=== PATIENT | male | born 1955 | race Caucasian/White ===

== ENCOUNTER 2020-10-16 08:28 | Outpatient (REF) | payer MEDICARE, SELFPAY ==
[2020-10-16 10:04] LABS: MANUAL DIFF FLAG NO
[2020-10-16 10:07] LABS: Basophils Absolute Auto 0.1 X10*3/uL (0.0-0.2); Basophils Percent Auto 1.3 % (0-2); Eosinophils Absolute Auto 0.2 X10*3/uL (0.0-0.4); Eosinophils Percent Auto 2.9 % (0-4); Hematocrit 46.3 % (42-52); Imm Gran Abs Auto 0.03 X10*3/uL (0.00-0.03); Imm Gran Pct Auto 0.5 % (0.0-0.4); Lymphocytes Absolute Auto 1.6 X10*3/uL (1.2-4.9); Lymphocytes Percent Auto 25.7 % (20-40); Mean Corpuscular HGB Conc 34.6 g/dl (31.0-36.0); Mean Corpuscular Hemoglobin 34.4 pg (27.0-33.0); Mean Corpuscular Volume 99.6 fL (80-98); Monocytes Absolute Auto 0.6 X10*3/uL (0.1-1.2); Monocytes Percent Auto 10.3 % (2-11); Neutrophils Absolute Auto 3.7 X10*3/uL (2.0-8.3); Neutrophils Percent Auto 59.3 % (45-73); Platelet Count 209 X10*3/uL (160-400); Red Blood Count 4.65 X10*6/uL (4.60-5.80); Red Cell Distribution Width 12.4 % (11.0-16.0); White Blood Count 6.2 X10*3/uL (4.8-10.8)
[2020-10-16 10:44] LABS: Glucose Urine UA NEG (NEG); Leukocyte Esterase Urine NEG (NEG); Nitrite Urine NEG (NEG); Specific Gravity - Urine 1.025 (1.005-1.025); Urine Blood NEG (NEG); Urine Ketones NEG (NEG); Urine Protein 1+ MG/DL (NEG-TRACE)
[2020-10-16 10:57] LABS: Appearance Urine HAZY; Color Urine YELLOW
[2020-10-16 11:04] LABS: Estimated Average Glucose 105 mg/dL; Hemoglobin A1c % 5.3 %
[2020-10-16 11:14] LABS: Alanine Aminotransferase 38 U/L (0-40); Albumin Level 3.9 g/dL (3.5-5.0); Alkaline Phosphatase 69 U/L (39-117); Anion Gap 15 (12-20); Aspartate Amino Transferase 49 U/L (5-37); Bilirubin Total 1.1 mg/dL (0.0-1.0); Blood Urea Nitrogen 12 mg/dL (9-16); Calcium 9.1 mg/dL (8.4-10.2); Carbon Dioxide 29 mmol/L (22-29); Chloride 100 mmol/L (96-108); Cholesterol 192 mg/dL; Estimated Glomerular Filt Rate > 60; Glucose Fasting 98 mg/dL (60-99); HDL Cholesterol 54 mg/dL; LDL Cholesterol Calculated 124 mg/dl; Potassium 3.7 mmol/l (3.3-5.1); Sodium 140 mmol/L (135-145); Total Protein 7.2 g/dL (6.5-8.0); Triglycerides 72 mg/dL
[2020-10-16 11:20] LABS: TSH reflex Free T4 2.39 mIU/mL (0.32-4.0); Vitamin D 25-OH Total 27.2 ng/mL (>30)
[2020-10-16 11:28] LABS: Creatinine Urine 178.95 mg/dL; Microalbum/Creatinine Ratio Ur 139.7 ug/mg cr
[2020-10-16 11:29] LABS: Bacteria Urine TRACE /LPF; Mucus Urine TRACE /LPF; RBC Urine 0 /HPF (0); Squamous Epithelial Cell Urine TRACE /LPF; WBC Urine 0-2 /HPF (0-4)
== END 2020-10-16 08:29 | disposition home or self-care (01) ==
LOC: HO.10HDL 08:28
PROVIDERS: PCP Internal Medicine; Visit Provider Internal Medicine
DX: E78.00 Pure hypercholesterolemia, unspecified (principal); I10 Essential (primary) hypertension; R73.01 Impaired fasting glucose; R94.5 Abnormal results of liver function studies; E66.9 Obesity, unspecified; E55.9 Vitamin D deficiency, unspecified; N28.9 Disorder of kidney and ureter, unspecified
CPT/HCPCS: 36415; 80053; 80061; 81001; 82043; 82306; 83036; 84443; 85025

== ENCOUNTER 2021-02-08 07:50 | Outpatient (REF) | payer MEDICARE, SELFPAY ==
[2021-02-08 10:17] LABS: MANUAL DIFF FLAG NO
[2021-02-08 10:38] LABS: Basophils Absolute Auto 0.1 X10*3/uL (0.0-0.2); Eosinophils Absolute Auto 0.1 X10*3/uL (0.0-0.4); Eosinophils Percent Auto 1.5 % (0-4); Hematocrit 42.7 % (42-52); Hemoglobin 14.6 g/dl (14.0-18.0); Imm Gran Abs Auto 0.03 X10*3/uL (0.00-0.03); Imm Gran Pct Auto 0.6 % (0.0-0.4); Lymphocytes Absolute Auto 1.2 X10*3/uL (1.2-4.9); Lymphocytes Percent Auto 23.8 % (20-40); Mean Corpuscular HGB Conc 34.2 g/dl (31.0-36.0); Mean Corpuscular Hemoglobin 33.8 pg (27.0-33.0); Mean Corpuscular Volume 98.8 fL (80-98); Mean Platelet Volume 9.4 fL (9.4-12.4); Monocytes Absolute Auto 0.7 X10*3/uL (0.1-1.2); Monocytes Percent Auto 13.1 % (2-11); Neutrophils Absolute Auto 3.1 X10*3/uL (2.0-8.3); Platelet Count 212 X10*3/uL (160-400); Red Blood Count 4.32 X10*6/uL (4.60-5.80); White Blood Count 5.2 X10*3/uL (4.8-10.8)
[2021-02-08 10:48] LABS: Glucose Urine UA NEG (NEG); Leukocyte Esterase Urine NEG (NEG); Nitrite Urine NEG (NEG); PH 8.5 (5.0-8.0); Urine Blood NEG (NEG); Urine Ketones NEG (NEG)
[2021-02-08 10:49] LABS: Alanine Aminotransferase 46 U/L (0-40); Albumin Level 4.2 g/dL (3.5-5.0); Alkaline Phosphatase 63 U/L (39-117); Anion Gap 15 (12-20); Aspartate Amino Transferase 55 U/L (5-37); Bilirubin Total 1.6 mg/dL (0.0-1.0); Blood Urea Nitrogen 9 mg/dL (9-16); Calcium 9.4 mg/dL (8.4-10.2); Carbon Dioxide 29 mmol/L (22-29); Chloride 98 mmol/L (96-108); Cholesterol 213 mg/dL; Estimated Glomerular Filt Rate > 60; Glucose Fasting 107 mg/dL (60-99); HDL Cholesterol 82 mg/dL; LDL Cholesterol Calculated 110 mg/dl; Potassium 3.4 mmol/L (3.3-5.1); Sodium 139 mmol/L (135-145); Total Protein 7.7 g/dL (6.5-8.0); Triglycerides 109 mg/dL
[2021-02-08 11:09] LABS: Appearance Urine CLEAR; Color Urine YELLOW; Urine Protein 2+ MG/DL (NEG-TRACE)
[2021-02-08 11:11] LABS: TSH reflex Free T4 3.98 uIU/mL (0.32-4.0)
[2021-02-08 11:41] LABS: Estimated Average Glucose 103 mg/dL; Hemoglobin A1C 125.1338 umol/L; Hemoglobin A1c % 5.2 %
[2021-02-08 11:45] LABS: RBC Urine 0 /HPF (0); Squamous Epithelial Cell Urine 1+ /LPF; WBC Urine 0 /HPF (0-4)
== END 2021-02-08 07:51 | disposition home or self-care (01) ==
LOC: HO.10HDL 07:50
PROVIDERS: Visit Provider Internal Medicine
DX: I10 Essential (primary) hypertension (principal); E78.00 Pure hypercholesterolemia, unspecified; E66.9 Obesity, unspecified
CPT/HCPCS: 36415; 80053; 80061; 81001; 81003; 83036; 84443; 85025

== ENCOUNTER 2021-06-04 08:02 | Outpatient (REF) | payer MEDICARE, SELFPAY ==
[2021-06-04 08:45] LABS: MANUAL DIFF FLAG NO
[2021-06-04 08:54] LABS: Basophils Absolute Auto 0.1 X10*3/uL (0.0-0.2); Basophils Percent Auto 0.8 % (0-2); Eosinophils Absolute Auto 0.1 X10*3/uL (0.0-0.4); Eosinophils Percent Auto 1.1 % (0-4); Hematocrit 45.1 % (42-52); Hemoglobin 16.5 g/dl (14.0-18.0); Imm Gran Abs Auto 0.02 X10*3/uL (0.00-0.03); Imm Gran Pct Auto 0.3 % (0.0-0.4); Lymphocytes Absolute Auto 1.4 X10*3/uL (1.2-4.9); Lymphocytes Percent Auto 22.1 % (20-40); Mean Corpuscular HGB Conc 36.6 g/dl (31.0-36.0); Mean Corpuscular Hemoglobin 35.2 pg (27.0-33.0); Mean Corpuscular Volume 96.2 fL (80-98); Mean Platelet Volume 9.3 fL (9.4-12.4); Monocytes Absolute Auto 0.8 X10*3/uL (0.1-1.2); Monocytes Percent Auto 11.5 % (2-11); Neutrophils Absolute Auto 4.2 X10*3/uL (2.0-8.3); Neutrophils Percent Auto 64.2 % (45-73); Platelet Count 264 X10*3/uL (160-400); Red Blood Count 4.69 X10*6/uL (4.60-5.80); Red Cell Distribution Width 12.2 % (11.0-16.0); White Blood Count 6.5 X10*3/uL (4.8-10.8)
[2021-06-04 09:16] LABS: Alanine Aminotransferase 54 U/L (0-40); Albumin Level 4.2 g/dL (3.5-5.0); Alkaline Phosphatase 70 U/L (39-117); Anion Gap 17 (12-20); Aspartate Amino Transferase 55 U/L (5-37); Bilirubin Total 1.3 mg/dL (0.0-1.0); Blood Urea Nitrogen 17 mg/dL (9-16); Calcium 9.3 mg/dL (8.4-10.2); Carbon Dioxide 22 mmol/L (22-29); Chloride 106 mmol/L (96-108); Cholesterol 202 mg/dL; Estimated Glomerular Filt Rate 47; Glucose Fasting 93 mg/dL (60-99); HDL Cholesterol 56 mg/dL; LDL Cholesterol Calculated 124 mg/dl; Sodium 141 mmol/L (135-145); Total Protein 7.6 g/dL (6.5-8.0); Triglycerides 110 mg/dL
[2021-06-04 09:18] LABS: Glucose Urine UA NEG (NEG); Leukocyte Esterase Urine NEG (NEG); Nitrite Urine NEG (NEG); PH 5.5 (5.0-8.0); Urine Blood NEG (NEG); Urine Ketones NEG (NEG); Urine Protein NEG (NEG-TRACE)
[2021-06-04 09:20] LABS: Appearance Urine CLEAR; Color Urine YELLOW
[2021-06-04 09:40] LABS: TSH reflex Free T4 1.86 uIU/mL (0.32-4.0); Vitamin D 25-OH Total 26.9 ng/mL (>30)
== END 2021-06-04 08:03 | disposition home or self-care (01) ==
LOC: HO.LAB 08:02
PROVIDERS: PCP Internal Medicine; Visit Provider Internal Medicine
DX: I10 Essential (primary) hypertension (principal); N28.9 Disorder of kidney and ureter, unspecified; E66.9 Obesity, unspecified; E78.00 Pure hypercholesterolemia, unspecified; E55.9 Vitamin D deficiency, unspecified; R73.01 Impaired fasting glucose; R79.89 Other specified abnormal findings of blood chemistry
CPT/HCPCS: 36415; 80053; 80061; 81003; 82306; 84443; 85025

== ENCOUNTER 2021-10-06 08:23 | Outpatient (REF) | payer MEDICARE, SELFPAY ==
[2021-10-06 10:11] LABS: MANUAL DIFF FLAG NO
[2021-10-06 10:17] LABS: Basophils Percent Auto 0.7 % (0-2); Eosinophils Absolute Auto 0.1 X10*3/uL (0.0-0.4); Eosinophils Percent Auto 1.1 % (0-4); Hematocrit 46.3 % (42.0-52.0); Hemoglobin 15.9 g/dl (14.0-18.0); Imm Gran Abs Auto 0.02 X10*3/uL (0.00-0.03); Imm Gran Pct Auto 0.4 % (0.0-0.4); Lymphocytes Absolute Auto 1.2 X10*3/uL (1.2-4.9); Lymphocytes Percent Auto 21.8 % (20-40); Mean Corpuscular HGB Conc 34.3 g/dl (31.0-36.0); Mean Corpuscular Hemoglobin 35.3 pg (27.0-33.0); Mean Corpuscular Volume 102.7 fL (80.0-98.0); Mean Platelet Volume 9.6 fL (9.4-12.4); Monocytes Absolute Auto 0.6 X10*3/uL (0.1-1.2); Neutrophils Absolute Auto 3.6 x10*3/uL (2.0-8.3); Platelet Count 213 X10*3/uL (160-400); Red Blood Count 4.51 X10*6/uL (4.60-5.80); Red Cell Distribution Width 12.5 % (11.0-16.0); White Blood Count 5.5 X10*3/uL (4.8-10.8)
[2021-10-06 10:21] LABS: Appearance Urine CLEAR; Color Urine YELLOW; Glucose Urine UA NEG (NEG); Leukocyte Esterase Urine NEG (NEG); Specific Gravity - Urine >= 1.030 (1.005-1.025); UACC Culture Trigger YES; Urine Blood NEG (NEG); Urine Ketones NEG (NEG); Urine Protein 3+ MG/DL (NEG-TRACE)
[2021-10-06 10:54] LABS: RBC Urine 0 /HPF (0); Squamous Epithelial Cell Urine TRACE /LPF; WBC Urine 0-2 /HPF (0-4)
[2021-10-06 10:58] LABS: Mucus Urine 2+ /LPF
[2021-10-06 10:59] LABS: Alanine Aminotransferase 63 U/L (0-40); Alkaline Phosphatase 78 U/L (39-117); Anion Gap 15 (12-20); Aspartate Amino Transferase 79 U/L (5-37); Bilirubin Total 1.1 mg/dL (0.0-1.0); Blood Urea Nitrogen 11 mg/dL (9-16); Calcium 9.4 mg/dL (8.4-10.2); Carbon Dioxide 27 mmol/L (22-29); Chloride 104 mmol/L (96-108); Cholesterol 181 mg/dL; Estimated Glomerular Filt Rate > 60; Glucose Fasting 114 mg/dL (60-99); HDL Cholesterol 58 mg/dL; LDL Cholesterol Calculated 107 mg/dl; Potassium 3.8 mmol/L (3.3-5.1); Sodium 142 mmol/L (135-145); Total Protein 7.3 g/dL (6.5-8.0); Triglycerides 81 mg/dL
[2021-10-06 11:01] LABS: Nitrite Urine POS (NEG)
[2021-10-06 11:04] LABS: TSH reflex Free T4 4.19 uIU/mL (0.32-4.0)
[2021-10-06 11:37] LABS: Free T4 (Free Thyroxine) 0.92 ng/dL (0.71-1.85)
== END 2021-10-06 08:24 | disposition home or self-care (01) ==
LOC: HO.10HDL 08:23
PROVIDERS: Visit Provider Internal Medicine
DX: I10 Essential (primary) hypertension (principal); E78.00 Pure hypercholesterolemia, unspecified; E55.9 Vitamin D deficiency, unspecified
CPT/HCPCS: 36415; 80053; 80061; 81001; 82306; 84439; 84443; 85025

== ENCOUNTER 2022-02-14 08:50 | Outpatient (REF) | payer MEDICARE, SELFPAY ==
[2022-02-14 10:39] LABS: MANUAL DIFF FLAG NO
[2022-02-14 10:45] LABS: Basophils Absolute Auto 0.1 X10*3/uL (0.0-0.2); Basophils Percent Auto 0.9 % (0-2); Eosinophils Absolute Auto 0.1 X10*3/uL (0.0-0.4); Eosinophils Percent Auto 0.9 % (0-4); Hematocrit 37.6 % (42.0-52.0); Hemoglobin 13.1 g/dl (14.0-18.0); Imm Gran Abs Auto 0.04 X10*3/uL (0.00-0.03); Imm Gran Pct Auto 0.7 % (0.0-0.4); Lymphocytes Absolute Auto 0.8 X10*3/uL (1.2-4.9); Lymphocytes Percent Auto 14.3 % (20-40); Mean Corpuscular HGB Conc 34.8 g/dl (31.0-36.0); Mean Corpuscular Hemoglobin 34.2 pg (27.0-33.0); Mean Corpuscular Volume 98.2 fL (80.0-98.0); Mean Platelet Volume 9.8 fL (9.4-12.4); Monocytes Absolute Auto 0.8 X10*3/uL (0.1-1.2); Monocytes Percent Auto 13.9 % (2-11); Neutrophils Absolute Auto 3.7 x10*3/uL (2.0-8.3); Neutrophils Percent Auto 69.3 % (45-73); Platelet Count 211 X10*3/uL (160-400); Red Blood Count 3.83 X10*6/uL (4.60-5.80); Red Cell Distribution Width 11.9 % (11.0-16.0); White Blood Count 5.4 X10*3/uL (4.8-10.8)
[2022-02-14 10:55] LABS: Alanine Aminotransferase 43 U/L (0-40); Albumin Level 3.9 g/dL (3.5-5.0); Alkaline Phosphatase 65 U/L (39-117); Anion Gap 16 (12-20); Aspartate Amino Transferase 48 U/L (5-37); Bilirubin Total 1.9 mg/dL (0.0-1.0); Blood Urea Nitrogen 15 mg/dL (9-16); Carbon Dioxide 24 mmol/L (22-29); Chloride 97 mmol/L (96-108); Cholesterol 141 mg/dL; Estimated Glomerular Filt Rate 59; Glucose Fasting 98 mg/dL (60-99); HDL Cholesterol 48 mg/dL; LDL Cholesterol Calculated 77 mg/dl; Potassium 4.1 mmol/L (3.3-5.1); Sodium 133 mmol/L (135-145); Triglycerides 83 mg/dL
[2022-02-14 11:06] LABS: Estimated Average Glucose 105 mg/dL; Hemoglobin A1c % 5.3 %
[2022-02-14 11:08] LABS: Appearance Urine CLEAR; Color Urine YELLOW; Glucose Urine UA NEG (NEG); Leukocyte Esterase Urine NEG (NEG); Nitrite Urine NEG (NEG); Urine Blood NEG (NEG); Urine Ketones NEG (NEG); Urine Protein TRACE MG/DL (NEG-TRACE)
[2022-02-14 11:18] LABS: TSH reflex Free T4 4.45 uIU/mL (0.32-4.0); Vitamin D 25-OH Total 22.1 ng/mL (>30)
[2022-02-14 11:53] LABS: Free T4 (Free Thyroxine) 1.01 ng/dL (0.71-1.85)
[2022-02-14 12:09] LABS: Creatinine Urine 99.82 mg/dL; Microalbum/Creatinine Ratio Ur 109.1 ug/mg cr
== END 2022-02-14 08:51 | disposition home or self-care (01) ==
LOC: HO.10HDL 08:50
PROVIDERS: Visit Provider Internal Medicine
DX: I10 Essential (primary) hypertension (principal); E11.9 Type 2 diabetes mellitus without complications; E55.9 Vitamin D deficiency, unspecified; E78.00 Pure hypercholesterolemia, unspecified
CPT/HCPCS: 36415; 80053; 80061; 81003; 82043; 82306; 83036; 84439; 84443; 85025

== ENCOUNTER 2022-05-20 07:06 | Outpatient (REF) | payer MEDICARE, SELFPAY ==
--- NOTE | ~2022-05-20 | US_ITS ---
EXAMINATION: US ABDOMEN COMPLETE CLINICAL INFORMATION: Disorders of bilirubin acute embolism.. COMPARISON: None TECHNIQUE: Real-time imaging of the abdominal viscera. FINDINGS: PANCREAS: Normal. ABDOMINAL AORTA: The proximal, mid, and distal segments are normal in caliber. INFERIOR VENA CAVA: Visualized portions are normal. LIVER: Normal. The liver is normal in size. The liver contour is normal. Parenchymal echogenicity is increased. No focal hepatic lesion. There is no intrahepatic biliary duct dilatation seen. GALLBLADDER: The gallbladder wall thickness is 0.55 cm The gallbladder is physiologically distended without evidence of stones, sludge, polyps, wall thickening or pericholecystic fluid. COMMON BILE DUCT: Normal in caliber measuring 0.41 cm in diameter. RIGHT KIDNEY: No hydronephrosis. No renal calculi or focal parenchymal lesions. The kidney measures 12.4 cm in maximum dimension. There is anechoic cyst measuring 0.70 x 0.47 x 0.55 cm in midpole. LEFT KIDNEY: Normal. No hydronephrosis. No renal calculi or focal parenchymal lesions. The kidney measures 11.5 cm in maximum dimension. SPLEEN: Normal. The spleen measures 10.5 cm in maximum dimension. FREE FLUID: New finding of a large right pleural effusion US/US abdomen complete IMPRESSION: Gallbladder wall thickness measuring 0.55 cm. Anechoic cyst midpole right kidney measuring 0.70 x 0.47 x 0.55 cm. Rest of the abdominal ultrasound is unremarkable. The large right pleural effusion. Request was made to the referrer's office for a chest x-ray to be obtained. Patient has short of breath.
--- NOTE | ~2022-05-20 | XR_ITS ---
EXAMINATION: XR CHEST CLINICAL INFORMATION: Cough and short of breath COMPARISON: None TECHNIQUE: 2 views of the chest were obtained. FINDINGS: There is opacification of right lung base from pleural effusion and/or atelectasis. Infiltrate is not excluded. The right upper lung and the left lung is expanded. The pulmonary vascularity is prominent but no congestion seen. The heart size is enlarged. No gross bony abnormality seen. XR/XR chest 4 views IMPRESSION: Cardiomegaly. [id number] right pleural effusion with underlying infiltrate/atelectasis.
== END 2022-05-20 07:07 | disposition home or self-care (01) ==
LOC: HO.US 07:06
PROVIDERS: Visit Provider Internal Medicine
DX: J90 Pleural effusion, not elsewhere classified (principal); R79.89 Other specified abnormal findings of blood chemistry; E80.6 Other disorders of bilirubin metabolism
CPT/HCPCS: 71048; 76700

== ENCOUNTER 2022-05-20 08:45 | Emergency (ER) | payer MEDICARE, SELFPAY ==
[2022-05-20 09:06] VITALS: BP 157/75; PULSE 50; RESP 16; TEMP 36.4; O2SAT 97; BMI 30.8
--- NOTE | 2022-05-20 09:09 | ECG_ITS ---
Test Reason : sob Blood Pressure : / mmHG Vent. Rate : 048 BPM Atrial Rate : 000 BPM P-R Int : 000 ms QRS Dur : 098 ms QT Int : 514 ms P-R-T Axes : 000 037 208 degrees QTc Int : 459 ms Atrial fibrillation with slow ventricular response Low voltage QRS Incomplete right bundle branch block Nonspecific T wave abnormality Abnormal ECG No previous ECGs available Referred By: Generic ED Physician Electronically Signed By:FRANSISCO DENISE MD
[2022-05-20 09:38] LABS: MANUAL DIFF FLAG NO
[2022-05-20 09:42] LABS: Basophils Absolute Auto 0.1 X10*3/uL (0.0-0.2); Basophils Percent Auto 0.8 % (0-2); Eosinophils Absolute Auto 0.2 X10*3/uL (0.0-0.4); Eosinophils Percent Auto 2.4 % (0-4); Hematocrit 34.5 % (42.0-52.0); Hemoglobin 11.5 g/dl (14.0-18.0); Imm Gran Abs Auto 0.04 X10*3/uL (0.00-0.03); Imm Gran Pct Auto 0.6 % (0.0-0.4); Lymphocytes Absolute Auto 0.7 X10*3/uL (1.2-4.9); Lymphocytes Percent Auto 11.8 % (20-40); Mean Corpuscular HGB Conc 33.3 g/dl (31.0-36.0); Mean Corpuscular Hemoglobin 32.6 pg (27.0-33.0); Mean Corpuscular Volume 97.7 fL (80.0-98.0); Mean Platelet Volume 9.2 fL (9.4-12.4); Monocytes Absolute Auto 1.1 X10*3/uL (0.1-1.2); Neutrophils Absolute Auto 4.2 x10*3/uL (2.0-8.3); Neutrophils Percent Auto 67.4 % (45-73); Platelet Count 238 X10*3/uL (160-400); Red Blood Count 3.53 X10*6/uL (4.60-5.80); Red Cell Distribution Width 13.5 % (11.0-16.0); White Blood Count 6.3 X10*3/uL (4.8-10.8)
[2022-05-20 10:02] LABS: Anion Gap 17 (12-20); Blood Urea Nitrogen 13 mg/dL (9-16); Calcium 8.5 mg/dL (8.4-10.2); Carbon Dioxide 20 mmol/L (22-29); Chloride 106 mmol/L (96-108); Creatinine Clr Calc Pharmacy 61.8; Estimated Glomerular Filt Rate 54; Glucose Random 110 mg/dL (60-115); Potassium 3.9 mmol/L (3.3-5.1); Sodium 139 mmol/L (135-145)
[2022-05-20 10:06] LABS: B Type Natriuretic Peptide 878 pg/mL (<100); COVID-19 Test Negative (Negative); IDNOW Serial# 16C4AD1C; Troponin-I High Sensitivity 8.8 ng/L (<3.5-35.0)
== END 2022-05-20 13:42 | disposition left against medical advice (07) ==
PROVIDERS: Emergency Medicine; Emergency Provider Emergency Medicine; PCP Internal Medicine
DX: I11.9 Hypertensive heart disease without heart failure (principal); J90 Pleural effusion, not elsewhere classified; R06.02 Shortness of breath; E78.00 Pure hypercholesterolemia, unspecified; E66.9 Obesity, unspecified; Z68.30 Body mass index [BMI] 30.0-30.9, adult; Z87.891 Personal history of nicotine dependence; Z20.822 Contact with and (suspected) exposure to COVID-19
CPT/HCPCS: 36415; 80048; 83880; 84484; 85025; 87635; 93005; 99283; 99284

== ENCOUNTER 2022-06-07 10:24 | Inpatient (IN) | payer MEDICARE, SELFPAY ==
--- NOTE | ~2022-06-07 | US_ITS ---
EXAMINATION: US SCROTUM CLINICAL INFORMATION: Swelling.. COMPARISON: None TECHNIQUE: A sonogram of the scrotum was performed assessing carballo-scale appearance and color Doppler flow. Spectral Doppler analysis of the arterial and venous flow were performed in the testes bilaterally. FINDINGS: RIGHT: Right testicle measures 3.7 x 2.6 x 2.4 cm, volume 12.1 mL. No focal testicular parenchymal lesions are visualized except for punctate echogenic microcalcifications.. Spectral Doppler analysis of the arterial and venous flow is normal in the right testis. Right epididymal head is normal in size. There is a small right hydrocele. No varicocele is seen. Right epididymal Doppler flow is normal. LEFT: Left testicle measures 3.8 x 2.4 x 2.3 cm, volume 11.0 mL. No focal testicular parenchymal lesions are visualized except for punctate echogenic calcifications. Spectral Doppler analysis of the arterial and venous flow is normal in the left testis. Left epididymal head is normal in size. There is a small left hydrocele. No varicocele is seen. Left epididymal Doppler flow is normal There is mild bilateral scrotal wall thickening and edema US/US scrotum doppler IMPRESSION: Bilateral scrotal wall thickening and edema. Small bilateral hydroceles. Bilateral testicular microlithiasis.
--- NOTE | ~2022-06-07 | XR_ITS ---
EXAMINATION: XR CHEST CLINICAL INFORMATION: elevated BNP COMPARISON: 05/20/2022 TECHNIQUE: Frontal view of the chest was obtained. FINDINGS: Heart size within normal limits. A moderate subpulmonic right pleural effusion present in size slightly. No left effusion is seen. There is mild upper zone redistribution suggesting mildly elevated left ventricular end-diastolic pressure. There is no gross CHF or interstitial edema. Degenerative changes are noted in the spine and both AC joints. XR/XR chest 1V IMPRESSION: Right subpulmonic effusion increased in size slightly with mild upper zone redistribution indicative of mild pulmonary vascular congestion.
--- NOTE | ~2022-06-07 | US_ITS ---
EXAMINATION: US SCROTUM CLINICAL INFORMATION: Swelling.. COMPARISON: None TECHNIQUE: A sonogram of the scrotum was performed assessing carballo-scale appearance and color Doppler flow. Spectral Doppler analysis of the arterial and venous flow were performed in the testes bilaterally. FINDINGS: RIGHT: Right testicle measures 3.7 x 2.6 x 2.4 cm, volume 12.1 mL. No focal testicular parenchymal lesions are visualized except for punctate echogenic microcalcifications.. Spectral Doppler analysis of the arterial and venous flow is normal in the right testis. Right epididymal head is normal in size. There is a small right hydrocele. No varicocele is seen. Right epididymal Doppler flow is normal. LEFT: Left testicle measures 3.8 x 2.4 x 2.3 cm, volume 11.0 mL. No focal testicular parenchymal lesions are visualized except for punctate echogenic calcifications. Spectral Doppler analysis of the arterial and venous flow is normal in the left testis. Left epididymal head is normal in size. There is a small left hydrocele. No varicocele is seen. Left epididymal Doppler flow is normal There is mild bilateral scrotal wall thickening and edema US/US scrotum IMPRESSION: Bilateral scrotal wall thickening and edema. Small bilateral hydroceles. Bilateral testicular microlithiasis.
[2022-06-07 10:35] VITALS: BP 151/48; PULSE 102; RESP 18; TEMP 36.1; O2SAT 96; BMI 28.7
--- NOTE | 2022-06-07 10:43 | ECG_ITS ---
Test Reason : edema Blood Pressure : / mmHG Vent. Rate : 048 BPM Atrial Rate : 000 BPM P-R Int : 000 ms QRS Dur : 100 ms QT Int : 496 ms P-R-T Axes : 000 028 225 degrees QTc Int : 443 ms Atrial fibrillation with slow ventricular response with a competing junctional pacemaker Incomplete right bundle branch block ST & T wave abnormality, consider anterior ischemia Abnormal ECG When compared with ECG of 20-MAY-2022 09:19, No significant change was found Referred By: Pino Cho Electronically Signed By:FRANSISCO DENISE MD
[2022-06-07 11:00] LABS: MANUAL DIFF FLAG NO
[2022-06-07 11:02] LABS: Basophils Absolute Auto 0.1 X10*3/uL (0.0-0.2); Basophils Percent Auto 0.9 % (0-2); Eosinophils Absolute Auto 0.2 X10*3/uL (0.0-0.4); Eosinophils Percent Auto 3.3 % (0-4); Hematocrit 33.6 % (42.0-52.0); Imm Gran Abs Auto 0.03 X10*3/uL (0.00-0.03); Imm Gran Pct Auto 0.6 % (0.0-0.4); Lymphocytes Absolute Auto 0.8 X10*3/uL (1.2-4.9); Lymphocytes Percent Auto 15.4 % (20-40); Mean Corpuscular HGB Conc 32.7 g/dl (31.0-36.0); Mean Corpuscular Hemoglobin 31.8 pg (27.0-33.0); Mean Corpuscular Volume 97.1 fL (80.0-98.0); Monocytes Absolute Auto 0.8 X10*3/uL (0.1-1.2); Neutrophils Absolute Auto 3.5 x10*3/uL (2.0-8.3); Neutrophils Percent Auto 64.8 % (45-73); Platelet Count 252 X10*3/uL (160-400); Red Blood Count 3.46 X10*6/uL (4.60-5.80); Red Cell Distribution Width 13.5 % (11.0-16.0); White Blood Count 5.4 X10*3/uL (4.8-10.8)
[2022-06-07 11:13] LABS: Anion Gap 17 (12-20); Blood Urea Nitrogen 9 mg/dL (9-16); Calcium 8.3 mg/dL (8.4-10.2); Carbon Dioxide 21 mmol/L (22-29); Chloride 106 mmol/L (96-108); Creatinine Clr Calc Pharmacy 83.1; Estimated Glomerular Filt Rate > 60; Glucose Random 112 mg/dL (60-115); Potassium 3.3 mmol/L (3.3-5.1); Sodium 141 mmol/L (135-145)
[2022-06-07 11:19] LABS: B Type Natriuretic Peptide 1097 pg/mL (<100); Troponin-I High Sensitivity 8.5 ng/L (<3.5-35.0)
--- NOTE | 2022-06-07 11:45 | ED_ITS ---
HPI - Male Genitourinary General Chief complaint: Urogenital-Male Stated complaint: Genital swelling Time Seen by Provider: 06/07/22 11:38 Source: patient Mode of arrival: ambulatory Limitations: no limitations History of Present Illness HPI Narrative: Patient comes to the emergency room complaining of 3 days of scrotal edema. Patient denies any trauma, no pain. Complaining of mild difficulty urinating. Patient states that the scrotal swelling happen overnight, gradually getting worse. While patient was in the waiting room, labs and EKG were ordered. Patient has new onset atrial fibrillation and CHF. She denies any chest pain or shortness of breath. Related Data Home Medications Medication Instructions Recorded Confirmed ergocalciferol (vitamin D2) 1,250 1,250 mcg PO QWEEK 10/20/20 02/16/22 mcg (50,000 unit) capsule (Vitamin D2) hydrochlorothiazide 50 mg tablet 25 mg PO QAM 10/20/20 02/16/22 Previous Rx's Medication Instructions Recorded amlodipine 10 mg tablet 10 mg PO DAILY 90 days #90 tabs 06/09/21 losartan 100 mg tablet 100 mg PO DAILY 90 days #90 tabs 06/09/21 metoprolol succinate 100 mg 100 mg PO DAILY 90 days #90 tabs 06/09/21 tablet,extended release 24 hr Allergies Allergy/AdvReac Type Severity Reaction Status Date / Time penicillin V Allergy Unknown Unknown Verified 06/07/22 10:35 Review of Systems Review of Systems: Constitutional : No Weight loss, No Fever, No Chills, No Night Sweats, No Fatigue, No Malaise ENT/Mouth : No Hearing loss, No Ear Pain, No Nasal Congestion, No Sinus Pain, No Hoarseness, No sore throat, No Rhinorrhea, No Swallowing Difficulty Eyes: No Eye Pain, No Swelling, No Redness, No Foreign Body, No Discharge, No Vision Changes Cardiovascular : No Chest Pain, No SOB, No Dyspnea on Exertion, No Orthopnea, No Edema, No Palpitations Respiratory : No Cough, No Sputum, No Wheezing, No Smoke Exposure, No Dyspnea Gastrointestinal : No Nausea, No Vomiting, No Diarrhea, No Constipation, No abdominal Pain, No Hematochezia, No Melena Genitourinary : Complaining of significant scrotal swelling without pain, No Dysuria, No Urinary Frequency, No Hematuria, No Urinary Incontinence, No Urgency, No Flank Pain, No Urinary Flow Changes, No Hesitancy Musculoskeletal : No joint pain, No Myalgias, No Joint Swelling Skin : No Skin Lesions, No rash Neuro : No Weakness, No Numbness, No Paresthesias, No Loss of Consciousness, No Dizziness, No Headache Psych : No Anxiety/Panic, No Depression, No SI/HI/AH/VH, No Social Issues, Heme/Lymph: No Bruising, No Bleeding,No Lymphadenopathy Endocrine : No Polyuria, No Polydipsia, No Temperature Intolerance [facility] Past Medical History Medical History (Updated 06/07/22 @ 11:56 by Lisette Valencia MD) Benign essential hypertension Elevated LFTs Impaired fasting glucose New onset a-fib New onset of congestive heart failure Obesity (BMI 30-39.9) Pure hypercholesterolemia Renal insufficiency Vitamin D deficiency Surgical History No pertinent past surgical history Family History Family History Father Hypertension Mother Medical history unknown Social History Social History Housing: Apartment Alcohol intake: current Alcohol intake frequency: holidays/special occasions only Patient Tobacco Use Status: Former Tobacco user Second Hand Smoke Exposure: Yes Advance Directives: No Advance Directives Information Provided: Yes service: No Current occupational status: retired Cognitive needs: No Hearing needs: No Vision needs: Yes Physical Exam Vital Signs: Vital Signs: Last Vital Signs Temp 97.0 F 06/07/22 10:35 Pulse 49 L 06/07/22 12:29 Resp 20 06/07/22 12:29 BP 142/69 H 06/07/22 12:29 Pulse Ox 94 06/07/22 12:29 O2 Del Method 06/07/22 12:29 BMI result Body Mass Index 28.7 Const: Other: Appearance: Alert. Oriented X3. No acute distress. Eyes: Pupils equal, round and reactive to light. ENT: Pharynx normal. Large external nodules outside the nose Neck: Normal inspection. Neck supple. No lymph nodes noted. No crepitus CVS: Normal heart rate and rhythm. Pulses normal. Normal S1 and S2 Respiratory: No respiratory distress. Breath sounds normal. No Wheezing. No rales Abdomen: Soft and nontender. No rigidity. No distention. : Very swollen penis and scrotum, edematous, mildly tender to touch, the scrotum is the size of large grapefruit Skin: Skin warm and dry. Normal skin color. Normal skin turgor. Extremities: No lower extremity edema. No Lacerations. No Rash Neuro: Oriented X 3. No motor deficit. No sensory deficit. Moving all extremities. No slurred speech. CN 2 through 12 grossly intact Psych: calm, cooperative, normal affect Course Course Course Narrative: Patient's hematology and chemistry are basically unremarkable. However, patient's BNP is 1097. Patient states that he was here approximately 2 weeks ago but did not wait to be seen. Back then, his BNP was already 878. Patient does not have history of CHF. Also, on EKG patient is in atrial fibrillation, heart rate in the low 50s. Atrial fibrillation is also new for the patient. Scrotal ultrasound, chest x-ray and urinalysis pending. Patient's CHADS2 Vasc 2 score is 3. I discussed with the patient the risks versus benefits of starting anticoagulation. Patient states that the only medication that he will accept is Coumadin, he refuses Eliquis or Xarelto. MDM - Male Genitourinary Lab Data Result diagrams: 06/07/22 10:52 06/07/22 10:52 Labs: Lab Results 06/07/22 06/07/22 06/07/22 Range/Units 10:52 10:52 10:52 WBC 5.4 (4.8-10.8) X10*3/uL RBC 3.46 L (4.60-5.80) X10*6/uL Hgb 11.0 L (14.0-18.0) g/dl Hct 33.6 L (42.0-52.0) % MCV 97.1 (80.0-98.0) fL MCH 31.8 (27.0-33.0) pg MCHC 32.7 (31.0-36.0) g/dl RDW 13.5 (11.0-16.0) % Plt Count 252 (160-400) X10*3/uL MPV 9.0 L (9.4-12.4) fL Immature Gran % (Auto) 0.6 H (0.0-0.4) % Neut % (Auto) 64.8 (45-73) % Lymph % (Auto) 15.4 L (20-40) % [place] % (Auto) 15.0 H (2-11) % Eos % (Auto) 3.3 (0-4) % Baso % (Auto) 0.9 (0-2) % Lymph # (Auto) 0.8 L (1.2-4.9) X10*3/uL [place] # (Auto) 0.8 (0.1-1.2) X10*3/uL Eos # (Auto) 0.2 (0.0-0.4) X10*3/uL Baso # (Auto) 0.1 (0.0-0.2) X10*3/uL Abs Immat Gran (auto) 0.03 (0.00-0.03) X10*3/uL Absolute Neuts (auto) 3.5 (2.0-8.3) x10*3/uL Absolute Nucleated RBC 0.000 (0.0-0.012) X10*3/uL Nucleated RBC % (auto) 0.0 (0.0-0.2) /100WBC Sodium 141 (135-145) mmol/L Potassium 3.3 (3.3-5.1) mmol/L Chloride 106 (96-108) mmol/L Carbon Dioxide 21 L (22-29) mmol/L Anion Gap 17 (12-20) BUN 9 (9-16) mg/dL Creatinine 0.95 (0.5-1.4) mg/dL Estim Creat Clear Calc 83.1 Estimated GFR > 60 Random Glucose 112 (60-115) mg/dL Calcium 8.3 L (8.4-10.2) mg/dL Troponin I High Sens 8.5 (<3.5-35.0) ng/L B-Natriuretic Peptide (<100) pg/mL 06/07/22 Range/Units 10:52 WBC (4.8-10.8) X10*3/uL RBC (4.60-5.80) X10*6/uL Hgb (14.0-18.0) g/dl Hct (42.0-52.0) % MCV (80.0-98.0) fL MCH (27.0-33.0) pg MCHC (31.0-36.0) g/dl RDW (11.0-16.0) % Plt Count (160-400) X10*3/uL MPV (9.4-12.4) fL Immature Gran % (Auto) (0.0-0.4) % Neut % (Auto) (45-73) % Lymph % (Auto) (20-40) % [place] % (Auto) (2-11) % Eos % (Auto) (0-4) % Baso % (Auto) (0-2) % Lymph # (Auto) (1.2-4.9) X10*3/uL [place] # (Auto) (0.1-1.2) X10*3/uL Eos # (Auto) (0.0-0.4) X10*3/uL Baso # (Auto) (0.0-0.2) X10*3/uL Abs Immat Gran (auto) (0.00-0.03) X10*3/uL Absolute Neuts (auto) (2.0-8.3) x10*3/uL Absolute Nucleated RBC (0.0-0.012) X10*3/uL Nucleated RBC % (auto) (0.0-0.2) /100WBC Sodium (135-145) mmol/L Potassium (3.3-5.1) mmol/L Chloride (96-108) mmol/L Carbon Dioxide (22-29) mmol/L Anion Gap (12-20) BUN (9-16) mg/dL Creatinine (0.5-1.4) mg/dL Estim Creat Clear Calc Estimated GFR Random Glucose (60-115) mg/dL Calcium (8.4-10.2) mg/dL Troponin I High Sens (<3.5-35.0) ng/L B-Natriuretic Peptide 1097 H (<100) pg/mL Imaging Data Scrotal ultrasound: Radiologist's impression: FINDINGS: RIGHT: Right testicle measures 3.7 x 2.6 x 2.4 cm, volume 12.1 mL. No focal testicular parenchymal lesions are visualized except for punctate echogenic microcalcifications.. Spectral Doppler analysis of the arterial and venous flow is normal in the right testis. Right epididymal head is normal in size. There is a small right hydrocele. No varicocele is seen. Right epididymal Doppler flow is normal. LEFT: Left testicle measures 3.8 x 2.4 x 2.3 cm, volume 11.0 mL. No focal testicular parenchymal lesions are visualized except for punctate echogenic calcifications. Spectral Doppler analysis of the arterial and venous flow is normal in the left testis. Left epididymal head is normal in size. There is a small left hydrocele. No varicocele is seen. Left epididymal Doppler flow is normal There is mild bilateral scrotal wall thickening and edema US/US scrotum IMPRESSION: Bilateral scrotal wall thickening and edema. ? Small bilateral hydroceles. ? Bilateral testicular microlithiasis. Chest x-ray: Radiologist's impression: INDINGS: Heart size within normal limits. A moderate subpulmonic right pleural effusion present in size slightly. No left effusion is seen. There is mild upper zone redistribution suggesting mildly elevated left ventricular end-diastolic pressure. There is no gross CHF or interstitial edema. Degenerative changes are noted in the spine and both AC joints. XR/XR chest 1V IMPRESSION: Right subpulmonic effusion increased in size slightly with mild upper zone redistribution indicative of mild pulmonary vascular congestion. Discharge Plan Discharge Clinical Impression: New onset a-fib, New onset of congestive heart failure, Scrotal edema Prescriptions: No Action ergocalciferol (vitamin D2) [Vitamin D2] 1,250 mcg (50,000 unit) capsule 1,250 mcg PO QWEEK hydrochlorothiazide 50 mg tablet 25 mg PO QAM amlodipine 10 mg tablet 10 mg PO DAILY 90 Days Qty: 90 3RF losartan 100 mg tablet 100 mg PO DAILY 90 Days Qty: 90 3RF metoprolol succinate 100 mg tablet extended release 24 hr 100 mg PO DAILY 90 Days Qty: 90 3RF
[2022-06-07 12:29] VITALS: BP 142/69; PULSE 49; RESP 20; O2SAT 94
[2022-06-07 14:00] VITALS: BP 164/76; PULSE 60
[2022-06-07 14:17] LABS: Appearance Urine CLEAR; Color Urine YELLOW; Glucose Urine UA NEG (NEG); Leukocyte Esterase Urine NEG (NEG); Nitrite Urine NEG (NEG); Specific Gravity - Urine 1.015 (1.005-1.025); Urine Blood NEG (NEG); Urine Ketones NEG (NEG); Urine Protein TRACE MG/DL (NEG-TRACE)
[2022-06-07] MEDS: Furosemide 40 MG/4 ML VIAL IVPUSH (14:17)
--- NOTE | 2022-06-07 14:56 | PC.NURSE ---
pt a&ox4. oob with assistance. Pt resting comfortably, currently all needs being met.
--- NOTE | 2022-06-07 15:20 | PM.IMHP ---
History of Present Illness Date of Service: 06/07/22 Chief Complaint: Scrotal swelling and pain a 67 years old male with PMH of HTN, HLD, CKD who presents to the hospital with a complaint of scrotal swelling and pain for the last 3 days. The patient reported not noticing any problems until the last 2 days when he fell this scrotum is getting more swollen, pain at the bottom of it with associated swelling and edema. He had difficulties passing the urine. He denies any fever, chills, chest pain, palpitation, nausea, shortness of breath, dyspnea, vomiting, change in bowel habit. In the emergency was noticed to swollen lower extremities and scrotum with no associated tenderness on exam. Ultrasound negative for torsion. BNP was noted to be elevated. EKG showed evidence of new onset atrial fibrillation in slow rate. Admitted for further evaluation and treatment. Review of Systems Review of Systems: No fever, chills or weakness No chest pain, palpitation , lower extremities edema No shortness of breath or coughing No abdominal pain, nausea or vomiting Scrotal swelling No any rash or wounds PMFSH Medical History Benign essential hypertension Elevated LFTs Impaired fasting glucose New onset a-fib New onset of congestive heart failure Obesity (BMI 30-39.9) Pure hypercholesterolemia Renal insufficiency Vitamin D deficiency Family History Father Hypertension Mother Medical history unknown Surgical History No pertinent past surgical history Social History Housing: Apartment Alcohol intake: current Alcohol intake frequency: holidays/special occasions only Patient Tobacco Use Status: Former Tobacco user Second Hand Smoke Exposure: Yes Advance Directives: No Advance Directives Information Provided: Yes service: No Current occupational status: retired Cognitive needs: No Hearing needs: No Vision needs: Yes Meds Allergies Allergy/AdvReac Type Severity Reaction Status Date / Time penicillin V Allergy Unknown Unknown Verified 06/07/22 10:35 Active Medications: Current Medications Acetaminophen (Acetaminophen 325 Mg Tablet) 650 mg PO Q6H PRN PRN Reason: Pain, Mild (Pain Scale 1-3) Furosemide (Furosemide 40 Mg/4 Ml Vial) 40 mg IVPUSH DAILY RENÉE; Protocol Ondansetron HCl (Ondansetron Hcl 4 Mg/2 Ml Vial) 4 mg IVPUSH Q8H PRN PRN Reason: Nausea and Vomiting Pharmacy Consult (Consult Rx Perform Med Rec) 1 each MISCELLANE ONCE PRN PRN Reason: Consult order Pharmacy Consult (Consult Rx Perform Med Rec) 1 each MISCELLANE ONCE PRN PRN Reason: Consult order Sodium Chloride (0.9 % Sodium Chloride Flush 3 Ml Syringe) 3 ml IVFLUSH QSHIFT RENÉE Physical Exam Vital Signs and Narrative: Vital Signs: Last Vital Signs Temp 97.0 F 06/07/22 10:35 Pulse 60 06/07/22 14:00 Resp 20 06/07/22 12:29 BP 164/76 H 06/07/22 14:00 Pulse Ox 94 06/07/22 12:29 O2 Del Method 06/07/22 12:29 BMI result Body Mass Index 28.7 Const: Other: Constitutional : Alert, oriented, not in distress reji:Abnormal external nose present , rhinophyma Neck : Normal inspection, Supple Cardiovascular : RRR, no JVP, +1 bilateral lower extremity edema Respiratory : fair bilateral air entry, no crackles, wheezes or rhonchi Gastrointestinal: soft, lax, Normal bowel sounds, Non tender Skin : Warm, Dry Genital: scrotal swelling with no significant tenderness or erythema noticed, penis inside the swollen scrotum with leakage of urine Neurological : Alert & oriented x3, No focal deficit , CN 2-12 within normal Results Labs CBC and Chem 7: 06/07/22 10:52 06/07/22 10:52 Labs: Laboratory Results - last 24 hr 06/07/22 06/07/22 06/07/22 10:52 10:52 10:52 MCV 97.1 MCH 31.8 MCHC 32.7 RDW 13.5 Plt Count 252 MPV 9.0 L Immature Gran % (Auto) 0.6 H Neut % (Auto) 64.8 Lymph % (Auto) 15.4 L [place] % (Auto) 15.0 H Eos % (Auto) 3.3 Baso % (Auto) 0.9 Lymph # (Auto) 0.8 L [place] # (Auto) 0.8 Eos # (Auto) 0.2 Baso # (Auto) 0.1 Abs Immat Gran (auto) 0.03 Absolute Neuts (auto) 3.5 Absolute Nucleated RBC 0.000 Nucleated RBC % (auto) 0.0 Anion Gap 17 Estim Creat Clear Calc 83.1 Estimated GFR > 60 Random Glucose 112 Calcium 8.3 L B-Natriuretic Peptide 1097 H Urine Color Urine Appearance Urine pH Ur Specific [place] Urine Protein Urine Glucose (UA) Urine Ketones Urine Blood Urine Nitrite Ur Leukocyte Esterase 06/07/22 14:10 MCV MCH MCHC RDW Plt Count MPV Immature Gran % (Auto) Neut % (Auto) Lymph % (Auto) [place] % (Auto) Eos % (Auto) Baso % (Auto) Lymph # (Auto) [place] # (Auto) Eos # (Auto) Baso # (Auto) Abs Immat Gran (auto) Absolute Neuts (auto) Absolute Nucleated RBC Nucleated RBC % (auto) Anion Gap Estim Creat Clear Calc Estimated GFR Random Glucose Calcium B-Natriuretic Peptide Urine Color YELLOW Urine Appearance CLEAR Urine pH 6.0 Ur Specific [place] 1.015 Urine Protein TRACE Urine Glucose (UA) NEG Urine Ketones NEG Urine Blood NEG Urine Nitrite NEG Ur Leukocyte Esterase NEG Imaging Radiologist's Impressions: Impressions Scrotum Ultrasound 06/07/22 11:18 IMPRESSION: Bilateral scrotal wall thickening and edema. Small bilateral hydroceles. Bilateral testicular microlithiasis. Scrotum Ultrasound 06/07/22 11:18 IMPRESSION: Bilateral scrotal wall thickening and edema. Small bilateral hydroceles. Bilateral testicular microlithiasis. Chest X-Ray 06/07/22 12:08 IMPRESSION: Right subpulmonic effusion increased in size slightly with mild upper zone redistribution indicative of mild pulmonary vascular congestion. Assessment and Plan (1) New onset of congestive heart failure: Status: Acute (2) Scrotal edema: Status: Acute (3) New onset a-fib: Status: Acute Plan a 67 years old male with PMH of HTN, HLD, CKD who presents to the hospital with a complaint of scrotal swelling and pain for the last 3 days. Scrotal swelling Secondary to CHF, new onset of indeterminate Ultrasound scrotum negative for torsion Elevated BNP Start IV Lasix Get an echo Get cardiology evaluation monitor intake and output Newly diagnosed atrial fibrillation rate controlled next [place] pending cardiology in Echo Patient on metoprolol at home Started on Eliquis, discussed risks and benefit of blood thinners, patient agreed to started Hypertension continue amlodipine and losartan DVT PPX Xarelto The patient will need 2. Overnight hospital stay for evaluation and treatment of newly diagnosed atrial fibrillation and CHF with exacerbation to prevent possible decompensation in 2 hypoxic respiratory failure. Quality Stroke Does the patient have a stroke diagnosis?: No VTE Prior VTE?: No VTE Risk Level:: Medical - moderate - high VTE Device Contraindication: Treatment Not Indicated VTE Drug Contraindication: N/A - Med Ordered
[2022-06-07 15:25] LABS: Alanine Aminotransferase 14 U/L (0-40); Albumin Level 3.5 g/dL (3.5-5.0); Alkaline Phosphatase 61 U/L (39-117); Aspartate Amino Transferase 29 U/L (5-37); Bilirubin Direct 1.1 mg/dL (0.0-0.5); Bilirubin Total 1.8 mg/dL (0.0-1.0); Total Protein 6.9 g/dL (6.5-8.0)
[2022-06-07 15:44] LABS: Thyroid Stimulating Hormone 6.35 uIU/mL (0.32-4.0)
--- NOTE | 2022-06-07 15:53 | PHA.MEDREC ---
Pharmacy Consult ? Medication Reconciliation Pharmacy has completed the medication reconciliation. Pt has not taken vit d for over a month, vit d to be re evaluated by pt's pcp
[2022-06-07 16:00] VITALS: BP 151/69; PULSE 61; RESP 20; TEMP 36.4; O2SAT 94
[2022-06-07 16:13] LABS: COVID-19 Test Negative (Negative); IDNOW Serial# 16C4AD1C
[2022-06-07] MEDS: Rivaroxaban 20 MG TABLET PO (17:21)
[2022-06-07] MEDS: 0.9 % Sodium Chloride Flush 3 ML SYRINGE IVFLUSH ×2 (17:21→23:08)
[2022-06-07 22:00] VITALS: BP 140/91; PULSE 50; RESP 19; TEMP 36.4; O2SAT 95
[2022-06-07 23:44] VITALS: BP 172/84; PULSE 63; RESP 20; TEMP 36; O2SAT 94
--- NOTE | 2022-06-08 02:51 | PC.NURSE ---
MD Back notified at 2400 that PT HR is in 50s and drops to 30s at times and BP was 172/84 PT asymptomatic, no new orders.
[2022-06-08 03:34] VITALS: BP 186/86; PULSE 52; RESP 22; TEMP 35.9; O2SAT 93
[2022-06-08] MEDS: hydrALAZINE HCl 25 MG TABLET PO (04:06)
--- NOTE | 2022-06-08 04:12 | PC.NURSE ---
PT BP up to 186/86, HR in 30s still hydrolyzine 25mg po given per MD Olivas
[2022-06-08 06:45] LABS: Hematocrit 31.2 % (42.0-52.0); Hemoglobin 10.2 g/dl (14.0-18.0); Mean Corpuscular HGB Conc 32.7 g/dl (31.0-36.0); Mean Corpuscular Hemoglobin 31.5 pg (27.0-33.0); Mean Corpuscular Volume 96.3 fL (80.0-98.0); Mean Platelet Volume 9.6 fL (9.4-12.4); Platelet Count 244 X10*3/uL (160-400); Red Blood Count 3.24 X10*6/uL (4.60-5.80); Red Cell Distribution Width 13.2 % (11.0-16.0); White Blood Count 5.1 X10*3/uL (4.8-10.8)
[2022-06-08 06:53] LABS: Anion Gap 18 (12-20); Blood Urea Nitrogen 8 mg/dL (9-16); Carbon Dioxide 19 mmol/L (22-29); Chloride 107 mmol/L (96-108); Creatinine Clr Calc Pharmacy 103.9; Estimated Glomerular Filt Rate > 60; Glucose Random 99 mg/dL (60-115); Potassium 3.2 mmol/L (3.3-5.1); Sodium 141 mmol/L (135-145)
[2022-06-08 07:03] LABS: B Type Natriuretic Peptide 1261 pg/mL (<100)
[2022-06-08 07:09] VITALS: BP 144/71; PULSE 50; RESP 18; TEMP 35.9; O2SAT 100
--- NOTE | 2022-06-08 07:30 | CA_ITS ---
Transthoracic Echocardiogram Patient (Last, First, Middle): Taj Mckinley, Gender: Male Date of : 1955 Age: 67 Procedure Date: 06/08/2022 Procedure Type: Transthoracic Echocardiogram Location: S3W Height: 177.8 cm Weight: 90.72 kg BSA: 2.09 m2 Heart Rate: 55 bpm BP: 164 / 76 mmHg Grommet Man: CHRISTA Referring MD: Ricardo Brito MD Byproducts Extractor: Mayank Marcial MD Symptoms: new onset atrial fibrillation Study Quality: Adequate ECG Rhythm: Atrial Fibrillation w SVR Conclusions: - 1. Normal LV systolic function with mild LVH with suggestion of elevated left ventricular end-diastolic pressure 2. Moderately dilated right-sided chambers with preserved RV contractility 3. Normal cardiac valvular Doppler 4. Mildly to moderately elevated right ventricular systolic pressure with significantly elevated right atrial pressures 5. No gross pericardial effusion Findings Left Ventricle Normal left ventricular size and systolic function. There is mildly increased left ventricular wall thickness. The visually estimated ejection fraction is between 60-65%. Spectral Doppler is indicative of a pseudonormal filling pattern. Elevated left ventricular end diastolic pressure. Right Ventricle Moderately increased right ventricular cavity size. There is normal right ventricular systolic function. Atria The left atrium is mildly dilated. There is no evidence of interatrial shunt. The right atrium is moderately dilated. Aortic Valve There is mild calcification of the aortic valve. There is no aortic valve stenosis. There is no aortic valve regurgitation. Mitral Valve There is mild anterior and posterior mitral leaflet thickening. There is trace mitral valve regurgitation. There is no mitral valve stenosis. Pulmonic Valve The pulmonic valve was not well visualized. Tricuspid Valve Likely normal tricuspid valve structure and function. Great Vessels All visible segments of the aorta are normal in size. The pulmonary artery was not well visualized. Venous The inferior vena cava is moderately dilated and collapses less than 50% with inspiration. Pericardium/Pleural There is no evidence of pericardial effusion. Prior Study Comparison No prior study available for comparison. Measurements 2D Linear Measurements IVSd: 1.22 0.6-0.9/0.6-1.0 cm LVIDd: 5.44 3.9-5.3/4.2-5.9 cm LVIDd Index: 2.60 2.4-3.2/2.2-3.1 cm/m2 LVIDs: 3.39 2.0-3.6 cm LVPWd: 1.15 0.7-1.1 cm LA Diam: 4.40 2.7-3.8/3.0-4.0 cm LAIDs Index: 2.11 1.5-2.3 cm/m2 LV Mass: 314.24 67-162/88-224 g LV Mass Index: 150.36 43-95/49-115 g/m2 LVOT Diam: 2.10 3.0+(-)1.3 cm 2D Systolic Function EF 4C: 74.60 >55% EF 2C: 59.80 >55% Mitral Valve MV Pk E: 1.02 E'Lateral: 7.76 E'Medial: 3.50 E/E' Med: 29.10 E/E' Lat: 13.10 Aortic Valve AoV Pk Mika: 1.63 AoV Mn Mika: 1.06 AoV VTI: 0.37 AoV Pk Grad: 11.00 Aov Mn Grad: 5.00 JAYDA Cont.VTI: 2.28 LVOT LVOT Pk Mika: 1.18 LVOT Mn Mika: 0.74 LVOT VTI: 0.25 LVOT Pk Grad: 6.00 LVOT Mn Grad: 2.00 LVOT Diam: 2.10 LVOT Area: 3.46 Diastolic Function MV Pk E: 1.02 E'Medial: 3.50 E/E' Med: 29.10 E' Laterial: 7.76 E/E' Lat: 13.10 Right Ventricle TAPSE (mm): 21.40 TVS' Mika: 11.30 Tricuspid Valve TR Pk Mika: 2.89 TR Pk Grad: 33.00 RA Press: 15.00 RVSP: 48.00 Great Vessels Aorta Sinus of Valsalva: 3.50 2.0-3.5 cm Ao Asc: 3.30 2.1-3.4 cm Pulmonary Valve PV Pk Mika: 0.98 Peak PV Grad: 4.00 Updated in Other Vendor System with Status of Final Mayank Marcial MD electronically signed on 06/08/2022 11:32:57 AM with status of Final
[2022-06-08] MEDS: Losartan Potassium 50 MG TABLET 100 MG PO (08:57)
[2022-06-08] MEDS: Furosemide 40 MG/4 ML VIAL IVPUSH ×2 (08:59→17:15)
[2022-06-08] MEDS: 0.9 % Sodium Chloride Flush 3 ML SYRINGE IVFLUSH ×2 (08:59→17:16)
[2022-06-08] MEDS: amLODIPine Besylate 10 MG TABLET PO (09:00)
[2022-06-08 11:25] VITALS: BP 148/71; PULSE 59; RESP 16; TEMP 36; O2SAT 99
--- NOTE | 2022-06-08 11:58 | P.PNIM_ITS ---
Subjective Subjective Date of Service: 06/08/22 Interval History: seen and evaluated this morning Feels mild improvement but still having significant swelling In the scrotum Denies any shortness of breath or chest pain No reported overnight events Review of Systems No fever, chills or weakness No chest pain, palpitation , lower extremities edema No shortness of breath or coughing No abdominal pain, nausea or vomiting Scrotal swelling No any rash or wounds Physical Exam Vital Signs: Vital Signs: Last Vital Signs Temp 96.8 F 06/08/22 11:25 Pulse 59 06/08/22 11:25 Resp 16 06/08/22 11:25 BP 148/71 H 06/08/22 11:25 Pulse Ox 99 06/08/22 11:25 O2 Del Method 06/08/22 11:25 BMI result Body Mass Index 28.7 Const: Other: Constitutional : Alert, oriented, not in distress reji:Abnormal external nose present , rhinophyma Neck : Normal inspection, Supple Cardiovascular : RRR, no JVP, +1 bilateral lower extremity edema Respiratory : fair bilateral air entry, no crackles, wheezes or rhonchi Gastrointestinal: soft, lax, Normal bowel sounds, Non tender Skin : Warm, Dry Genital: scrotal swelling with no significant tenderness or erythema noticed, penis inside the swollen scrotum with leakage of urine Neurological : Alert & oriented x3, No focal deficit , CN 2-12 within normal Objective Data Active Medications Acetaminophen (Acetaminophen 325 Mg Tablet) 650 mg PO Q6H PRN PRN Reason: Pain, Mild (Pain Scale 1-3) Amlodipine Besylate (Amlodipine Besylate 10 Mg Tablet) 10 mg PO DAILY [facility]; Protocol Last Admin: 06/08/22 09:00 Dose: 10 mg Documented By: RATNA Furosemide (Furosemide 40 Mg/4 Ml Vial) 40 mg IVPUSH BID@0900,1800 [facility]; Protocol Last Admin: 06/08/22 08:59 Dose: 40 mg Documented By: RATNA Losartan Potassium (Losartan Potassium 50 Mg Tablet) 100 mg PO DAILY [facility]; Protocol Last Admin: 06/08/22 08:57 Dose: 100 mg Documented By: RATNA Metoprolol Succinate (Metoprolol Succinate Er 100 Mg Tab.Er.24h) 100 mg PO DAILY [facility]; Protocol Last Admin: 06/08/22 09:04 Dose: Not Given Documented By: RATNA Non-Admin Reason: HR too low Ondansetron HCl (Ondansetron Hcl 4 Mg/2 Ml Vial) 4 mg IVPUSH Q8H PRN PRN Reason: Nausea and Vomiting Pharmacy Consult (Consult Rx Perform Med Rec) 1 each MISCELLANE ONCE PRN PRN Reason: Consult order Rivaroxaban (Rivaroxaban 20 Mg Tablet) 20 mg PO DAILY@1800 [facility] Last Admin: 06/07/22 17:21 Dose: 20 mg Documented By: AMINATA Sodium Chloride (0.9 % Sodium Chloride Flush 3 Ml Syringe) 3 ml IVFLUSH QSHIFT [facility] Last Admin: 06/08/22 08:59 Dose: 3 ml Documented By: RATNA Labs CBC & Chem 7: 06/08/22 06:05 06/08/22 06:05 Labs: Laboratory Results - last 24 hr 06/07/22 06/07/22 06/07/22 10:52 14:10 15:48 MCV MCH MCHC RDW Plt Count MPV Absolute Nucleated RBC Nucleated RBC % (auto) Anion Gap Estim Creat Clear Calc Estimated GFR Random Glucose Calcium Total Bilirubin 1.8 H Direct Bilirubin 1.1 H AST 29 ALT 14 Alkaline Phosphatase 61 B-Natriuretic Peptide Total Protein 6.9 Albumin 3.5 TSH 6.35 H Urine Color YELLOW Urine Appearance CLEAR Urine pH 6.0 Ur Specific [place] 1.015 Urine Protein TRACE Urine Glucose (UA) NEG Urine Ketones NEG Urine Blood NEG Urine Nitrite NEG Ur Leukocyte Esterase NEG COVID-19 (MANUEL) Negative COVID-19 Clin Com See Note 06/08/22 06/08/22 06/08/22 06:05 06:05 06:05 MCV 96.3 MCH 31.5 MCHC 32.7 RDW 13.2 Plt Count 244 MPV 9.6 Absolute Nucleated RBC 0.000 Nucleated RBC % (auto) 0.0 Anion Gap 18 Estim Creat Clear Calc 103.9 Estimated GFR > 60 Random Glucose 99 Calcium 8.0 L Total Bilirubin Direct Bilirubin AST ALT Alkaline Phosphatase B-Natriuretic Peptide 1261 H Total Protein Albumin TSH Urine Color Urine Appearance Urine pH Ur Specific [place] Urine Protein Urine Glucose (UA) Urine Ketones Urine Blood Urine Nitrite Ur Leukocyte Esterase COVID-19 (MANUEL) COVID-19 Clin Com Assessment and Plan (1) New onset of congestive heart failure: Status: Acute (2) Scrotal edema: Status: Acute (3) New onset of congestive heart failure: Status: Acute Plan a 67 years old male with PMH of HTN, HLD, CKD who presents to the hospital with a complaint of scrotal swelling and pain for the last 3 days. Scrotal swelling Secondary to new onset right-sided CHF Ultrasound scrotum negative for torsion Elevated BNP increase IV Lasix to 40 b.i.d. echo showing normal EF with moderately dilated right-sided chambers suggestive of right-sided heart failure cardiology input appreciated, continue diuresis, will need outpatient workup for EDELMIRA and sarcoidosis monitor intake and output Newly diagnosed atrial fibrillation rate controlled Cardiology recommended to continue metoprolol continue Xarelto Hypertension continue amlodipine and losartan DVT PPX Xarelto The patient will need Overnight hospital stay for treatment of newly diagnosed atrial fibrillation and CHF with exacerbation to prevent possible decompensation into hypoxic respiratory failure. Quality Stroke Does the patient have a stroke diagnosis?: No VTE Prior VTE?: No VTE Risk Level:: Medical - moderate - high VTE Device Contraindication: Treatment Not Indicated VTE Drug Contraindication: N/A - Med Ordered
--- NOTE | 2022-06-08 12:27 | P.CONCA_ITS ---
History of Present Illness History of Present Illness Date of Service: 06/08/22 Requesting physician: Ricardo Brito Consult reason: atrial fibrillation and congestive heart failure Chief complaint: edema, scrotal swelling Narrative: I was consulted to see Taj in cardiology consultation due to signs and symptoms suggestive of heart failure. He is a 67-year-old male with prior history of longstanding hypertension who came to the hospital because of scrotal swelling. 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 Exertional shortness of breath over the last couple months got worse and he was waiting to see his primary care physician however over the last 5 days he noticed bilateral leg swelling and then 2 days ago started noticing scrotal swelling with discomfort. He therefore came to the emergency room. He had EKG done in May which had shown atrial fibrillation. However he was not on oral anticoagulation. Patient yesterday came to the hospital as noted to have significant bilateral leg swelling and findings suggestive congestive heart failure with elevated BNP and new onset atrial fibrillation. He was started on IV Lasix. His blood pressure today is elevated, echocardiogram shows normal LV systolic function with elevated right atrial pressures and RV systolic pressure. His moderately dilated right-sided chambers. His intake and output is not well documented. He has EKG shows atrial fibrillation with low voltage. Review of Systems Constitutional: Constitutional: Reports no additional constitutional complaints Eyes: Eyes: Reports no additional eye complaints Cardiovascular: Cardiovascular: Denies chest pain, Reports leg edema, Denies lightheadedness, Denies Loss of Consciousness, Denies palpitations, Reports dyspnea on exertion and Denies orthopnea Respiratory: Respiratory: Reports dyspnea on exertion Gastrointestinal: Gastrointestinal: Denies no additional gastrointestinal complaints Genitourinary: Genitourinary: Reports scrotal swelling Musculoskeletal: Musculoskeletal: Denies no additional musculoskeletal complaints Integumentary/Breasts: Skin/Breast: Denies system reviewed and no additional complaints, except as docu Neurologic: Denies system reviewed and no additional complaints, except as documented Psychiatric: Psychiatric: Denies no additional psychiatric complaints Endocrine: Endocrine: Denies no additional endocrine complaints and Denies palpitations Hematologic/Lymphatic: Hematologic/Lymphatic: Denies no additional hematologic/lymphatic complaints [facility] Past Medical History Medical History Benign essential hypertension Elevated LFTs Impaired fasting glucose New onset a-fib New onset of congestive heart failure Obesity (BMI 30-39.9) Pure hypercholesterolemia Renal insufficiency Vitamin D deficiency Family History Family History Father Hypertension Mother Medical history unknown Surgical History Surgical History No pertinent past surgical history Social History Social History Household Members: None Housing: Apartment Do you presently have visiting nurse or other home services: No Alcohol intake: never Patient Tobacco Use Status: Former Tobacco user Smoked in Last 30 Days: No Patient Interested in Nicotine Replacement: No Second Hand Smoke Exposure: Yes Use of substances other than those prescribed or required for medical reasons: No Currently Displaying Signs/Symptoms of Drug Intoxication Withdrawal: No Have you been hit, kicked, punched, or otherwise hurt by someone within the past year? If so, by whom?: No Do you feel safe in your current relationship?: No Current Relationship Is there a partner from a previous relationship who is making you feel unsafe now?: No Advance Directives: No Advance Directives Information Provided: Yes Do you have thoughts of harming others: None Do you have a plan to hurt others: No Plan Recently lost weight without trying: No Eating poorly because of decreased appetite: No Nutrition Risks: No Nutritional Risk Poor oral hygiene: No service: No Current occupational status: retired Cognitive needs: No Hearing needs: No Vision needs: Yes Meds Allergies Allergy/AdvReac Type Severity Reaction Status Date / Time penicillin V Allergy Unknown Unknown Verified 06/07/22 10:35 Active Medications: Current Medications Acetaminophen (Acetaminophen 325 Mg Tablet) 650 mg PO Q6H PRN PRN Reason: Pain, Mild (Pain Scale 1-3) Amlodipine Besylate (Amlodipine Besylate 10 Mg Tablet) 10 mg PO DAILY [facility]; Protocol Last Admin: 06/08/22 09:00 Dose: 10 mg Furosemide (Furosemide 40 Mg/4 Ml Vial) 40 mg IVPUSH BID@0900,1800 [facility]; Protocol Last Admin: 06/08/22 08:59 Dose: 40 mg Losartan Potassium (Losartan Potassium 50 Mg Tablet) 100 mg PO DAILY [facility]; Protocol Last Admin: 06/08/22 08:57 Dose: 100 mg Metoprolol Succinate (Metoprolol Succinate Er 100 Mg Tab.Er.24h) 100 mg PO DAILY [facility]; Protocol Last Admin: 06/08/22 09:04 Dose: Not Given Ondansetron HCl (Ondansetron Hcl 4 Mg/2 Ml Vial) 4 mg IVPUSH Q8H PRN PRN Reason: Nausea and Vomiting Pharmacy Consult (Consult Rx Perform Med Rec) 1 each MISCELLANE ONCE PRN PRN Reason: Consult order Rivaroxaban (Rivaroxaban 20 Mg Tablet) 20 mg PO DAILY@1800 [facility] Last Admin: 06/07/22 17:21 Dose: 20 mg Sodium Chloride (0.9 % Sodium Chloride Flush 3 Ml Syringe) 3 ml IVFLUSH QSHIFT [facility] Last Admin: 06/08/22 08:59 Dose: 3 ml Physical Exam Vital Signs: Vital Signs: Last Vital Signs Temp 96.8 F 06/08/22 11:25 Pulse 59 06/08/22 11:25 Resp 16 06/08/22 11:25 BP 148/71 H 06/08/22 11:25 Pulse Ox 99 06/08/22 11:25 O2 Del Method 06/08/22 11:25 BMI result Body Mass Index 28.7 Const: General: cooperative, no acute distress, alert and awake Nutritional Appearance: overweight Orientation/consciousness: patient oriented x3 Limitations: no limitations HEENT: Head: Yes normocephalic and Yes atraumatic Neck: Neck: Yes trachea midline, Yes supple and Yes JVD Resp: Effort & Inspection: normal respiratory effort Auscultation: clear to auscultation bilaterally, no crackles, no rales and diminished lung sounds Cardio: Jugular venous distension: JVD Rhythm: abnormal rhythm irregularly irregular Heart sounds: S1 normal heart sound present, S2 normal heart sound present, no click, no gallops, no murmurs and no rubs GI: Auscultation: normal bowel sounds Skin: General skin exam: no rashes or lesions noted Neuro: General: patient oriented x3 and no focal motor deficits Extrem: General: No clubbing, No cyanosis and Yes edema Objective Labs and Meds Result diagrams: 06/08/22 06:05 06/08/22 06:05 Lab results: Laboratory Results - last 24 hr 06/07/22 06/07/2222 10:52 14:10 15:48 WBC RBC Hgb Hct MCV MCH MCHC RDW Plt Count MPV Absolute Nucleated RBC Nucleated RBC % (auto) Sodium Potassium Chloride Carbon Dioxide Anion Gap BUN Creatinine Estim Creat Clear Calc Estimated GFR Random Glucose Calcium Total Bilirubin 1.8 H Direct Bilirubin 1.1 H AST 29 ALT 14 Alkaline Phosphatase 61 B-Natriuretic Peptide Total Protein 6.9 Albumin 3.5 TSH 6.35 H Urine Color YELLOW Urine Appearance CLEAR Urine pH 6.0 Ur Specific [place] 1.015 Urine Protein TRACE Urine Glucose (UA) NEG Urine Ketones NEG Urine Blood NEG Urine Nitrite NEG Ur Leukocyte Esterase NEG COVID-19 ([facility]UEL) Negative COVID-19 Clin Com See Note 06/08/22 06/08/22 06/08/22 06:05 06:05 06:05 WBC 5.1 RBC 3.24 L Hgb 10.2 L Hct 31.2 L MCV 96.3 MCH 31.5 MCHC 32.7 RDW 13.2 Plt Count 244 MPV 9.6 Absolute Nucleated RBC 0.000 Nucleated RBC % (auto) 0.0 Sodium 141 Potassium 3.2 L Chloride 107 Carbon Dioxide 19 L Anion Gap 18 BUN 8 L Creatinine 0.76 Estim Creat Clear Calc 103.9 Estimated GFR > 60 Random Glucose 99 Calcium 8.0 L Total Bilirubin Direct Bilirubin AST ALT Alkaline Phosphatase B-Natriuretic Peptide 1261 H Total Protein Albumin TSH Urine Color Urine Appearance Urine pH Ur Specific [place] Urine Protein Urine Glucose (UA) Urine Ketones Urine Blood Urine Nitrite Ur Leukocyte Esterase COVID-19 (MANUEL) COVID-19 Clin Com Imaging Radiologist's impression: Impressions Chest X-Ray 06/07/22 12:08 IMPRESSION: Right subpulmonic effusion increased in size slightly with mild upper zone redistribution indicative of mild pulmonary vascular congestion. Assessment and Plan (1) New onset of congestive heart failure: Status: Acute New onset congestive heart failure with predominant right heart failure findings with findings suggestive of elevated right atrial pressures, most likely due to persistent atrial fibrillation underlying diastolic dysfunction. Given his low- voltage QRS and longstanding history of hypertension, infiltrative disorder such as amyloidosis needs to be ruled out. Will perform outpatient workup it also require ischemic workup. Continue IV diuresis. Strict intake and output chart needs to be pursued which is not being performed at this point in time. Consider replacing potassium and continue to follow renal function as well as BNP regularly. Add Jardiance 10 mg to his regimen along with Aldactone 12.5 mg to his regimen for neurohormonal modulation. Will continue to follow with you. (2) New onset a-fib: Status: Acute New onset atrial fibrillation rate control at this point time. He has biatrial enlargement, right greater than left. Requires sleep study as outpatient. Continue current rate control strategy. May require rhythm control as outpatient again. Started on Xarelto 20 mg which is appropriate at this point time. Will follow with you. Thank you for allowing me to partake in his care Procedures Date of Service Date of Service: 06/08/22
--- NOTE | 2022-06-08 13:41 | MHC.CM.PN ---
IMM addressed original given to patient and copy filed in chart. Patient reports he lives by himself, is independent at home and community, has cane and No services at home. He reports he has a friend who lives in [place] and helps him when he needs assistance. His Friends spouse will transport him home. He is Covid vax'd x3 (1 J&J and 2 MRNA boosters). PCP is Beto Irizarry. Copy of HCP requested. D/C plan Home (self-care) vs Home with New [facility] vs STR
[2022-06-08 15:31] VITALS: BP 127/60; PULSE 52; RESP 17; TEMP 36.1; O2SAT 95
--- NOTE | 2022-06-08 16:15 | MHC.CM.PN ---
CONTINUING IV DIURESIS. CASE MANAGEMENT FOLLOWING FOR DC PLANS
[2022-06-08] MEDS: Rivaroxaban 20 MG TABLET PO (17:15)
[2022-06-08 20:00] VITALS: BP 139/73; PULSE 62; RESP 16; TEMP 36.1; O2SAT 92
[2022-06-09] VITALS (7 sets, daily range): BP systolic 115–145; BP diastolic 60–73; PULSE 55–76; RESP 16–20; TEMP 36.3–36.9; O2SAT 95–99
[2022-06-09] MEDS: 0.9 % Sodium Chloride Flush 3 ML SYRINGE IVFLUSH ×4 (01:05→20:48)
[2022-06-09 05:58] LABS: Hematocrit 30.5 % (42.0-52.0); Mean Corpuscular HGB Conc 32.8 g/dl (31.0-36.0); Mean Corpuscular Hemoglobin 31.4 pg (27.0-33.0); Mean Corpuscular Volume 95.9 fL (80.0-98.0); Mean Platelet Volume 9.4 fL (9.4-12.4); Platelet Count 236 X10*3/uL (160-400); Red Blood Count 3.18 X10*6/uL (4.60-5.80); Red Cell Distribution Width 13.2 % (11.0-16.0); White Blood Count 4.6 X10*3/uL (4.8-10.8)
[2022-06-09 06:17] LABS: B Type Natriuretic Peptide 788 pg/mL (<100)
[2022-06-09 06:26] LABS: Anion Gap 16 (12-20); Blood Urea Nitrogen 7 mg/dL (9-16); Calcium 8.1 mg/dL (8.4-10.2); Carbon Dioxide 24 mmol/L (22-29); Chloride 106 mmol/L (96-108); Creatinine Clr Calc Pharmacy 103.9; Estimated Glomerular Filt Rate > 60; Glucose Random 97 mg/dL (60-115); Sodium 143 mmol/L (135-145)
[2022-06-09] MEDS: Furosemide 40 MG/4 ML VIAL IVPUSH ×2 (08:30→17:35)
[2022-06-09] MEDS: Potassium Chloride Packet 20 MEQ PACKET 40 MEQ PO ×2 (08:30→20:47)
[2022-06-09] MEDS: Losartan Potassium 50 MG TABLET 100 MG PO (08:30)
[2022-06-09] MEDS: amLODIPine Besylate 10 MG TABLET PO (08:30)
[2022-06-09] MEDS: Metoprolol Succinate ER 100 MG TAB.ER.24H PO (08:30)
[2022-06-09 08:42] LABS: Magnesium 1.1 mg/dL (1.6-2.6)
--- NOTE | 2022-06-09 09:41 | P.PNIM_ITS ---
Subjective Subjective Date of Service: 06/09/22 Interval History: Seen and examined this morning Follow-up for CHF, leg edema Continues to have significant lower extremity edema. Reports improvement in breathing no chest pain, palpitations Constitutional Constitutional: Denies chills and Denies fever(s) Cardiovascular Cardiovascular: Denies chest pain, Denies palpitations and Denies dyspnea Respiratory Respiratory: Denies cough and Denies dyspnea Gastrointestinal Gastrointestinal: Denies abdominal pain, Denies nausea and Denies vomiting Endocrine Endocrine: Denies palpitations Physical Exam Vital Signs: Vital Signs: Last Vital Signs Temp 97.6 F 06/09/22 06:58 Pulse 76 06/09/22 06:58 Resp 20 06/09/22 06:58 BP 131/60 06/09/22 06:58 Pulse Ox 97 06/09/22 06:58 O2 Del Method 06/09/22 06:58 BMI result Body Mass Index 28.7 Const: General: cooperative, comfortable, no acute distress, alert and awake Nutritional Appearance: average body habitus Orientation/consciousness: patient oriented x3 Cardio: Other: irregular Rate: regular rate Heart sounds: no murmurs GI: Inspection: No distended Palpation (GI): Soft to palpation and nontender Neuro: General: patient oriented x3 and CN's II-XI intact bilaterally Extrem: Other: b/l leg edema Psych: Other: appropriate affect Appearance: grossly normal Objective Data Active Medications Acetaminophen (Acetaminophen 325 Mg Tablet) 650 mg PO Q6H PRN PRN Reason: Pain, Mild (Pain Scale 1-3) Amlodipine Besylate (Amlodipine Besylate 10 Mg Tablet) 10 mg PO DAILY [facility]; Protocol Last Admin: 06/09/22 08:30 Dose: 10 mg Documented By: DEANDRE Furosemide (Furosemide 40 Mg/4 Ml Vial) 40 mg IVPUSH BID@0900,1800 [facility]; Protocol Last Admin: 06/09/22 08:30 Dose: 40 mg Documented By: DEANDRE Magnesium Sulfate (Magnesium Sulfate/H2o) 2 gm in 50 mls @ 25 mls/hr IV ONCE ONE Stop: 06/09/22 11:37 Magnesium Sulfate (Magnesium Sulfate/H2o) 2 gm in 50 mls @ 25 mls/hr IV ONCE [facility] Losartan Potassium (Losartan Potassium 50 Mg Tablet) 100 mg PO DAILY [facility]; Protocol Last Admin: 06/09/22 08:30 Dose: 100 mg Documented By: DEANDRE Metoprolol Succinate (Metoprolol Succinate Er 100 Mg Tab.Er.24h) 100 mg PO DAILY [facility]; Protocol Last Admin: 06/09/22 08:30 Dose: 100 mg Documented By: DEANDRE Ondansetron HCl (Ondansetron Hcl 4 Mg/2 Ml Vial) 4 mg IVPUSH Q8H PRN PRN Reason: Nausea and Vomiting Pharmacy Consult (Consult Rx Perform Med Rec) 1 each MISCELLANE ONCE PRN PRN Reason: Consult order Potassium Chloride (Potassium Chloride Packet 20 Meq Packet) 40 meq PO BID [facility] Stop: 06/09/22 21:01 Last Admin: 06/09/22 08:30 Dose: 40 meq Documented By: DEANDRE Rivaroxaban (Rivaroxaban 20 Mg Tablet) 20 mg PO DAILY@1800 [facility] Last Admin: 06/08/22 17:15 Dose: 20 mg Documented By: RATNA Sodium Chloride (0.9 % Sodium Chloride Flush 3 Ml Syringe) 3 ml IVFLUSH QSHIFT [facility] Last Admin: 06/09/22 08:31 Dose: 3 ml Documented By: DEANDRE Labs CBC & Chem 7: 06/09/22 05:15 06/09/22 05:15 Labs: Laboratory Results - last 24 hr 06/09/22 06/09/22 06/09/22 05:15 05:15 05:15 MCV 95.9 MCH 31.4 MCHC 32.8 RDW 13.2 Plt Count 236 MPV 9.4 Absolute Nucleated RBC 0.000 Nucleated RBC % (auto) 0.0 Anion Gap 16 Estim Creat Clear Calc 103.9 Estimated GFR > 60 Random Glucose 97 Calcium 8.1 L Magnesium 1.1 L* B-Natriuretic Peptide 788 H Assessment and Plan (1) New onset of congestive heart failure: Status: Acute Plan a 67 years old male with PMH of HTN, HLD, CKD who presents to the hospital with a complaint of scrotal swelling and pain for the last 3 days. Scrotal swelling Secondary to new onset right-sided CHF Ultrasound scrotum negative for torsion Elevated BNP continue IV Lasix to 40 b.i.d. echo showing normal EF with moderately dilated right-sided chambers suggestive of right-sided heart failure cardiology input appreciated, continue diuresis, will need outpatient workup for EDELMIRA and sarcoidosis monitor intake and output Newly diagnosed atrial fibrillation rate controlled Cardiology recommended to continue metoprolol continue Xarelto hypokalemia, hypomagnesemia replace and follow levels chronic normocytic anemia No overt bleeding Recommend outpatient follow-up Hypertension continue amlodipine and losartan DVT PPX -Prudenceto attending- Dr. nevarez The patient will need ongoing hospitalization for treatment of newly diagnosed atrial fibrillation and CHF with exacerbation to prevent possible decompensation into hypoxic respiratory failure. Quality Stroke Does the patient have a stroke diagnosis?: No VTE Prior VTE?: No VTE Risk Level:: Medical - moderate - high VTE Device Contraindication: Treatment Not Indicated VTE Drug Contraindication: N/A - Med Ordered
[2022-06-09] MEDS: Spironolactone 25 MG TABLET 12.5 MG PO (11:26)
[2022-06-09] MEDS: Magnesium Sulfate/H2O 2 GM/50 ML PIGGYBACK IV (11:26)
--- NOTE | 2022-06-09 12:24 | PM.PNCARD ---
Subjective Subjective Date of Service: 06/09/22 Principal diagnosis: CHF, atrial fibrillation Interval history: Patient says he has been diuresing well although he has not had good monitoring done because of his scrotal swelling. He continues to have improved leg edema and shortness of breath has improved as per him. His scrotum swelling also has improved. No irregular heartbeat or palpitations. No bleeding issues Review of Systems Review of Systems Yes all other systems are reviewed and are negative Physical Exam Vital Signs: Last Vital Signs Temp 97.8 F 06/09/22 11:14 Pulse 64 06/09/22 11:14 Resp 16 06/09/22 11:14 BP 125/66 06/09/22 11:14 Pulse Ox 98 06/09/22 11:14 O2 Del Method 06/09/22 11:14 BMI result Body Mass Index 28.7 Const General: cooperative, no acute distress, alert and awake Nutritional Appearance: overweight Orientation/consciousness: patient oriented x3 Limitations: no limitations Neck Neck: Yes trachea midline, Yes supple and Yes JVD Resp Effort & Inspection: normal respiratory effort Auscultation: clear to auscultation bilaterally, no crackles, no rales and diminished lung sounds Cardio Jugular venous distension: JVD Rhythm: abnormal rhythm irregularly irregular Heart sounds: S1 normal heart sound present, S2 normal heart sound present, no click, no gallops, no murmurs and no rubs GI Auscultation: normal bowel sounds Skin General skin exam: no rashes or lesions noted Neuro General: patient oriented x3 and no focal motor deficits Extrem General: No clubbing, No cyanosis and Yes edema Objective Labs and Meds Result diagrams: 06/09/22 05:15 06/09/22 05:15 Lab results: Laboratory Results - last 24 hr 06/09/22 06/09/22 06/09/22 05:15 05:15 05:15 WBC 4.6 L RBC 3.18 L Hgb 10.0 L Hct 30.5 L MCV 95.9 MCH 31.4 MCHC 32.8 RDW 13.2 Plt Count 236 MPV 9.4 Absolute Nucleated RBC 0.000 Nucleated RBC % (auto) 0.0 Sodium 143 Potassium 3.0 L Chloride 106 Carbon Dioxide 24 Anion Gap 16 BUN 7 L Creatinine 0.76 Estim Creat Clear Calc 103.9 Estimated GFR > 60 Random Glucose 97 Calcium 8.1 L Magnesium 1.1 L* B-Natriuretic Peptide 788 H Progress Note: A&P Assessment and plan (1) New onset of congestive heart failure: Status: Acute Assessment and Plan: Continue IV diuresis. Better intake and output chart needs to be pursued. Replace electrolytes aggressively with magnesium above 2 and potassium above 4. Continue with Jardiance and Aldactone. Follow BMP and BNP tomorrow. Daily weight monitoring. CHF education to be provided. Will require further workup as outpatient. (2) New onset a-fib: Status: Acute Assessment and Plan: Atrial fibrillation rate controlled. Continue with full oral anticoagulation Xarelto. Will require further workup especially to rule out amyloidosis. Will continue to follow with you Time Spent With Patient Time: Total time spent is greater than 50% in coordination of care (as documented) at patient's floor/unit and/or counseling patient: Progress Note: Quality Stroke Does the patient have a stroke diagnosis?: No Procedures Date of Service Date of Service: 06/09/22
[2022-06-09] MEDS: Rivaroxaban 20 MG TABLET PO (17:35)
[2022-06-10 03:51] VITALS: BP 119/57; PULSE 67; RESP 17; TEMP 36.3; O2SAT 94
[2022-06-10 07:00] VITALS: BP 117/66; PULSE 57; RESP 18; TEMP 36.1; O2SAT 98
[2022-06-10 07:08] LABS: Anion Gap 18 (12-20); Blood Urea Nitrogen 8 mg/dL (9-16); Calcium 8.7 mg/dL (8.4-10.2); Carbon Dioxide 27 mmol/L (22-29); Chloride 101 mmol/L (96-108); Estimated Glomerular Filt Rate > 60; Glucose Random 82 mg/dL (60-115); Potassium 3.5 mmol/L (3.3-5.1); Sodium 142 mmol/L (135-145)
[2022-06-10 07:52] LABS: Magnesium 1.3 mg/dL (1.6-2.6)
[2022-06-10] MEDS: Spironolactone 25 MG TABLET 12.5 MG PO (08:08)
[2022-06-10] MEDS: Magnesium Sulfate/H2O 2 GM/50 ML PIGGYBACK IV ×2 (08:11→19:56)
[2022-06-10] MEDS: Losartan Potassium 50 MG TABLET 100 MG PO (08:11)
[2022-06-10] MEDS: 0.9 % Sodium Chloride Flush 3 ML SYRINGE IVFLUSH ×3 (08:11→21:55)
[2022-06-10] MEDS: Furosemide 40 MG/4 ML VIAL IVPUSH ×2 (08:11→18:19)
[2022-06-10] MEDS: Empagliflozin 10 MG TABLET PO (08:19)
--- NOTE | 2022-06-10 11:05 | P.PNCA_ITS ---
Subjective Subjective Date of Service: 06/10/22 <CALIN Soto - Last Filed: 06/10/22 11:16> 06/10/22 <Mayank Marcial MD - Last Filed: 06/10/22 15:59> Principal diagnosis: CHF, atrial fibrillation <CALIN Soto - Last Filed: 06/10/22 11:16> Interval history: Seen at 0940. Today he reports that he is feeling generally well. He denies having shortness of breath however he has not been up and moving around yet today. No PND, orthopnea. He does have ongoing significant edema in his lower extremity. His scrotal and penile swelling is reported as being less. No chest pains at rest, palpitations, dizziness. Currently receiving magnesium supplement IV due to level 1.3 today. library monitor showing atrial fib with controlled rates 50s to 60s. <CALIN Soto - Last Filed: 06/10/22 11:16> Review of Systems Review of Systems As above <CALIN Soto - Last Filed: 06/10/22 11:16> Yes all other systems are reviewed and are negative <CALIN Soto - Last Filed: 06/10/22 11:16> Physical Exam Vital Signs: Last Vital Signs Temp 97 F 06/10/22 07:00 Pulse 57 06/10/22 07:00 Resp 18 06/10/22 07:00 BP 117/66 06/10/22 07:00 Pulse Ox 98 06/10/22 07:00 O2 Del Method 06/10/22 07:00 BMI result Body Mass Index 28.7 <CALIN Soto - Last Filed: 06/10/22 11:16> Const General: cooperative, comfortable and no acute distress <CALIN Soto Last Filed: 06/10/22 11:16> Orientation/consciousness: patient oriented x3 <CALIN Soto Last Filed: 06/10/22 11:16> Neck Neck: Yes normal visual inspection <CALIN Soto Last Filed: 06/10/22 11:16> Resp Effort & Inspection: normal respiratory effort <CALIN Soto Last Filed: 06/10/22 11:16> Auscultation: clear to auscultation bilaterally, no crackles, no rhonchi and no wheezes <Nereida Wong NP - Last Filed: 06/10/22 11:16> Cardio Jugular venous distension: JVD <Nereida Wong NP - Last Filed: 06/10/22 11:16> Rate: regular rate <[facility] Last Filed: 06/10/22 11:16> Rhythm: abnormal rhythm <Nereida Wong NP - Last Filed: 06/10/22 11:16> Heart sounds: S1 normal heart sound present, S2 normal heart sound present, no gallops, no murmurs and no rubs <Nereida Wong NP - Last Filed: 06/10/22 11:16> GI Inspection: Yes normal to inspection <Nereida Wong NP - Last Filed: 06/10/22 11:16> Neuro General: patient oriented x3 <[facility] Last Filed: 06/10/22 11:16> Extrem Other: Tight pitting edema to his upper posterior thighs <Nereida oWng NP - Last Filed: 06/10/22 11:16> Psych Appearance: grossly normal <[facility] Last Filed: 06/10/22 11:16> Mental Status: mental status grossly normal <[facility] Last Filed: 06/10/22 11:16> Speech and movement: Normal speech and movement present <Nereida Wong NP - Last Filed: 06/10/22 11:16> Objective Labs and Meds Result diagrams: : 06/09/22 05:15 06/10/22 05:44 <Nereida Wong V BELT CURER - Last Filed: 06/10/22 11:16> Lab results: Laboratory Results - last 24 hr 06/10/22 05:44 Sodium 142 Potassium 3.5 Chloride 101 Carbon Dioxide 27 Anion Gap 18 BUN 8 L Creatinine 0.84 Estim Creat Clear Calc 94.0 Estimated GFR > 60 Random Glucose 82 Calcium 8.7 D Magnesium 1.3 L* <CALIN Soto - Last Filed: 06/10/22 11:16> Progress Note: A&P Assessment and plan (1) New onset of congestive heart failure: Status: Acute <CALIN Soto - Last Filed: 06/10/22 11:16> Assessment and Plan: Admit with scrotal and lower leg edema along with exertional shortness of breath. Findings most consistent with right heart failure. An echocardiogram showed EF 60-65%, moderately dilated right-sided chambers with preserved RV contractility, [id number] elevated RV SP. He is being diuresed with IV Lasix with negative fluid balance only documented as being 92 cc. Unclear accuracy of this number. On exam he continues to have tight edema in his lower extremities to the posterior thighs. His scrotal and penile edema is reported as being improved. He tells me his breathing is comfortable however he is not moving around much. JVD is noted on exam. Creatinine 0.84, BNP as high as 1261 and down to 788. Continue to diurese with IV Lasix. Aldactone 12.5 mg daily and Jardiance have been added this admission to assist with HF management. Blood pressure this a.m. 117/66. Strict I&O monitoring needed. Close monitoring of electrolytes and kidney function. We will follow. <CALIN Soto - Last Filed: 06/10/22 11:16> Admit with scrotal and lower leg edema along with exertional shortness of breath. Findings most consistent with right heart failure. An echocardiogram showed EF 60-65%, moderately dilated right-sided chambers with preserved RV contractility, [id number] elevated RV SP. He is being diuresed with IV Lasix with negative fluid balance only documented as being 92 cc. Unclear accuracy of this number. On exam he continues to have tight edema in his lower extremities to the posterior thighs. His scrotal and penile edema is reported as being improved. He tells me his breathing is comfortable however he is not moving around much. JVD is noted on exam. Creatinine 0.84, BNP as high as 1261 and down to 788. Continue to diurese with IV Lasix. Aldactone 12.5 mg daily and Jardiance have been added this admission to assist with HF management. Blood pressure this a.m. 117/66. Strict I&O monitoring needed. Close monitoring of electrolytes and kidney function. We will follow. Patient seen and examined. Case discussed with Nereida Wong. Continues to remain fluid overloaded. Intake and output chart again is not well maintain. Patient is diuresing well although. He says his breathing is significantly improved and scrotal edema is improved. Continue current diuresis. Strict intake and output chart needs to be pursued. Continue to follow BMP and BNP. Replace electrolytes especially magnesium and potassium aggressively. Management was discussed with him. He is not very excited of remaining in the hospital but understands. <Mayank Marcial MD - Last Filed: 06/10/22 15:59> (2) Scrotal edema: Status: Acute <CALIN Soto - Last Filed: 06/10/22 11:16> (3) New onset a-fib: Status: Acute <CALIN Soto - Last Filed: 06/10/22 11:16> Assessment and Plan: Newer finding of atrial fibrillation. He is being treated with heart rate control. Currently on metoprolol XL 100 mg daily. library monitor showing AFib with controlled rates averaging 50s to 60s at rest. No palpitations or chest discomfort. He is on Xarelto for anticoagulation. No bleeding issues reported. <CALIN Soto - Last Filed: 06/10/22 11:16> Newer finding of atrial fibrillation. He is being treated with heart rate control. Currently on metoprolol XL 100 mg daily. library monitor showing AFib with controlled rates averaging 50s to 60s at rest. No palpitations or chest discomfort. He is on Xarelto for anticoagulation. No bleeding issues reported. Continue full oral anticoagulation. Continue current rate control. Will continue to follow with you <Mayank Marcial MD - Last Filed: 06/10/22 15:59> Time Spent With Patient Time: Total time spent is greater than 50% in coordination of care (as documented) at patient's floor/unit and/or counseling patient: 22 <CALIN Soto - Last Filed: 06/10/22 11:16> Progress Note: Quality Stroke Does the patient have a stroke diagnosis?: No <CALIN Soto - Last Filed: 06/10/22 11:16> Procedures Date of Service Date of Service: 06/10/22 <CALIN Soto - Last Filed: 06/10/22 11:16>
--- NOTE | 2022-06-10 13:50 | HO.PM.IMPN ---
Subjective Subjective Date of Service: 06/10/22 Interval History: seen and examined this morning Follow-up for CHF, hypokalemia Improvement in breathing, still with lower extremity edema No chest pain Review of Systems Review of Systems: Yes all other systems are reviewed and are negative Constitutional Constitutional: Denies chills and Denies fever(s) Cardiovascular Cardiovascular: Denies chest pain, Denies palpitations and Denies dyspnea Respiratory Respiratory: Denies cough and Denies dyspnea Gastrointestinal Gastrointestinal: Denies abdominal pain Endocrine Endocrine: Denies palpitations Physical Exam Vital Signs: Vital Signs: Last Vital Signs Temp 97 F 06/10/22 07:00 Pulse 57 06/10/22 07:00 Resp 18 06/10/22 07:00 BP 117/66 06/10/22 07:00 Pulse Ox 98 06/10/22 07:00 O2 Del Method 06/10/22 07:00 BMI result Body Mass Index 28.7 Const: General: cooperative, comfortable, no acute distress, alert and awake Nutritional Appearance: average body habitus Orientation/consciousness: patient oriented x3 Cardio: Other: irregular Rate: regular rate Heart sounds: no murmurs GI: Inspection: No distended Palpation (GI): Soft to palpation and nontender Neuro: General: patient oriented x3 and CN's II-XI intact bilaterally Extrem: Other: tight b/l leg edema Psych: Other: appropriate affect Appearance: grossly normal Objective Data Active Medications Acetaminophen (Acetaminophen 325 Mg Tablet) 650 mg PO Q6H PRN PRN Reason: Pain, Mild (Pain Scale 1-3) Amlodipine Besylate (Amlodipine Besylate 10 Mg Tablet) 10 mg PO DAILY [facility]; Protocol Last Admin: 06/10/22 08:11 Dose: Not Given Documented By: BRENT Non-Admin Reason: Decreased Blood Pressure Empagliflozin (Empagliflozin 10 Mg Tablet) 10 mg PO DAILY [facility] Last Admin: 06/10/22 08:19 Dose: 10 mg Documented By: BRENT Furosemide (Furosemide 40 Mg/4 Ml Vial) 40 mg IVPUSH BID@0900,1800 [facility]; Protocol Last Admin: 06/10/22 08:11 Dose: 40 mg Documented By: BRENT Magnesium Sulfate (Magnesium Sulfate/H2o) 2 gm in 50 mls @ 25 mls/hr IV ONCE [facility] Magnesium Sulfate (Magnesium Sulfate/H2o) 2 gm in 50 mls @ 25 mls/hr IV ONCE ONE Stop: 06/10/22 21:59 Losartan Potassium (Losartan Potassium 50 Mg Tablet) 100 mg PO DAILY [facility]; Protocol Last Admin: 06/10/22 08:11 Dose: 100 mg Documented By: BRENT Metoprolol Succinate (Metoprolol Succinate Er 100 Mg Tab.Er.24h) 100 mg PO DAILY [facility]; Protocol Last Admin: 06/10/22 08:11 Dose: Not Given Documented By: BRENT Non-Admin Reason: Decreased Heart Rate Ondansetron HCl (Ondansetron Hcl 4 Mg/2 Ml Vial) 4 mg IVPUSH Q8H PRN PRN Reason: Nausea and Vomiting Pharmacy Consult (Consult Rx Perform Med Rec) 1 each MISCELLANE ONCE PRN PRN Reason: Consult order Rivaroxaban (Rivaroxaban 20 Mg Tablet) 20 mg PO DAILY@1800 [facility] Last Admin: 06/09/22 17:35 Dose: 20 mg Documented By: MELISSA Sodium Chloride (0.9 % Sodium Chloride Flush 3 Ml Syringe) 3 ml IVFLUSH QSHIFT [facility] Last Admin: 06/10/22 08:11 Dose: 3 ml Documented By: BRENT Spironolactone (Spironolactone 25 Mg Tablet) 12.5 mg PO DAILY [facility]; Protocol Last Admin: 06/10/22 08:08 Dose: 12.5 mg Documented By: BRENT Labs CBC & Chem 7: 06/09/22 05:15 06/10/22 05:44 Labs: Laboratory Results - last 24 hr 06/10/22 05:44 Anion Gap 18 Estim Creat Clear Calc 94.0 Estimated GFR > 60 Random Glucose 82 Calcium 8.7 D Magnesium 1.3 L* Assessment and Plan (1) New onset of congestive heart failure: Status: Acute (2) New onset a-fib: Status: Acute Plan a 67 years old male with PMH of HTN, HLD, CKD who presents to the hospital with a complaint of scrotal swelling and pain for the last 3 days. Scrotal swelling/leg edema Secondary to new onset right-sided CHF Ultrasound scrotum negative for torsion echo showing normal EF with moderately dilated right-sided chambers suggestive of right-sided heart failure continue IV Lasix to 40 b.i.d. cardiology input appreciated, continue diuresis, will need outpatient workup for EDELMIRA and sarcoidosis Geetha, Aldactone started on this admission monitor intake and output Newly diagnosed atrial fibrillation rate controlled continue metoprolol continue Xarelto hypokalemia, hypomagnesemia replace and follow levels chronic normocytic anemia No overt bleeding H/H stable Recommend outpatient follow-up Hypertension continue amlodipine, losartan, metoprolol DVT PPX -Xarelto attending- Dr. nevarez The patient will need ongoing hospitalization for treatment of newly diagnosed atrial fibrillation and CHF with exacerbation to prevent possible decompensation into hypoxic respiratory failure. Quality Stroke Does the patient have a stroke diagnosis?: No VTE Prior VTE?: No VTE Risk Level:: Medical - moderate - high VTE Device Contraindication: Treatment Not Indicated VTE Drug Contraindication: N/A - Med Ordered
[2022-06-10] MEDS: Potassium Chloride Packet 20 MEQ PACKET 40 MEQ PO (15:05)
[2022-06-10 16:00] VITALS: BP 123/73; PULSE 63; RESP 18; TEMP 36.6; O2SAT 97
[2022-06-10] MEDS: Rivaroxaban 20 MG TABLET PO (18:19)
[2022-06-10 20:00] VITALS: BP 147/71; PULSE 54; RESP 18; TEMP 37.1; O2SAT 96
[2022-06-11] VITALS (7 sets, daily range): BP systolic 110–141; BP diastolic 58–77; PULSE 60–78; RESP 16–18; TEMP 36.1–36.7; O2SAT 96–100
[2022-06-11 07:14] LABS: Anion Gap 14 (12-20); Blood Urea Nitrogen 8 mg/dL (9-16); Calcium 8.4 mg/dL (8.4-10.2); Carbon Dioxide 28 mmol/L (22-29); Chloride 101 mmol/L (96-108); Creatinine Clr Calc Pharmacy 90.7; Estimated Glomerular Filt Rate > 60; Glucose Random 88 mg/dL (60-115); Magnesium 1.8 mg/dL (1.6-2.6); Potassium 3.4 mmol/L (3.3-5.1); Sodium 140 mmol/L (135-145)
[2022-06-11] MEDS: Potassium Chloride ER 20 MEQ TAB.ER.PRT 40 MEQ PO (10:22)
[2022-06-11] MEDS: Spironolactone 25 MG TABLET 12.5 MG PO (10:23)
[2022-06-11] MEDS: Magnesium Oxide 400 MG TABLET PO (10:23)
[2022-06-11] MEDS: Metoprolol Succinate ER 100 MG TAB.ER.24H PO (10:23)
[2022-06-11] MEDS: Losartan Potassium 50 MG TABLET 100 MG PO (10:23)
[2022-06-11] MEDS: 0.9 % Sodium Chloride Flush 3 ML SYRINGE IVFLUSH ×3 (10:25→20:53)
[2022-06-11] MEDS: Empagliflozin 10 MG TABLET PO (10:25)
[2022-06-11] MEDS: amLODIPine Besylate 10 MG TABLET PO (10:25)
[2022-06-11] MEDS: Furosemide 40 MG/4 ML VIAL IVPUSH (10:25)
[2022-06-11] MEDS: Magnesium Sulfate/H2O 2 GM/50 ML PIGGYBACK IV (10:26)
--- NOTE | 2022-06-11 12:06 | PM.PNCARD ---
Subjective Subjective Date of Service: 06/11/22 Principal diagnosis: CHF, atrial fibrillation Interval history: Shortness of breath remains good. Has diuresed well overnight with-2500 cc noted. Leg edema is improved. JVD is improved. Heart rate remains controlled. Review of Systems Review of Systems Yes all other systems are reviewed and are negative Physical Exam Vital Signs: Last Vital Signs Temp 97.3 F 06/11/22 11:31 Pulse 62 06/11/22 11:31 Resp 16 06/11/22 11:31 BP 121/59 L 06/11/22 11:31 Pulse Ox 100 06/11/22 11:31 O2 Del Method 06/11/22 11:31 BMI result Body Mass Index 28.7 Const General: cooperative, comfortable and no acute distress Orientation/consciousness: patient oriented x3 Neck Neck: Yes normal visual inspection Resp Effort & Inspection: normal respiratory effort Auscultation: clear to auscultation bilaterally, no crackles, no rhonchi and no wheezes Cardio Jugular venous distension: no JVD Rate: regular rate Rhythm: abnormal rhythm Heart sounds: S1 normal heart sound present, S2 normal heart sound present, no gallops, no murmurs and no rubs GI Inspection: Yes normal to inspection Neuro General: patient oriented x3 Extrem Other: Tight pitting edema to his upper posterior thighs Psych Appearance: grossly normal Mental Status: mental status grossly normal Speech and movement: Normal speech and movement present Objective Labs and Meds Result diagrams: 06/09/22 05:15 06/11/22 05:42 Lab results: Laboratory Results - last 24 hr 06/11/22 05:42 Sodium 140 Potassium 3.4 Chloride 101 Carbon Dioxide 28 Anion Gap 14 BUN 8 L Creatinine 0.87 Estim Creat Clear Calc 90.7 Estimated GFR > 60 Random Glucose 88 Calcium 8.4 Magnesium 1.8 Progress Note: A&P Assessment and plan (1) New onset of congestive heart failure: Status: Acute Assessment and Plan: Patient doing better with fluid overload. Switch to p.o. Bumex 2 mg b.i.d.. Heart failure education to be provided. Daily weight monitoring and avoidance of salt loading discussed with patient. Additional Bumex as needed. Continue also spironolactone as well as Jardiance. Continue aggressive blood pressure control which is well optimized. Rate is adequately control for AFib. Will require outpatient workup for amyloidosis as well as cardiac ischemia. Will set up for the same. Discussed with patient about the same. He understands and agrees. Please check BNP and BMP tomorrow. Replace potassium and magnesium and will require oral therapy for the same. Avoidance of alcohol was discussed with him. (2) New onset a-fib: Status: Acute Assessment and Plan: Atrial fibrillation rate control. Continue metoprolol therapy. Continue full oral anticoagulation, currently on Xarelto 20 mg daily. Will continue monitor renal function as outpatient. If stable patient can be discharged home. Will set up for outpatient follow-up in 7-10 days Time Spent With Patient Time: Total time spent is greater than 50% in coordination of care (as documented) at patient's floor/unit and/or counseling patient: Progress Note: Quality Stroke Does the patient have a stroke diagnosis?: No Procedures Date of Service Date of Service: 06/11/22
--- NOTE | 2022-06-11 13:59 | P.PNIM_ITS ---
Subjective Subjective Date of Service: 06/11/22 Interval History: Feeling better this morning, shortness of breath improved denies chest pain, no palpitation no cough, tolerating diet no nausea, no vomiting no abdominal pain, no acute events overnight. Review of Systems Review of Systems: Yes all other systems are reviewed and are negative Physical Exam Vital Signs: Vital Signs: Last Vital Signs Temp 97.3 F 06/11/22 11:31 Pulse 62 06/11/22 11:31 Resp 16 06/11/22 11:31 BP 121/59 L 06/11/22 11:31 Pulse Ox 100 06/11/22 11:31 O2 Del Method 06/11/22 11:31 BMI result Body Mass Index 28.7 Const: Other: General awake alert x3 in no acute distress. Neck no JVD. CVS regular rate rhythm, Respiratory lungs clear to auscultation, no respiratory distress, no wheeze, no rhonchi. Gastrointestinal abdomen soft, nontender, bowel sounds audible, no guarding , no rigidity. Extremities non pitting edema. Neuro nonfocal , speech clear. Skin no rash Psych appropriate affect Objective Data Active Medications Acetaminophen (Acetaminophen 325 Mg Tablet) 650 mg PO Q6H PRN PRN Reason: Pain, Mild (Pain Scale 1-3) Amlodipine Besylate (Amlodipine Besylate 10 Mg Tablet) 10 mg PO DAILY [facility]; Protocol Last Admin: 06/11/22 10:25 Dose: 10 mg Documented By: BRENT Empagliflozin (Empagliflozin 10 Mg Tablet) 10 mg PO DAILY [facility] Last Admin: 06/11/22 10:25 Dose: 10 mg Documented By: BRENT Furosemide (Furosemide 40 Mg/4 Ml Vial) 40 mg IVPUSH BID@0900,1800 [facility]; P rotocol Last Admin: 06/11/22 10:25 Dose: 40 mg Documented By: BRENT Losartan Potassium (Losartan Potassium 50 Mg Tablet) 100 mg PO DAILY [facility]; Protocol Last Admin: 06/11/22 10:23 Dose: 100 mg Documented By: BRENT Magnesium Oxide (Magnesium Oxide 400 Mg Tablet) 400 mg PO DAILY [facility] Last Admin: 06/11/22 10:23 Dose: 400 mg Documented By: BRENT Metoprolol Succinate (Metoprolol Succinate Er 100 Mg Tab.Er.24h) 100 mg PO DAILY [facility]; Protocol Last Admin: 06/11/22 10:23 Dose: 100 mg Documented By: BRENT Ondansetron HCl (Ondansetron Hcl 4 Mg/2 Ml Vial) 4 mg IVPUSH Q8H PRN PRN Reason: Nausea and Vomiting Pharmacy Consult (Consult Rx Perform Med Rec) 1 each MISCELLANE ONCE PRN PRN Reason: Consult order Potassium Chloride (Potassium Chloride Er 20 Meq Tab.Er.Prt) 40 meq PO DAILY [facility] Last Admin: 06/11/22 10:22 Dose: 40 meq Documented By: BRENT Rivaroxaban (Rivaroxaban 20 Mg Tablet) 20 mg PO DAILY@1800 [facility] Last Admin: 06/10/22 18:19 Dose: 20 mg Documented By: BRENT Sodium Chloride (0.9 % Sodium Chloride Flush 3 Ml Syringe) 3 ml IVFLUSH QSHIFT [facility] Last Admin: 06/11/22 10:25 Dose: 3 ml Documented By: BRENT Spironolactone (Spironolactone 25 Mg Tablet) 12.5 mg PO DAILY [facility]; Protocol Last Admin: 06/11/22 10:23 Dose: 12.5 mg Documented By: BRENT Labs CBC & Chem 7: 06/09/22 05:15 06/11/22 05:42 Labs: Laboratory Results - last 24 hr 06/11/22 05:42 Anion Gap 14 Estim Creat Clear Calc 90.7 Estimated GFR > 60 Random Glucose 88 Calcium 8.4 Magnesium 1.8 Assessment and Plan (1) New onset of congestive heart failure: Status: Acute (2) New onset a-fib: Status: Acute Plan a 67 years old male with PMH of HTN, HLD, CKD who presents to the hospital with a complaint of scrotal swelling and pain for the last 3 days. Scrotal swelling/leg edema Secondary to new onset right-sided CHF Ultrasound scrotum negative for torsion echo showing normal EF with moderately dilated right-sided chambers suggestive of right-sided heart failure Shortness of breath improved, swelling going down,on IV Lasix to [address] Esquivel he recommend Bumex 2 mg b.i.d., will need outpatient workup for EDELMIRA and sarcoidosis Jardiance, Aldactone started on this admission monitor intake and output Newly diagnosed atrial fibrillation rate controlled continue metoprolol and Xarelto hypokalemia, hypomagnesemia Will replace and follow levels with goal of magnesium around 2 and potassium 4 chronic normocytic anemia No overt bleeding H/H stable Recommend outpatient follow-up Hypertension continue amlodipine, losartan, metoprolol DVT PPX -Xarelto patient will need ongoing hospitalization for treatment of newly diagnosed atrial fibrillation and CHF with exacerbation to prevent possible decompensation into hypoxic respiratory failure. Quality Stroke Does the patient have a stroke diagnosis?: No VTE Prior VTE?: No VTE Risk Level:: Medical - moderate - high VTE Device Contraindication: Treatment Not Indicated VTE Drug Contraindication: N/A - Med Ordered
[2022-06-11] MEDS: Bumetanide 1 MG TABLET 2 MG PO (17:00)
[2022-06-11] MEDS: Rivaroxaban 20 MG TABLET PO (17:00)
[2022-06-12] VITALS: BP 128/63; PULSE 51; RESP 18; TEMP 36.4; O2SAT 97
[2022-06-12 03:51] VITALS: BP 127/65; PULSE 50; RESP 18; TEMP 36.3; O2SAT 95
[2022-06-12 06:51] LABS: Anion Gap 19 (12-20); Blood Urea Nitrogen 12 mg/dL (9-16); Calcium 8.3 mg/dL (8.4-10.2); Carbon Dioxide 23 mmol/L (22-29); Chloride 100 mmol/L (96-108); Creatinine Clr Calc Pharmacy 85.8; Estimated Glomerular Filt Rate > 60; Glucose Random 87 mg/dL (60-115); Potassium 5.3 mmol/L (3.3-5.1); Sodium 137 mmol/L (135-145)
[2022-06-12 06:54] LABS: B Type Natriuretic Peptide 676 pg/mL (<100)
[2022-06-12 07:21] VITALS: BP 118/59; PULSE 50; RESP 18; TEMP 36.6; O2SAT 100
[2022-06-12] MEDS: Bumetanide 1 MG TABLET 2 MG PO (08:24)
[2022-06-12] MEDS: Spironolactone 25 MG TABLET 12.5 MG PO (08:24)
[2022-06-12] MEDS: Losartan Potassium 50 MG TABLET 100 MG PO (08:25)
[2022-06-12] MEDS: Metoprolol Succinate ER 100 MG TAB.ER.24H PO (08:25)
[2022-06-12] MEDS: Potassium Chloride ER 20 MEQ TAB.ER.PRT 40 MEQ PO (08:25)
[2022-06-12] MEDS: Empagliflozin 10 MG TABLET PO (08:25)
[2022-06-12] MEDS: 0.9 % Sodium Chloride Flush 3 ML SYRINGE IVFLUSH (08:25)
[2022-06-12] MEDS: Magnesium Oxide 400 MG TABLET PO (08:25)
[2022-06-12] MEDS: amLODIPine Besylate 10 MG TABLET PO (08:25)
--- NOTE | 2022-06-12 10:10 | MHC.CM.PN ---
Addendum entered by Sammi Elena 06/12/22 11:45: CM INFORMED PT WOULD BENEFIT FROM [facility] REFERRAL MADE TO ALL 13 AGENCIES LISTED CONTRACTED WITH [facility]. [facility] HAS DECLINED DUE TO STAFFING SHORTAGES. AWAITING OTHER RESPONSES Original Note: PT BEING DISCHARGED TODAY ON XARELTO PT EXPRESSED CONCERNS AROUND COST OF MEDS 30-DAY COUPON PROVIDED, WITH PLAN TO WORK WITH PHARMACY AND PCP TO DETERMINE LOWEST POSSIBLE COST. PT IS AWARE HE CAN ALSO CALL THE NUMBER ON THE BACK OF THE COUPON FOR FURTHER FINANCIAL ASSISTANCE. PT IS AWARE IF THE COST STILL SEEMS UNMANAGEABLE, HE CAN DISCUSS CHANGING TO WARFARIN WITH HIS PCP PT REPORTS HE LIVES RIGHT NEXT TO [facility] SO IT WOULD NOT BE TERRIBLY INCONVENIENT TO TAKE WARFARIN PT WILL DC HOME TODAY WITH NO SERVICES FRIEND TO TRANSPORT
--- NOTE | 2022-06-12 10:36 | PM.DS ---
DS: Providers Provider Date of Service: 06/12/22 Date of admission: 06/07/22 15:08 Primary care physician: Beto Irizarry MD Consults: 06/07/22 15:08 Consult to Cardiology Routine Consulting Provider: Mayank Marcial Reason for consultation: new onset Afib, CHF DS: Diagnosis Discharge Diagnosis (1) New onset of congestive heart failure: Status: Acute (2) New onset a-fib: Status: Acute DS: Summary Hospital Course Hospital Course: History of presenting illness Chief Complaint: ? Scrotal swelling and pain ?67 years old male with PMH of HTN, HLD, CKD who presents to the hospital with a complaint of scrotal swelling and pain for the last 3 days.? The patient reported not noticing any problems until the last 2 days when he fell this scrotum is getting more swollen, pain at the bottom of it with associated swelling and edema.? He had difficulties passing the urine.? He denies any fever, chills, chest pain, palpitation, nausea, shortness of breath, dyspnea, vomiting, change in bowel habit.? In the emergency was noticed to swollen lower extremities and scrotum with no associated tenderness on exam.? Ultrasound negative for torsion. BNP was noted to be elevated. EKG showed evidence of new onset atrial fibrillation in slow rate.? Admitted for further evaluation and treatment. 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 Patient is now being discharged home with recommendation to continue all medications as prescribed dose of Norvasc has been lowered to 5 mg daily patient is also being placed on low-dose potassium. Patient also diagnosed with New onset atrial fibrillation, patient has been continued on metoprolol and started on Xarelto, patient has given 30 day free trial of Xarelto and recommended to follow-up with primary care physician to discuss authorization and coverage hypokalemia, hypomagnesemia repleted recommend to follow labs scheduled by primary care physician on 06/17 chronic normocytic anemia No overt bleeding,H/H stable Recommend outpatient follow-up Hypertension continue amlodipine, losartan, and metoprolol Time Spent with Patient Time attestation: Total time spent providing and/or coordinating discharge services: Discharge coordination time: Greater than 30 minutes Quality: Safe Use of Opioids Does Pt have an Active Cancer Diagnosis on the Problem List?: No Quality: Stroke Does the patient have a stroke diagnosis?: No Physical Exam Vital Signs: Vital Signs: Last Vital Signs Temp 97.8 F 06/12/22 07:21 Pulse 50 06/12/22 07:21 Resp 18 06/12/22 07:21 BP 118/59 L 06/12/22 07:21 Pulse Ox 100 06/12/22 07:21 O2 Del Method 06/12/22 07:21 BMI result Body Mass Index 28.7 Const: Other: General awake alert x3 in no acute distress.? Neck no JVD. CVS? regular rate rhythm, Respiratory lungs clear to auscultation, no respiratory distress, no wheeze, no rhonchi. Gastrointestinal abdomen soft, nontender, bowel sounds audible,? no guarding , no rigidity. Extremities non pitting edema significantly improved. Neuro nonfocal , speech clear. Skin no rash Psych appropriate affect DS: Data Data Completed and Pending Labs on day of discharge: Laboratory Results - last 24 hr 06/12/22 06/12/22 05:30 05:30 Sodium 137 Potassium 5.3 H D Chloride 100 Carbon Dioxide 23 Anion Gap 19 BUN 12 Creatinine 0.92 Estim Creat Clear Calc 85.8 Estimated GFR > 60 Random Glucose 87 Calcium 8.3 L Magnesium 2.0 B-Natriuretic Peptide 676 H Discharge Plan Discharge Patient Disposition: Home Health Service Discharge Diagnosis: New onset atrial fibrillation New onset right-sided heart failure Referrals: Beto Irizarry MD [Primary Care Provider] - 1 Week Discharge Medications: New Xarelto 20 mg Tablet 20 mg PO DAILY@1800 Qty: 30 0RF spironolactone 25 mg Tablet 12.5 mg PO DAILY 30 Days Qty: 15 0RF Protocol: Hold for SBP< HOLD for SBP < : 90 Jardiance 10 mg Tablet 10 mg PO DAILY Qty: 30 0RF amlodipine [Norvasc] 5 mg tablet 5 mg PO DAILY Qty: 30 0RF potassium chloride 20 mEq tablet extended release 20 meq PO DAILY Qty: 30 0RF bumetanide 2 mg tablet 2 mg PO BID Qty: 60 0RF Continued losartan 100 mg tablet 100 mg PO DAILY 90 Days Qty: 90 3RF metoprolol succinate 100 mg tablet extended release 24 hr 100 mg PO DAILY 90 Days Qty: 90 3RF Discontinued amlodipine 10 mg tablet 10 mg PO DAILY 90 Days Qty: 90 3RF Discharge Orders: Discharge Order (Routine); Ordered 06/12/22 Ordered By: Gosia Hay Diet: Low salt diet Activity on Discharge: As tolerated Stand Alone Forms: Patient Portal Discharge page Care Plan Goals: Fever diagnosed to have new onset atrial fibrillation and new onset right-sided heart failure You are being discharged home on Bumex, spironolactone, Jardiance, Xarelto, potassium and dose of of Norvasc has been reduced to 5 mg daily Check electrolytes and renal function on 06/17 as ordered by primary care physician Health Concerns: Take all home medications as prescribed Plan of Treatment: Follow-up with cardiology in 1-2 weeks call to make an appointment follow-up with primary care physician Assessment: As per discharge summary
--- NOTE | 2022-06-12 11:22 | P.PNCA_ITS ---
Subjective Subjective Date of Service: 06/12/22 Principal diagnosis: CHF, atrial fibrillation Interval history: Patient feeling well. Says his shortness of breath is much better. His weakness in his legs also improved. Remains in atrial fibrillation with control led ventricular response. Has diuresed well. Review of Systems Review of Systems Yes all other systems are reviewed and are negative Physical Exam Vital Signs: Last Vital Signs Temp 97.8 F 06/12/22 07:21 Pulse 50 06/12/22 07:21 Resp 18 06/12/22 07:21 BP 118/59 L 06/12/22 07:21 Pulse Ox 100 06/12/22 07:21 O2 Del Method 06/12/22 07:21 BMI result Body Mass Index 28.7 Const General: cooperative, comfortable and no acute distress Orientation/consciousness: patient oriented x3 Neck Neck: Yes normal visual inspection Resp Effort & Inspection: normal respiratory effort Auscultation: clear to auscultation bilaterally, no crackles, no rhonchi and no wheezes Cardio Jugular venous distension: no JVD Rate: regular rate Rhythm: abnormal rhythm Heart sounds: S1 normal heart sound present, S2 normal heart sound present, no gallops, no murmurs and no rubs GI Inspection: Yes normal to inspection Neuro General: patient oriented x3 Extrem Other: Tight pitting edema to his upper posterior thighs Psych Appearance: grossly normal Mental Status: mental status grossly normal Speech and movement: Normal speech and movement present Objective Labs and Meds Result diagrams: 06/09/22 05:15 06/12/22 05:30 Lab results: Laboratory Results - last 24 hr 06/12/22 06/12/22 05:30 05:30 Sodium 137 Potassium 5.3 H D Chloride 100 Carbon Dioxide 23 Anion Gap 19 BUN 12 Creatinine 0.92 Estim Creat Clear Calc 85.8 Estimated GFR > 60 Random Glucose 87 Calcium 8.3 L Magnesium 2.0 B-Natriuretic Peptide 676 H Progress Note: A&P Assessment and plan (1) New onset of congestive heart failure: Status: Acute Assessment and Plan: New onset heart failure with much improved predominantly right-sided heart failure. With a combination of low voltage on EKG with new onset atrial fibrillation new onset heart failure need to rule out infiltrative disorder such as amyloidosis. Also ischemia needs to be ruled out. Will set up for outpatient testing for the same. Continue Bumex, Jardiance as well as Aldactone therapy. Will follow up in the clinic in 7-10 days. Heart failure management was discussed in details. He understands and agrees. If he has recurrent heart failure symptoms at difficult control may consider CardioMEMS device. Blood pressure is currently well optimized. Continue current therapy. Importance of good blood pressure control was discussed. (2) New onset a-fib: Status: Acute Assessment and Plan: New onset rate control atrial fibrillation. Workup as above. Continue rate control with metoprolol. Will follow up with Holter monitor in near future. Continue full oral anticoagulation with Xarelto 20 mg daily. May require rhythm control approach in future. Will follow up as outpatient 10 days Time Spent With Patient Time: Total time spent is greater than 50% in coordination of care (as documented) at patient's floor/unit and/or counseling patient: Progress Note: Quality Stroke Does the patient have a stroke diagnosis?: No Procedures Date of Service Date of Service: 06/12/22
== END 2022-06-12 11:00 | disposition home health service (06) | DRG 291 ==
LOC: HO.ED 11:45 → HO.EDOVER 16:05 → HO.S3 20:43
PROVIDERS: Emergency Medicine Emergency Medical Services; Physician Assistant Medical; Admitting Provider Student in an Organized Health Care Education/Training Program; Emergency Provider Emergency Medicine; PCP Internal Medicine; Visit Provider Hospitalist
DX: I13.0 Hypertensive heart and chronic kidney disease with heart failure and stage 1 through stage 4 chronic kidney disease, or unspecified chronic kidney disease (principal); I50.31 Acute diastolic (congestive) heart failure; I48.19 Other persistent atrial fibrillation; D63.1 Anemia in chronic kidney disease; E87.6 Hypokalemia; E83.42 Hypomagnesemia; E78.5 Hyperlipidemia, unspecified; I50.810 Right heart failure, unspecified; Z20.822 Contact with and (suspected) exposure to COVID-19; Z88.0 Allergy status to penicillin; Z79.01 Long term (current) use of anticoagulants; Z79.899 Other long term (current) drug therapy
CPT/HCPCS: 36415; 71045; 76870; 80048; 80076; 81003; 83735; 83880; 84443; 84484; 85025; 85027; 87635; 93005; 93306; 93975; 96374; 99285; J1940; J3475

== ENCOUNTER → 2022-06-27 09:04 | Outpatient (REF) | payer MEDICARE, SELFPAY ==
--- NOTE | ~2022-06-27 | NM_ITS ---
TC-PYP Cardiac Study INDICATION: Evaluation for Cardiac Amyloidosis CLINICAL HISTORY: 67 years old Male with atrial fibrillation and congestive heart failure to rule out cardiac amyloidosis TECHNIQUE: 25 mCi of Tc-99m pyrophosphate was injected intravenously. Planar images of the chest were obtained in the anterior and left lateral views at 3 hours.. SPECT-CT images of the chest were also obtained. Total DLP 73 mGy-cm COMPARISON: None FINDINGS: 1. Image Quality: Good 2. Semi-quantitative visual scoring of the cardiac uptake is performed as follows: 0 = absent cardiac uptake and intense bone uptake 3. H-CL Ratio if Applicable: Not applicable NM/NM TC PYP cardiac amyloidosis IMPRESSION: 1. Study is negative for myocardial uptake, therefore no evidence of ATTR-type of amyloidosis 2. Please note that the Tc 99m PYP is more sensitive in detecting transthyretin-related cardiac amyloidosis than that of light-chain cardiac amyloidosis.
== END ==
LOC: HO.NUCMED 09:04
PROVIDERS: PCP Internal Medicine; Visit Provider Internal Medicine Cardiovascular Disease
DX: I48.91 Unspecified atrial fibrillation (principal); I50.9 Heart failure, unspecified
CPT/HCPCS: 78803; A9538

== ENCOUNTER → 2022-07-14 07:54 | Outpatient (REF) | payer MEDICARE, SELFPAY | LOC: HO.CARD 07:54 | PROVIDERS: PCP Internal Medicine; Visit Provider Internal Medicine Cardiovascular Disease | DX: Z13.89 Encounter for screening for other disorder (principal) ==

== ENCOUNTER → 2022-07-18 11:22 | Outpatient (REF) | payer MEDICARE, SELFPAY ==
--- NOTE | 2022-07-18 11:26 | HM_ITS ---
* Total monitoring time 2 days and 21 hours. * Average ventricular rate 37/Min. Range 30 to 65/Min. About 92% of the time, rate < 60/Min. * Overnight, some areas with ventricular rate at 31/Min without changes in R-R interval. Cannot exclude junctional escape rhythm. * No significant pauses. * Rare PVCs. * No patient events. * Overall, atrial fibrillation with slow ventricular rate. MTDD
== END ==
LOC: HO.CARD 11:22
PROVIDERS: PCP Internal Medicine; Visit Provider Nurse Practitioner Family
DX: I48.91 Unspecified atrial fibrillation (principal)
CPT/HCPCS: 93242

== ENCOUNTER 2022-07-26 10:07 | Outpatient (REF) | payer MEDICARE, SELFPAY ==
[2022-07-26 10:18] LABS: MANUAL DIFF FLAG NO
[2022-07-26 10:50] LABS: Basophils Percent Auto 0.8 % (0-2); Eosinophils Absolute Auto 0.2 X10*3/uL (0.0-0.4); Eosinophils Percent Auto 3.6 % (0-4); Hemoglobin 12.3 g/dl (14.0-18.0); Imm Gran Abs Auto 0.01 X10*3/uL (0.00-0.03); Imm Gran Pct Auto 0.2 % (0.0-0.4); Lymphocytes Absolute Auto 1.3 X10*3/uL (1.2-4.9); Lymphocytes Percent Auto 25.7 % (20-40); Mean Corpuscular HGB Conc 33.2 g/dl (31.0-36.0); Mean Corpuscular Hemoglobin 30.9 pg (27.0-33.0); Mean Platelet Volume 9.2 fL (9.4-12.4); Monocytes Absolute Auto 0.5 X10*3/uL (0.1-1.2); Monocytes Percent Auto 9.8 % (2-11); Neutrophils Percent Auto 59.9 % (45-73); Platelet Count 215 X10*3/uL (160-400); Red Blood Count 3.98 X10*6/uL (4.60-5.80); Red Cell Distribution Width 12.4 % (11.0-16.0)
[2022-07-26 10:53] LABS: INTERNATIONAL NORM RATIO 1.9 (0.9-1.1); Prothrombin Time 21.9 SEC (10.0-13.1)
[2022-07-26 11:18] LABS: Anion Gap 18 (12-20); Blood Urea Nitrogen 26 mg/dL (9-16); Calcium 9.7 mg/dL (8.4-10.2); Carbon Dioxide 23 mmol/L (22-29); Chloride 102 mmol/L (96-108); Estimated Glomerular Filt Rate 56; Glucose Random 177 mg/dL (60-115); Magnesium 1.7 mg/dL (1.6-2.6); Potassium 3.8 mmol/L (3.3-5.1); Sodium 139 mmol/L (135-145)
== END 2022-07-26 10:08 | disposition home or self-care (01) ==
LOC: HO.LAB 10:07
PROVIDERS: PCP Internal Medicine; Visit Provider Nurse Practitioner Family
DX: I11.0 Hypertensive heart disease with heart failure (principal); I50.9 Heart failure, unspecified; I48.91 Unspecified atrial fibrillation; E83.42 Hypomagnesemia
CPT/HCPCS: 36415; 80048; 83735; 85025; 85610

== ENCOUNTER → 2022-07-29 08:08 | Outpatient (BNVA) | payer MEDICARE, SELFPAY | PROVIDERS: PCP Internal Medicine; Visit Provider Internal Medicine | DX: I48.91 Unspecified atrial fibrillation (principal); Z51.81 Encounter for therapeutic drug level monitoring; Z79.01 Long term (current) use of anticoagulants | CPT/HCPCS: 85610; 99202 ==

== ENCOUNTER → 2022-08-01 08:12 | Outpatient (BNVA) | payer MEDICARE, SELFPAY | PROVIDERS: PCP Internal Medicine; Visit Provider Internal Medicine | DX: I48.91 Unspecified atrial fibrillation (principal); Z79.01 Long term (current) use of anticoagulants; Z51.81 Encounter for therapeutic drug level monitoring | CPT/HCPCS: 85610; 99211 ==

== ENCOUNTER → 2022-08-05 08:00 | Outpatient (BNVA) | payer MEDICARE, SELFPAY | PROVIDERS: PCP Internal Medicine; Visit Provider Internal Medicine | DX: I48.91 Unspecified atrial fibrillation (principal); Z79.01 Long term (current) use of anticoagulants; Z51.81 Encounter for therapeutic drug level monitoring | CPT/HCPCS: 85610; 99211 ==

== ENCOUNTER → 2022-08-08 08:15 | Outpatient (BNVA) | payer MEDICARE, SELFPAY | PROVIDERS: PCP Internal Medicine; Visit Provider Internal Medicine | DX: I48.91 Unspecified atrial fibrillation (principal); Z79.01 Long term (current) use of anticoagulants; Z51.81 Encounter for therapeutic drug level monitoring | CPT/HCPCS: 85610; 99211 ==

== ENCOUNTER → 2022-08-10 08:25 | Outpatient (BNVA) | payer MEDICARE, SELFPAY | PROVIDERS: PCP Internal Medicine; Visit Provider Nurse Practitioner Family | DX: Z79.899 Other long term (current) drug therapy (principal) | CPT/HCPCS: 93005 ==

== ENCOUNTER → 2022-08-16 08:12 | Outpatient (BNVA) | payer MEDICARE, SELFPAY | PROVIDERS: PCP Internal Medicine; Visit Provider Internal Medicine | DX: I48.91 Unspecified atrial fibrillation (principal); Z79.01 Long term (current) use of anticoagulants; Z51.81 Encounter for therapeutic drug level monitoring | CPT/HCPCS: 85610; 99211 ==

== ENCOUNTER → 2022-08-25 08:08 | Outpatient (BNVA) | payer MEDICARE, SELFPAY | PROVIDERS: PCP Internal Medicine; Visit Provider Internal Medicine | DX: I48.91 Unspecified atrial fibrillation (principal); Z79.01 Long term (current) use of anticoagulants; Z51.81 Encounter for therapeutic drug level monitoring | CPT/HCPCS: 85610; 99211 ==

== ENCOUNTER → 2022-09-05 08:28 | Outpatient (BNVA) | payer MEDICARE, SELFPAY | PROVIDERS: PCP Internal Medicine; Visit Provider Internal Medicine | DX: I48.91 Unspecified atrial fibrillation (principal); Z79.01 Long term (current) use of anticoagulants; Z51.81 Encounter for therapeutic drug level monitoring | CPT/HCPCS: 85610; 99211 ==

== ENCOUNTER → 2022-09-06 14:20 | Outpatient (BNVA) | payer MEDICARE, SELFPAY | PROVIDERS: PCP Internal Medicine; Referring Provider Internal Medicine; Visit Provider Nurse Practitioner Family | DX: I48.91 Unspecified atrial fibrillation (principal); R00.1 Bradycardia, unspecified; I11.0 Hypertensive heart disease with heart failure; I50.9 Heart failure, unspecified; Z79.01 Long term (current) use of anticoagulants | CPT/HCPCS: 99212 ==

== ENCOUNTER → 2022-09-19 08:22 | Outpatient (BNVA) | payer MEDICARE, SELFPAY | PROVIDERS: PCP Internal Medicine; Visit Provider Internal Medicine | DX: I48.91 Unspecified atrial fibrillation (principal); Z79.01 Long term (current) use of anticoagulants; Z51.81 Encounter for therapeutic drug level monitoring | CPT/HCPCS: 85610 ==

== ENCOUNTER → 2022-10-03 08:13 | Outpatient (BNVA) | payer MEDICARE, SELFPAY | PROVIDERS: PCP Internal Medicine; Visit Provider Internal Medicine | DX: I48.91 Unspecified atrial fibrillation (principal); Z79.01 Long term (current) use of anticoagulants; Z51.81 Encounter for therapeutic drug level monitoring | CPT/HCPCS: 85610; 99211 ==

== ENCOUNTER 2022-10-11 09:13 | Outpatient (REF) | payer MEDICARE, SELFPAY ==
[2022-10-11 09:36] LABS: MANUAL DIFF FLAG NO
[2022-10-11 09:58] LABS: Basophils Absolute Auto 0.1 X10*3/uL (0.0-0.2); Basophils Percent Auto 0.9 % (0-2); Eosinophils Absolute Auto 0.1 X10*3/uL (0.0-0.4); Eosinophils Percent Auto 1.9 % (0-4); Hematocrit 33.5 % (42.0-52.0); Hemoglobin 11.4 g/dl (14.0-18.0); Imm Gran Abs Auto 0.02 X10*3/uL (0.00-0.03); Imm Gran Pct Auto 0.3 % (0.0-0.4); Lymphocytes Absolute Auto 1.6 X10*3/uL (1.2-4.9); Lymphocytes Percent Auto 25.4 % (20-40); Mean Corpuscular Hemoglobin 30.6 pg (27.0-33.0); Mean Corpuscular Volume 90.1 fL (80.0-98.0); Mean Platelet Volume 9.3 fL (9.4-12.4); Monocytes Absolute Auto 0.6 X10*3/uL (0.1-1.2); Monocytes Percent Auto 9.3 % (2-11); Neutrophils Absolute Auto 3.9 x10*3/uL (2.0-8.3); Neutrophils Percent Auto 62.2 % (45-73); Platelet Count 239 X10*3/uL (160-400); Red Blood Count 3.72 X10*6/uL (4.60-5.80); Red Cell Distribution Width 13.6 % (11.0-16.0); White Blood Count 6.3 X10*3/uL (4.8-10.8)
[2022-10-11 10:35] LABS: Estimated Average Glucose 103 mg/dL; Hemoglobin A1c % 5.2 %
[2022-10-11 11:40] LABS: Appearance Urine Clear; Color Urine Yellow; Glucose Urine UA Negative (Negative); Leukocyte Esterase Urine Negative (Negative); Nitrite Urine Negative (Negative); Urine Blood Negative (Negative); Urine Ketones Negative (Negative); Urine Protein Negative (Neg-Trace)
[2022-10-11 12:08] LABS: Creatinine Urine 24.73 mg/dL; Microalbumin Urine < 5.0 mg/L
[2022-10-11 13:29] LABS: Alanine Aminotransferase 14 U/L (0-40); Albumin Level 4.1 g/dL (3.5-5.0); Alkaline Phosphatase 63 U/L (39-117); Anion Gap 12 (12-20); Aspartate Amino Transferase 20 U/L (5-37); Blood Urea Nitrogen 17 mg/dL (9-16); Calcium 9.6 mg/dL (8.4-10.2); Carbon Dioxide 29 mmol/L (22-29); Chloride 105 mmol/L (96-108); Cholesterol 210 mg/dL; Estimated Glomerular Filt Rate > 60; Free T4 (Free Thyroxine) 0.94 ng/dL (0.71-1.85); Glucose Fasting 109 mg/dL (60-99); HDL Cholesterol 48 mg/dL; LDL Cholesterol Calculated 137 mg/dl; Potassium 3.3 mmol/L (3.3-5.1); Sodium 143 mmol/L (135-145); Thyroid Stimulating Hormone 4.16 uIU/mL (0.32-4.0); Triglycerides 125 mg/dL; Vitamin D 25-OH Total 28.6 ng/mL (>30)
== END 2022-10-11 09:14 | disposition home or self-care (01) ==
LOC: HO.LAB 09:13
PROVIDERS: PCP Internal Medicine; Visit Provider Internal Medicine
DX: E55.9 Vitamin D deficiency, unspecified (principal); I10 Essential (primary) hypertension; R79.89 Other specified abnormal findings of blood chemistry; E11.9 Type 2 diabetes mellitus without complications; E78.00 Pure hypercholesterolemia, unspecified
CPT/HCPCS: 36415; 80053; 80061; 81003; 82043; 82306; 83036; 84439; 84443; 85025

== ENCOUNTER → 2022-10-17 08:00 | Outpatient (BNVA) | payer MEDICARE, SELFPAY | PROVIDERS: PCP Internal Medicine; Visit Provider Internal Medicine | DX: I48.91 Unspecified atrial fibrillation (principal); Z79.01 Long term (current) use of anticoagulants; Z51.81 Encounter for therapeutic drug level monitoring | CPT/HCPCS: 85610; 99211 ==

== ENCOUNTER → 2022-10-28 11:16 | Outpatient (REF) | payer MEDICARE, SELFPAY ==
--- NOTE | 2022-10-28 11:19 | HM_ITS ---
* Total monitoring time approximately 3 days. * Very difficult to assess underlying rhythm. Computerized read is sinus rhythm throughout. However, several strips appear to rather suggest atrial fibrillation with slow ventricular rate. * Average ventricular rate is 50/Min. Range 35 to 99/Min. About 70% the time, rate less than 60/Min. * No significant pauses. There is computerized entry as Mobitz type 2 second- degree block but it could be atrial fibrillation with slow rate rather. Overall, difficult to say. * Occasional PVCs. 3 short runs. Longest 35 beats. Monomorphic. * Patient marker used once in association with sinus rhythm. MTDD
== END ==
LOC: HO.CARD 11:16
PROVIDERS: PCP Internal Medicine; Visit Provider Nurse Practitioner Family
DX: I48.91 Unspecified atrial fibrillation (principal); R00.1 Bradycardia, unspecified
CPT/HCPCS: 93242

== ENCOUNTER → 2022-11-09 08:08 | Outpatient (BNVA) | payer MEDICARE, SELFPAY | PROVIDERS: PCP Internal Medicine; Visit Provider Internal Medicine | DX: I48.91 Unspecified atrial fibrillation (principal); Z79.01 Long term (current) use of anticoagulants; Z51.81 Encounter for therapeutic drug level monitoring | CPT/HCPCS: 85610; 99211 ==

== ENCOUNTER → 2022-11-23 10:15 | Outpatient (BNVA) | payer MEDICARE, SELFPAY | PROVIDERS: PCP Internal Medicine; Visit Provider Internal Medicine | DX: I48.91 Unspecified atrial fibrillation (principal); Z79.01 Long term (current) use of anticoagulants; Z51.81 Encounter for therapeutic drug level monitoring | CPT/HCPCS: 85610; 99211 ==

== ENCOUNTER → 2022-11-24 09:31 | Outpatient (REF) | payer MEDICARE, SELFPAY ==
--- NOTE | ~2022-11-24 | NM_ITS ---
Myocardial perfusion study Indication: Heart failure to evaluate for myocardial ischemia Technique: The patient was brought in for a Lexiscan perfusion study on 11/24/2022. Patient performed low-level exercise and was injected 0.4 mg of Lexiscan intravenously. Within a minute of injection, 30 mCi of sestamibi was given intravenously. Images were obtained using the SPECT gamma camera interlaced with the gating device. Images were obtained in supine position. Resting perfusion study was performed on 11/28/2022. Patient was administered 30 mCi of sestamibi intravenously at rest. Images were then obtained in supine position. Images obtained with and without CT attenuation. Total DLP 78 mGy-cm. Images were processed with the software and compared side to side in short axis, horizontal long axis and vertical long axis views. Findings: The stress perfusion study showed non attenuated images show moderately reduced uptake in the inferior wall of the LV myocardium. Remainder of the LV myocardium is normally perfused. Attenuation corrected images show mildly reduced uptake in the apex of the LV myocardium.. The gated study shows normal LV systolic function with calculated LVEF of 65%. LV cavity is mildly dilated size. The gated study shows normal wall thickening and contraction of segments. Resting study shows no change in perfusion pattern compared to stress perfusion study. Gating at rest reveals normal systolic wall motion with ejection fraction at 71%. The findings are consistent with no reversible defect suggestive of ischemia. Normal myocardial perfusion. NM/NM calin perf SPECT rest & str Impression: 1. Myocardial perfusion imaging study shows normal myocardial perfusion 2. Gated LVEF is 65% 3. Transient ischemic dilatation not present EKG is Nondiagnostic for ischemia
--- NOTE | 2022-11-24 09:34 | CA_ITS ---
Acquisition Time: 2022-11-24 09:48:27 Total Exercise Time: 00:02:00 Test Indications: I48.91 Unspecified AFIB, I50.9 H Medications: See H Protocol: LEXISCAN Max HR: 099 BPM 65% of Pred: 151 BPM Max BP: 138/072 mmHG Max Work Load: 1.6 METS Pharmacological stress test with Lexiscan injection, while walking slow on treadmill, without anginal synmptoms, with isolated PVCs, with normotensive response to injection, with nondiagnostic EKG for ischemia. with T wave inversions noted. Nuclear images pending. Test reviewed with Dr Marcial Referred By: Mayank Marcial Overread By: SAYRA SANCHEZ
== END ==
LOC: HO.CARD 09:31
PROVIDERS: PCP Internal Medicine; Visit Provider Internal Medicine Cardiovascular Disease
DX: I48.91 Unspecified atrial fibrillation (principal); I50.9 Heart failure, unspecified
CPT/HCPCS: 78452; 93017; A9500; J0280; J2785

== ENCOUNTER → 2022-12-14 10:11 | Outpatient (BNVA) | payer MEDICARE, SELFPAY | PROVIDERS: PCP Internal Medicine; Visit Provider Internal Medicine | DX: I48.91 Unspecified atrial fibrillation (principal); Z79.01 Long term (current) use of anticoagulants; Z51.81 Encounter for therapeutic drug level monitoring | CPT/HCPCS: 85610; 99211 ==

== ENCOUNTER → 2023-01-11 10:21 | Outpatient (BNVA) | payer MEDICARE, SELFPAY | PROVIDERS: PCP Internal Medicine; Visit Provider Internal Medicine | DX: I48.91 Unspecified atrial fibrillation (principal); Z79.01 Long term (current) use of anticoagulants; Z51.81 Encounter for therapeutic drug level monitoring | CPT/HCPCS: 85610; 99211 ==

== ENCOUNTER 2023-02-09 09:17 | Outpatient (REF) | payer MEDICARE, SELFPAY ==
[2023-02-09 09:37] LABS: MANUAL DIFF FLAG NO
[2023-02-09 10:41] LABS: Basophils Absolute Auto 0.1 X10*3/uL (0.0-0.2); Basophils Percent Auto 0.8 % (0-2); Eosinophils Absolute Auto 0.1 X10*3/uL (0.0-0.4); Eosinophils Percent Auto 1.2 % (0-4); Hematocrit 37.9 % (42.0-52.0); Hemoglobin 12.8 g/dl (14.0-18.0); Imm Gran Abs Auto 0.02 X10*3/uL (0.00-0.03); Imm Gran Pct Auto 0.3 % (0.0-0.4); Lymphocytes Absolute Auto 1.7 X10*3/uL (1.2-4.9); Lymphocytes Percent Auto 27.9 % (20-40); Mean Corpuscular HGB Conc 33.8 g/dl (31.0-36.0); Mean Corpuscular Hemoglobin 30.3 pg (27.0-33.0); Mean Corpuscular Volume 89.6 fL (80.0-98.0); Mean Platelet Volume 9.6 fL (9.4-12.4); Monocytes Absolute Auto 0.5 X10*3/uL (0.1-1.2); Monocytes Percent Auto 9.1 % (2-11); Neutrophils Absolute Auto 3.6 x10*3/uL (2.0-8.3); Neutrophils Percent Auto 60.7 % (45-73); Platelet Count 220 X10*3/uL (160-400); Red Blood Count 4.23 X10*6/uL (4.60-5.80); Red Cell Distribution Width 13.3 % (11.0-16.0); White Blood Count 5.9 X10*3/uL (4.8-10.8)
[2023-02-09 10:55] LABS: B Type Natriuretic Peptide 187 pg/mL (<100)
[2023-02-09 10:59] LABS: Alanine Aminotransferase 9 U/L (0-40); Albumin Level 4.3 g/dL (3.5-5.0); Alkaline Phosphatase 74 U/L (39-117); Anion Gap 15 (12-20); Aspartate Amino Transferase 19 U/L (5-37); Blood Urea Nitrogen 15 mg/dL (9-16); Calcium 9.6 mg/dL (8.4-10.2); Carbon Dioxide 31 mmol/L (22-29); Chloride 101 mmol/L (96-108); Cholesterol 231 mg/dL; Estimated Glomerular Filt Rate > 60; Glucose Fasting 95 mg/dL (60-99); HDL Cholesterol 50 mg/dL; LDL Cholesterol Calculated 159 mg/dl; Potassium 3.4 mmol/L (3.3-5.1); Sodium 144 mmol/L (135-145); Total Protein 7.2 g/dL (6.5-8.0); Triglycerides 114 mg/dL
[2023-02-09 11:06] LABS: Appearance Urine Clear; Color Urine Yellow; Glucose Urine UA Negative (Negative); Leukocyte Esterase Urine Negative (Negative); Nitrite Urine Negative (Negative); Urine Blood Negative (Negative); Urine Ketones Negative (Negative); Urine Protein Negative (Neg-Trace)
[2023-02-09 11:18] LABS: TSH reflex Free T4 3.48 uIU/mL (0.32-4.0); Vitamin D 25-OH Total 32.8 ng/mL (>30)
== END 2023-02-09 09:18 | disposition home or self-care (01) ==
LOC: HO.LAB 09:17
PROVIDERS: PCP Internal Medicine; Visit Provider Internal Medicine
DX: I48.91 Unspecified atrial fibrillation (principal); I11.0 Hypertensive heart disease with heart failure; I50.9 Heart failure, unspecified; E78.00 Pure hypercholesterolemia, unspecified; R30.0 Dysuria; E55.9 Vitamin D deficiency, unspecified; Z51.81 Encounter for therapeutic drug level monitoring; Z79.01 Long term (current) use of anticoagulants
CPT/HCPCS: 36415; 80053; 80061; 81003; 82306; 83880; 84443; 85025; 85610; 99211

== ENCOUNTER → 2023-02-24 10:21 | Outpatient (BNVA) | payer MEDICARE, SELFPAY | PROVIDERS: PCP Internal Medicine; Visit Provider Internal Medicine | DX: I48.91 Unspecified atrial fibrillation (principal); Z79.01 Long term (current) use of anticoagulants; Z51.81 Encounter for therapeutic drug level monitoring | CPT/HCPCS: 85610; 99211 ==

== ENCOUNTER → 2023-03-23 10:20 | Outpatient (BNVA) | payer MEDICARE, SELFPAY | PROVIDERS: PCP Internal Medicine; Visit Provider Internal Medicine | DX: I48.91 Unspecified atrial fibrillation (principal); Z79.01 Long term (current) use of anticoagulants; Z51.81 Encounter for therapeutic drug level monitoring | CPT/HCPCS: 85610; 99211 ==

== ENCOUNTER → 2023-04-07 10:23 | Outpatient (BNVA) | payer MEDICARE, SELFPAY | PROVIDERS: PCP Internal Medicine; Visit Provider Internal Medicine | DX: I48.91 Unspecified atrial fibrillation (principal); Z79.01 Long term (current) use of anticoagulants; Z51.81 Encounter for therapeutic drug level monitoring | CPT/HCPCS: 85610; 99211 ==

== ENCOUNTER → 2023-04-27 10:20 | Outpatient (BNVA) | payer MEDICARE, SELFPAY | PROVIDERS: PCP Internal Medicine; Visit Provider Internal Medicine | DX: I48.91 Unspecified atrial fibrillation (principal); Z79.01 Long term (current) use of anticoagulants; Z51.81 Encounter for therapeutic drug level monitoring | CPT/HCPCS: 85610; 99211 ==

== ENCOUNTER 2023-05-25 09:27 | Outpatient (REF) | payer MEDICARE, SELFPAY ==
[2023-05-25 09:45] LABS: MANUAL DIFF FLAG NO
[2023-05-25 10:24] LABS: Basophils Absolute Auto 0.1 X10*3/uL (0.0-0.2); Basophils Percent Auto 0.9 % (0-2); Eosinophils Absolute Auto 0.1 X10*3/uL (0.0-0.4); Hematocrit 37.8 % (42.0-52.0); Hemoglobin 12.8 g/dl (14.0-18.0); Imm Gran Abs Auto 0.01 X10*3/uL (0.00-0.03); Imm Gran Pct Auto 0.2 % (0.0-0.4); Lymphocytes Absolute Auto 1.7 X10*3/uL (1.2-4.9); Lymphocytes Percent Auto 28.8 % (20-40); Mean Corpuscular HGB Conc 33.9 g/dl (31.0-36.0); Mean Corpuscular Hemoglobin 30.8 pg (27.0-33.0); Mean Corpuscular Volume 91.1 fL (80.0-98.0); Mean Platelet Volume 9.5 fL (9.4-12.4); Monocytes Absolute Auto 0.5 X10*3/uL (0.1-1.2); Neutrophils Absolute Auto 3.5 x10*3/uL (2.0-8.3); Neutrophils Percent Auto 61.1 % (45-73); Platelet Count 214 X10*3/uL (160-400); Red Blood Count 4.15 X10*6/uL (4.60-5.80); Red Cell Distribution Width 13.6 % (11.0-16.0); White Blood Count 5.8 X10*3/uL (4.8-10.8)
[2023-05-25 10:52] LABS: Estimated Average Glucose 91 mg/dL; Hemoglobin A1c % 4.8 %
[2023-05-25 11:04] LABS: Appearance Urine Clear; Color Urine Yellow; Glucose Urine UA Negative (Negative); Leukocyte Esterase Urine Negative (Negative); Nitrite Urine Negative (Negative); Specific Gravity - Urine <= 1.005 (1.005-1.025); Urine Blood Negative (Negative); Urine Ketones Negative (Negative); Urine Protein Negative (Neg-Trace)
[2023-05-25 11:05] LABS: B Type Natriuretic Peptide 197 pg/mL (<100)
[2023-05-25 11:09] LABS: Alanine Aminotransferase 7 U/L (0-40); Albumin Level 4.3 g/dL (3.5-5.0); Alkaline Phosphatase 57 U/L (39-117); Anion Gap 13 (12-20); Aspartate Amino Transferase 16 U/L (5-37); Bilirubin Total 0.9 mg/dL (0.0-1.0); Blood Urea Nitrogen 13 mg/dL (9-16); Calcium 9.8 mg/dL (8.4-10.2); Carbon Dioxide 28 mmol/L (22-29); Chloride 103 mmol/L (96-108); Cholesterol 212 mg/dL; Estimated Glomerular Filt Rate > 60; Glucose Fasting 96 mg/dL (60-99); HDL Cholesterol 47 mg/dL; LDL Cholesterol Calculated 143 mg/dl; Potassium 2.9 mmol/L (3.3-5.1); Sodium 141 mmol/L (135-145); Total Protein 7.7 g/dL (6.5-8.0); Triglycerides 111 mg/dL
[2023-05-25 11:28] LABS: TSH reflex Free T4 3.55 uIU/mL (0.32-4.0); Vitamin D 25-OH Total 38.1 ng/mL (>30)
== END 2023-05-25 09:28 | disposition home or self-care (01) ==
LOC: HO.LAB 09:27
PROVIDERS: PCP Internal Medicine; Visit Provider Internal Medicine
DX: I48.91 Unspecified atrial fibrillation (principal); E78.00 Pure hypercholesterolemia, unspecified; E55.9 Vitamin D deficiency, unspecified; R73.01 Impaired fasting glucose; I11.0 Hypertensive heart disease with heart failure; I50.9 Heart failure, unspecified; R30.0 Dysuria; Z51.81 Encounter for therapeutic drug level monitoring; Z79.01 Long term (current) use of anticoagulants
CPT/HCPCS: 36415; 80053; 80061; 81003; 82306; 83036; 83880; 84443; 85025; 85610; 99211

== ENCOUNTER 2023-05-25 10:09 | Outpatient (AMB) | payer MEDICARE, SELFPAY ==
--- NOTE | 2023-05-25 10:19 | MHC.OFFVISCO ---
Intake Intake Visit Reasons: Anticoagulation Allergies penicillin V Allergy (Unknown, Verified 05/25/23 10:15) Unknown Medication List - Last Reconciled 05/25/23 by Sammi Woods RN amlodipine (Norvasc) 5 mg PO DAILY bumetanide 1 mg PO DAILY 90 days cholecalciferol (vitamin D3) 50 mcg PO DAILY 90 days empagliflozin (Jardiance) 10 mg PO DAILY losartan 100 mg PO DAILY 90 days potassium chloride ER 20 mEq PO DAILY spironolactone 12.5 mg (1/2 x 25 mg) PO DAILY warfarin 5 mg See Protocol PO DAILY 90 days Nursing Note INR: 2.5- in therapeutic range Medications and supplements reviewed No changes in health, diet, medications, or supplements, Denies any signs and symptoms of bleeding or bruising or clotting. Bleeding, bruising, clotting discussed Nutritional guidance given Dose: 5mg x 6, 7.5mg x 1 F/U INR: pt req 4 weeks Patient verbalizes understanding of instructions given pt c.o lightheadedness, norberto when standing - enc to move slowly, c.o shortness of breath going up stairs, c.o phlegm- clear, c.o change in voice pt enc to go to urgent care or ed, pt ref. pcp office called to request appt for pt- pt given appt by nory for yasmani 05/26/23- pt ref. nory aware of pt c.o pt again enc to go to urgent care or ed- he states he will if nec. pt had labs today. pt enc to f/u with cardiology Anti-Coag Initial Assessment Social Hx Patient Tobacco Use Status: Never used Tobacco Alcohol intake frequency: does not drink Cardiovascular Hx: HTN and Arrhythmias (AFIB) Neurological Hx: Other (HX OF CONCUSSIONS(5)) Cancer HX: No Psych. Illness/Depression: No Coding Level of Care Code Est Patient Level 1 Diagnoses Current use of anticoagulant therapy Z79.01 Assessment & Plan Assessment & Plan (1) Current use of anticoagulant therapy: Code(s): Z79.01 - long term care pharmacist (current) use of anticoagulants Category: Medical
[2023-05-25 10:20] LABS: Prothrombin Time Whole Bld POC 29.9 sec (11.1-13.5); ~PT, ~INR - Anti Coag Clinic 2.5 (0.9-1.1)
== END 2023-05-25 10:30 | disposition home or self-care (01) ==
LOC: HO.ACS 10:09
PROVIDERS: PCP Internal Medicine; Visit Provider Internal Medicine
DX: Z79.01 Long term (current) use of anticoagulants (principal)

== ENCOUNTER 2023-06-22 09:06 | Outpatient (AMB) | payer MEDICARE, SELFPAY ==
[2023-06-22 09:30] LABS: Prothrombin Time Whole Bld POC 36.5 sec (11.1-13.5)
--- NOTE | 2023-06-22 09:32 | MHC.OFFVISCO ---
Intake Intake Visit Reasons: Anticoagulation Allergies penicillin V Allergy (Unknown, Verified 06/22/23 09:23) Unknown Medication List - Last Reconciled 06/22/23 by Celina Mack RN amlodipine (Norvasc) 5 mg PO DAILY bumetanide 1 mg PO DAILY 90 days cholecalciferol (vitamin D3) 50 mcg PO DAILY 90 days empagliflozin (Jardiance) 10 mg PO DAILY losartan 100 mg PO DAILY 90 days potassium chloride ER 20 mEq PO DAILY spironolactone 12.5 mg (1/2 x 25 mg) PO DAILY warfarin 5 mg See Protocol PO DAILY 90 days Nursing Note Amb to ACS feeling same, continues with feelings of lightheadedness and dizzyness, has appt with PCP after this visit Medications and supplements reviewed No changes in health, diet, medications, or supplements Denies any unusual signs and symptoms of bruising, bleeding Denies any new Chest pain, SOB, or clotting INR:3.0 top of therapeutic range Nutritional guidance given: have a green today then balance greens and reds in diet Dose: continue usual dosing; 7.mg x 1 day and 5mg x 6 days F/U INR: 4 weeks, to call if any med changes and aware may need sooner visit if any meds with warfarin interactions Patient verbalizes understanding of instructions given with accurate read back/ teach back of dosing Anti-Coag Initial Assessment Social Hx Patient Tobacco Use Status: Never used Tobacco Alcohol intake frequency: does not drink Cardiovascular Hx: HTN and Arrhythmias (AFIB) Neurological Hx: Other (HX OF CONCUSSIONS(5)) Cancer HX: No Psych. Illness/Depression: No Coding Level of Care Code Est Patient Level 1 Diagnoses Current use of anticoagulant therapy Z79.01 Time Spent (min) 15 Assessment & Plan Assessment & Plan (1) Current use of anticoagulant therapy: Code(s): Z79.01 - terminal makeup operator (current) use of anticoagulants Category: Medical
== END 2023-06-22 09:36 | disposition home or self-care (01) ==
LOC: HO.ACS 09:06
PROVIDERS: PCP Internal Medicine; Visit Provider Internal Medicine
DX: Z79.01 Long term (current) use of anticoagulants (principal)

== ENCOUNTER → 2023-06-22 09:06 | Outpatient (BNVA) | payer MEDICARE, SELFPAY | PROVIDERS: PCP Internal Medicine; Visit Provider Internal Medicine | DX: I48.91 Unspecified atrial fibrillation (principal); Z79.01 Long term (current) use of anticoagulants; Z51.81 Encounter for therapeutic drug level monitoring | CPT/HCPCS: 85610; 99211 ==

== ENCOUNTER 2023-06-22 09:38 | Outpatient (AMB) | payer MEDICARE, SELFPAY ==
[2023-06-22 09:41] VITALS: BP 122/80; PULSE 57; O2SAT 99; BMI 20.9
--- NOTE | 2023-06-22 09:41 | MHC.PC.OV ---
Vital Signs 06/22/23 09:41 Height 5 ft 10 in Weight 145 lb 6 oz BMI 20.9 BP 122/80 Blood Pressure Location Lt brachial Position Sitting Pulse 57 Pulse Source Pulse Oximeter Pulse Oximetry (%) 99 Oxygen Delivery Method Room Air Intake Visit Reasons: AF, CHF, HTN, hyperlipidemia Life Assurance Representative Required: No Accompanied by: Self / Same As Patient Allergies penicillin V Allergy (Unknown, Verified 06/22/23 09:58) Unknown Medication List - Last Reconciled 06/22/23 by Beto Irizarry MD amlodipine (Norvasc) 5 mg PO DAILY bumetanide 1 mg PO DAILY 90 days cholecalciferol (vitamin D3) 50 mcg PO DAILY 90 days empagliflozin (Jardiance) 10 mg PO DAILY losartan 100 mg PO DAILY 90 days potassium chloride ER 20 mEq PO DAILY spironolactone 12.5 mg (1/2 x 25 mg) PO DAILY warfarin 5 mg See Protocol PO DAILY 90 days Tobacco use date assessed: 06/22/23 Fall risk assessment: No Falls in past year Last assessed Fall Risk: 06/22/23 Dental Screening Dental Screen Date: 06/22/23 Did you have a dental visit in the last 12 months?: No Did you have a dental problem in the last 6 months where you did not have access to dental care?: No Was dental information given to patient?: No HPI AF, CHF, HTN, hyperlipidemia HPI Details Patient comes in today for his follow up visit States that he feels okay He denies any headaches but still has frequent/recurrent dizziness and lightheadedness States that even just moving around or getting up from sitting down would trigger his dizzy spells Denies any chest pains, no SOB No nausea/vomiting, no abdominal pain No change in bowel habits noted Had his follow up labs done a few weeks ago - to discuss his results [facility] Medical History Atrial fibrillation Benign essential hypertension Congestive heart failure (CHF) Elevated LFTs Impaired fasting glucose New onset a-fib New onset of congestive heart failure Obesity (BMI 30-39.9) Overweight (BMI 25.0-29.9) Pure hypercholesterolemia Renal insufficiency Rhinophyma Vitamin D deficiency Surgical History No pertinent past surgical history Family History Father Hypertension Mother Medical history unknown Social History Household Members: None Housing: Apartment Do you presently have visiting nurse or other home services: No Patient Tobacco Use Status: Never used Tobacco e-Cigarette/Vaping Use: Never Used Second Hand Smoke Exposure: Yes service: No Current occupational status: retired Current occupational exposures/hazards: No Cognitive needs: No Hearing needs: No Vision needs: Yes Questionnaire PHQ-9 Over the last 2 weeks, how often have you been bothered by any of the following problems? 1. Little interest or pleasure in doing things: not at all 2. Feeling down, depressed, or hopeless: not at all 3. Trouble falling or staying asleep, or sleeping too much: not at all 4. Feeling tired or having little energy: not at all 5. Poor appetite or overeating: not at all 6. Feeling bad about yourself - or that you are a failure or have let yourself or your family down: not at all 7. Trouble concentrating on things, such as reading the newspaper or watching television: not at all 8. Moving or speaking so slowly that other people could have noticed. Or the opposite - being so fidgety or restless that you have been moving around a lot more than usual: not at all 9. Thoughts that you would be better off or of hurting yourself in some way: not at all Total score: 0 Depression Screening Interpretation: Negative [id number] - PHQ-9 Billing: Yes Source: Developed by Drs. Zhen Fleming, Edel Hermosillo, Kapil Guillen and colleagues, with an educational gildardo from [employer]. Thrive Questionnaire Date Thrive assessed: 06/22/23 I am a: Patient What is your living situation today?: I have a steady place to live Within the past 12 months, did the food you bought not last and you didn't have the money to get more?: Never true Within the past 12 months, did you worry whether your food would run out before you got money to buy more?: Never true Do you have trouble paying for medicines?: No Do you have trouble getting transportation to medical appointments?: No Do you have trouble paying your heating and electricity bill?: No Do you have trouble taking care of your child, family member or friend?: No Do you have trouble with day-to-day activities such as bathing, preparing meals, shopping, managing finances, etc.?: No Are you currently unemployed and looking for a job?: No Are you interested in more education?: No Please select the resources that you would like help with: None Currently or been in a relationship where the following occur: no concerns reported AUDIT C Alcohol Use Questionnaire (AUDIT-C) 1. How often do you have a drink containing alcohol?: Never Total Score: 0 Score Reviewed/Action Taken: Yes RONALDO-7 AMB Questionnaire RONALDO-7 Date RONALDO - 7 assessed: 06/22/23 Feeling nervous, anxious, or on edge: 0 = Not at all Not being able to stop or control worryin = Not at all Worrying too much about different things: 0 = Not at all Trouble relaxin = Not at all Being so restless that it is hard to sit still: 0 = Not at all Becoming easily annoyed or irritable: 0 = Not at all Feeling afraid as if something awful might happen: 0 = Not at all Total RONALDO-7 score (0-4 normal; 5-9 mild; 10-14 moderate; 15-21 severe): 0 Source: Developed by Drs. Zhen Fleming, Edel Hermosillo, Kapil Guillen and colleagues, with an educational gildardo from [employer]. Review of Systems Const Denies chills, Denies fatigue, Denies fever(s) and Denies headache(s) ENT Denies dysphagia, Reports dizziness (frequent/recurrent - especially when he moves or turns quickly), Denies otalgia, Denies headache(s), Denies neck pain, Denies odynophagia and Denies sore throat Card Denies chest pain, Reports lightheadedness, Denies palpitations and Denies dyspnea Resp Denies cough and Denies dyspnea GI Denies abdominal pain, Denies constipation, Denies dysphagia, Denies heartburn, Denies diarrhea, Denies nausea, Denies odynophagia and Denies vomiting Denies dysuria, Reports nocturia and Reports urinary frequency (is on diuretics) Musc Reports muscle weakness (recently) and Denies neck pain Neuro Reports dizziness (frequent/recurrent - especially when he moves or turns quickly) and Denies headache(s) Endo Denies fatigue and Denies palpitations Physical exam (Primary Care) Vital Signs: Last Vital Signs Pulse 57 06/22/23 09:41 BP 122/80 06/22/23 09:41 Pulse Ox 99 06/22/23 09:41 Oxygen Delivery Method Room Air 06/22/23 09:41 BMI result Body Mass Index 20.9 Tobacco/Smoking Status: Tobacco use Status Tobacco use date assessed 06/22/23 06/22/23 09:48 Patient Tobacco Use Status Never used Tobacco 06/22/23 09:48 e-Cigarette/Vaping Use Never Used 06/22/23 09:48 PHQ-9: PHQ-9 Score PHQ-9: Total score 0 06/22/23 09:48 Depression Screening Interpretation: Negative Thrive Assessment: Date of Thrive Assessment Date Thrive assessed 06/22/23 06/22/23 09:48 Currently or been in a relationship where the following occur: no concerns reported Const General: no acute distress and alert HENMT Ears: TM's normal bilaterally and EAC's normal General nose exam: Abnormal external nose present ((+) rhinophyma) Throat: Yes posterior oropharynx normal and Yes tonsils normal (no TP congestion noted) Neck Neck: Yes no lymphadenopathy and Yes supple Resp Auscultation: clear to auscultation bilaterally, no rales and no wheezes Cardio Rate: bradycardic Rhythm: abnormal rhythm irregularly irregular Heart sounds: no murmurs GI Palpation (GI): Soft to palpation and nontender Auscultation: normal bowel sounds Extrem General: Yes no clubbing, cyanosis or edema Results Reviewed Results Reviewed: Laboratory Tests 05/25/23 05/25/23 05/25/23 09:41 09:44 09:44 WBC 5.8 Hgb 12.8 L Hct 37.8 L Plt Count 214 Whole Blood PT Whole Blood INR Sodium 141 Potassium 2.9 L Creatinine 1.05 Estimated GFR > 60 Fasting Glucose 96 Hemoglobin A1c % Calcium 9.8 AST 16 ALT 7 B-Natriuretic Peptide Triglycerides 111 Cholesterol 212 LDL Cholesterol, Calc 143 HDL Cholesterol 47 25-OH Vitamin D Total 38.1 TSH 3.55 Ur Specific [place] <= 1.005 Urine Protein Negative Urine Glucose (UA) Negative Urine Blood Negative 05/25/23 05/25/23 06/22/23 09:44 09:44 09:28 WBC Hgb Hct Plt Count Whole Blood PT 36.5 H Whole Blood INR 3.0 H Sodium Potassium Creatinine Estimated GFR Fasting Glucose Hemoglobin A1c % 4.8 Calcium AST ALT B-Natriuretic Peptide 197 H Triglycerides Cholesterol LDL Cholesterol, Calc HDL Cholesterol 25-OH Vitamin D Total TSH Ur Specific [place] Urine Protein Urine Glucose (UA) Urine Blood Assessment and Plan Assessment & Plan (1) Atrial fibrillation: Code(s): I48.91 - Unspecified atrial fibrillation Qualifiers: Atrial fibrillation type: unspecified Qualified Code(s): I48.91 - Unspecified atrial fibrillation Plan: Patient currently remains rate-controlled Was on Metoprolol ER in the past but this was discontinued due to prolonged/persistent bradycardia Patient's heart rate remains borderline low but has improved somewhat from previous with discontinuation of his Metoprolol ER Continue Coumadin QD for thromboembolism prophylaxis INR today was at 3.0 Was following up with cardiology previously but he has not been seen in a while (last appt was in September 2022) - will refer patient back to cardiology for continuing follow up and management (2) Congestive heart failure (CHF): Code(s): I50.9 - Heart failure, unspecified Qualifiers: Heart failure type: unspecified Heart failure chronicity: acute Qualified Code(s): I50.9 - Heart failure, unspecified Plan: Currently remains compensated Echocardiogram done on 06/07/22 revealed normal LV systolic function with mild LVH and normal EF, with moderately dilated right-sided chambers suggestive of a right-sided heart failure Cardiac stress testing and myocardial perfusion study done late last year (2021) all came out normal Reinforced fluid restriction Continue Aldactone 12.5 mg QD; is also on Bumetanide 1 mg QD but will try HOLDING this to see if patient's recurrent dizziness and lightheadedness will improve OFF Bumetanide Patient is instructed to continue monitoring his blood pressure regularly and to call LILIA if he starts experiencing increasing SOB and/or edema Will refer him back to cardiology for continuing follow up and management (3) Pleural effusion, right: Code(s): J90 - Pleural effusion, not elsewhere classified Plan: Initially seen incidentally on abdominal US in May 2022 Was most likely related to his recent right-sided heart failure and should have gradually resolved with diuresis and control of his CHF Will repeat chest x-rays for follow up ONLY if needed (if he starts experiencing increasing SOB) (4) Benign essential hypertension: Code(s): I10 - Essential (primary) hypertension Plan: Reinforced low sodium diet - goal is systolic BP of at least 130 to 140 mm or less Continue Losartan 100 mg QD, Amlodipine 5 mg QD and Spironolactone 12.5 mg Q AM; will have him try HOLDING his Bumetanide 1 mg starting tomorrow (5) Pure hypercholesterolemia: Code(s): E78.00 - Pure hypercholesterolemia, unspecified Plan: Results of his labs done a few weeks ago reviewed and discussed with patient - lipids have improved slightly from previous Reinforced low cholesterol diet; he prefers to continue with diet modification at this time Will recheck labs in 4 months for follow up (6) Impaired fasting glucose: Code(s): R73.01 - Impaired fasting glucose Plan: HgbA1c was normal at 4.8% on his recent labs; was also normal at 5.2% and 5.3% when previously checked Reinforced low calorie diet/exercise as tolerated Continue Jardiance 10 mg QD - this was previously started to help more with his kidneys and heart (7) Renal insufficiency: Code(s): N28.9 - Disorder of kidney and ureter, unspecified Plan: His previous proteinuria appears to have improved/resolved on his recent labs His GFR and serum creatinine also have remained stable Will continue to monitor his renal function closely (8) Hypokalemia: Code(s): E87.6 - Hypokalemia Plan: Advised that his serum potassium level is very low (2.9) on his recent labs and this may be contributing to his recurrent dizziness as well as his recent muscle weakness Patient was taking potassium chloride supplements but he seems to have stopped taking this at some point and does not remember presently that he was on potassium tablets Will start him back for now on Potassium Chloride ER 20 meq QD - instructed to take this daily x 7 days, then every other day Will recheck his serum electrolytes along with his other labs in a few months - patient prefers not to get any additional labs done unless absolutely necessary as he is currently still trying to find out from his insurance and from billing why he is receiving a bill for over $300 for his previous labs done (9) Vitamin D deficiency: Code(s): E55.9 - Vitamin D deficiency, unspecified Plan: Continue Vitamin D3 2000 units QD (10) Elevated LFTs: Code(s): R79.89 - Other specified abnormal findings of blood chemistry Plan: Improved Reinforced avoidance of alcohol and Tylenol-containing medications Abdominal US done last year came out normal but incidentally revealed (+) right-sided pleural effusion that was most likely related to his right-sided heart failure (11) Elevated TSH: Code(s): R79.89 - Other specified abnormal findings of blood chemistry Plan: His serum TSH level has remained normal on his recent labs; patient is asymptomatic and again clinically appears euthyroid Will continue to monitor his TFTs regularly (12) Weight loss, unintentional: Code(s): R63.4 - Abnormal weight loss Plan: Patient has lost about 20 to 22 pounds since his last visit in February 2023 and states that he eats well and is not trying to lose any more weight States that other than his recurrent dizziness/lightheadedness and recent occasional muscle weakness, he feels well overall His protein and albumin levels on his recent labs were also normal so nutrition does not appear to be a concern at this time Will continue to monitor his weight closely and advised that if his weight continues to drop, we will need to check into this further Plan Follow up in 4 months Orders: Orders Complete Blood Count Auto Diff 4 Months I10 - Essential (primary) hypertension Comprehensive [place]. Panel Fast 4 Months E78.00 - Pure hypercholesterolemia, unspecified Lipid Panel 4 Months E78.00 - Pure hypercholesterolemia, unspecified UA CC w/rflx Micro + Cult 4 Months R30.0 - Dysuria Referrals Cardiology Referral I48.91 - Unspecified atrial fibrillation, I50.9 - Heart failure, unspecified Medications: Changed From spironolactone 12.5 mg (1/2 x 25 mg) PO DAILY 15 tabs 3RF To spironolactone 12.5 mg (1/2 x 25 mg) PO DAILY 90 days 45 tabs 3RF Refilled potassium chloride ER 20 mEq PO DAILY 30 tabs 3RF On Hold bumetanide Hold Comment: Doctor's Order 1 mg PO DAILY 90 days 90 tabs 1RF Coding Level of Care Code Est Pt Level 4 (34170) Diagnoses Atrial fibrillation I48.91 Atrial fibrillation type: unspecified Congestive heart failure (CHF) I50.9 Heart failure type: unspecified Heart failure chronicity: acute Pleural effusion, right J90 Benign essential hypertension I10 Pure hypercholesterolemia E78.00 Impaired fasting glucose R73.01 Renal insufficiency N28.9 Hypokalemia E87.6 Vitamin D deficiency E55.9 Elevated LFTs R79.89 Elevated TSH R79.89 Weight loss, unintentional R63.4
== END 2023-06-22 10:43 | disposition home or self-care (01) ==
PROVIDERS: PCP Internal Medicine; Visit Provider Internal Medicine
DX: I48.91 Unspecified atrial fibrillation (principal); I11.0 Hypertensive heart disease with heart failure; I50.9 Heart failure, unspecified; E55.9 Vitamin D deficiency, unspecified; J90 Pleural effusion, not elsewhere classified; E78.00 Pure hypercholesterolemia, unspecified; R73.01 Impaired fasting glucose; N28.9 Disorder of kidney and ureter, unspecified; E87.6 Hypokalemia; R79.89 Other specified abnormal findings of blood chemistry; R63.4 Abnormal weight loss
CPT/HCPCS: 99214

== ENCOUNTER 2023-07-21 10:18 | Outpatient (AMB) | payer MEDICARE, SELFPAY ==
--- NOTE | 2023-07-21 10:32 | MHC.OFFVISCO ---
Intake Intake Visit Reasons: Anticoagulation Allergies penicillin V Allergy (Unknown, Verified 07/21/23 10:23) Unknown Medication List - Last Reconciled 07/21/23 by Nan Saucedo RN amlodipine (Norvasc) 5 mg PO DAILY bumetanide 1 mg PO DAILY 90 days cholecalciferol (vitamin D3) 50 mcg PO DAILY 90 days empagliflozin (Jardiance) 10 mg PO DAILY losartan 100 mg PO DAILY 90 days potassium chloride ER 20 mEq PO DAILY spironolactone 12.5 mg (1/2 x 25 mg) PO DAILY 90 days warfarin 5 mg See Protocol PO DAILY 90 days Nursing Note INR: 2.2 in therapeutic range Medications and supplements reviewed No changes in health, diet, medications, or supplements, Denies any signs and symptoms of bleeding or bruising or clotting. Bleeding, bruising, clotting discussed Nutritional guidance given Dose: 7.5MG X 1 DAY/ 5MG X 6 DAYS F/U INR: 1 MONTH Patient verbalizes understanding of instructions given Anti-Coag Initial Assessment Social Hx Patient Tobacco Use Status: Never used Tobacco Alcohol intake frequency: does not drink Cardiovascular Hx: HTN and Arrhythmias (AFIB) Neurological Hx: Other (HX OF CONCUSSIONS(5)) Cancer HX: No Psych. 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
[2023-07-21 10:33] LABS: Prothrombin Time Whole Bld POC 26.7 sec (11.1-13.5); ~PT, ~INR - Anti Coag Clinic 2.2 (0.9-1.1)
== END 2023-07-21 10:43 | disposition home or self-care (01) ==
LOC: HO.ACS 10:18
PROVIDERS: PCP Internal Medicine; Visit Provider Internal Medicine
DX: Z79.01 Long term (current) use of anticoagulants (principal)

== ENCOUNTER → 2023-07-21 10:18 | Outpatient (BNVA) | payer MEDICARE, SELFPAY | PROVIDERS: PCP Internal Medicine; Visit Provider Internal Medicine | DX: I48.19 Other persistent atrial fibrillation (principal); Z79.01 Long term (current) use of anticoagulants; Z51.81 Encounter for therapeutic drug level monitoring | CPT/HCPCS: 85610; 99211 ==

== ENCOUNTER 2023-08-21 10:22 | Outpatient (AMB) | payer MEDICARE, SELFPAY ==
--- NOTE | 2023-08-21 10:34 | MHC.OFFVISCO ---
Intake Intake Visit Reasons: Anticoagulation Allergies penicillin V Allergy (Unknown, Verified 08/21/23 10:30) Unknown Medication List - Last Reconciled 08/21/23 by Sammi Woods RN amlodipine (Norvasc) 5 mg PO DAILY bumetanide 1 mg PO DAILY 90 days [CBD inhalation] cholecalciferol (vitamin D3) 50 mcg PO DAILY 90 days empagliflozin (Jardiance) 10 mg PO DAILY losartan 100 mg PO DAILY 90 days potassium chloride ER 20 mEq PO DAILY spironolactone 12.5 mg (1/2 x 25 mg) PO DAILY 90 days warfarin 5 mg See Protocol PO DAILY 90 days Nursing Note INR: 2.2-in therapeutic range Medications and supplements reviewed- bumetanide on hold by pcp due to light headedness- no interaction with warfarin per micromedex No changes in health, diet, medications, or supplements, Denies any signs and symptoms of bleeding or bruising or clotting. Bleeding, bruising, clotting discussed Nutritional guidance given Dose: 5mg x 6, 7.5mg x 1 F/U INR: 4 weeks Patient verbalizes understanding of instructions given Anti-Coag Initial Assessment Social Hx Patient Tobacco Use Status: Never used Tobacco Alcohol intake frequency: does not drink Cardiovascular Hx: HTN and Arrhythmias (AFIB) Neurological Hx: Other (HX OF CONCUSSIONS(5)) Cancer HX: No Psych. 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
[2023-08-21 10:35] LABS: Prothrombin Time Whole Bld POC 25.9 sec (11.1-13.5); ~PT, ~INR - Anti Coag Clinic 2.2 (0.9-1.1)
== END 2023-08-21 10:50 | disposition home or self-care (01) ==
LOC: HO.ACS 10:22
PROVIDERS: PCP Internal Medicine; Visit Provider Internal Medicine
DX: Z79.01 Long term (current) use of anticoagulants (principal)

== ENCOUNTER → 2023-08-21 10:22 | Outpatient (BNVA) | payer MEDICARE, SELFPAY | PROVIDERS: PCP Internal Medicine; Visit Provider Internal Medicine | DX: I48.19 Other persistent atrial fibrillation (principal); Z79.01 Long term (current) use of anticoagulants; Z51.81 Encounter for therapeutic drug level monitoring | CPT/HCPCS: 85610; 99211 ==

== ENCOUNTER 2023-09-18 09:42 | Outpatient (REF) | payer MEDICARE, SELFPAY ==
[2023-09-18 10:09] LABS: MANUAL DIFF FLAG NO
[2023-09-18 10:47] LABS: Basophils Percent Auto 0.6 % (0-2); Eosinophils Absolute Auto 0.1 X10*3/uL (0.0-0.4); Eosinophils Percent Auto 1.1 % (0-4); Hematocrit 35.4 % (42.0-52.0); Hemoglobin 11.4 g/dl (14.0-18.0); Imm Gran Abs Auto 0.02 X10*3/uL (0.00-0.03); Imm Gran Pct Auto 0.4 % (0.0-0.4); Lymphocytes Absolute Auto 1.7 X10*3/uL (1.2-4.9); Lymphocytes Percent Auto 31.9 % (20-40); Mean Corpuscular HGB Conc 32.2 g/dl (31.0-36.0); Mean Corpuscular Hemoglobin 30.7 pg (27.0-33.0); Mean Corpuscular Volume 95.4 fL (80.0-98.0); Mean Platelet Volume 9.4 fL (9.4-12.4); Monocytes Absolute Auto 0.5 X10*3/uL (0.1-1.2); Monocytes Percent Auto 8.6 % (2-11); Neutrophils Percent Auto 57.4 % (45-73); Platelet Count 209 X10*3/uL (160-400); Red Blood Count 3.71 X10*6/uL (4.60-5.80); White Blood Count 5.2 X10*3/uL (4.8-10.8)
[2023-09-18 11:02] LABS: Alanine Aminotransferase 9 U/L (0-40); Albumin Level 4.4 g/dL (3.5-5.0); Alkaline Phosphatase 45 U/L (39-117); Anion Gap 14 (12-20); Aspartate Amino Transferase 17 U/L (5-37); Bilirubin Total 0.6 mg/dL (0.0-1.0); Blood Urea Nitrogen 17 mg/dL (9-16); Calcium 9.7 mg/dL (8.4-10.2); Carbon Dioxide 25 mmol/L (22-29); Chloride 104 mmol/L (96-108); Cholesterol 198 mg/dL (<200); Estimated Glomerular Filt Rate > 60; Glucose Fasting 88 mg/dL (60-99); HDL Cholesterol 58 mg/dL (>40); LDL Cholesterol Calculated 122 mg/dL (<100); Sodium 139 mmol/L (135-145); Total Protein 7.6 g/dL (6.5-8.0); Triglycerides 90 mg/dL (<150)
[2023-09-18 12:07] LABS: Appearance Urine Clear; Color Urine Yellow; Glucose Urine UA Negative (Negative); Leukocyte Esterase Urine Negative (Negative); Nitrite Urine Negative (Negative); Urine Blood Negative (Negative); Urine Ketones Negative (Negative); Urine Protein Trace mg/dL (Neg-Trace)
== END 2023-09-18 09:43 | disposition home or self-care (01) ==
LOC: HO.LAB 09:42
PROVIDERS: PCP Internal Medicine; Visit Provider Internal Medicine
DX: I10 Essential (primary) hypertension (principal); E78.00 Pure hypercholesterolemia, unspecified; R30.0 Dysuria; I48.19 Other persistent atrial fibrillation; Z51.81 Encounter for therapeutic drug level monitoring; Z79.01 Long term (current) use of anticoagulants
CPT/HCPCS: 36415; 80053; 80061; 81003; 85025; 85610; 99211

== ENCOUNTER 2023-09-18 09:58 | Outpatient (AMB) | payer MEDICARE, SELFPAY ==
--- NOTE | 2023-09-18 10:27 | MHC.OFFVISCO ---
Intake Intake Visit Reasons: Anticoagulation Allergies penicillin V Allergy (Unknown, Verified 09/18/23 10:23) Unknown Medication List - Last Reconciled 09/18/23 by Sammi Woods RN amlodipine (Norvasc) 5 mg PO DAILY bumetanide 1 mg PO DAILY 90 days [CBD inhalation] cholecalciferol (vitamin D3) 50 mcg PO DAILY 90 days empagliflozin (Jardiance) 10 mg PO DAILY losartan 100 mg PO DAILY 90 days potassium chloride ER 20 mEq PO DAILY spironolactone 12.5 mg (1/2 x 25 mg) PO DAILY 90 days warfarin 5 mg See Protocol PO DAILY 90 days Nursing Note INR: 2.1- in therapeutic range of 2-3 Medications and supplements reviewed- no changes in medications No changes in health, diet, medications, or supplements, Denies any signs and symptoms of bleeding or bruising or clotting. Bleeding, bruising, clotting discussed Nutritional guidance given Dose: 5mg x 6, 7.5mg x 1 F/U INR: 4 weeks Patient verbalizes understanding of instructions given Anti-Coag Initial Assessment Social Hx Patient Tobacco Use Status: Never used Tobacco Alcohol intake frequency: does not drink Cardiovascular Hx: HTN and Arrhythmias (AFIB) Neurological Hx: Other (HX OF CONCUSSIONS(5)) Cancer HX: No Psych. 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
[2023-09-18 10:29] LABS: Prothrombin Time Whole Bld POC 24.7 sec (11.1-13.5); ~PT, ~INR - Anti Coag Clinic 2.1 (0.9-1.1)
== END 2023-09-18 10:33 | disposition home or self-care (01) ==
LOC: HO.ACS 09:58
PROVIDERS: PCP Internal Medicine; Visit Provider Internal Medicine
DX: Z79.01 Long term (current) use of anticoagulants (principal)

== ENCOUNTER 2023-10-20 09:24 | Outpatient (AMB) | payer MEDICARE, SELFPAY ==
[2023-10-20 09:33] LABS: Prothrombin Time Whole Bld POC 24.6 sec (11.1-13.5); ~PT, ~INR - Anti Coag Clinic 2.1 (0.9-1.1)
--- NOTE | 2023-10-20 09:35 | MHC.OFFVISCO ---
Intake Intake Visit Reasons: Anticoagulation Allergies penicillin V Allergy (Unknown, Verified 10/20/23 09:37) Unknown Medication List - Last Reconciled 10/20/23 by Nan Saucedo RN amlodipine 5 mg PO DAILY bumetanide 1 mg PO DAILY 90 days [CBD inhalation] cholecalciferol (vitamin D3) 50 mcg PO DAILY 90 days empagliflozin (Jardiance) 10 mg PO DAILY losartan 100 mg PO DAILY 90 days potassium chloride ER 20 mEq PO DAILY spironolactone 12.5 mg (1/2 x 25 mg) PO DAILY 90 days warfarin 5 mg See Protocol PO DAILY 90 days Nursing Note INR: 2.1 in therapeutic range Medications and supplements reviewed Going to see Dr Irizarry today has been having left eye flashes of bright light - not sure what it is, he will call with any med or supplement changes , denies any pain or discomfort or loss of vision Denies any signs and symptoms of bleeding or bruising or clotting. Bleeding, bruising, clotting discussed Nutritional guidance given Dose: keep same dose 7.5mg x 1 day/ 5mg x 6days F/U INR: 1 month Patient verbalizes understanding of instructions given Anti-Coag Initial Assessment Social Hx Patient Tobacco Use Status: Never used Tobacco Alcohol intake frequency: does not drink Cardiovascular Hx: HTN and Arrhythmias (AFIB) Neurological Hx: Other (HX OF CONCUSSIONS(5)) Cancer HX: No Psych. 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
== END 2023-10-20 09:40 | disposition home or self-care (01) ==
LOC: HO.ACS 09:24
PROVIDERS: PCP Internal Medicine; Visit Provider Internal Medicine
DX: Z79.01 Long term (current) use of anticoagulants (principal)

== ENCOUNTER → 2023-10-20 09:24 | Outpatient (BNVA) | payer MEDICARE, SELFPAY | PROVIDERS: PCP Internal Medicine; Visit Provider Internal Medicine | DX: I48.19 Other persistent atrial fibrillation (principal); Z79.01 Long term (current) use of anticoagulants; Z51.81 Encounter for therapeutic drug level monitoring | CPT/HCPCS: 85610; 99211 ==

== ENCOUNTER 2023-10-20 09:42 | Outpatient (AMB) | payer MEDICARE, SELFPAY ==
[2023-10-20 09:43] VITALS: BP 150/74; PULSE 41; O2SAT 99; BMI 20.5
--- NOTE | 2023-10-20 09:43 | MHC.PC.OV ---
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 Accompanied by: Self / Same As Patient Allergies penicillin V Allergy (Unknown, Verified 10/20/23 10:35) Unknown Medication List - Last Reconciled 10/20/23 by Beto Irizarry MD amlodipine 5 mg PO DAILY 90 days bumetanide 1 mg PO DAILY 90 days [CBD inhalation] cholecalciferol (vitamin D3) 50 mcg PO DAILY 90 days losartan 100 mg PO DAILY 90 days potassium chloride ER 20 mEq PO DAILY spironolactone 12.5 mg (1/2 x 25 mg) PO DAILY 90 days warfarin 5 mg See Protocol PO DAILY 90 days Tobacco use date assessed: 10/20/23 Fall risk assessment: No Falls in past year Last assessed Fall Risk: 10/20/23 Dental Screening Dental Screen Date: 10/20/23 Did you have a dental visit in the last 12 months?: No Did you have a dental problem in the last 6 months where you did not have access to dental care?: No Was dental information given to patient?: No HPI AF, CHF, HTN, CKD HPI Details Patient comes in today for his follow up visit States that he feels okay He denies any headaches or dizziness - states that his dizziness cleared up as soon as we asked him to hold his Bumetadine at his last visit Denies any chest pains, no SOB No nausea/vomiting, no abdominal pain No change in bowel habits noted Would like to have his Amlodipine Rx refilled for a 90 days' supply instead of just a 30 days Rx Had his follow up labs done last month - to discuss his results [facility] Medical History Overweight (BMI 25.0-29.9) Congestive heart failure (CHF) Atrial fibrillation Rhinophyma New onset a-fib New onset of congestive heart failure Obesity (BMI 30-39.9) Elevated LFTs Renal insufficiency Vitamin D deficiency Impaired fasting glucose Pure hypercholesterolemia Benign essential hypertension Surgical History No pertinent past surgical history Family History Father Hypertension Mother Medical history unknown Social History Household Members: None Housing: Apartment Do you presently have visiting nurse or other home services: No Patient Tobacco Use Status: Never used Tobacco e-Cigarette/Vaping Use: Never Used Second Hand Smoke Exposure: Yes service: No Current occupational status: retired Current occupational exposures/hazards: No Cognitive needs: No Hearing needs: No Vision needs: Yes Questionnaire PHQ-9 Over the last 2 weeks, how often have you been bothered by any of the following problems? 1. Little interest or pleasure in doing things: not at all 2. Feeling down, depressed, or hopeless: not at all 3. Trouble falling or staying asleep, or sleeping too much: not at all 4. Feeling tired or having little energy: not at all 5. Poor appetite or overeating: not at all 6. Feeling bad about yourself - or that you are a failure or have let yourself or your family down: not at all 7. Trouble concentrating on things, such as reading the newspaper or watching television: not at all 8. Moving or speaking so slowly that other people could have noticed. Or the opposite - being so fidgety or restless that you have been moving around a lot more than usual: not at all 9. Thoughts that you would be better off or of hurting yourself in some way: not at all Total score: 0 Depression Screening Interpretation: Negative Depression Screening Done: Yes 38616 - PHQ-9 Billing: Yes Source: Developed by Drs. Zhen Fleming, Edel Hermosillo, Kapil Guillen and colleagues, with an educational gildardo from [employer]. Thrive Questionnaire Date Thrive assessed: 10/20/23 I am a: Patient What is your living situation today?: I have a steady place to live Within the past 12 months, did the food you bought not last and you didn't have the money to get more?: Never true Within the past 12 months, did you worry whether your food would run out before you got money to buy more?: Never true Do you have trouble paying for medicines?: No Do you have trouble getting transportation to medical appointments?: No Do you have trouble paying your heating and electricity bill?: No Do you have trouble taking care of your child, family member or friend?: No Do you have trouble with day-to-day activities such as bathing, preparing meals, shopping, managing finances, etc.?: No Are you currently unemployed and looking for a job?: No Are you interested in more education?: No Please select the resources that you would like help with: None Currently or been in a relationship where the following occur: no concerns reported AUDIT C Alcohol Use Questionnaire (AUDIT-C) 1. How often do you have a drink containing alcohol?: Never Total Score: 0 Score Reviewed/Action Taken: Yes RONALDO-7 AMB Questionnaire RONALDO-7 Date RONALDO - 7 assessed: 10/20/23 Feeling nervous, anxious, or on edge: 0 = Not at all Not being able to stop or control worryin = Not at all Worrying too much about different things: 0 = Not at all Trouble relaxin = Not at all Being so restless that it is hard to sit still: 0 = Not at all Becoming easily annoyed or irritable: 0 = Not at all Feeling afraid as if something awful might happen: 0 = Not at all Total RONADLO-7 score (0-4 normal; 5-9 mild; 10-14 moderate; 15-21 severe): 0 Source: Developed by Drs. Zhen Fleming, Edel Hermosillo, Kapil Guillen and colleagues, with an educational gildardo from [employer]. Review of Systems Const Denies chills, Denies fatigue, Denies fever(s) and Denies headache(s) ENT Denies dysphagia, Denies dizziness, Denies otalgia, Denies headache(s), Denies neck pain, Denies odynophagia and Denies sore throat Card Denies chest pain, Denies lightheadedness, Denies palpitations and Denies dyspnea Resp Denies cough and Denies dyspnea GI Denies abdominal pain, Denies constipation, Denies dysphagia, Denies heartburn, Denies diarrhea, Denies nausea, Denies odynophagia and Denies vomiting Denies dysuria, Reports nocturia and Reports urinary frequency (is on diuretics) Musc Denies muscle weakness and Denies neck pain Skin/Breast Denies rash Neuro Details: feels unsteady often Denies dizziness and Denies headache(s) Endo Denies fatigue and Denies palpitations Physical exam (Primary Care) Vital Signs: Last Vital Signs Pulse 41 L 10/20/23 09:43 BP 150/74 H 10/20/23 09:43 Pulse Ox 99 10/20/23 09:43 Oxygen Delivery Method Room Air 10/20/23 09:43 BMI result Body Mass Index 20.5 Tobacco/Smoking Status: Tobacco use Status Tobacco use date assessed 10/20/23 10/20/23 09:44 Patient Tobacco Use Status Never used Tobacco 10/20/23 09:44 e-Cigarette/Vaping Use Never Used 10/20/23 09:44 PHQ-9: PHQ-9 Score PHQ-9: Total score 0 10/20/23 09:44 Depression Screening Interpretation: Negative Thrive Assessment: Date of Thrive Assessment Date Thrive assessed 10/20/23 10/20/23 09:44 Currently or been in a relationship where the following occur: no concerns reported Const General: no acute distress and alert HENMT Ears: TM's normal bilaterally and EAC's normal General nose exam: Abnormal external nose present ((+) rhinophyma) Throat: Yes posterior oropharynx normal and Yes tonsils normal (no TP congestion noted) Neck Neck: Yes no lymphadenopathy and Yes supple Resp Auscultation: clear to auscultation bilaterally, no rales and no wheezes Cardio Rate: bradycardic Rhythm: abnormal rhythm irregularly irregular Heart sounds: no murmurs GI Palpation (GI): Soft to palpation and nontender Auscultation: normal bowel sounds Extrem General: Yes no clubbing, cyanosis or edema Results Reviewed Results Reviewed: Laboratory Tests 09/18/23 09/18/23 09/18/23 10:04 10:04 10:06 WBC 5.2 Hgb 11.4 L Hct 35.4 L Plt Count 209 Sodium 139 Potassium 4.0 D Creatinine Estimated GFR > 60 Fasting Glucose 88 Calcium 9.7 AST 17 ALT 9 Triglycerides 90 Cholesterol 198 LDL Cholesterol, Calc 122 H HDL Cholesterol 58 Ur Specific [place] 1.010 Urine Protein Trace Urine Glucose (UA) Negative Urine Blood Negative 09/18/23 10:06 WBC Hgb Hct Plt Count Sodium Potassium Creatinine 1.00 Estimated GFR Fasting Glucose Calcium AST ALT Triglycerides Cholesterol LDL Cholesterol, Calc HDL Cholesterol Ur Specific Marion Urine Protein Urine Glucose (UA) Urine Blood Assessment and Plan Assessment & Plan (1) Atrial fibrillation: Code(s): I48.91 - Unspecified atrial fibrillation Qualifiers: Atrial fibrillation type: unspecified Qualified Code(s): I48.91 - Unspecified atrial fibrillation Plan: Patient currently remains rate-controlled - is still bradycardic Was on Metoprolol ER in the past and this was discontinued due to prolonged/persistent bradycardia Continue Coumadin QD for thromboembolism prophylaxis; INR today is at 2.1 Was following up with cardiology previously but he has not been seen in a while (last appt was in September 2022) He was referred back to cardiology for continuing follow up and management at his last visit but he states that they never got back to him about his appointment - will REFER AGAIN TO CARDIOLOGY (2) Congestive heart failure (CHF): Code(s): I50.9 - Heart failure, unspecified Qualifiers: Heart failure type: unspecified Heart failure chronicity: acute Qualified Code(s): I50.9 - Heart failure, unspecified Plan: Currently remains compensated Echocardiogram done on 06/07/22 revealed normal LV systolic function with mild LVH and normal EF, with moderately dilated right-sided chambers suggestive of a right-sided heart failure Cardiac stress testing and myocardial perfusion study done late last year (2021) all came out normal Reinforced fluid restriction Continue Aldactone 12.5 mg QD His Bumetanide 1 mg QD was HELD at his last visit due to his recurrent dizziness and lightheadedness - patient states that his symptoms have improved a lot since Bumetanide was held His blood pressure appears to have increased significantly since his last visit although he remains BRADYCARDIC; he is also still in ATRIAL FIBRILLATION Patient is instructed to continue monitoring his blood pressure regularly He also reports feeling unsteady often - am concerned that this may be due to low cardiac output brought about by his bradycardia and he is just compensating by his comparatively higher BP so would not try to get this significantly lower at this time Will send him for repeat echocardiogram and will refer him back AGAIN to cardiology for follow up and further management (3) Pleural effusion, right: Code(s): J90 - Pleural effusion, not elsewhere classified Plan: Initially seen incidentally on abdominal US in May 2022 Was most likely related to his right-sided heart failure back then and should have gradually resolved with diuresis and control of his CHF Will repeat chest x-rays for follow up ONLY if needed (if he starts experiencing increasing SOB) (4) Benign essential hypertension: Code(s): I10 - Essential (primary) hypertension Plan: Reinforced low sodium diet - goal is systolic BP of at least 130 to 140 mm or less Continue Losartan 100 mg QD, Amlodipine 5 mg QD and Spironolactone 12.5 mg Q AM Bumetanide 1 mg was held at his last visit and will continue holding this for now (5) Pure hypercholesterolemia: Code(s): E78.00 - Pure hypercholesterolemia, unspecified Plan: Results of his labs done last month reviewed and discussed with patient Reinforced low cholesterol diet; he prefers to continue with diet modification at this time Will recheck his labs and fasting lipids in 4 months for follow up (6) Impaired fasting glucose: Code(s): R73.01 - Impaired fasting glucose Plan: HgbA1c was normal at 4.8%, 5.2% and 5.3% when previously checked Reinforced low calorie diet/exercise as tolerated He was previously started on Jardiance but patient stopped taking this a few months ago when his last Rx ran out (7) Renal insufficiency: Code(s): N28.9 - Disorder of kidney and ureter, unspecified Plan: His previous proteinuria appears to have improved/resolved on his recent labs His GFR and serum creatinine also have remained stable Was started on Jardiance previously to help with his renal function but he self-discontinued this a while back Will continue to monitor his renal function closely for now (8) Hypokalemia: Code(s): E87.6 - Hypokalemia Plan: Corrected on his recent labs Continue Potassium Chloride ER 20 meq every other day Will recheck his labs and serum electrolytes in 4 months (9) Vitamin D deficiency: Code(s): E55.9 - Vitamin D deficiency, unspecified Plan: Continue Vitamin D3 2000 units QD (10) Elevated LFTs: Code(s): R79.89 - Other specified abnormal findings of blood chemistry Plan: Improved Reinforced avoidance of alcohol and Tylenol-containing medications Abdominal US done last year came out normal but incidentally revealed (+) right-sided pleural effusion that was most likely related to his right-sided heart failure (11) Elevated TSH: Code(s): R79.89 - Other specified abnormal findings of blood chemistry Plan: His serum TSH level was normal when last checked in May 2023 Patient is asymptomatic and again clinically appears euthyroid Will continue to monitor his TFTs periodically (12) Weight loss, unintentional: Code(s): R63.4 - Abnormal weight loss Plan: Patient has lost about 20 to 22 pounds from February 2023 to May 2023 although this appears to have stabilized Will continue to monitor this for now Plan Follow up in 4 months Orders: Orders CA echo transthoracic complete Today I48.91 - Unspecified atrial fibrillation, R06.09 - Other forms of dyspnea Comprehensive [place]. Panel Fast 4 Months E78.00 - Pure hypercholesterolemia, unspecified Lipid Panel 4 Months E78.00 - Pure hypercholesterolemia, unspecified B Type Natriuretic Peptide 4 Months I50.9 - Heart failure, unspecified UA CC w/rflx Micro + Cult 4 Months N28.9 - Disorder of kidney and ureter, unspecified Complete Blood Count Auto Diff 4 Months I10 - Essential (primary) hypertension Referrals Cardiology Referral I48.91 - Unspecified atrial fibrillation, I50.9 - Heart failure, unspecified, R00.1 - Bradycardia, unspecified Medications: Changed From amlodipine 5 mg PO DAILY 30 tabs 11RF To amlodipine 5 mg PO DAILY 90 tabs 3RF 90 days Coding Level of Care Code Est Pt Level 4 (62352) Diagnoses Atrial fibrillation, unspecified type I48.91 Atrial fibrillation type: unspecified Acute congestive heart failure, unspecified heart failure type I50.9 Heart failure type: unspecified Heart failure chronicity: acute Pleural effusion, right J90 Benign essential hypertension I10 Pure hypercholesterolemia E78.00 Impaired fasting glucose R73.01 Renal insufficiency N28.9 Hypokalemia E87.6 Vitamin D deficiency E55.9 Elevated LFTs R79.89 Elevated TSH R79.89 Weight loss, unintentional R63.4
[2023-10-20 10:55] VITALS: BP 150/70
== END 2023-10-20 10:57 | disposition home or self-care (01) ==
PROVIDERS: PCP Internal Medicine; Visit Provider Internal Medicine
DX: I48.91 Unspecified atrial fibrillation (principal); I11.0 Hypertensive heart disease with heart failure; I50.9 Heart failure, unspecified; J90 Pleural effusion, not elsewhere classified; E78.00 Pure hypercholesterolemia, unspecified; R73.01 Impaired fasting glucose; N28.9 Disorder of kidney and ureter, unspecified; E87.6 Hypokalemia; E55.9 Vitamin D deficiency, unspecified; R79.89 Other specified abnormal findings of blood chemistry; R63.4 Abnormal weight loss
CPT/HCPCS: 99214

== ENCOUNTER → 2023-11-14 07:44 | Outpatient (REF) | payer MEDICARE, SELFPAY ==
--- NOTE | 2023-11-14 07:50 | CA_ITS ---
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 Normal LV systolic function with LVEF of 55-60% 2. At least moderately dilated left atrium 3. Normal cardiac valvular Dopplers 4. Upper limits of normal RV systolic pressure 5. No gross pericardial effusion Findings Left Ventricle Normal left ventricular size and systolic function. There is mildly increased left ventricular wall thickness. The visually estimated ejection fraction is between 55-60%. Diastolic function is indeterminate on the basis of available data. Peak GLS is -19.5%, within normal limits. Right Ventricle Mildly increased right ventricular cavity size. There is normal right ventricular systolic function. Atria The left atrium is moderately dilated. There is no evidence of interatrial shunt. The right atrium is mildly dilated. Aortic Valve The aortic valve structure and function is likely normal. There is no aortic valve stenosis. There is no aortic valve regurgitation. Mitral Valve There is mild anterior and posterior mitral leaflet thickening. There is trace mitral valve regurgitation. There is no mitral valve stenosis. Pulmonic Valve The pulmonic valve was not well visualized. Tricuspid Valve Likely normal tricuspid valve structure and function. There is mild tricuspid valve regurgitation. Normal right atrial pressure. There is no evidence of pulmonary hypertension. Great Vessels The pulmonary artery was not well visualized. There is no dilatation of the ascending aorta measuring 3.30 cm. Venous The inferior vena cava is normal in size and collapses greater than 50% with inspiration. Pericardium/Pleural There is no evidence of pericardial effusion. Measurements 2D Linear Measurements IVSd: 1.24 0.6-0.9/0.6-1.0 cm LVIDd: 5.14 3.9-5.3/4.2-5.9 cm LVIDd Index: 2.82 2.4-3.2/2.2-3.1 cm/m2 LVIDs: 2.72 2.0-3.6 cm LVPWd: 1.13 0.7-1.1 cm LA Diam: 4.00 2.7-3.8/3.0-4.0 cm LAIDs Index: 2.20 1.5-2.3 cm/m2 LV Mass: 299.28 67-162/88-224 g LV Mass Index: 164.44 43-95/49-115 g/m2 LVOT Diam: 2.00 3.0+(-)1.3 cm 2D Systolic Function EF 4C: 56.70 >55% EF 2C: 55.90 >55% EF BiP: 56.40 >55% Mitral Valve MV Pk E: 1.03 MV PK A: 0.46 MV Decel Time: 247.00 E/A: 2.20 E'Lateral: 10.40 E'Medial: 8.16 E/E' Med: 12.60 E/E' Lat: 9.90 PHT: 72.00 MVA PHT: 3.06 Decel Sully: 4.17 Aortic Valve AoV Pk Mika: 1.62 AoV Mn Mika: 0.96 AoV VTI: 0.37 AoV Pk Grad: 10.00 Aov Mn Grad: 4.00 JAYDA Cont.VTI: 2.12 LVOT LVOT Pk Mika: 1.06 LVOT Mn Mika: 0.58 LVOT VTI: 0.25 LVOT Pk Grad: 4.00 LVOT Mn Grad: 2.00 LVOT Diam: 2.00 LVOT Area: 3.14 Diastolic Function MV Pk E: 1.03 MV Pk A: 0.46 E/A: 2.20 E'Medial: 8.16 E/E' Med: 12.60 E' Laterial: 10.40 E/E' Lat: 9.90 Tricuspid Valve TR Pk Mika: 2.89 TR Pk Grad: 33.00 RA Press: 3.00 RVSP: 36.00 Great Vessels Aorta Sinus of Valsalva: 3.45 2.0-3.5 cm Ao Asc: 3.30 2.1-3.4 cm Updated in Other Vendor System with Status of Final Mayank Marcial MD electronically signed on 11/15/2023 3:33:43 PM with status of Final
== END ==
LOC: HO.CARD 07:44
PROVIDERS: PCP Internal Medicine; Visit Provider Internal Medicine
DX: I48.19 Other persistent atrial fibrillation (principal); R06.09 Other forms of dyspnea; Z51.81 Encounter for therapeutic drug level monitoring; Z79.01 Long term (current) use of anticoagulants
CPT/HCPCS: 85610; 93306; 93356; 99211

== ENCOUNTER → 2023-11-14 07:50 | Outpatient (BNV) | payer MEDICARE, SELFPAY | PROVIDERS: PCP Internal Medicine; Visit Provider Internal Medicine Cardiovascular Disease | DX: I36.1 Nonrheumatic tricuspid (valve) insufficiency (principal); I48.91 Unspecified atrial fibrillation | CPT/HCPCS: 93306 ==

== ENCOUNTER 2023-11-14 09:04 | Outpatient (AMB) | payer MEDICARE, SELFPAY ==
--- NOTE | 2023-11-14 09:18 | MHC.OFFVISCO ---
Intake Intake Visit Reasons: Anticoagulation Allergies penicillin V Allergy (Unknown, Verified 11/14/23 09:11) Unknown Medication List - Last Reconciled 11/14/23 by Sammi Woods RN amlodipine 5 mg PO DAILY 90 days bumetanide 1 mg PO DAILY 90 days [CBD inhalation] cholecalciferol (vitamin D3) 50 mcg PO DAILY 90 days losartan 100 mg PO DAILY 90 days potassium chloride ER 20 mEq PO DAILY spironolactone 12.5 mg (1/2 x 25 mg) PO DAILY 90 days warfarin 5 mg See Protocol PO DAILY 90 days Nursing Note INR: 2.0- in therapeutic range of 2-3 Medications and supplements reviewed- no changes No changes in health, diet, medications, or supplements, Denies any signs and symptoms of bleeding or bruising or clotting. Bleeding, bruising, clotting discussed Nutritional guidance given - reduce greens in weekly diet, increase reds Dose: 5mg x 6, 7.5mg x 1 F/U INR: pt ref earlier appt than 4 weeks Patient verbalizes understanding of instructions given pt had echo today. he states elev diastolic bp- will call acs with any medication changes pt nose bulbous- small abraded area noted Anti-Coag Initial Assessment Social Hx Patient Tobacco Use Status: Never used Tobacco Alcohol intake frequency: does not drink Cardiovascular Hx: HTN and Arrhythmias (AFIB) Neurological Hx: Other (HX OF CONCUSSIONS(5)) Cancer HX: No Psych. 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
[2023-11-14 09:19] LABS: Prothrombin Time Whole Bld POC 23.5 sec (11.1-13.5)
== END 2023-11-14 09:27 | disposition home or self-care (01) ==
LOC: HO.ACS 09:04
PROVIDERS: PCP Internal Medicine; Visit Provider Internal Medicine
DX: Z79.01 Long term (current) use of anticoagulants (principal)

== ENCOUNTER 2023-12-08 09:05 | Outpatient (AMB) | payer MEDICARE, SELFPAY ==
[2023-12-08 09:24] LABS: Prothrombin Time Whole Bld POC 17.7 sec (11.1-13.5); ~PT, ~INR - Anti Coag Clinic 1.5 (0.9-1.1)
--- NOTE | 2023-12-08 09:24 | MHC.OFFVISCO ---
Intake Intake Visit Reasons: Anticoagulation Allergies penicillin V Allergy (Unknown, Verified 12/08/23 09:17) Unknown Medication List - Last Reconciled 12/08/23 by Sammi Woods RN amlodipine 5 mg PO DAILY 90 days bumetanide 1 mg PO DAILY 90 days [CBD inhalation] cholecalciferol (vitamin D3) 50 mcg PO DAILY 90 days losartan 100 mg PO DAILY 90 days potassium chloride ER 20 mEq PO DAILY spironolactone 12.5 mg (1/2 x 25 mg) PO DAILY 90 days warfarin 5 mg See Protocol PO DAILY 90 days Nursing Note INR 1.5-?? out of therapeutic range of 2-3 Medications and supplements reviewed Patient status: pt with no c.o, pt states may have missed a dose on mon or Medications or supplements: no changes Diet: same Denies any signs and symptoms of bleeding or clotting or unusual bruising Bleeding, bruising, clotting discussed - aware of risk of clotting Nutritional guidance given: no greens for 2-3 days, eat reds to raise Dose: 7.5mg today and tomm then cont reg 5mg x 6, 7.5mg x 1 F/U INR Date : pt req monday12/15/23? Patient verbalizing understanding of instructions given. pcp office dr lares called with low inr/dosing and f/u appt. spoke to naila at 0930. aware of missed dose Anti-Coag Initial Assessment Social Hx Patient Tobacco Use Status: Never used Tobacco Alcohol intake frequency: does not drink Cardiovascular Hx: HTN and Arrhythmias (AFIB) Neurological Hx: Other (HX OF CONCUSSIONS(5)) Cancer HX: No Psych. Illness/Depression: No Coding Level of Care Code Est Patient Level 1 Diagnoses Current use of anticoagulant therapy Z79.01 Assessment & Plan Assessment & Plan (1) Current use of anticoagulant therapy: Code(s): Z79.01 - longterm (current) use of anticoagulants Category: Medical
== END 2023-12-08 09:36 | disposition home or self-care (01) ==
LOC: HO.ACS 09:05
PROVIDERS: PCP Internal Medicine; Visit Provider Internal Medicine
DX: Z79.01 Long term (current) use of anticoagulants (principal)

== ENCOUNTER → 2023-12-08 09:05 | Outpatient (BNVA) | payer MEDICARE, SELFPAY | PROVIDERS: PCP Internal Medicine; Visit Provider Internal Medicine | DX: I48.19 Other persistent atrial fibrillation (principal); Z79.01 Long term (current) use of anticoagulants; Z51.81 Encounter for therapeutic drug level monitoring | CPT/HCPCS: 85610; 99211 ==

== ENCOUNTER 2023-12-15 08:37 | Outpatient (AMB) | payer MEDICARE, SELFPAY ==
[2023-12-15 08:51] LABS: Prothrombin Time Whole Bld POC 22.5 sec (11.1-13.5); ~PT, ~INR - Anti Coag Clinic 1.9 (0.9-1.1)
--- NOTE | 2023-12-15 08:53 | MHC.OFFVISCO ---
Intake Intake Visit Reasons: Anticoagulation Allergies penicillin V Allergy (Unknown, Verified 12/15/23 08:45) Unknown Medication List - Last Reconciled 12/15/23 by Celina Mack RN amlodipine 5 mg PO DAILY 90 days bumetanide 1 mg PO DAILY 90 days [CBD inhalation] cholecalciferol (vitamin D3) 50 mcg PO DAILY 90 days losartan 100 mg PO DAILY 90 days potassium chloride ER 20 mEq PO DAILY spironolactone 12.5 mg (1/2 x 25 mg) PO DAILY 90 days warfarin 5 mg See Protocol PO DAILY 90 days Nursing Note Amb to ACS feeling well- had critical low INR last week 1.5 ? missed dose, pt does not use pill box- discussion regarding benefits Medications and supplements reviewed No other changes in health, diet, medications, or supplements Denies any unusual signs and symptoms of bruising, bleeding Denies any new Chest pain, SOB, or clotting INR: 1.9 just below therapeutic range Nutritional guidance given: can start to add greens in on Monday and balance greens and reds in diet Dose: increase dose today to 7.5mg then continue usual dosing; 7.5mg x 1 day and 5mg x 6 days- may need increase in weekly dosing F/U INR: 2 weeks Patient verbalizes understanding of instructions given with accurate read back/ teach back of dosing Anti-Coag Initial Assessment Social Hx Patient Tobacco Use Status: Never used Tobacco Alcohol intake frequency: does not drink Cardiovascular Hx: HTN and Arrhythmias (AFIB) Neurological Hx: Other (HX OF CONCUSSIONS(5)) Cancer HX: No Psych. Illness/Depression: No Coding Level of Care Code Est Patient Level 1 Diagnoses Current use of anticoagulant therapy Z79.01 Time Spent (min) 15 Assessment & Plan Assessment & Plan (1) Current use of anticoagulant therapy: Code(s): Z79.01 - longterm (current) use of anticoagulants Category: Medical
== END 2023-12-15 09:00 | disposition home or self-care (01) ==
LOC: HO.ACS 08:37
PROVIDERS: PCP Internal Medicine; Visit Provider Internal Medicine
DX: Z79.01 Long term (current) use of anticoagulants (principal)

== ENCOUNTER → 2023-12-15 08:37 | Outpatient (BNVA) | payer MEDICARE, SELFPAY | PROVIDERS: PCP Internal Medicine; Visit Provider Internal Medicine | DX: I48.19 Other persistent atrial fibrillation (principal); Z79.01 Long term (current) use of anticoagulants; Z51.81 Encounter for therapeutic drug level monitoring | CPT/HCPCS: 85610; 99211 ==

== ENCOUNTER 2023-12-29 08:36 | Outpatient (AMB) | payer MEDICARE, SELFPAY ==
[2023-12-29 08:42] LABS: ~PT, ~INR - Anti Coag Clinic 1.9 (0.9-1.1)
--- NOTE | 2023-12-29 08:50 | MHC.OFFVISCO ---
Intake Intake Visit Reasons: Anticoagulation Allergies penicillin V Allergy (Unknown, Verified 12/29/23 08:37) Unknown Medication List - Last Reconciled 12/29/23 by Nu King RN amlodipine 5 mg PO DAILY 90 days bumetanide 1 mg PO DAILY 90 days [CBD inhalation] cholecalciferol (vitamin D3) 50 mcg PO DAILY 90 days losartan 100 mg PO DAILY 90 days potassium chloride ER 20 mEq PO DAILY spironolactone 12.5 mg (1/2 x 25 mg) PO DAILY 90 days warfarin 5 mg See Protocol PO DAILY 90 days Nursing Note NO CP,SOB,DIET/MED CHANGES,FALLS OR SX OF BLEEDING. INCREASE WEEKLY DOSE AND FOLLOW-UP IN 2 WEEKS. GOOD UNDERSTANDING OF DOSING INSTR. Anti-Coag Initial Assessment Social Hx Patient Tobacco Use Status: Never used Tobacco Alcohol intake frequency: does not drink Cardiovascular Hx: HTN and Arrhythmias (AFIB) Neurological Hx: Other (HX OF CONCUSSIONS(5)) Cancer HX: No Psych. 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
== END 2023-12-29 08:53 | disposition home or self-care (01) ==
LOC: HO.ACS 08:36
PROVIDERS: PCP Internal Medicine; Visit Provider Internal Medicine
DX: Z79.01 Long term (current) use of anticoagulants (principal)

== ENCOUNTER → 2023-12-29 08:36 | Outpatient (BNVA) | payer MEDICARE, SELFPAY | PROVIDERS: PCP Internal Medicine; Visit Provider Internal Medicine | DX: I48.19 Other persistent atrial fibrillation (principal); Z79.01 Long term (current) use of anticoagulants; Z51.81 Encounter for therapeutic drug level monitoring | CPT/HCPCS: 85610; 99211 ==

== ENCOUNTER 2024-01-12 08:55 | Outpatient (AMB) | payer MEDICARE, SELFPAY ==
--- NOTE | 2024-01-12 09:18 | MHC.OFFVISCO ---
Intake Intake Visit Reasons: Anticoagulation Allergies penicillin V Allergy (Unknown, Verified 01/12/24 08:55) Unknown Medication List - Last Reconciled 01/12/24 by Nan Saucedo RN amlodipine 5 mg PO DAILY 90 days bumetanide 1 mg PO DAILY 90 days [CBD inhalation] cholecalciferol (vitamin D3) 50 mcg PO DAILY 90 days losartan 100 mg PO DAILY 90 days potassium chloride ER 20 mEq PO DAILY spironolactone 12.5 mg (1/2 x 25 mg) PO DAILY 90 days warfarin 5 mg See Protocol PO DAILY 90 days Nursing Note INR: 2.0 in therapeutic range Medications and supplements reviewed No changes in health, medications, or supplements, MAY HAVE BEEN CHOCOLATE WITH SOY THAT MAY BE LOWERING THE INR Denies any signs and symptoms of bleeding or bruising or clotting. Bleeding, bruising, clotting discussed Nutritional guidance given Dose: 7.5MG X 2 DAYS/ 5MG X 5 DAYS F/U INR: 2 WEEKS Patient verbalizes understanding of instructions given Anti-Coag Initial Assessment Social Hx Patient Tobacco Use Status: Never used Tobacco Alcohol intake frequency: does not drink Cardiovascular Hx: HTN and Arrhythmias (AFIB) Neurological Hx: Other (HX OF CONCUSSIONS(5)) Cancer HX: No Psych. Illness/Depression: No Coding Level of Care Code Est Patient Level 1 Diagnoses Current use of anticoagulant therapy Z79.01 Results AMB INR Fingerstick AMB INR Fingerstick 2.0 Last Edit by Nan Saucedo RN on 01/12/24 09:07 manual entry Assessment & Plan Assessment & Plan (1) Current use of anticoagulant therapy: Code(s): Z79.01 - [facility] (current) use of anticoagulants Category: Medical
[2024-01-12 11:14] LABS: Prothrombin Time Whole Bld POC 23.5 sec (11.1-13.5)
== END 2024-01-12 09:26 | disposition home or self-care (01) ==
LOC: HO.ACS 08:55
PROVIDERS: PCP Internal Medicine; Visit Provider Internal Medicine
DX: Z79.01 Long term (current) use of anticoagulants (principal)

== ENCOUNTER → 2024-01-12 08:55 | Outpatient (BNVA) | payer MEDICARE, SELFPAY | PROVIDERS: PCP Internal Medicine; Visit Provider Internal Medicine | DX: I48.19 Other persistent atrial fibrillation (principal); Z79.01 Long term (current) use of anticoagulants; Z51.81 Encounter for therapeutic drug level monitoring | CPT/HCPCS: 85610; 99211 ==

== ENCOUNTER 2024-01-26 08:50 | Outpatient (AMB) | payer MEDICARE, SELFPAY ==
[2024-01-26 08:58] LABS: Prothrombin Time Whole Bld POC 25.4 sec (11.1-13.5); ~PT, ~INR - Anti Coag Clinic 2.1 (0.9-1.1)
--- NOTE | 2024-01-26 09:04 | MHC.OFFVISCO ---
Intake Intake Visit Reasons: Anticoagulation Allergies penicillin V Allergy (Unknown, Verified 01/26/24 08:51) Unknown Medication List - Last Reconciled 01/26/24 by Celina Mack RN amlodipine 5 mg PO DAILY 90 days bumetanide 1 mg PO DAILY 90 days [CBD inhalation] cholecalciferol (vitamin D3) 50 mcg PO DAILY 90 days losartan 100 mg PO DAILY 90 days potassium chloride ER 20 mEq PO DAILY spironolactone 12.5 mg (1/2 x 25 mg) PO DAILY 90 days warfarin 5 mg See Protocol PO DAILY 90 days Nursing Note Amb to ACS feeling well, expresses concern over 3-4 pound weight gain this month has been loosing a lot of weight over the last year (90 lbs) Medications and supplements reviewed No changes in health, diet, medications, or supplements, reviewed food list, sounds like pt does a lot of darker greens, has increased fruit- Vitamin C pineapple Denies any unusual signs and symptoms of bruising, bleeding Denies any new Chest pain, SOB, or clotting INR:2.1 low in therapeutic range Nutritional guidance given: balance greens and reds in diet, watch the heavy greens Dose: continue usual dosing; 7.5mg x 2 days and 5mg x 5 days F/U INR: 3 weeks Patient verbalizes understanding of instructions given with accurate read back/ teach back of dosing Anti-Coag Initial Assessment Social Hx Patient Tobacco Use Status: Never used Tobacco Alcohol intake frequency: does not drink Cardiovascular Hx: HTN and Arrhythmias (AFIB) Neurological Hx: Other (HX OF CONCUSSIONS(5)) Cancer HX: No Psych. 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
== END 2024-01-26 09:48 | disposition home or self-care (01) ==
LOC: HO.ACS 08:50
PROVIDERS: PCP Internal Medicine; Visit Provider Internal Medicine
DX: Z79.01 Long term (current) use of anticoagulants (principal)

== ENCOUNTER → 2024-01-26 08:50 | Outpatient (BNVA) | payer MEDICARE, SELFPAY | PROVIDERS: PCP Internal Medicine; Visit Provider Internal Medicine | DX: I48.19 Other persistent atrial fibrillation (principal); Z79.01 Long term (current) use of anticoagulants; Z51.81 Encounter for therapeutic drug level monitoring | CPT/HCPCS: 85610; 99211 ==

== ENCOUNTER 2024-02-16 07:55 | Outpatient (REF) | payer MEDICARE, SELFPAY ==
[2024-02-16 08:16] LABS: MANUAL DIFF FLAG NO
[2024-02-16 08:23] LABS: Basophils Absolute Auto 0.1 X10*3/uL (0.0-0.2); Eosinophils Absolute Auto 0.1 X10*3/uL (0.0-0.4); Eosinophils Percent Auto 1.3 % (0-4); Hematocrit 35.7 % (42.0-52.0); Hemoglobin 12.1 g/dl (14.0-18.0); Imm Gran Abs Auto 0.02 X10*3/uL (0.00-0.03); Imm Gran Pct Auto 0.4 % (0.0-0.4); Lymphocytes Absolute Auto 1.5 X10*3/uL (1.2-4.9); Lymphocytes Percent Auto 30.6 % (20-40); Mean Corpuscular HGB Conc 33.9 g/dl (31.0-36.0); Mean Corpuscular Hemoglobin 31.6 pg (27.0-33.0); Mean Corpuscular Volume 93.2 fL (80.0-98.0); Mean Platelet Volume 8.5 fL (9.4-12.4); Monocytes Absolute Auto 0.4 X10*3/uL (0.1-1.2); Monocytes Percent Auto 7.8 % (2-11); Neutrophils Absolute Auto 2.8 x10*3/uL (2.0-8.3); Neutrophils Percent Auto 58.9 % (45-73); Platelet Count 184 X10*3/uL (160-400); Red Blood Count 3.83 X10*6/uL (4.60-5.80); Red Cell Distribution Width 13.5 % (11.0-16.0); White Blood Count 4.8 X10*3/uL (4.8-10.8)
[2024-02-16 09:23] LABS: B Type Natriuretic Peptide 159 pg/mL (<100)
[2024-02-16 09:29] LABS: Alanine Aminotransferase 18 U/L (0-40); Albumin Level 4.3 g/dL (3.5-5.0); Alkaline Phosphatase 45 U/L (39-117); Anion Gap 12 (12-20); Aspartate Amino Transferase 23 U/L (5-37); Bilirubin Total 0.7 mg/dL (0.0-1.0); Blood Urea Nitrogen 19 mg/dL (9-16); Calcium 9.5 mg/dL (8.4-10.2); Carbon Dioxide 26 mmol/L (22-29); Chloride 107 mmol/L (96-108); Cholesterol 191 mg/dL (<200); Estimated Glomerular Filt Rate > 60; Glucose Fasting 104 mg/dL (60-99); HDL Cholesterol 67 mg/dL (>40); LDL Cholesterol Calculated 111 mg/dL (<100); Potassium 4.2 mmol/L (3.3-5.1); Sodium 141 mmol/L (135-145); Total Protein 7.6 g/dL (6.5-8.0); Triglycerides 68 mg/dL (<150)
[2024-02-16 09:32] LABS: Appearance Urine Clear; Color Urine Yellow; Glucose Urine UA Negative (Negative); Leukocyte Esterase Urine Negative (Negative); Nitrite Urine Negative (Negative); UMIC TRIGGER UACC YES; Urine Blood Negative (Negative); Urine Ketones Negative (Negative); Urine Protein 100 (2+) mg/dL (Neg-Trace)
[2024-02-16 09:38] LABS: Bacteria Urine None Seen (None Seen); Hyaline Casts Urine 0-2 /LPF (0-2); RBC Urine 0-2 /HPF (0-2); Squamous Epithelial Cell Urine 0-2 /HPF (0-2); WBC Urine 0-5 /HPF (0-5)
== END 2024-02-16 07:56 | disposition home or self-care (01) ==
LOC: HO.LAB 07:55
PROVIDERS: PCP Internal Medicine; Visit Provider Internal Medicine
DX: Z12.5 Encounter for screening for malignant neoplasm of prostate (principal); I11.0 Hypertensive heart disease with heart failure; I50.9 Heart failure, unspecified; E78.00 Pure hypercholesterolemia, unspecified
CPT/HCPCS: 36415; 80053; 80061; 81001; 83880; 85025; 85610; 99211

== ENCOUNTER 2024-02-16 08:24 | Outpatient (AMB) | payer MEDICARE, SELFPAY ==
--- NOTE | 2024-02-16 08:37 | MHC.OFFVISCO ---
Intake Intake Visit Reasons: Anticoagulation Allergies penicillin V Allergy (Unknown, Verified 02/16/24 08:30) Unknown Medication List - Last Reconciled 02/16/24 by Sammi Woods RN amlodipine 5 mg PO DAILY 90 days bumetanide 1 mg PO DAILY 90 days [CBD inhalation] cholecalciferol (vitamin D3) 50 mcg PO DAILY 90 days losartan 100 mg PO DAILY 90 days potassium chloride ER 20 mEq PO DAILY spironolactone 12.5 mg (1/2 x 25 mg) PO DAILY 90 days warfarin 5 mg See Protocol PO DAILY 90 days Nursing Note INR: 2.1- in therapeutic range of 2-3 Medications and supplements reviewed No changes in health, diet, medications, or supplements, Denies any signs and symptoms of bleeding or bruising or clotting. Bleeding, bruising, clotting discussed Nutritional guidance given Dose: 7.5mg x 2, 5mg x 5 F/U INR: pt req 4 weeks Patient verbalizes understanding of instructions given Anti-Coag Initial Assessment Social Hx Patient Tobacco Use Status: Never used Tobacco Alcohol intake frequency: does not drink Cardiovascular Hx: HTN and Arrhythmias (AFIB) Neurological Hx: Other (HX OF CONCUSSIONS(5)) Cancer HX: No Psych. 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
[2024-02-16 08:38] LABS: ~PT, ~INR - Anti Coag Clinic 2.1 (0.9-1.1)
== END 2024-02-16 08:49 | disposition home or self-care (01) ==
LOC: HO.ACS 08:24
PROVIDERS: PCP Internal Medicine; Visit Provider Internal Medicine
DX: Z79.01 Long term (current) use of anticoagulants (principal)

== ENCOUNTER 2024-02-23 09:13 | Outpatient (AMB) | payer MEDICARE, SELFPAY ==
[2024-02-23 09:16] VITALS: BP 144/62; PULSE 42; O2SAT 99; BMI 20.7
--- NOTE | 2024-02-23 09:16 | MHC.PC.OV ---
Vital Signs 02/23/24 09:16 Height 5 ft 10 in Weight 144 lb 0.8 oz BMI 20.7 BP 144/62 H Blood Pressure Location Rt brachial Position Sitting Pulse 42 L Pulse Source Pulse Oximeter Pulse Oximetry (%) 99 Oxygen Delivery Method Room Air Intake Visit Reasons: AF, bradycardia, dyslipidemia [employer] Required: No Allergies penicillin V Allergy (Unknown, Verified 02/23/24 09:34) Unknown Medication List - Last Reconciled 02/23/24 by Beto Irizarry MD amlodipine 5 mg PO DAILY 90 days bumetanide 1 mg PO DAILY 90 days [CBD inhalation] cholecalciferol (vitamin D3) 50 mcg PO DAILY 90 days losartan 100 mg PO DAILY 90 days potassium chloride ER 20 mEq PO DAILY spironolactone 12.5 mg (1/2 x 25 mg) PO DAILY 90 days warfarin 5 mg See Protocol PO DAILY 90 days Tobacco use date assessed: 02/23/24 Fall risk assessment: No Falls in past year Last assessed Fall Risk: 02/23/24 Dental Screening Dental Screen Date: 02/23/24 Did you have a dental visit in the last 12 months?: Yes Did you have a dental problem in the last 6 months where you did not have access to dental care?: No Was dental information given to patient?: Patient has dentist HPI AF, bradycardia, dyslipidemia HPI Details Patient comes in today for his follow up visit States that he feels okay He denies any headaches or dizziness Denies any chest pains, no SOB No nausea/vomiting, no abdominal pain No change in bowel habits noted Had his follow up labs done last week - to discuss his results [facility] Medical History Overweight (BMI 25.0-29.9) Congestive heart failure (CHF) Atrial fibrillation Rhinophyma New onset a-fib New onset of congestive heart failure Obesity (BMI 30-39.9) Elevated LFTs Renal insufficiency Vitamin D deficiency Impaired fasting glucose Pure hypercholesterolemia Benign essential hypertension Surgical History No pertinent past surgical history Family History Father Hypertension Mother Medical history unknown Social History Household Members: None Housing: Apartment Do you presently have visiting nurse or other home services: No Patient Tobacco Use Status: Never used Tobacco e-Cigarette/Vaping Use: Never Used Second Hand Smoke Exposure: Yes service: No Current occupational status: retired Current occupational exposures/hazards: No Cognitive needs: No Hearing needs: No Vision needs: Yes Questionnaire PHQ-9 Over the last 2 weeks, how often have you been bothered by any of the following problems? 1. Little interest or pleasure in doing things: not at all 2. Feeling down, depressed, or hopeless: not at all 3. Trouble falling or staying asleep, or sleeping too much: not at all 4. Feeling tired or having little energy: not at all 5. Poor appetite or overeating: not at all 6. Feeling bad about yourself - or that you are a failure or have let yourself or your family down: not at all 7. Trouble concentrating on things, such as reading the newspaper or watching television: not at all 8. Moving or speaking so slowly that other people could have noticed. Or the opposite - being so fidgety or restless that you have been moving around a lot more than usual: not at all 9. Thoughts that you would be better off or of hurting yourself in some way: not at all Total score: 0 Depression Screening Interpretation: Negative Depression Screening Done: Yes 56366 - PHQ-9 Billing: Yes Source: Developed by Drs. Zhen Fleming, Edel Hermosillo, Kapil Guillen and colleagues, with an educational gildardo from [employer]. Thrive Questionnaire Date Thrive assessed: 02/23/24 I am a: Patient What is your living situation today?: I have a steady place to live Within the past 12 months, did the food you bought not last and you didn't have the money to get more?: Never true Within the past 12 months, did you worry whether your food would run out before you got money to buy more?: Never true Do you have trouble paying for medicines?: No Do you have trouble getting transportation to medical appointments?: No Do you have trouble paying your heating and electricity bill?: No Do you have trouble taking care of your child, family member or friend?: No Do you have trouble with day-to-day activities such as bathing, preparing meals, shopping, managing finances, etc.?: No Are you currently unemployed and looking for a job?: No Are you interested in more education?: No Please select the resources that you would like help with: None Currently or been in a relationship where the following occur: no concerns reported THRIVE Score: 0 AUDIT C Alcohol Use Questionnaire (AUDIT-C) 1. How often do you have a drink containing alcohol?: Never 3. How often do you have six or more drinks on one occasion?: Never Total Score: 0 Score Reviewed/Action Taken: Yes RONALDO-7 AMB Questionnaire RONALDO-7 Date RONALDO - 7 assessed: 02/23/24 Feeling nervous, anxious, or on edge: 0 = Not at all Not being able to stop or control worryin = Not at all Worrying too much about different things: 0 = Not at all Trouble relaxin = Not at all Being so restless that it is hard to sit still: 0 = Not at all Becoming easily annoyed or irritable: 0 = Not at all Feeling afraid as if something awful might happen: 0 = Not at all Total RONALDO-7 score (0-4 normal; 5-9 mild; 10-14 moderate; 15-21 severe): 0 Source: Developed by Drs. Zhen Fleming, Edel Hermosillo, Kapil Guillen and colleagues, with an educational gildardo from [employer]. Review of Systems Const Denies chills, Denies fatigue, Denies fever(s) and Denies headache(s) ENT Denies dysphagia, Denies dizziness, Denies otalgia, Denies headache(s), Denies neck pain, Denies odynophagia and Denies sore throat Card Denies chest pain, Denies lightheadedness, Denies palpitations and Denies dyspnea Resp Denies cough and Denies dyspnea GI Denies abdominal pain, Denies constipation, Denies dysphagia, Denies heartburn, Denies diarrhea, Denies nausea, Denies odynophagia and Denies vomiting Denies dysuria, Reports nocturia and Reports urinary frequency (is on diuretics) Musc Denies muscle weakness and Denies neck pain Skin/Breast Denies rash Neuro Details: feels unsteady often Denies dizziness and Denies headache(s) Endo Denies fatigue and Denies palpitations Physical exam (Primary Care) Vital Signs: Last Vital Signs Pulse 42 L 02/23/24 09:16 BP 144/62 H 02/23/24 09:16 Pulse Ox 99 02/23/24 09:16 Oxygen Delivery Method Room Air 02/23/24 09:16 BMI result Body Mass Index 20.7 Tobacco/Smoking Status: Tobacco use Status Tobacco use date assessed 02/23/24 02/23/24 09:18 Patient Tobacco Use Status Never used Tobacco 02/23/24 09:18 e-Cigarette/Vaping Use Never Used 02/23/24 09:18 PHQ-9: PHQ-9 Score PHQ-9: Total score 0 02/23/24 09:18 Depression Screening Interpretation: Negative Thrive Assessment: Date of Thrive Assessment Date Thrive assessed 02/23/24 02/23/24 09:18 Currently or been in a relationship where the following occur: no concerns reported Const General: no acute distress and alert HENMT Ears: TM's normal bilaterally and EAC's normal General nose exam: Abnormal external nose present ((+) rhinophyma) Throat: Yes posterior oropharynx normal and Yes tonsils normal (no TP congestion noted) Neck Neck: Yes no lymphadenopathy and Yes supple Thyroid: Thyroid normal Resp Auscultation: clear to auscultation bilaterally, no rales and no wheezes Cardio Rate: bradycardic Rhythm: abnormal rhythm irregularly irregular Heart sounds: no murmurs GI Palpation (GI): Soft to palpation and nontender Auscultation: normal bowel sounds General: Yes no CVA tenderness Back/Spine/Pelvis Back: no CVA tenderness Skin Rashes: no rashes Extrem General: Yes no clubbing, cyanosis or edema Results Reviewed Results Reviewed: Laboratory Tests 02/16/24 02/16/24 08:14 08:15 WBC 4.8 Hgb 12.1 L Hct 35.7 L Plt Count 184 Sodium 141 Potassium 4.2 Creatinine 0.91 Estimated GFR > 60 Fasting Glucose 104 H Calcium 9.5 AST 23 ALT 18 B-Natriuretic Peptide 159 H Triglycerides 68 Cholesterol 191 LDL Cholesterol, Calc 111 H HDL Cholesterol 67 Ur Specific [place] 1.020 Urine Protein 100 (2+) H Urine Glucose (UA) Negative Urine Blood Negative Urine Nitrite Negative Ur Leukocyte Esterase Negative Assessment and Plan Assessment & Plan (1) Atrial fibrillation: Code(s): I48.91 - Unspecified atrial fibrillation Qualifiers: Atrial fibrillation type: unspecified Qualified Code(s): I48.91 - Unspecified atrial fibrillation Plan: Patient currently is still in atrial fibrillation but remains rate-controlled Was on Metoprolol ER in the past and this was discontinued due to prolonged/persistent bradycardia Continue Coumadin QD for thromboembolism prophylaxis; INR today is at 2.1 Was following up with cardiology previously but he has not been seen in a while (last appt was in September 2022) - is advised to reach out to them to schedule a follow up appt as soon as he can (2) Congestive heart failure (CHF): Code(s): I50.9 - Heart failure, unspecified Qualifiers: Heart failure type: unspecified Heart failure chronicity: acute Qualified Code(s): I50.9 - Heart failure, unspecified Plan: Patient currently remains compensated Echocardiogram done on 06/07/22 revealed normal LV systolic function with mild LVH and normal EF, with moderately dilated right-sided chambers suggestive of a right-sided heart failure Cardiac stress testing and myocardial perfusion study done late last year (2021) all came out normal Repeat echocardiogram in November 2023 revealed normal LV systolic function with LVEF of 55-60%, moderately dilated left atrium, normal cardiac valvular dopplers, normal (upper limits) RV systolic pressure and no gross pericardial effusion Reinforced fluid restriction Continue Aldactone 12.5 mg QD His Bumetanide 1 mg QD was HELD at a previous visit due to his recurrent dizziness and lightheadedness and patient states that his symptoms have improved a lot since Bumetanide was held Patient is instructed to continue monitoring his blood pressure regularly (3) Pleural effusion, right: Code(s): J90 - Pleural effusion, not elsewhere classified Plan: This was initially seen incidentally on abdominal US in May 2022 Was most likely related to his right-sided heart failure back then and should have gradually resolved with diuresis and control of his CHF Will repeat chest x-rays for follow up ONLY if needed (if he starts experiencing increasing SOB) (4) Benign essential hypertension: Code(s): I10 - Essential (primary) hypertension Plan: Reinforced low sodium diet - goal is systolic BP of at least 130 to 140 mm or less Continue Losartan 100 mg QD, Amlodipine 5 mg QD and Spironolactone 12.5 mg Q AM Bumetanide 1 mg was held at a previous visit due to increased dizziness and was eventually discontinued (5) Pure hypercholesterolemia: Code(s): E78.00 - Pure hypercholesterolemia, unspecified Plan: Results of his labs done last week reviewed and discussed with patient Reinforced low cholesterol diet; he prefers to continue with diet modification at this time Will recheck his labs and fasting lipids in 4 months for follow up (6) Impaired fasting glucose: Code(s): R73.01 - Impaired fasting glucose Plan: HgbA1c was normal at 4.8%, 5.2% and 5.3% when previously checked Reinforced low calorie diet/exercise as tolerated He was previously started on Jardiance but patient stopped taking this a few months ago when his last Rx ran out (7) Renal insufficiency: Code(s): N28.9 - Disorder of kidney and ureter, unspecified Plan: His previous proteinuria appears to have improved/resolved on his recent labs His GFR and serum creatinine also have remained stable Was started on Jardiance previously to help with his renal function but he self-discontinued this a while back Will just continue to monitor his renal function closely for now (8) Hypokalemia: Code(s): E87.6 - Hypokalemia Plan: Corrected on his recent labs Continue Potassium Chloride ER 20 meq every other day Will recheck his labs and serum electrolytes in 4 months (9) Vitamin D deficiency: Code(s): E55.9 - Vitamin D deficiency, unspecified Plan: Continue Vitamin D3 2000 units QD (10) Elevated LFTs: Code(s): R79.89 - Other specified abnormal findings of blood chemistry Plan: Improved Reinforced avoidance of alcohol and Tylenol-containing medications Abdominal US done last year came out normal but incidentally revealed (+) right-sided pleural effusion that was most likely related to his right-sided heart failure (11) Elevated TSH: Code(s): R79.89 - Other specified abnormal findings of blood chemistry Plan: His serum TSH level was normal when last checked in May 2023 Patient is asymptomatic and again clinically appears euthyroid Will continue to monitor his TFTs periodically Plan Follow up in 4 months Orders: Orders Complete Blood Count Auto Diff 4 Months D64.9 - Anemia, unspecified Comprehensive [place]. Panel Fast 4 Months E78.00 - Pure hypercholesterolemia, unspecified Lipid Panel 4 Months E78.00 - Pure hypercholesterolemia, unspecified UA CC w/rflx Micro + Cult 4 Months R30.0 - Dysuria Coding Level of Care Code Est Pt Level 4 (06279) Diagnoses Atrial fibrillation, unspecified type I48.91 Atrial fibrillation type: unspecified Acute congestive heart failure, unspecified heart failure type I50.9 Heart failure type: unspecified Heart failure chronicity: acute Pleural effusion, right J90 Benign essential hypertension I10 Pure hypercholesterolemia E78.00 Impaired fasting glucose R73.01 Renal insufficiency N28.9 Hypokalemia E87.6 Vitamin D deficiency E55.9 Elevated LFTs R79.89 Elevated TSH R79.89
== END 2024-02-23 09:50 | disposition home or self-care (01) ==
PROVIDERS: PCP Internal Medicine; Visit Provider Internal Medicine
DX: I48.91 Unspecified atrial fibrillation (principal); I11.0 Hypertensive heart disease with heart failure; I50.9 Heart failure, unspecified; J90 Pleural effusion, not elsewhere classified; E78.00 Pure hypercholesterolemia, unspecified; R73.01 Impaired fasting glucose; N28.9 Disorder of kidney and ureter, unspecified; E87.6 Hypokalemia; E55.9 Vitamin D deficiency, unspecified; R79.89 Other specified abnormal findings of blood chemistry
CPT/HCPCS: 99214

== ENCOUNTER 2024-03-14 08:07 | Outpatient (AMB) | payer MEDICARE, SELFPAY ==
--- NOTE | 2024-03-14 08:30 | A.OFFVIS_ITS ---
Vital Signs 03/14/24 08:31 Height 5 ft 10 in Weight 143 lb 4.807 oz BMI 20.6 BP 130/80 Blood Pressure Location Lt brachial Position Sitting Pulse 39 L Intake Visit Reasons: fu req by Dr. 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 He said he gets lightheaded when he gets up suddenly but otherwise does not have any episode of lightheadedness and has no episodes of syncope. He has issues with balance and says he stumbles quite a bit. He said he was not doing that in the past when he was younger. He seems to have lost lot of weight, up to 90 lb he says but he says that he has been eating better and walking more. Denies any heart failure symptoms. No worsening shortness of breath, orthopnea, PND. No leg edema. Denies any prolonged palpitations or irregular heartbeat. He says blood pressure systolic has been especially creeping up a little bit but still today in normal limits. Denies any exertional chest pain. No bleeding issues or neurologic events [facility] Medical History Overweight (BMI 25.0-29.9) Congestive heart failure (CHF) Atrial fibrillation Rhinophyma New onset a-fib New onset of congestive heart failure Obesity (BMI 30-39.9) Elevated LFTs Renal insufficiency Vitamin D deficiency Impaired fasting glucose Pure hypercholesterolemia Benign essential hypertension Surgical History No pertinent past surgical history Family History Father Hypertension Mother Medical history unknown Social History Household Members: None Housing: Apartment Do you presently have visiting nurse or other home services: No Patient Tobacco Use Status: Never used Tobacco e-Cigarette/Vaping Use: Never Used Second Hand Smoke Exposure: Yes service: No Current occupational status: retired Current occupational exposures/hazards: No Cognitive needs: No Hearing needs: No Vision needs: Yes Review of Systems Const Denies chills, Denies fatigue, Denies fever(s), Denies frequent falls, Denies weakness, Denies weight gain and Denies weight loss ENT Denies dizziness Card Denies chest pain, Denies leg edema, Denies lightheadedness, Denies palpitations, Denies dyspnea, Denies dyspnea on exertion, Denies orthopnea and Denies other (loss of consciousness) Resp Denies cough, Denies dyspnea and Denies dyspnea on exertion GI Denies hematochezia and Denies change in stool character Musc Denies abnormal gait, Denies muscle weakness, Denies numbness, Denies radiating pain into limb and Denies tingling Neuro Denies abnormal gait, Denies dizziness, Denies frequent falls, Denies numbness, Denies tingling and Denies weakness Endo Denies fatigue and Denies palpitations Physical Exam Vital Signs: Last Vital Signs Pulse 39 L 03/14/24 08:31 BP 130/80 03/14/24 08:31 BMI result Body Mass Index 20.6 Const General: cooperative, comfortable and no acute distress Nutritional Appearance: thin, underweight and other (Frail elderly man) Orientation/consciousness: patient oriented x3 Neck Neck: Yes normal visual inspection Resp Effort & Inspection: normal respiratory effort Auscultation: clear to auscultation bilaterally, no crackles, no rales, no rhonchi and no wheezes Cardio Jugular venous distension: no JVD Rate: bradycardic Rhythm: abnormal rhythm Heart sounds: S1 normal heart sound present, S2 normal heart sound present, no murmurs and no rubs Peripheral pulses: Peripheral pulses 2+ throughout Neuro General: patient oriented x3 Extrem General: Yes normal to inspection and No no pedal edema Psych Appearance: grossly normal Mental Status: mental status grossly normal Speech and movement: Normal speech and movement present Office Procedures EKG Details: EKG shows atrial fibrillation with slow ventricular response at 39 beats per minute [id number], Complete Results AMB INR Fingerstick AMB INR Fingerstick 2.2 Last Edit by Celina Vasquez RN on 03/14/24 09:05 interface delay Assessment & Plan Assessment & Plan (1) Atrial fibrillation: Code(s): I48.91 - Unspecified atrial fibrillation Category: Medical Qualifiers: Atrial fibrillation type: unspecified Qualified Code(s): I48.91 - Unspecified atrial fibrillation Plan: Chronic atrial fibrillation with slow ventricular response despite off all medications. He does not have any significant pauses on Holter monitoring but has frequent slow heart rate response. He has no significant obvious symptoms related to it. He does complain of orthostatic lightheadedness which is more probably related to orthostasis rather than slow heart rate. Advised to call me with worsening symptoms. If he has reduced exercise capacity and/or progressive heart failure symptoms consider pacing therapy. He has not interested in pacing therapy at this point time. Continue full oral anticoagulation, currently on warfarin therapy being [facility]. Maintain target INR between 2 and 3. He says that he has poor balance at this point time, I would recommend him to pursue physical therapy but he has currently not interested and said he will exercise on his own. (2) (HFpEF) heart failure with preserved ejection fraction: Code(s): I50.30 - Unspecified diastolic (congestive) heart failure Category: Medical Plan: Heart failure preserved ejection fraction, clinically euvolemic and well compensated. Doing well from this perspective. Currently not on any loop diuretics. Daily weight monitoring avoidance of salt loading was discussed. P.r.n. use of bumetanide as need be. Continue spironolactone for neurohormonal modulation. Continue aggressive blood pressure control which is currently well optimized. Advised to monitor blood pressure at home maintain a log. Goal blood pressure typically less than 130/84. Low-salt diet was discussed. Understands agrees advised to continue maintain activity level as tolerated. Will follow up in the clinic in 6 months time, sooner p.r.n.. Thank you for allowing me to partake in his care Medications: Discontinued bumetanide Discontinued Reason: Patient no longer taking 1 mg PO DAILY 90 days 90 tabs 1RF Coding Level of Care Code Est Pt Level 4 (74277) Diagnoses Atrial fibrillation, unspecified type I48.91 Atrial fibrillation type: unspecified (HFpEF) heart failure with preserved ejection fraction I50.30 CPT Codes EKG - CPT: 58023-[id number], Complete ([id number])
[2024-03-14 08:31] VITALS: BP 130/80; PULSE 39; BMI 20.6
== END 2024-03-14 08:52 | disposition home or self-care (01) ==
PROVIDERS: PCP Internal Medicine; Visit Provider Internal Medicine Cardiovascular Disease
DX: I48.91 Unspecified atrial fibrillation (principal); I50.30 Unspecified diastolic (congestive) heart failure
CPT/HCPCS: 93010; 99214

== ENCOUNTER → 2024-03-14 08:07 | Outpatient (BNVA) | payer MEDICARE, SELFPAY | PROVIDERS: PCP Internal Medicine; Visit Provider Internal Medicine Cardiovascular Disease | DX: I48.91 Unspecified atrial fibrillation (principal); I50.30 Unspecified diastolic (congestive) heart failure; Z51.81 Encounter for therapeutic drug level monitoring; I48.19 Other persistent atrial fibrillation; Z79.01 Long term (current) use of anticoagulants | CPT/HCPCS: 85610; 93005; 99211; 99212 ==

== ENCOUNTER 2024-03-14 08:56 | Outpatient (AMB) | payer MEDICARE, SELFPAY ==
--- NOTE | 2024-03-14 09:08 | MHC.OFFVISCO ---
Intake Intake Visit Reasons: Anticoagulation Allergies penicillin V Allergy (Unknown, Verified 03/14/24 08:58) Unknown Medication List - Last Reconciled 03/14/24 by Celina Vasquez RN amlodipine 5 mg PO DAILY 90 days [CBD inhalation] cholecalciferol (vitamin D3) 50 mcg PO DAILY 90 days losartan 100 mg PO DAILY 90 days potassium chloride ER 20 mEq PO DAILY spironolactone 12.5 mg (1/2 x 25 mg) PO DAILY 90 days warfarin 5 mg See Protocol PO DAILY 90 days Nursing Note INR: 2.2 in therapeutic range of 2-3 Medications and supplements reviewed: no changes No changes in health, diet, medications, or supplements, Denies any signs and symptoms of bleeding or bruising or clotting. Bleeding, bruising, clotting discussed Nutritional guidance given Dose: 7.5mg X 2 days and 5mg X 5 days F/U INR: 1 month Patient verbalizes understanding of instructions given Anti-Coag Initial Assessment Social Hx Patient Tobacco Use Status: Never used Tobacco Alcohol intake frequency: does not drink Cardiovascular Hx: HTN and Arrhythmias (AFIB) Neurological Hx: Other (HX OF CONCUSSIONS(5)) Cancer HX: No Psych. Illness/Depression: No Coding Level of Care Code Est Patient Level 1 Diagnoses Current use of anticoagulant therapy Z79.01 Results AMB INR Fingerstick AMB INR Fingerstick 2.2 Last Edit by Celina Vasquez RN on 03/14/24 09:05 interface delay Assessment & Plan Assessment & Plan (1) Current use of anticoagulant therapy: Code(s): Z79.01 - shelter (current) use of anticoagulants Category: Medical
[2024-03-14 09:11] LABS: Prothrombin Time Whole Bld POC 25.9 sec (11.1-13.5); ~PT, ~INR - Anti Coag Clinic 2.2 (0.9-1.1)
== END 2024-03-14 09:10 | disposition home or self-care (01) ==
LOC: HO.ACS 08:56
PROVIDERS: PCP Internal Medicine; Visit Provider Internal Medicine
DX: Z79.01 Long term (current) use of anticoagulants (principal)

== ENCOUNTER 2024-04-11 08:47 | Outpatient (AMB) | payer MEDICARE, SELFPAY ==
[2024-04-11 09:05] LABS: Prothrombin Time Whole Bld POC 21.8 sec (11.1-13.5); ~PT, ~INR - Anti Coag Clinic 1.8 (0.9-1.1)
--- NOTE | 2024-04-11 09:11 | MHC.OFFVISCO ---
Intake Intake Visit Reasons: Anticoagulation Allergies penicillin V Allergy (Unknown, Verified 04/11/24 08:52) Unknown Medication List - Last Reconciled 04/11/24 by Celina Vasquez RN amlodipine 5 mg PO DAILY 90 days [CBD inhalation] cholecalciferol (vitamin D3) 50 mcg PO DAILY 90 days losartan 100 mg PO DAILY 90 days potassium chloride ER 20 mEq PO DAILY spironolactone 12.5 mg (1/2 x 25 mg) PO DAILY 90 days warfarin 5 mg See Protocol PO DAILY 90 days Nursing Note INR: 1.8out of therapeutic range of 2-3 Medications and supplements reviewed: no changes No changes in diet, medications, or supplements, Pt states he hasn't felt well past 3-4 days. He feels his heart beating strong. Checked apical pulse, 50's-60 regular. Lungs clear. Bp 162/78. Pt denies dehydration. States he drinks a lot of water daily. States he lost 90lbs not trying very hard but has stopped drinking alcohol and eating healthier. Suggested he make an appt with PCP for further testing. Denies any signs and symptoms of bleeding or bruising or clotting. Bleeding, bruising, clotting discussed Nutritional guidance given to avoid greens today and to have a serving of foods from the list that raise the INR. Dose: usual dose of 5mg X 5 days and 7.5mg X 2 days F/U INR: 3 weeks Patient verbalizes understanding of instructions given Anti-Coag Initial Assessment Social Hx Patient Tobacco Use Status: Never used Tobacco Alcohol intake frequency: does not drink Cardiovascular Hx: HTN and Arrhythmias (AFIB) Neurological Hx: Other (HX OF CONCUSSIONS(5)) Cancer HX: No Psych. Illness/Depression: No Coding Level of Care Code Est Patient Level 2 Diagnoses Current use of anticoagulant therapy Z79.01 Time Spent (min) 30 Comment BP/HR and lung sounds checked. Results AMB INR Fingerstick AMB INR Fingerstick 1.8 Last Edit by Celina Vasquez RN on 04/11/24 09:00 interface delay Assessment & Plan Assessment & Plan (1) Current use of anticoagulant therapy: Code(s): Z79.01 - halfway (current) use of anticoagulants Category: Medical
== END 2024-04-11 09:17 | disposition home or self-care (01) ==
LOC: HO.ACS 08:47
PROVIDERS: PCP Internal Medicine; Visit Provider Internal Medicine
DX: Z79.01 Long term (current) use of anticoagulants (principal)

== ENCOUNTER → 2024-04-11 08:47 | Outpatient (BNVA) | payer MEDICARE, SELFPAY | PROVIDERS: PCP Internal Medicine; Visit Provider Internal Medicine | DX: I48.19 Other persistent atrial fibrillation (principal); Z79.01 Long term (current) use of anticoagulants; Z51.81 Encounter for therapeutic drug level monitoring | CPT/HCPCS: 85610; 99212 ==

== ENCOUNTER 2024-05-02 08:30 | Outpatient (AMB) | payer MEDICARE, SELFPAY ==
--- NOTE | 2024-05-02 08:41 | MHC.OFFVISCO ---
Intake Intake Visit Reasons: Anticoagulation Allergies penicillin V Allergy (Unknown, Verified 05/02/24 08:36) Unknown Medication List - Last Reconciled 05/02/24 by Sammi Woods RN amlodipine 5 mg PO DAILY 90 days [CBD inhalation] cholecalciferol (vitamin D3) 50 mcg PO DAILY 90 days losartan 100 mg PO DAILY 90 days potassium chloride ER 20 mEq PO DAILY spironolactone 12.5 mg (1/2 x 25 mg) PO DAILY 90 days warfarin 5 mg See Protocol PO DAILY 90 days Nursing Note INR: 2.0- in therapeutic range of 2-3 Medications and supplements reviewed- no changes No changes in health, diet, medications, or supplements, Denies any signs and symptoms of bleeding or bruising or clotting. Bleeding, bruising, clotting discussed Nutritional guidance given Dose: pt req increase in weekly dosing- 7.5mg x 3., 5mg x 4 F/U INR: 2 weeks Patient verbalizes understanding of instructions given pt traveling to [place] Anti-Coag Initial Assessment Social Hx Patient Tobacco Use Status: Never used Tobacco Alcohol intake frequency: does not drink Cardiovascular Hx: HTN and Arrhythmias (AFIB) Neurological Hx: Other (HX OF CONCUSSIONS(5)) Cancer HX: No Psych. Illness/Depression: No Coding Level of Care Code Est Patient Level 1 Diagnoses Current use of anticoagulant therapy Z79.01 Results AMB INR Fingerstick AMB INR Fingerstick 2.0 Last Edit by Sammi Woods RN on 05/02/24 08:43 Assessment & Plan Assessment & Plan (1) Current use of anticoagulant therapy: Code(s): Z79.01 - senior care (current) use of anticoagulants Category: Medical
[2024-05-02 09:41] LABS: Prothrombin Time Whole Bld POC 24.3 sec (11.1-13.5)
== END 2024-05-02 08:51 | disposition home or self-care (01) ==
LOC: HO.ACS 08:30
PROVIDERS: PCP Internal Medicine; Visit Provider Internal Medicine
DX: Z79.01 Long term (current) use of anticoagulants (principal)

== ENCOUNTER → 2024-05-02 08:30 | Outpatient (BNVA) | payer MEDICARE, SELFPAY | PROVIDERS: PCP Internal Medicine; Visit Provider Internal Medicine | DX: I48.19 Other persistent atrial fibrillation (principal); Z79.01 Long term (current) use of anticoagulants; Z51.81 Encounter for therapeutic drug level monitoring | CPT/HCPCS: 85610; 99211 ==

== ENCOUNTER 2024-05-17 08:37 | Outpatient (AMB) | payer MEDICARE, SELFPAY ==
[2024-05-17 08:46] LABS: Prothrombin Time Whole Bld POC 24.7 sec (11.1-13.5); ~PT, ~INR - Anti Coag Clinic 2.1 (0.9-1.1)
--- NOTE | 2024-05-17 08:54 | MHC.OFFVISCO ---
Intake Intake Visit Reasons: Anticoagulation Allergies penicillin V Allergy (Unknown, Verified 05/17/24 08:39) Unknown Medication List - Last Reconciled 05/17/24 by Nan Saucedo RN amlodipine 5 mg PO DAILY 90 days [CBD inhalation] cholecalciferol (vitamin D3) 50 mcg PO DAILY 90 days losartan 100 mg PO DAILY 90 days potassium chloride ER 20 mEq PO DAILY spironolactone 12.5 mg (1/2 x 25 mg) PO DAILY 90 days warfarin 5 mg See Protocol PO DAILY 90 days Nursing Note INR: 2.1 in therapeutic range Medications and supplements reviewed pt states that he has been experiencing light headedness and feeling off balance at times and notices it increasing, it was explained it could be r/t many things such as heart or B/p or anemia or electrolyte imbalance and many other things, [facility] could order labs for him such as a CBC and BMP but he stated that he will call his PCP, he states his b/p and HR run low. Enc to get up slowly and stay hydrated - he states he drinks alot of water Enc to call [facility] with any health or med changes Denies any signs and symptoms of bleeding or bruising or clotting. Bleeding, bruising, clotting discussed Nutritional guidance given - eat a mix of fruits and vegetables Dose: keep same 7.5mg x 3days/ 5mg x 4 days F/U INR: 3 weeks Patient verbalizes understanding of instructions given This note will be sent to PCP as an FYI Anti-Coag Initial Assessment Social Hx Patient Tobacco Use Status: Never used Tobacco Alcohol intake frequency: does not drink Cardiovascular Hx: HTN and Arrhythmias (AFIB) Neurological Hx: Other (HX OF CONCUSSIONS(5)) Cancer HX: No Psych. 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
== END 2024-05-17 09:02 | disposition home or self-care (01) ==
LOC: HO.ACS 08:37
PROVIDERS: PCP Internal Medicine; Visit Provider Internal Medicine
DX: Z79.01 Long term (current) use of anticoagulants (principal)

== ENCOUNTER → 2024-05-17 08:37 | Outpatient (BNVA) | payer MEDICARE, SELFPAY | PROVIDERS: PCP Internal Medicine; Visit Provider Internal Medicine | DX: I48.19 Other persistent atrial fibrillation (principal); Z79.01 Long term (current) use of anticoagulants; Z51.81 Encounter for therapeutic drug level monitoring | CPT/HCPCS: 85610; 99211 ==

== ENCOUNTER 2024-06-07 08:22 | Outpatient (AMB) | payer MEDICARE, SELFPAY ==
[2024-06-07 08:48] LABS: Prothrombin Time Whole Bld POC 33.8 sec (11.1-13.5); ~PT, ~INR - Anti Coag Clinic 2.8 (0.9-1.1)
--- NOTE | 2024-06-07 08:56 | MHC.OFFVISCO ---
Intake Intake Visit Reasons: Anticoagulation Allergies penicillin V Allergy (Unknown, Verified 06/07/24 08:42) Unknown Medication List - Last Reconciled 06/07/24 by Nu King RN amlodipine 5 mg PO DAILY 90 days [CBD inhalation] cholecalciferol (vitamin D3) 50 mcg PO DAILY 90 days losartan 100 mg PO DAILY 90 days potassium chloride ER 20 mEq PO DAILY spironolactone 12.5 mg (1/2 x 25 mg) PO DAILY 90 days warfarin 5 mg See Protocol PO DAILY 90 days Nursing Note NO CP,SOB,DIET/MED CHANGES,FALLS OR SX OF BLEEDING. CONTINUE PRESENT DOSE AND FOLLOW-UP IN 4 WEEKS. GOOD UNDERTANDING OF DOSING INSTR. Anti-Coag Initial Assessment Social Hx Patient Tobacco Use Status: Never used Tobacco Alcohol intake frequency: does not drink Cardiovascular Hx: HTN and Arrhythmias (AFIB) Neurological Hx: Other (HX OF CONCUSSIONS(5)) Cancer HX: No Psych. Illness/Depression: No Coding Level of Care Code Est Patient Level 1 Diagnoses Current use of anticoagulant therapy Z79.01 Assessment & Plan Assessment & Plan (1) Current use of anticoagulant therapy: Code(s): Z79.01 - terminal carman (current) use of anticoagulants Category: Medical
== END 2024-06-07 08:58 | disposition home or self-care (01) ==
LOC: HO.ACS 08:22
PROVIDERS: PCP Internal Medicine; Visit Provider Internal Medicine
DX: Z79.01 Long term (current) use of anticoagulants (principal)

== ENCOUNTER → 2024-06-07 08:22 | Outpatient (BNVA) | payer MEDICARE, SELFPAY | PROVIDERS: PCP Internal Medicine; Visit Provider Internal Medicine | DX: I48.19 Other persistent atrial fibrillation (principal); Z79.01 Long term (current) use of anticoagulants; Z51.81 Encounter for therapeutic drug level monitoring | CPT/HCPCS: 85610; 99211 ==

== ENCOUNTER 2024-07-05 08:06 | Outpatient (REF) | payer MEDICARE, SELFPAY ==
[2024-07-05 08:23] LABS: MANUAL DIFF FLAG NO
[2024-07-05 08:38] LABS: Basophils Percent Auto 0.8 % (0-2); Eosinophils Absolute Auto 0.1 X10*3/uL (0.0-0.4); Eosinophils Percent Auto 1.4 % (0-4); Hematocrit 34.4 % (42.0-52.0); Hemoglobin 11.7 g/dl (14.0-18.0); Imm Gran Abs Auto 0.01 X10*3/uL (0.00-0.03); Imm Gran Pct Auto 0.2 % (0.0-0.4); Lymphocytes Absolute Auto 1.4 X10*3/uL (1.2-4.9); Lymphocytes Percent Auto 27.8 % (20-40); Mean Corpuscular Hemoglobin 31.4 pg (27.0-33.0); Mean Corpuscular Volume 92.2 fL (80.0-98.0); Monocytes Absolute Auto 0.4 X10*3/uL (0.1-1.2); Monocytes Percent Auto 8.6 % (2-11); Neutrophils Absolute Auto 3.1 x10*3/uL (2.0-8.3); Neutrophils Percent Auto 61.2 % (45-73); Platelet Count 190 X10*3/uL (160-400); Red Blood Count 3.73 X10*6/uL (4.60-5.80); Red Cell Distribution Width 13.4 % (11.0-16.0); White Blood Count 5.1 X10*3/uL (4.8-10.8)
[2024-07-05 08:51] LABS: Alanine Aminotransferase 11 U/L (0-40); Albumin Level 4.5 g/dL (3.5-5.0); Alkaline Phosphatase 42 U/L (39-117); Anion Gap 15 (12-20); Aspartate Amino Transferase 19 U/L (5-37); Bilirubin Total 0.7 mg/dL (0.0-1.0); Blood Urea Nitrogen 15 mg/dL (9-16); Calcium 9.8 mg/dL (8.4-10.2); Carbon Dioxide 24 mmol/L (22-29); Chloride 108 mmol/L (96-108); Cholesterol 175 mg/dL (<200); Estimated Glomerular Filt Rate > 60; Glucose Fasting 104 mg/dL (60-99); HDL Cholesterol 63 mg/dL (>40); LDL Cholesterol Calculated 101 mg/dL (<100); Potassium 4.7 mmol/L (3.3-5.1); Sodium 142 mmol/L (135-145); Total Protein 7.4 g/dL (6.5-8.0); Triglycerides 57 mg/dL (<150)
[2024-07-05 09:32] LABS: Appearance Urine Clear; Color Urine Yellow; Glucose Urine UA Negative (Negative); Leukocyte Esterase Urine Negative (Negative); Nitrite Urine Negative (Negative); Specific Gravity - Urine 1.015 (1.005-1.025); UMIC TRIGGER UACC YES; Urine Blood Negative (Negative); Urine Ketones Negative (Negative); Urine Protein 30 (1+) mg/dL (Neg-Trace)
[2024-07-05 09:35] LABS: Bacteria Urine None Seen (None Seen); Hyaline Casts Urine 0-2 /LPF (0-2); RBC Urine 0-2 /HPF (0-2); Squamous Epithelial Cell Urine 0-2 /HPF (0-2); WBC Urine 0-5 /HPF (0-5)
== END 2024-07-05 08:07 | disposition home or self-care (01) ==
LOC: HO.LAB 08:06
PROVIDERS: PCP Internal Medicine; Visit Provider Internal Medicine
DX: E78.00 Pure hypercholesterolemia, unspecified (principal); D64.9 Anemia, unspecified; Z51.81 Encounter for therapeutic drug level monitoring; Z79.01 Long term (current) use of anticoagulants
CPT/HCPCS: 36415; 80053; 80061; 81001; 85025; 85610; 99211

== ENCOUNTER 2024-07-05 08:29 | Outpatient (AMB) | payer MEDICARE, SELFPAY ==
[2024-07-05 08:56] LABS: ~PT, ~INR - Anti Coag Clinic 2.2 (0.9-1.1)
--- NOTE | 2024-07-05 09:00 | MHC.OFFVISCO ---
Intake Intake Visit Reasons: Anticoagulation Allergies penicillin V Allergy (Unknown, Verified 07/05/24 08:52) Unknown Medication List - Last Reconciled 07/05/24 by Celina Vasquez, RN amlodipine 5 mg PO DAILY 90 days [CBD inhalation] cholecalciferol (vitamin D3) 50 mcg PO DAILY 90 days losartan 100 mg PO DAILY 90 days potassium chloride ER 20 mEq PO DAILY spironolactone 12.5 mg (1/2 x 25 mg) PO DAILY 90 days warfarin 5 mg See Protocol PO DAILY 90 days Nursing Note INR: 2.2 in therapeutic range 2-3 Medications and supplements reviewed No changes in health, diet, medications, or supplements, Denies any signs and symptoms of bleeding or bruising or clotting. Bleeding, bruising, clotting discussed Nutritional guidance given Dose: 5mg X 4 days and 7.5mg X 3 days F/U INR: 4 weeks Patient verbalizes understanding of instructions given Anti-Coag Initial Assessment Social Hx Patient Tobacco Use Status: Never used Tobacco Alcohol intake frequency: does not drink Cardiovascular Hx: HTN and Arrhythmias (AFIB) Neurological Hx: Other (HX OF CONCUSSIONS(5)) Cancer HX: No Psych. Illness/Depression: No Coding Level of Care Code Est Patient Level 1 Diagnoses Current use of anticoagulant therapy Z79.01 Assessment & Plan Assessment & Plan (1) Current use of anticoagulant therapy: Code(s): Z79.01 - [facility] (current) use of anticoagulants Category: Medical
== END 2024-07-05 09:03 | disposition home or self-care (01) ==
LOC: HO.ACS 08:29
PROVIDERS: PCP Internal Medicine; Visit Provider Internal Medicine
DX: Z79.01 Long term (current) use of anticoagulants (principal)

== ENCOUNTER 2024-07-17 08:36 | Outpatient (AMB) | payer MEDICARE, SELFPAY ==
[2024-07-17 08:37] VITALS: BP 120/70; PULSE 40; O2SAT 99; BMI 20.5
--- NOTE | 2024-07-17 08:37 | MHC.PC.OV ---
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: No Accompanied by: Self / Same As Patient Allergies penicillin V Allergy (Unknown, Verified 07/17/24 09:16) Unknown Medication List - Last Reconciled 07/17/24 by Beto Irizarry MD amlodipine 5 mg PO DAILY 90 days [CBD inhalation] cholecalciferol (vitamin D3) 50 mcg PO DAILY 90 days losartan 100 mg PO DAILY 90 days potassium chloride ER 20 mEq PO DAILY spironolactone 12.5 mg (1/2 x 25 mg) PO DAILY 90 days warfarin 5 mg See Protocol PO DAILY 90 days Tobacco use date assessed: 07/17/24 Fall risk assessment: No Falls in past year Last assessed Fall Risk: 07/17/24 Dental Screening Dental Screen Date: 07/17/24 Did you have a dental visit in the last 12 months?: No Did you have a dental problem in the last 6 months where you did not have access to dental care?: No Was dental information given to patient?: No HPI AF, HTN, hyperlipidemia HPI Details Patient comes in today for his follow up visit States that he currently feels okay He denies any headaches Still has on and off bouts of dizziness that are mostly triggered by changes in position (orthostatic) - states that these tend to come and go and have no consistency as to when they will occur He denies any exertional chest pains, no increased SOB No nausea/vomiting, no abdominal pain No change in bowel habits noted Adds that he continues to feel very unsteady often when he is walking, especially when he first gets up Describes his symptoms as more of like a feeling that he is drunk and states that it is different from his orthostatic dizziness He is concerned that if this keeps up, he will end up falling and get hurt and would like to know what he can do about this He had his follow up labs done a couple of weeks ago - to discuss his results He was seen by cardiology a few months ago (as referred) and was advised that his bouts with slow heart rate are likely due to atrial fibrillation with slow ventricular response He was advised that he can undergo pacing therapy but he was not interested in it at the time - was advised to just call cardiology if his symptoms progress [facility] Medical History Overweight (BMI 25.0-29.9) Congestive heart failure (CHF) Atrial fibrillation Rhinophyma New onset a-fib New onset of congestive heart failure Obesity (BMI 30-39.9) Elevated LFTs Renal insufficiency Vitamin D deficiency Impaired fasting glucose Pure hypercholesterolemia Benign essential hypertension Surgical History No pertinent past surgical history Family History Father Hypertension Mother Medical history unknown Social History Household Members: None Housing: Apartment Do you presently have visiting nurse or other home services: No Patient Tobacco Use Status: Never used Tobacco e-Cigarette/Vaping Use: Never Used Second Hand Smoke Exposure: Yes service: No Current occupational status: retired Current occupational exposures/hazards: No Cognitive needs: No Hearing needs: No Vision needs: Yes Questionnaire PHQ-9 Over the last 2 weeks, how often have you been bothered by any of the following problems? 1. Little interest or pleasure in doing things: not at all 2. Feeling down, depressed, or hopeless: not at all 3. Trouble falling or staying asleep, or sleeping too much: not at all 4. Feeling tired or having little energy: not at all 5. Poor appetite or overeating: not at all 6. Feeling bad about yourself - or that you are a failure or have let yourself or your family down: not at all 7. Trouble concentrating on things, such as reading the newspaper or watching television: not at all 8. Moving or speaking so slowly that other people could have noticed. Or the opposite - being so fidgety or restless that you have been moving around a lot more than usual: not at all 9. Thoughts that you would be better off or of hurting yourself in some way: not at all Total score: 0 Depression Screening Interpretation: Negative Depression Screening Done: Yes 12575 - PHQ-9 Billing: Yes Source: Developed by Drs. Zhen Fleming, Edel Hermosillo, Kapil Guillen and colleagues, with an educational gildardo from [employer]. Thrive Questionnaire Date Thrive assessed: 07/17/24 I am a: Patient What is your living situation today?: I have a steady place to live Within the past 12 months, did the food you bought not last and you didn't have the money to get more?: Never true Within the past 12 months, did you worry whether your food would run out before you got money to buy more?: Never true Do you have trouble paying for medicines?: No Do you have trouble getting transportation to medical appointments?: No Do you have trouble paying your heating and electricity bill?: No Do you have trouble taking care of your child, family member or friend?: No Do you have trouble with day-to-day activities such as bathing, preparing meals, shopping, managing finances, etc.?: No Are you currently unemployed and looking for a job?: No Are you interested in more education?: No Please select the resources that you would like help with: None Currently or been in a relationship where the following occur: No concerns reported THRIVE Score: 0 AUDIT C Alcohol Use Questionnaire (AUDIT-C) 1. How often do you have a drink containing alcohol?: Never 3. How often do you have six or more drinks on one occasion?: Never Total Score: 0 Score Reviewed/Action Taken: Yes RONALDO-7 AMB Questionnaire RONALDO-7 Date RONALDO - 7 assessed: 07/17/24 Feeling nervous, anxious, or on edge: 0 = Not at all Not being able to stop or control worryin = Not at all Worrying too much about different things: 0 = Not at all Trouble relaxin = Not at all Being so restless that it is hard to sit still: 0 = Not at all Becoming easily annoyed or irritable: 0 = Not at all Feeling afraid as if something awful might happen: 0 = Not at all Total RONALDO-7 score (0-4 normal; 5-9 mild; 10-14 moderate; 15-21 severe): 0 Source: Developed by Edel Henry Kurt Kroenke and colleagues, with an educational gildardo from [employer]. Review of Systems Const Denies chills, Denies fatigue, Denies fever(s) and Denies headache(s) ENT Denies dysphagia, Reports dizziness (on and off, mostly triggered by changes in position), Denies otalgia, Denies headache(s), Denies neck pain, Denies odynophagia and Denies sore throat Card Denies chest pain, Denies lightheadedness, Denies palpitations and Denies dyspnea Resp Denies cough and Denies dyspnea GI Denies abdominal pain, Denies constipation, Denies dysphagia, Denies heartburn, Denies diarrhea, Denies nausea, Denies odynophagia and Denies vomiting Denies dysuria, Reports nocturia and Reports urinary frequency (is on diuretics) Musc Reports abnormal gait (feels unsteady often - see HPI), Denies muscle weakness, Denies neck pain and Reports tingling (on and off in both legs) Skin/Breast Denies rash Neuro Details: feels unsteady often Reports abnormal gait (feels unsteady often - see HPI), Reports dizziness (on and off, mostly triggered by changes in position), Denies headache(s) and Reports tingling (on and off in both legs) Endo Denies fatigue and Denies palpitations Physical exam (Primary Care) Vital Signs: Last Vital Signs Pulse 40 L 07/17/24 08:37 BP 120/70 07/17/24 08:37 Pulse Ox 99 07/17/24 08:37 Oxygen Delivery Method Room Air 07/17/24 08:37 BMI result Body Mass Index 20.5 Tobacco/Smoking Status: Tobacco use Status Tobacco use date assessed 07/17/24 07/17/24 08:46 Patient Tobacco Use Status Never used Tobacco 07/17/24 08:46 e-Cigarette/Vaping Use Never Used 07/17/24 08:46 PHQ-9: PHQ-9 Score PHQ-9: Total score 0 07/17/24 08:46 Depression Screening Interpretation: Negative Thrive Assessment: Date of Thrive Assessment Date Thrive assessed 07/17/24 07/17/24 08:46 Currently or been in a relationship where the following occur: No concerns reported Const General: no acute distress and alert Orientation/consciousness: patient oriented x3 HENMT Ears: TM's normal bilaterally and EAC's normal General nose exam: Abnormal external nose present ((+) rhinophyma) Throat: Yes posterior oropharynx normal and Yes tonsils normal (no TP congestion noted) Neck Neck: Yes no lymphadenopathy and Yes supple Thyroid: Thyroid normal Resp Auscultation: clear to auscultation bilaterally, no rales and no wheezes Cardio Rate: bradycardic Rhythm: abnormal rhythm irregularly irregular Heart sounds: no murmurs GI Palpation (GI): Soft to palpation and nontender Auscultation: normal bowel sounds General: Yes no CVA tenderness Back/Spine/Pelvis Back: no CVA tenderness Thoracic/Lumbar Spine: No lumbar spinal tenderness (mild) Skin Rashes: no rashes Neuro General: patient oriented x3 Extrem General: Yes no clubbing, cyanosis or edema Results Reviewed Results Reviewed: Laboratory Tests 07/05/24 07/05/24 08:20 08:22 WBC 5.1 Hgb 11.7 L Hct 34.4 L Plt Count 190 Sodium 142 Potassium 4.7 Creatinine 0.98 Estimated GFR > 60 Fasting Glucose 104 H Calcium 9.8 AST 19 ALT 11 Triglycerides 57 Cholesterol 175 LDL Cholesterol, Calc 101 H HDL Cholesterol 63 Ur Specific [place] 1.015 Urine Protein 30 (1+) H Urine Glucose (UA) Negative Urine Blood Negative Urine Nitrite Negative Ur Leukocyte Esterase Negative Assessment and Plan Assessment & Plan (1) Atrial fibrillation: Code(s): I48.91 - Unspecified atrial fibrillation Qualifiers: Atrial fibrillation type: unspecified Qualified Code(s): I48.91 - Unspecified atrial fibrillation Plan: Patient is currently still in atrial fibrillation but remains rate-controlled He was on Metoprolol ER in the past and this was discontinued due to prolonged/persistent bradycardia Continue Coumadin QD for thromboembolism prophylaxis He was seen by cardiology again a few months ago and was advised pacer therapy for his recurrent bouts of slow heart rate, which are likely the reason for his orthostatic symptoms but patient declined - was advised to call cardiology back at any time if his symptoms progress (2) (HFpEF) heart failure with preserved ejection fraction: Code(s): I50.30 - Unspecified diastolic (congestive) heart failure Qualifiers: Heart failure chronicity: chronic Qualified Code(s): I50.32 - Chronic diastolic (congestive) heart failure Plan: Patient currently remains compensated Echocardiogram done on 06/07/22 revealed normal LV systolic function with mild LVH and normal EF, with moderately dilated right-sided chambers suggestive of a right-sided heart failure Cardiac stress testing and myocardial perfusion study done late last year (2021) all came out normal Repeat echocardiogram in November 2023 revealed normal LV systolic function with LVEF of 55-60%, moderately dilated left atrium, normal cardiac valvular dopplers, normal (upper limits) RV systolic pressure and no gross pericardial effusion Reinforced fluid restriction Continue Aldactone 12.5 mg QD His Bumetanide was HELD at a previous visit due to his recurrent dizziness and lightheadedness and patient states that his symptoms have improved a lot since Bumetanide was held - this was discontinued formally by cardiology a few months ago Patient is reminded to continue monitoring his blood pressure regularly (3) Pleural effusion, right: Code(s): J90 - Pleural effusion, not elsewhere classified Plan: This was initially seen incidentally on abdominal US in May 2022 Was most likely related to his right-sided heart failure back then and should have gradually resolved with diuresis and control of his CHF Will repeat chest x-rays for follow up ONLY if needed (if he starts experiencing increasing SOB) (4) Benign essential hypertension: Code(s): I10 - Essential (primary) hypertension Plan: Reinforced low sodium diet - goal is systolic BP of at least 130 to 140 mm or less Continue Losartan 100 mg QD, Amlodipine 5 mg QD and Spironolactone 12.5 mg Q AM Bumetanide 1 mg was held at a previous visit due to increased dizziness and was eventually discontinued (5) Pure hypercholesterolemia: Code(s): E78.00 - Pure hypercholesterolemia, unspecified Plan: Results of his labs done a couple of weeks ago reviewed and discussed with patient Reinforced low cholesterol diet; patient prefers to continue with diet modification at this time Will recheck his labs and fasting lipids in 4 months for follow up (6) Impaired fasting glucose: Code(s): R73.01 - Impaired fasting glucose Plan: HgbA1c was normal at 4.8%, 5.2% and 5.3% when previously checked Reinforced low calorie diet/exercise as tolerated He was previously started on Jardiance but patient stopped taking this a few months ago when his last Rx ran out (7) Renal insufficiency: Code(s): N28.9 - Disorder of kidney and ureter, unspecified Plan: His previous proteinuria appears to have improved/resolved on his recent labs His GFR and serum creatinine also have remained stable Was started on Jardiance previously to help with his renal function but he self-discontinued this a while back Will just continue to monitor his renal function closely for now (8) Hypokalemia: Code(s): E87.6 - Hypokalemia Plan: Corrected on his recent labs Continue Potassium Chloride ER 20 meq every other day Will recheck his labs and serum electrolytes in 4 months (9) Vitamin D deficiency: Code(s): E55.9 - Vitamin D deficiency, unspecified Plan: Continue Vitamin D3 2000 units QD (10) Elevated LFTs: Code(s): R79.89 - Other specified abnormal findings of blood chemistry Plan: Improved Reinforced avoidance of alcohol and Tylenol-containing medications Abdominal US done last year came out normal but incidentally revealed (+) right-sided pleural effusion that was most likely related to his right-sided heart failure (11) Elevated TSH: Code(s): R79.89 - Other specified abnormal findings of blood chemistry Plan: His serum TSH level was normal when last checked in May 2023 Patient is asymptomatic and again clinically appears euthyroid Will continue to monitor his TFTs periodically (12) Gait instability: Code(s): R26.81 - Unsteadiness on feet Plan: Will refer him to neurology for further evaluation and management Plan Follow up in 4 months Orders: Orders Vitamin B12 and Folate 4 Months E53.8 - Deficiency of other specified B group vitamins UA CC w/rflx Micro + Cult 4 Months R30.0 - Dysuria Complete Blood Count Auto Diff 4 Months D64.9 - Anemia, unspecified Comprehensive [place]. Panel Fast 4 Months E78.00 - Pure hypercholesterolemia, unspecified Lipid Panel 4 Months E78.00 - Pure hypercholesterolemia, unspecified TSH reflex Free T4 4 Months E78.00 - Pure hypercholesterolemia, unspecified Vitamin D 25-OH Total 4 Months E55.9 - Vitamin D deficiency, unspecified Referrals Neurology Referral R26.81 - Unsteadiness on feet, R26.89 - Other abnormalities of gait and mobility Coding Level of Care Code Est Pt Level 4 (94961) Complex EM visit Add On G2211 Diagnoses Atrial fibrillation, unspecified type I48.91 Atrial fibrillation type: unspecified Chronic heart failure with preserved ejection fraction I50.32 Heart failure chronicity: chronic Pleural effusion, right J90 Benign essential hypertension I10 Pure hypercholesterolemia E78.00 Impaired fasting glucose R73.01 Renal insufficiency N28.9 Hypokalemia E87.6 Vitamin D deficiency E55.9 Elevated LFTs R79.89 Elevated TSH R79.89 Gait instability R26.81
== END 2024-07-17 09:34 | disposition home or self-care (01) ==
PROVIDERS: PCP Internal Medicine; Visit Provider Internal Medicine
DX: I11.0 Hypertensive heart disease with heart failure (principal); I50.32 Chronic diastolic (congestive) heart failure; I48.91 Unspecified atrial fibrillation; J90 Pleural effusion, not elsewhere classified; E78.00 Pure hypercholesterolemia, unspecified; R73.01 Impaired fasting glucose; N28.9 Disorder of kidney and ureter, unspecified; E87.6 Hypokalemia; E55.9 Vitamin D deficiency, unspecified; R79.89 Other specified abnormal findings of blood chemistry; R26.81 Unsteadiness on feet
CPT/HCPCS: 99214; G2211

== ENCOUNTER 2024-08-02 08:16 | Outpatient (AMB) | payer MEDICARE, SELFPAY ==
[2024-08-02 08:30] LABS: ~PT, ~INR - Anti Coag Clinic 3.3 (0.9-1.1)
--- NOTE | 2024-08-02 08:30 | MHC.OFFVISCO ---
Intake Intake Visit Reasons: Anticoagulation Allergies penicillin V Allergy (Unknown, Verified 08/02/24 08:19) Unknown Medication List - Last Reconciled 08/02/24 by Nan Saucedo RN amlodipine 5 mg PO DAILY 90 days [CBD inhalation] cholecalciferol (vitamin D3) 50 mcg PO DAILY 90 days losartan 100 mg PO DAILY 90 days potassium chloride ER 20 mEq PO DAILY spironolactone 12.5 mg (1/2 x 25 mg) PO DAILY 90 days warfarin 5 mg See Protocol PO DAILY 90 days Nursing Note INR: 3.3 OUT OF therapeutic range Medications and supplements reviewed eating healthier, exercising more, has intentional weight loss, had less greens last week had flu and covid vaccines inquired about wathcman procedure- uptodate print out given had more dawn and papya which can raise the INR Denies any signs and symptoms of bleeding or bruising or clotting. Bleeding, bruising, clotting discussed Nutritional guidance given - enc to eat weekly greens especially when eating fruits that raise the INR Dose: decrease tomorrow's dose to 2.5mg already took today's dose, then resume 7.5mg x 3 days/ 5mg x 4 days F/U INR: 3 weeks Patient verbalizes understanding of instructions given Anti-Coag Initial Assessment Social Hx Patient Tobacco Use Status: Never used Tobacco Alcohol intake frequency: does not drink Cardiovascular Hx: HTN and Arrhythmias (AFIB) Neurological Hx: Other (HX OF CONCUSSIONS(5)) Cancer HX: No Psych. Illness/Depression: No Coding Level of Care Code Est Patient Level 1 Diagnoses Current use of anticoagulant therapy Z79.01 Assessment & Plan Assessment & Plan (1) Current use of anticoagulant therapy: Code(s): Z79.01 - penitentiary (current) use of anticoagulants Category: Medical
== END 2024-08-02 08:46 | disposition home or self-care (01) ==
LOC: HO.ACS 08:16
PROVIDERS: PCP Internal Medicine; Visit Provider Internal Medicine
DX: Z79.01 Long term (current) use of anticoagulants (principal)

== ENCOUNTER → 2024-08-02 08:16 | Outpatient (BNVA) | payer MEDICARE, SELFPAY | PROVIDERS: PCP Internal Medicine; Visit Provider Internal Medicine | DX: I48.19 Other persistent atrial fibrillation (principal); Z79.01 Long term (current) use of anticoagulants; Z51.81 Encounter for therapeutic drug level monitoring | CPT/HCPCS: 85610; 99211 ==

== ENCOUNTER 2024-08-23 08:44 | Outpatient (AMB) | payer MEDICARE, SELFPAY ==
[2024-08-23 08:51] LABS: Prothrombin Time Whole Bld POC 28.5 sec (11.1-13.5); ~PT, ~INR - Anti Coag Clinic 2.4 (0.9-1.1)
--- NOTE | 2024-08-23 08:58 | MHC.OFFVISCO ---
Intake Intake Visit Reasons: Anticoagulation Allergies penicillin V Allergy (Unknown, Verified 08/23/24 08:46) Unknown Medication List - Last Reconciled 08/23/24 by Celina Vasquez, RN amlodipine 5 mg PO DAILY 90 days [CBD inhalation] cholecalciferol (vitamin D3) 50 mcg PO DAILY 90 days losartan 100 mg PO DAILY 90 days potassium chloride ER 20 mEq PO DAILY spironolactone 12.5 mg (1/2 x 25 mg) PO DAILY 90 days warfarin 5 mg See Protocol PO DAILY 90 days Nursing Note INR: 2.4 in therapeutic range of 2-3 Medications and supplements reviewed No changes in health, diet, medications, or supplements, Denies any signs and symptoms of bleeding or bruising or clotting. Bleeding, bruising, clotting discussed Nutritional guidance given Dose: continue same dose of 5mg X 4 days and 7.5mg X 3 days F/U INR: 4 weeks Patient verbalizes understanding of instructions given Anti-Coag Initial Assessment Social Hx Patient Tobacco Use Status: Never used Tobacco Alcohol intake frequency: does not drink Cardiovascular Hx: HTN and Arrhythmias (AFIB) Neurological Hx: Other (HX OF CONCUSSIONS(5)) Cancer HX: No Psych. 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
== END 2024-08-23 08:59 | disposition home or self-care (01) ==
LOC: HO.ACS 08:44
PROVIDERS: PCP Internal Medicine; Visit Provider Internal Medicine
DX: Z79.01 Long term (current) use of anticoagulants (principal)

== ENCOUNTER → 2024-08-23 08:44 | Outpatient (BNVA) | payer MEDICARE, SELFPAY | PROVIDERS: PCP Internal Medicine; Visit Provider Internal Medicine | DX: I48.19 Other persistent atrial fibrillation (principal); Z79.01 Long term (current) use of anticoagulants; Z51.81 Encounter for therapeutic drug level monitoring | CPT/HCPCS: 85610; 99211 ==

== ENCOUNTER 2024-09-20 08:16 | Outpatient (AMB) | payer MEDICARE, SELFPAY ==
[2024-09-20 08:27] LABS: Prothrombin Time Whole Bld POC 26.2 sec (11.1-13.5); ~PT, ~INR - Anti Coag Clinic 2.2 (0.9-1.1)
--- NOTE | 2024-09-20 08:31 | MHC.OFFVISCO ---
Intake Intake Visit Reasons: Anticoagulation Allergies penicillin V Allergy (Unknown, Verified 09/20/24 08:21) Unknown Medication List - Last Reconciled 09/20/24 by Celina Vasquez RN amlodipine 5 mg PO DAILY 90 days [CBD inhalation] cholecalciferol (vitamin D3) 50 mcg PO DAILY 90 days losartan 100 mg PO DAILY 90 days potassium chloride ER 20 mEq PO DAILY spironolactone 12.5 mg (1/2 x 25 mg) PO DAILY 90 days warfarin 5 mg See Protocol PO DAILY 90 days Nursing Note INR: 2.2 in therapeutic range of 2-3 Medications and supplements reviewed No changes in health, diet, medications, or supplements, Denies any signs and symptoms of bleeding or bruising or clotting. Bleeding, bruising, clotting discussed Nutritional guidance given Dose: 5mg X 4 days and 7.5mg X 3 days F/U INR: 4 weeks Patient verbalizes understanding of instructions given Anti-Coag Initial Assessment Social Hx Patient Tobacco Use Status: Never used Tobacco Alcohol intake frequency: does not drink Cardiovascular Hx: HTN and Arrhythmias (AFIB) Neurological Hx: Other (HX OF CONCUSSIONS(5)) Cancer HX: No Psych. Illness/Depression: No Coding Level of Care Code Est Patient Level 1 Diagnoses Current use of anticoagulant therapy Z79.01 Assessment & Plan Assessment & Plan (1) Current use of anticoagulant therapy: Code(s): Z79.01 - residential (current) use of anticoagulants Category: Medical
== END 2024-09-20 08:32 | disposition home or self-care (01) ==
LOC: HO.ACS 08:16
PROVIDERS: PCP Internal Medicine; Visit Provider Internal Medicine
DX: Z79.01 Long term (current) use of anticoagulants (principal)

== ENCOUNTER → 2024-09-20 08:16 | Outpatient (BNVA) | payer MEDICARE, SELFPAY | PROVIDERS: PCP Internal Medicine; Visit Provider Internal Medicine | DX: I48.19 Other persistent atrial fibrillation (principal); Z79.01 Long term (current) use of anticoagulants; Z51.81 Encounter for therapeutic drug level monitoring | CPT/HCPCS: 85610; 99211 ==

== ENCOUNTER 2024-10-18 08:24 | Outpatient (AMB) | payer MEDICARE, SELFPAY ==
[2024-10-18 08:39] LABS: Prothrombin Time Whole Bld POC 23.8 sec (11.1-13.5)
--- NOTE | 2024-10-18 08:43 | MHC.OFFVISCO ---
Intake Intake Visit Reasons: Anticoagulation Allergies penicillin V Allergy (Unknown, Verified 10/18/24 08:34) Unknown Medication List - Last Reconciled 10/18/24 by Celina Vasquez, RN amlodipine 5 mg PO DAILY 90 days [CBD inhalation] cholecalciferol (vitamin D3) 50 mcg PO DAILY 90 days losartan 100 mg PO DAILY 90 days potassium chloride ER 20 mEq PO DAILY spironolactone 12.5 mg (1/2 x 25 mg) PO DAILY 90 days warfarin 5 mg See Protocol PO DAILY 90 days Nursing Note INR: 2.0 in therapeutic range of 2-3 Medications and supplements reviewed No changes in health, diet, medications, or supplements, Denies any signs and symptoms of bleeding or bruising or clotting. Bleeding, bruising, clotting discussed Nutritional guidance given Dose: 5mg X 4 days and 7.5mg X 3 days F/U INR: 4 weeks Patient verbalizes understanding of instructions given Anti-Coag Initial Assessment Social Hx Patient Tobacco Use Status: Never used Tobacco Alcohol intake frequency: does not drink Cardiovascular Hx: HTN and Arrhythmias (AFIB) Neurological Hx: Other (HX OF CONCUSSIONS(5)) Cancer HX: No Psych. Illness/Depression: No Coding Level of Care Code Est Patient Level 1 Diagnoses Current use of anticoagulant therapy Z79.01 Assessment & Plan Assessment & Plan (1) Current use of anticoagulant therapy: Code(s): Z79.01 - alf (current) use of anticoagulants Category: Medical
== END 2024-10-18 08:46 | disposition home or self-care (01) ==
LOC: HO.ACS 08:24
PROVIDERS: PCP Internal Medicine; Visit Provider Internal Medicine
DX: Z79.01 Long term (current) use of anticoagulants (principal)

== ENCOUNTER → 2024-10-18 08:24 | Outpatient (BNVA) | payer MEDICARE, SELFPAY | PROVIDERS: PCP Internal Medicine; Visit Provider Internal Medicine | DX: I48.19 Other persistent atrial fibrillation (principal); Z79.01 Long term (current) use of anticoagulants; Z51.81 Encounter for therapeutic drug level monitoring | CPT/HCPCS: 85610; 99211 ==

== ENCOUNTER 2024-11-15 07:27 | Outpatient (REF) | payer MEDICARE, SELFPAY ==
[2024-11-15 07:40] LABS: MANUAL DIFF FLAG NO
[2024-11-15 08:33] LABS: Basophils Percent Auto 0.7 % (0-2); Eosinophils Absolute Auto 0.1 X10*3/uL (0.0-0.4); Eosinophils Percent Auto 1.3 % (0-4); Hematocrit 37.1 % (42.0-52.0); Hemoglobin 12.3 g/dl (14.0-18.0); Imm Gran Abs Auto 0.01 X10*3/uL (0.00-0.03); Imm Gran Pct Auto 0.2 % (0.0-0.4); Lymphocytes Absolute Auto 1.3 X10*3/uL (1.2-4.9); Lymphocytes Percent Auto 27.3 % (20-40); Mean Corpuscular HGB Conc 33.2 g/dl (31.0-36.0); Mean Corpuscular Hemoglobin 32.7 pg (27.0-33.0); Mean Corpuscular Volume 98.7 fL (80.0-98.0); Mean Platelet Volume 9.4 fL (9.4-12.4); Monocytes Absolute Auto 0.6 X10*3/uL (0.1-1.2); Neutrophils Absolute Auto 2.7 x10*3/uL (2.0-8.3); Neutrophils Percent Auto 58.5 % (45-73); Platelet Count 192 X10*3/uL (160-400); Red Blood Count 3.76 X10*6/uL (4.60-5.80); Red Cell Distribution Width 13.8 % (11.0-16.0); White Blood Count 4.6 X10*3/uL (4.8-10.8)
[2024-11-15 08:47] LABS: Appearance Urine Clear; Color Urine Yellow; Glucose Urine UA Negative (Negative); Leukocyte Esterase Urine Negative (Negative); Nitrite Urine Negative (Negative); PH 6.5 (5.0-9.0); Specific Gravity - Urine 1.015 (1.005-1.025); UMIC TRIGGER UACC YES; Urine Blood Negative (Negative); Urine Ketones Negative (Negative); Urine Protein 100 (2+) mg/dL (Neg-Trace)
[2024-11-15 08:51] LABS: Bacteria Urine None Seen (None Seen); Hyaline Casts Urine 0-2 /LPF (0-2); RBC Urine 0-2 /HPF (0-2); Squamous Epithelial Cell Urine 0-2 /HPF (0-2); WBC Urine 0-5 /HPF (0-5)
[2024-11-15 09:32] LABS: Alanine Aminotransferase 16 U/L (0-40); Albumin Level 4.5 g/dL (3.5-5.0); Alkaline Phosphatase 44 U/L (39-117); Anion Gap 15 (12-20); Aspartate Amino Transferase 33 U/L (5-37); Bilirubin Total 0.7 mg/dL (0.0-1.0); Blood Urea Nitrogen 19 mg/dL (9-16); Calcium 9.7 mg/dL (8.4-10.2); Carbon Dioxide 23 mmol/L (22-29); Chloride 108 mmol/L (96-108); Cholesterol 192 mg/dL (<200); Estimated Glomerular Filt Rate 60; Glucose Fasting 109 mg/dL (60-99); HDL Cholesterol 84 mg/dL (>40); LDL Cholesterol Calculated 98 mg/dL (<100); Potassium 4.7 mmol/L (3.3-5.1); Sodium 141 mmol/L (135-145); Total Protein 7.6 g/dL (6.5-8.0); Triglycerides 52 mg/dL (<150)
[2024-11-15 09:39] LABS: Folate 7.9 ng/mL (> or = 4.0); Vitamin B12 209 pg/mL (200-900)
[2024-11-15 09:52] LABS: TSH reflex Free T4 3.94 uIU/mL (0.32-4.0)
== END 2024-11-15 07:28 | disposition home or self-care (01) ==
LOC: HO.LAB 07:27
PROVIDERS: PCP Internal Medicine; Visit Provider Internal Medicine
DX: E78.00 Pure hypercholesterolemia, unspecified (principal); E55.9 Vitamin D deficiency, unspecified; E53.8 Deficiency of other specified B group vitamins; D64.9 Anemia, unspecified; R30.0 Dysuria
CPT/HCPCS: 36415; 80053; 80061; 81001; 82306; 82607; 82746; 84443; 85025; 85610; 99211

== ENCOUNTER 2024-11-15 08:00 | Outpatient (AMB) | payer MEDICARE, SELFPAY ==
[2024-11-15 08:27] LABS: Prothrombin Time Whole Bld POC 26.9 sec (11.1-13.5); ~PT, ~INR - Anti Coag Clinic 2.2 (0.9-1.1)
--- NOTE | 2024-11-15 08:33 | MHC.OFFVISCO ---
Intake Intake Visit Reasons: Anticoagulation Allergies penicillin V Allergy (Unknown, Verified 11/15/24 08:21) Unknown Medication List - Last Reconciled 11/15/24 by Nan Saucedo RN amlodipine 5 mg PO DAILY [CBD inhalation] cholecalciferol (vitamin D3) 50 mcg PO DAILY 90 days losartan 100 mg PO DAILY 90 days potassium chloride ER 20 mEq PO DAILY spironolactone 12.5 mg (1/2 x 25 mg) PO DAILY 90 days warfarin 5 mg See Protocol PO DAILY 90 days Nursing Note INR: 2.2 in therapeutic range- pt states he feels better than he has in over 2 years Medications and supplements reviewed No changes in health, diet, medications, or supplements, Denies any signs and symptoms of bleeding or bruising or clotting. Bleeding, bruising, clotting discussed Nutritional guidance given Dose: keep same 7.5mg x 3 days/ 5mg x 4 days F/U INR: 1 month msg sent to PCP for enough warfarin tabs each month Patient verbalizes understanding of instructions given Anti-Coag Initial Assessment Social Hx Patient Tobacco Use Status: Never used Tobacco Alcohol intake frequency: does not drink Cardiovascular Hx: HTN and Arrhythmias (AFIB) Neurological Hx: Other (HX OF CONCUSSIONS(5)) Cancer HX: No Psych. Illness/Depression: No Questionnaires HAS-BLED Does the patient had uncontrolled Hypertension?: No Does the patient have renal disease?: Yes Does the patient have liver disease?: No Does the patient have a history of stroke?: No Has the patient had major bleeding or predisposition to bleeding?: No Does the patient have labile INRs?: No Is the patient over 65 years of age?: Yes Is the patient on medications that gives them a predisposition to bleeding?: Yes Does the patient use alcohol?: No HAS-BLED Score: 3 CHADSVASC Age: 66-74 Gender: Male Does the patient have a history of CHF?: Yes Does the patient have a history of Hypertension?: Yes Does the patient have a history of Stroke/TIA/Thromboembolism?: No Does the patient have a history of Vascular Disease (prior [place], PAD or aortic plaque)?: Yes (hypercholesterolemia) Does the patient have a history of Diabetes?: No CHADS VACS Score: 4 Ti Prediction Score Rsk VTE Active Cancer: No Previous VTE, excluding superficial vein thrombosis: No Reduced mobility: No Already known Thrombophilic Condition: No With-in last month Trauma and/or Surgery: No Elderly 70 year or older: Yes Heart and/or Respiratory Failure: No Acute Myocardial infarction and/or Ischemic Stroke: No Acute Infection and/or Rheumatologic Disorder: No Obesity (BMI 30 or greater): No Ongoing Hormonal Treatment: No Score: 1 Ti Score less than 4; Low Risk of VTE Ti Score 4 or greater; High Risk of VTE Coding Level of Care Code Est Patient Level 1 Diagnoses Current use of anticoagulant therapy Z79.01 Assessment & Plan Assessment & Plan (1) Current use of anticoagulant therapy: Code(s): 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
== END 2024-11-15 08:35 | disposition home or self-care (01) ==
LOC: HO.ACS 08:00
PROVIDERS: PCP Internal Medicine; Visit Provider Internal Medicine
DX: Z79.01 Long term (current) use of anticoagulants (principal)

== ENCOUNTER 2024-11-22 09:26 | Outpatient (AMB) | payer MEDICARE, SELFPAY ==
--- NOTE | 2024-11-22 09:40 | MHC.PC.OV ---
Vital Signs 11/22/24 09:42 11/22/24 10:12 Height 5 ft 10 in Weight 153 lb 2 oz BMI 22.0 BP 150/80 H 122/74 Blood Pressure Location Lt brachial Lt brachial Position Sitting Sitting Pulse 40 L Pulse Source Pulse Oximeter Temp 97.3 F Temp Source Skin Pulse Oximetry (%) 100 Oxygen Delivery Method Room Air Intake Visit Reasons: 4 month f/u Intake Note: Patient is here to follow up on CHF, Afib, HTN. Senior Sharepoint Developer Required: No Teacher Music: Not Required per policy Accompanied by: Self / Same As Patient Allergies penicillin V Allergy (Unknown, Verified 11/24/24 04:39) Unknown Medication List - Last Reconciled 11/24/24 by Beto Irizarry MD amlodipine 5 mg PO DAILY [CBD inhalation] cholecalciferol (vitamin D3) 50 mcg PO DAILY 90 days losartan 100 mg PO DAILY 90 days potassium chloride ER 20 mEq PO DAILY 90 days spironolactone 12.5 mg (1/2 x 25 mg) PO DAILY 90 days warfarin See Protocol 7.5MG X 3 DAYS/ 5MG X 4 DAYS orally ; Please allow for extra tabs for 1 1/2 tab days 90 days Tobacco use date assessed: 11/22/24 Fall risk assessment: No Falls in past year Last assessed Fall Risk: 11/22/24 Dental Screening Dental Screen Date: 11/22/24 Did you have a dental visit in the last 12 months?: No Did you have a dental problem in the last 6 months where you did not have access to dental care?: No Was dental information given to patient?: No HPI 4 month f/u HPI Details Patient comes in today for his follow up visit States that he feels okay He denies any headaches or dizziness Denies any chest pains, no increased shortness of breath No nausea/vomiting, no abdominal pain No change in bowel habits noted He had his follow-up labs done last week - to discuss his results [facility] Medical History (Updated 11/24/24 @ 08:03 by Beto Irizarry MD) New onset a-fib Overweight (BMI 25.0-29.9) Atrial fibrillation Rhinophyma Obesity (BMI 30-39.9) Elevated LFTs Renal insufficiency Vitamin D deficiency Impaired fasting glucose Pure hypercholesterolemia Benign essential hypertension Surgical History No pertinent past surgical history Family History Father Hypertension Mother Medical history unknown Social History Household Members: None Housing: Apartment Do you presently have visiting nurse or other home services: No Alcohol intake: current Alcohol intake frequency: holidays/special occasions only Patient Tobacco Use Status: Never used Tobacco e-Cigarette/Vaping Use: Never Used Second Hand Smoke Exposure: Yes service: No Current occupational status: retired Current occupational exposures/hazards: No Cognitive needs: No Hearing needs: No Vision needs: Yes (Glasses) Questionnaire PHQ-9 Over the last 2 weeks, how often have you been bothered by any of the following problems? 1. Little interest or pleasure in doing things: not at all 2. Feeling down, depressed, or hopeless: not at all 3. Trouble falling or staying asleep, or sleeping too much: not at all 4. Feeling tired or having little energy: not at all 5. Poor appetite or overeating: not at all 6. Feeling bad about yourself - or that you are a failure or have let yourself or your family down: not at all 7. Trouble concentrating on things, such as reading the newspaper or watching television: not at all 8. Moving or speaking so slowly that other people could have noticed. Or the opposite - being so fidgety or restless that you have been moving around a lot more than usual: not at all 9. Thoughts that you would be better off or of hurting yourself in some way: not at all Total score: 0 Depression Screening Interpretation: Negative Depression Screening Done: Yes 97775 - PHQ-9 Billing: Yes Source: Developed by Drs. Zhen Fleming, Edel Hermosillo, Kapil Guillen and colleagues, with an educational gildardo from [employer]. Thrive Questionnaire Date Thrive assessed: 11/22/24 I am a: Patient What is your living situation today?: I have a steady place to live Within the past 12 months, did the food you bought not last and you didn't have the money to get more?: Never true Within the past 12 months, did you worry whether your food would run out before you got money to buy more?: Never true Do you have trouble paying for medicines?: No Do you have trouble getting transportation to medical appointments?: No Do you have trouble paying your heating and electricity bill?: No Do you have trouble taking care of your child, family member or friend?: No Do you have trouble with day-to-day activities such as bathing, preparing meals, shopping, managing finances, etc.?: No Are you currently unemployed and looking for a job?: No Are you interested in more education?: No Please select the resources that you would like help with: None Currently or been in a relationship where the following occur: No concerns reported THRIVE Score: 0 AUDIT C Alcohol Use Questionnaire (AUDIT-C) 1. How often do you have a drink containing alcohol?: Never 3. How often do you have six or more drinks on one occasion?: Never Total Score: 0 Score Reviewed/Action Taken: Yes RONALDO-7 AMB Questionnaire RONALDO-7 Date RONALDO - 7 assessed: 11/22/24 Feeling nervous, anxious, or on edge: 0 = Not at all Not being able to stop or control worryin = Not at all Worrying too much about different things: 0 = Not at all Trouble relaxin = Not at all Being so restless that it is hard to sit still: 0 = Not at all Becoming easily annoyed or irritable: 0 = Not at all Feeling afraid as if something awful might happen: 0 = Not at all Total RONALDO-7 score (0-4 normal; 5-9 mild; 10-14 moderate; 15-21 severe): 0 Source: Developed by Drs. Zhen Fleming, Edel Hermosillo, Kapil Guillen and colleagues, with an educational gildardo from [employer]. Review of Systems Const Denies chills, Denies fatigue, Denies fever(s) and Denies headache(s) ENT Denies dysphagia, Reports dizziness (on and off, mostly triggered by changes in position), Denies otalgia, Denies headache(s), Denies neck pain, Denies odynophagia and Denies sore throat Card Denies chest pain, Denies lightheadedness, Denies palpitations and Denies dyspnea Resp Denies chest congestion, Denies cough and Denies dyspnea GI Denies abdominal pain, Denies constipation, Denies dysphagia, Denies heartburn, Denies diarrhea, Denies nausea, Denies odynophagia and Denies vomiting Denies dysuria, Reports nocturia and Reports urinary frequency (is on diuretics) Musc Reports abnormal gait (feels unsteady often), Denies muscle weakness, Denies neck pain and Reports tingling (on and off in both legs and feet) Skin/Breast Denies rash Neuro Details: feels unsteady often Reports abnormal gait (feels unsteady often), Reports dizziness (on and off, mostly triggered by changes in position), Denies headache(s) and Reports tingling (on and off in both legs and feet) Psych Denies anxiety and Denies depression Endo Denies fatigue and Denies palpitations Physical exam (Primary Care) Vital Signs: Last Vital Signs Temp 97.3 F 11/22/24 09:42 Pulse 40 L 11/22/24 09:42 BP 122/74 11/22/24 10:12 Pulse Ox 100 11/22/24 09:42 Oxygen Delivery Method Room Air 11/22/24 09:42 BMI result Body Mass Index 22.0 Tobacco/Smoking Status: Tobacco use Status Tobacco use date assessed 11/22/24 11/22/24 09:45 Patient Tobacco Use Status Never used Tobacco 11/22/24 09:46 e-Cigarette/Vaping Use Never Used 11/22/24 09:46 PHQ-9: PHQ-9 Score PHQ-9: Total score 0 11/22/24 10:03 Depression Screening Interpretation: Negative Thrive Assessment: Date of Thrive Assessment Date Thrive assessed 11/22/24 11/22/24 09:45 Currently or been in a relationship where the following occur: No concerns reported Const General: no acute distress and alert HENMT Ears: TM's normal bilaterally and EAC's normal General nose exam: Abnormal external nose present ((+) rhinophyma) Throat: Yes posterior oropharynx normal and Yes tonsils normal (no TP congestion noted) Neck Neck: Yes supple and No lymphadenopathy Thyroid: Thyroid normal Resp Auscultation: clear to auscultation bilaterally, no rales and no wheezes Cardio Rate: bradycardic Rhythm: abnormal rhythm irregularly irregular Heart sounds: no murmurs GI Palpation (GI): Soft to palpation and nontender Auscultation: normal bowel sounds General: Yes no CVA tenderness Back/Spine/Pelvis Back: no CVA tenderness Thoracic/Lumbar Spine: lumbar spinal tenderness (mild) Skin Rashes: no rashes Extrem General: Yes no clubbing, cyanosis or edema Results Reviewed Results Reviewed: Laboratory Tests 11/15/24 11/15/24 07:35 07:40 WBC 4.6 L Hgb 12.3 L Hct 37.1 L Plt Count 192 Sodium 141 Potassium 4.7 Creatinine 1.20 Estimated GFR 60 Fasting Glucose 109 H Calcium 9.7 AST 33 ALT 16 Triglycerides 52 Cholesterol 192 LDL Cholesterol, Calc 98 HDL Cholesterol 84 Vitamin B12 209 25-OH Vitamin D Total 40.0 TSH 3.94 Ur Specific [place] 1.015 Urine Protein 100 (2+) H Urine Glucose (UA) Negative Urine Blood Negative Urine Nitrite Negative Ur Leukocyte Esterase Negative Coding Level of Care Code Est Pt Level 4 (18225) Diagnoses Atrial fibrillation, unspecified type I48.91 Atrial fibrillation type: unspecified Chronic heart failure with preserved ejection fraction I50.32 Heart failure chronicity: chronic Pleural effusion, right J90 Benign essential hypertension I10 Pure hypercholesterolemia E78.00 Impaired fasting glucose R73.01 Hypokalemia E87.6 Vitamin D deficiency E55.9 Elevated LFTs R79.89 Elevated TSH R79.89 Gait instability R26.81 Additional Codes PHQ-9 - 85995 - PHQ-9 Billing: Yes ([id number]) Assessment & Plan Assessment & Plan (1) Atrial fibrillation: Comment: started in 2021 Code(s): I48.91 - Unspecified atrial fibrillation Category: Medical Qualifiers: Atrial fibrillation type: unspecified Qualified Code(s): I48.91 - Unspecified atrial fibrillation Plan: Patient is currently still in atrial fibrillation but remains rate-controlled He was on Metoprolol ER in the past and this was discontinued due to prolonged/persistent bradycardia Continue Coumadin QD for thromboembolism prophylaxis He was seen by cardiology again a few months ago and was advised pacer therapy for his recurrent bouts of slow heart rate, which are likely the reason for his orthostatic symptoms but patient declined - was advised to call cardiology back at any time if his symptoms progress (2) (HFpEF) heart failure with preserved ejection fraction: Code(s): I50.30 - Unspecified diastolic (congestive) heart failure Category: Medical Qualifiers: Heart failure chronicity: chronic Qualified Code(s): I50.32 - Chronic diastolic (congestive) heart failure Plan: Patient currently remains compensated Echocardiogram done on 06/07/22 revealed normal LV systolic function with mild LVH and normal EF, with moderately dilated right-sided chambers suggestive of a right-sided heart failure Cardiac stress testing and myocardial perfusion study done in late 2021 all came out normal Repeat echocardiogram in November 2023 revealed normal LV systolic function with LVEF of 55-60%, moderately dilated left atrium, normal cardiac valvular dopplers, normal (upper limits) RV systolic pressure and no gross pericardial effusion Reinforced fluid restriction Continue Aldactone 12.5 mg QD His Bumetanide was HELD at a previous visit due to his recurrent dizziness and lightheadedness and patient states that his symptoms have improved a lot since Bumetanide was held - this was discontinued formally by cardiology a few months ago Patient is reminded to continue monitoring his blood pressure regularly (3) Pleural effusion, right: Code(s): J90 - Pleural effusion, not elsewhere classified Category: Medical Plan: This was initially seen incidentally on abdominal US in May 2022 Was most likely related to his right-sided heart failure back then and should have gradually resolved with diuresis and control of his CHF Will repeat chest x-ray for follow up ONLY if needed (if he starts experiencing increasing SOB) (4) Benign essential hypertension: Code(s): I10 - Essential (primary) hypertension Category: Medical Plan: Reinforced low sodium diet - goal is systolic BP of at least 130 to 140 mm or less Continue Losartan 100 mg QD, Amlodipine 5 mg QD and Spironolactone 12.5 mg Q AM Bumetanide 1 mg was held at a previous visit due to increased dizziness and was eventually discontinued (5) Pure hypercholesterolemia: Code(s): E78.00 - Pure hypercholesterolemia, unspecified Category: Medical Plan: Results of his labs done last week reviewed and discussed with patient Reinforced low cholesterol diet; patient prefers to continue with diet modification at this time and avoid taking cholesterol-lowering medications Will recheck his labs and fasting lipids in 4 months for follow up (6) Impaired fasting glucose: Code(s): R73.01 - Impaired fasting glucose Category: Medical Plan: HgbA1c was normal at 4.8%, 5.2% and 5.3% when previously checked Reinforced low calorie diet/exercise as tolerated He was previously started on Jardiance but patient stopped taking this a few months ago when his last Rx ran out and does not wish to go back on it as much as possible (7) Hypokalemia: Code(s): E87.6 - Hypokalemia Category: Medical Plan: Corrected Continue Potassium Chloride ER 20 meq every other day Will recheck his labs and serum electrolytes in 4 months for follow up (8) Vitamin D deficiency: Code(s): E55.9 - Vitamin D deficiency, unspecified Category: Medical Plan: Continue Vitamin D3 2000 units QD (9) Elevated LFTs: Code(s): R79.89 - Other specified abnormal findings of blood chemistry Category: Medical Plan: Resolved Reinforced avoidance of alcohol and Tylenol-containing medications Abdominal US done a couple of years ago came out normal but incidentally revealed (+) right-sided pleural effusion that was most likely related to his right-sided heart failure (10) Elevated TSH: Code(s): R79.89 - Other specified abnormal findings of blood chemistry Category: Medical Plan: His serum TSH level has remained normal on his labs done last week Patient is asymptomatic and again appears clinically euthyroid Will continue to monitor his TFTs periodically (11) Gait instability: Code(s): R26.81 - Unsteadiness on feet Category: Medical Plan: He was previously referred to neurology for further evaluation and management but it does not look like he was seen yet Will have office staff look into his referral to see why he has not yet been scheduled to see neurology Plan Follow up in 4 months Orders: Orders Vitamin D 25-OH Total 4 Months E55.9 - Vitamin D deficiency, unspecified Vitamin B12 and Folate 4 Months E53.8 - Deficiency of other specified B group vitamins Complete Blood Count Auto Diff 4 Months D64.9 - Anemia, unspecified Comprehensive [place]. Panel Fast 4 Months E78.00 - Pure hypercholesterolemia, unspecified Lipid Panel 4 Months E78.00 - Pure hypercholesterolemia, unspecified UA CC w/rflx Micro + Cult 4 Months R30.0 - Dysuria TSH reflex Free T4 4 Months E78.00 - Pure hypercholesterolemia, unspecified Hemoglobin A1c 4 Months R73.01 - Impaired fasting glucose Medications: Changed From potassium chloride ER 20 mEq PO DAILY 30 tabs 3RF To potassium chloride ER 20 mEq PO DAILY 90 days 90 tabs 3RF Refilled warfarin See Protocol 7.5MG X 3 DAYS/ 5MG X 4 DAYS orally ; Please allow for extra tabs for 1 1/2 tab days 90 days 120 tabs 3RF
[2024-11-22 09:42] VITALS: BP 150/80; PULSE 40; TEMP 36.3; O2SAT 100; BMI 22.0
[2024-11-22 10:12] VITALS: BP 122/74
== END 2024-11-22 10:20 | disposition home or self-care (01) ==
PROVIDERS: PCP Internal Medicine; Visit Provider Internal Medicine
DX: I48.91 Unspecified atrial fibrillation (principal); I50.32 Chronic diastolic (congestive) heart failure; J90 Pleural effusion, not elsewhere classified; I10 Essential (primary) hypertension; E78.00 Pure hypercholesterolemia, unspecified; R73.01 Impaired fasting glucose; E87.6 Hypokalemia; E55.9 Vitamin D deficiency, unspecified; R79.89 Other specified abnormal findings of blood chemistry; R26.81 Unsteadiness on feet

== ENCOUNTER → 2024-11-22 09:26 | Outpatient (BNVA) | payer MEDICARE, SELFPAY | PROVIDERS: PCP Internal Medicine; Visit Provider Internal Medicine | DX: I48.91 Unspecified atrial fibrillation (principal); I11.0 Hypertensive heart disease with heart failure; I50.32 Chronic diastolic (congestive) heart failure; J90 Pleural effusion, not elsewhere classified; E78.00 Pure hypercholesterolemia, unspecified; E87.6 Hypokalemia; R73.01 Impaired fasting glucose; R79.89 Other specified abnormal findings of blood chemistry; R26.81 Unsteadiness on feet | CPT/HCPCS: 96127; 99212 ==

== ENCOUNTER 2024-12-20 08:11 | Outpatient (AMB) | payer MEDICARE, SELFPAY ==
--- NOTE | 2024-12-20 08:25 | MHC.OFFVISCO ---
Intake Intake Visit Reasons: Anticoagulation Allergies penicillin V Allergy (Unknown, Verified 12/20/24 08:21) Unknown Medication List - Last Reconciled 12/20/24 by Sammi Woods RN amlodipine 5 mg PO DAILY [CBD inhalation] cholecalciferol (vitamin D3) 50 mcg PO DAILY 90 days losartan 100 mg PO DAILY 90 days potassium chloride ER 20 mEq PO DAILY 90 days spironolactone 12.5 mg (1/2 x 25 mg) PO DAILY 90 days warfarin See Protocol 7.5MG X 3 DAYS/ 5MG X 4 DAYS orally ; Please allow for extra tabs for 1 1/2 tab days 90 days Nursing Note INR: 2.0- in therapeutic range 2-3 Medications and supplements reviewed- no changes No changes in health, diet, medications, or supplements, Denies any signs and symptoms of bleeding or bruising or clotting. Bleeding, bruising, clotting discussed Nutritional guidance given - pt states eats greens every other day, will reduce greens in weekly diet Dose: 7.5mg x 3, 5mg x 4 F/U INR: 1 month Patient verbalizes understanding of instructions given Anti-Coag Initial Assessment Social Hx Patient Tobacco Use Status: Never used Tobacco alcohol intake: current Alcohol intake frequency: holidays/special occasions only Cardiovascular Hx: HTN and Arrhythmias (AFIB) Neurological Hx: Other (HX OF CONCUSSIONS(5)) Cancer HX: No Psych. 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
[2024-12-20 08:27] LABS: Prothrombin Time Whole Bld POC 24.5 sec (11.1-13.5)
== END 2024-12-20 08:32 | disposition home or self-care (01) ==
LOC: HO.ACS 08:11
PROVIDERS: PCP Internal Medicine; Visit Provider Internal Medicine
DX: Z79.01 Long term (current) use of anticoagulants (principal)

== ENCOUNTER → 2024-12-20 08:11 | Outpatient (BNVA) | payer MEDICARE, SELFPAY | PROVIDERS: PCP Internal Medicine; Visit Provider Internal Medicine | DX: I48.19 Other persistent atrial fibrillation (principal); Z79.01 Long term (current) use of anticoagulants; Z51.81 Encounter for therapeutic drug level monitoring | CPT/HCPCS: 85610; 99211 ==

== ENCOUNTER 2025-01-17 08:12 | Outpatient (AMB) | payer MEDICARE, SELFPAY ==
[2025-01-17 08:45] LABS: ~PT, ~INR - Anti Coag Clinic 1.8 (0.9-1.1)
--- NOTE | 2025-01-17 08:53 | MHC.OFFVISCO ---
Intake Intake Visit Reasons: Anticoagulation Allergies penicillin V Allergy (Unknown, Verified 01/17/25 08:37) Unknown Medication List - Last Reconciled 01/17/25 by Nan Saucedo RN amlodipine 5 mg PO DAILY [CBD inhalation] cholecalciferol (vitamin D3) 50 mcg PO DAILY 90 days losartan 100 mg PO DAILY 90 days multivitamin 1 tab PO .ever other day potassium chloride ER 20 mEq PO DAILY 90 days spironolactone 12.5 mg (1/2 x 25 mg) PO DAILY 90 days vitamin B complex 1 tab PO .every other day warfarin See Protocol 7.5MG X 4 DAYS/ 5MG X 3 DAYS orally ; Please allow for extra tabs for 1 1/2 tab days Nursing Note INR 1.8 out of therapeutic range Medications and supplements reviewed Patient status: well, taking multivitamin now (does not know brand) also taking B complex and does not know brand, it was explained that somtimes suupplements and vitamins can affect the INR and to keep brands consistent because the amts could be different and could affect his INR Medications or supplements: added MVI and B compex Diet: good Denies any signs and symptoms of bleeding or clotting or unusual bruising Bleeding, bruising, clotting discussed Nutritional guidance given: avoid greens x 2 days so INR can come up Dose: increase weekly dose 7.5mg x 4 days / 5mg mwf F/U INR Date : 01/31/2025?? Patient verbalizing understanding of instructions given with read back. Anti-Coag Initial Assessment Social Hx Patient Tobacco Use Status: Never used Tobacco alcohol intake: current Alcohol intake frequency: holidays/special occasions only Cardiovascular Hx: HTN and Arrhythmias (AFIB) Neurological Hx: Other (HX OF CONCUSSIONS(5)) Cancer HX: No Psych. 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
== END 2025-01-17 08:59 | disposition home or self-care (01) ==
LOC: HO.ACS 08:12
PROVIDERS: PCP Internal Medicine; Visit Provider Internal Medicine
DX: Z79.01 Long term (current) use of anticoagulants (principal)

== ENCOUNTER → 2025-01-17 08:12 | Outpatient (BNVA) | payer MEDICARE, SELFPAY | PROVIDERS: PCP Internal Medicine; Visit Provider Internal Medicine | DX: I48.19 Other persistent atrial fibrillation (principal); Z79.01 Long term (current) use of anticoagulants; Z51.81 Encounter for therapeutic drug level monitoring | CPT/HCPCS: 85610; 99211 ==

== ENCOUNTER 2025-01-31 08:15 | Outpatient (AMB) | payer MEDICARE, SELFPAY ==
[2025-01-31 08:42] LABS: Prothrombin Time Whole Bld POC 24.4 sec (11.1-13.5)
--- NOTE | 2025-01-31 08:42 | MHC.OFFVISCO ---
Intake Intake Visit Reasons: Anticoagulation Allergies penicillin V Allergy (Unknown, Verified 01/31/25 08:27) Unknown Medication List - Last Reconciled 01/31/25 by Nan Saucedo RN amlodipine 5 mg PO DAILY [CBD inhalation] cholecalciferol (vitamin D3) 50 mcg PO DAILY 90 days losartan 100 mg PO DAILY 90 days multivitamin 1 tab PO .ever other day potassium chloride ER 20 mEq PO DAILY 90 days spironolactone 12.5 mg (1/2 x 25 mg) PO DAILY 90 days vitamin B complex 1 tab PO .every other day warfarin See Protocol 7.5MG X 4 DAYS/ 5MG X 3 DAYS orally ; Please allow for extra tabs for 1 1/2 tab days Nursing Note INR: 2.0 in therapeutic range- DOSE WAS INCREASED ABOUT 1 1/2 WEEKS AGO Medications and supplements reviewed No changes in health, diet, medications, or supplements, Denies any signs and symptoms of bleeding or bruising or clotting. Bleeding, bruising, clotting discussed Nutritional guidance given Dose: 5MG MWF/ 7.5MG X 4 DAYS F/U INR: 2 WEEKS TO SEE IF INR INCREASES Patient verbalizes understanding of instructions given Anti-Coag Initial Assessment Social Hx Patient Tobacco Use Status: Never used Tobacco alcohol intake: current Alcohol intake frequency: holidays/special occasions only Cardiovascular Hx: HTN and Arrhythmias (AFIB) Neurological Hx: Other (HX OF CONCUSSIONS(5)) Cancer HX: No Psych. Illness/Depression: No Coding Level of Care Code Est Patient Level 1 Diagnoses Current use of anticoagulant therapy Z79.01 Results AMB INR Fingerstick AMB INR Fingerstick 2.0 Last Edit by Nan Saucedo RN on 01/31/25 08:36 manual entry Assessment & Plan Assessment & Plan (1) Current use of anticoagulant therapy: Code(s): Z79.01 - senior care (current) use of anticoagulants Category: Medical
== END 2025-01-31 08:48 | disposition home or self-care (01) ==
LOC: HO.ACS 08:15
PROVIDERS: PCP Internal Medicine; Visit Provider Internal Medicine Medical Oncology
DX: Z79.01 Long term (current) use of anticoagulants (principal)

== ENCOUNTER → 2025-01-31 08:15 | Outpatient (BNVA) | payer MEDICARE, SELFPAY | PROVIDERS: PCP Internal Medicine; Visit Provider Internal Medicine Medical Oncology | DX: I48.19 Other persistent atrial fibrillation (principal); Z79.01 Long term (current) use of anticoagulants; Z51.81 Encounter for therapeutic drug level monitoring | CPT/HCPCS: 85610; 99211 ==

== ENCOUNTER 2025-02-17 08:25 | Outpatient (AMB) | payer MEDICARE, SELFPAY ==
[2025-02-17 08:55] LABS: Prothrombin Time Whole Bld POC 30.3 sec (11.1-13.5); ~PT, ~INR - Anti Coag Clinic 2.5 (0.9-1.1)
--- NOTE | 2025-02-17 09:00 | MHC.OFFVISCO ---
Intake Intake Visit Reasons: Anticoagulation Allergies penicillin V Allergy (Unknown, Verified 02/17/25 08:49) Unknown Medication List - Last Reconciled 02/17/25 by Celina Mack RN amlodipine 5 mg PO DAILY [CBD inhalation] cholecalciferol (vitamin D3) 50 mcg PO DAILY 90 days losartan 100 mg PO DAILY 90 days multivitamin 1 tab PO .ever other day potassium chloride ER 20 mEq PO DAILY 90 days spironolactone 12.5 mg (1/2 x 25 mg) PO DAILY 90 days vitamin B complex 1 tab PO .every other day warfarin See Protocol 7.5MG X 4 DAYS/ 5MG X 3 DAYS orally ; Please allow for extra tabs for 1 1/2 tab days Nursing Note Amb to ACS feeling well, sts his mornings are good but afternoons are tough, describes feeling tired general malaise, no energy Medications and supplements reviewed No new changes in health, diet, medications, or supplements, other than recent warfarin dosing change- pt takes 7.5mg on Monday, Monday, Monday, and Monday, 5 mg on other days dose management updated Denies any signs and symptoms of bleeding, bruising, or clotting. Bleeding, bruising, clotting discussed INR 2.5 in therapeutic range to continue same dosing as noted above Nutritional guidance given, can add greens in 1-2 servings this week, 2-3 servings next week F/U INR: 4 weeks Patient verbalizes understanding of instructions given Anti-Coag Initial Assessment Social Hx Patient Tobacco Use Status: Never used Tobacco alcohol intake: current Alcohol intake frequency: holidays/special occasions only Cardiovascular Hx: HTN and Arrhythmias (AFIB) Neurological Hx: Other (HX OF CONCUSSIONS(5)) Cancer HX: No Psych. Illness/Depression: No Coding Level of Care Code Est Patient Level 1 Diagnoses Current use of anticoagulant therapy Z79.01 Time Spent (min) 15 Assessment & Plan Assessment & Plan (1) Current use of anticoagulant therapy: Code(s): Z79.01 - residential (current) use of anticoagulants Category: Medical
== END 2025-02-17 09:21 | disposition home or self-care (01) ==
LOC: HO.ACS 08:25
PROVIDERS: PCP Internal Medicine; Visit Provider Internal Medicine Medical Oncology
DX: Z79.01 Long term (current) use of anticoagulants (principal)

== ENCOUNTER → 2025-02-17 08:25 | Outpatient (BNVA) | payer MEDICARE, SELFPAY | PROVIDERS: PCP Internal Medicine; Visit Provider Internal Medicine Medical Oncology | DX: I48.19 Other persistent atrial fibrillation (principal); Z51.81 Encounter for therapeutic drug level monitoring; Z79.01 Long term (current) use of anticoagulants | CPT/HCPCS: 85610; 99211 ==

== ENCOUNTER 2025-02-18 08:10 | Outpatient (AMB) | payer MEDICARE, SELFPAY ==
--- NOTE | 2025-02-18 08:12 | A.OFFVIS_ITS ---
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 Allergies penicillin V Allergy (Unknown, Verified 02/18/25 08:17) Unknown Medication List - Last Reconciled 02/18/25 by Nereida Wong NP-C amlodipine 5 mg PO DAILY [CBD inhalation] cholecalciferol (vitamin D3) 50 mcg PO DAILY 90 days losartan 100 mg PO DAILY 90 days multivitamin 1 tab PO .ever other day potassium chloride ER 20 mEq PO DAILY 90 days spironolactone 12.5 mg (1/2 x 25 mg) PO DAILY 90 days vitamin B complex 1 tab PO .every other day warfarin See Protocol 7.5MG X 4 DAYS/ 5MG X 3 DAYS orally ; Please allow for extra tabs for 1 1/2 tab days HPI HPI 6 month follow up rs from 09/10/24: Details: Taj is a 69-year-old male with past medical history of HTN, HLD, imparied fasting glucose, diastolic HF, chronic atrial fibrillation, bradycardia who presents for follow up. He last visited approximately a year ago on his birthday, and his recent complaint involved an episode of rapid heartbeats two days prior, lasting around an hour. During this event, he did not experience associated symptoms such as chest pain, dyspnea, or dizziness, though he reports feeling abnormal heart rhythms. He admits to smoking marijuana prior to this episode. The patient's routine INR levels for anticoagulation have been normal, with no concerning bleeding issues noted. He denies any issues with lightheadedness, presyncope, syncope or falls. He has good activity tolerance and is able to exercise regularly and feel well. FOR[facility]LY [facility], [facility] Medical History New onset a-fib Overweight (BMI 25.0-29.9) Atrial fibrillation Rhinophyma Obesity (BMI 30-39.9) Elevated LFTs Renal insufficiency Vitamin D deficiency Impaired fasting glucose Pure hypercholesterolemia Benign essential hypertension Surgical History No pertinent past surgical history Family History Father Hypertension Mother Medical history unknown Social History Household Members: None Housing: Apartment Do you presently have visiting nurse or other home services: No Alcohol intake: current Alcohol intake frequency: holidays/special occasions only Patient Tobacco Use Status: Never used Tobacco e-Cigarette/Vaping Use: Never Used Second Hand Smoke Exposure: Yes service: No Current occupational status: retired Current occupational exposures/hazards: No Cognitive needs: No Hearing needs: No Vision needs: Yes (Glasses) Review of Systems Const All systems reviewed & are unremarkable except as noted in HPI and below ENT Denies dizziness Card Denies chest pain, Denies chest pain at rest, Denies chest pain with activity, Denies rapid heart rate, Denies pedal edema, Denies edema, Denies leg edema, Denies lightheadedness, Denies palpitations, Denies dyspnea, Denies dyspnea on exertion and Denies orthopnea Resp Denies cough, Denies dyspnea and Denies dyspnea on exertion GI Denies hematochezia and Denies change in stool character Musc Denies abnormal gait, Denies limited range of motion, Denies muscle cramps, Denies muscle weakness, Denies numbness, Denies radiating pain into limb, Denies stiffness and Denies tingling Neuro Denies abnormal gait, Denies dizziness, Denies numbness and Denies tingling Endo Denies palpitations Physical Exam Vital Signs: Last Vital Signs Pulse 46 L 02/18/25 08:14 BP 124/72 02/18/25 08:14 BMI result Body Mass Index 22.4 Const General: cooperative, healthy appearing, comfortable and no acute distress Orientation/consciousness: patient oriented x3 Neck Neck: Yes normal visual inspection Resp Effort & Inspection: normal respiratory effort Auscultation: clear to auscultation bilaterally, no rales, no rhonchi and no wheezes Cardio Rate: regular rate Rhythm: abnormal rhythm Heart sounds: S1 normal heart sound present, S2 normal heart sound present, no murmurs and no rubs Neuro General: patient oriented x3 Extrem General: Yes normal to inspection, No no pedal edema and No calf tenderness Psych Appearance: grossly normal Mental Status: mental status grossly normal Speech and movement: Normal speech and movement present Office Procedures EKG Details: Today, read by me, Atrial fibrillation, slow ventricular response, rate 46, Qtc 413ms [id number], Complete Assessment & Plan Assessment & Plan (1) Atrial fibrillation: Comment: started in 2021 Code(s): I48.91 - Unspecified atrial fibrillation Category: Medical Qualifiers: Atrial fibrillation type: unspecified Qualified Code(s): I48.91 - Unspecified atrial fibrillation Plan: Chronic. Not on rate slowing agents. On coumadin for anticoagulation, INR goal 2-3. Follows at [facility] [place] anticoagulation clinic (2) Bradycardia: Code(s): R00.1 - Bradycardia, unspecified Category: Medical Plan: Asymptomatic. Declines holter. (3) Benign essential hypertension: Code(s): I10 - Essential (primary) hypertension Category: Medical Plan: Goal < 130/80. Well controlled at this time. No med changes Plan The plan involves monitoring the patient's chronic atrial fibrillation without any immediate pacemaker intervention due to the patient's current asymptomatic state apart from minor palpitations. It's crucial to assess for exacerbations or changes in functional capacity or symptom presentation. The patient's anticoagulation therapy monitored by INR will continue with vigilance due to reported bleeding episodes. Return precautions have been provided, and follow-up is scheduled for six months to reassess clinical status or sooner if symptoms change. During the visit, we discussed the chronic nature of the patient's atrial fibrillation and the current decision to hold off on pacemaker placement, pending the evolution of symptoms or significant changes. The risk of too slow heart rates and implications were reviewed, and the patient opted to monitor symptoms before considering invasive measures. Holter monitor suggested and he declined at this time. We covered the management of anticoagulation therapy and the importance of routine INR monitoring, with INR goal 2-3. He follows with the [facility] [place] anticoagulation clinic. The patient plans for a return visit in six months unless symptoms exacerbate, and he is advised on signs to watch that may indicate worsening condition. - Continue with current exercise regimen, monitoring for any decreased energy or further symptoms. - Report any episodes of feeling lightheaded, syncope, or exacerbation of palpitations. - Continue attending regular INR monitoring appointments. - Follow up in six months or sooner if symptoms worsen. - Engage in a safe level of marijuana use, noting any changes in symptoms post- use. Patient was informed and verbally consented to the use of an ambient scribe for clinic note documentation during this visit. Time spent on chart review, documentation, interview, assessment Coding Level of Care Code Est Pt Level 4 (17818) Complex EM visit Add On G2211 Diagnoses Atrial fibrillation, unspecified type I48.91 Atrial fibrillation type: unspecified Bradycardia R00.1 Benign essential hypertension I10 CPT Codes EKG - CPT: 23466-[id number], Complete ([id number]) Time Spent (min) 28
[2025-02-18 08:14] VITALS: BP 124/72; PULSE 46; BMI 22.4
== END 2025-02-18 08:43 | disposition home or self-care (01) ==
LOC: HO.HCS 08:11
PROVIDERS: PCP Internal Medicine; Visit Provider Nurse Practitioner Family
DX: I48.91 Unspecified atrial fibrillation (principal); R00.1 Bradycardia, unspecified; I10 Essential (primary) hypertension
CPT/HCPCS: 93010; 99214; G2211

== ENCOUNTER → 2025-02-18 08:10 | Outpatient (BNVA) | payer MEDICARE, SELFPAY | PROVIDERS: PCP Internal Medicine; Visit Provider Nurse Practitioner Family | DX: I10 Essential (primary) hypertension (principal); I48.20 Chronic atrial fibrillation, unspecified; E78.5 Hyperlipidemia, unspecified; R00.1 Bradycardia, unspecified; Z79.01 Long term (current) use of anticoagulants | CPT/HCPCS: 93005; 99212 ==

== ENCOUNTER 2025-03-14 07:52 | Outpatient (REF) | payer MEDICARE, SELFPAY ==
[2025-03-14 08:21] LABS: MANUAL DIFF FLAG NO
[2025-03-14 08:48] LABS: Basophils Percent Auto 0.8 % (0-2); Eosinophils Absolute Auto 0.1 X10*3/uL (0.0-0.4); Hematocrit 33.4 % (42.0-52.0); Hemoglobin 11.4 g/dl (14.0-18.0); Imm Gran Abs Auto 0.03 X10*3/uL (0.00-0.03); Imm Gran Pct Auto 0.6 % (0.0-0.4); Lymphocytes Absolute Auto 1.1 X10*3/uL (1.2-4.9); Lymphocytes Percent Auto 21.8 % (20-40); Mean Corpuscular HGB Conc 34.1 g/dl (31.0-36.0); Mean Corpuscular Hemoglobin 33.5 pg (27.0-33.0); Mean Corpuscular Volume 98.2 fL (80.0-98.0); Mean Platelet Volume 9.1 fL (9.4-12.4); Monocytes Absolute Auto 0.5 X10*3/uL (0.1-1.2); Monocytes Percent Auto 10.6 % (2-11); Neutrophils Absolute Auto 3.2 x10*3/uL (2.0-8.3); Neutrophils Percent Auto 65.2 % (45-73); Platelet Count 204 X10*3/uL (160-400); Red Cell Distribution Width 13.7 % (11.0-16.0); White Blood Count 4.9 X10*3/uL (4.8-10.8)
[2025-03-14 08:52] LABS: Appearance Urine Clear; Color Urine Yellow; Glucose Urine UA Negative (Negative); Leukocyte Esterase Urine Negative (Negative); Nitrite Urine Negative (Negative); PH 5.5 (5.0-9.0); UMIC TRIGGER UACC YES; Urine Blood Negative (Negative); Urine Ketones Trace mg/dL (Negative); Urine Protein 100 (2+) mg/dL (Neg-Trace)
[2025-03-14 08:53] LABS: Estimated Average Glucose 100 mg/dL; Hemoglobin A1C 98.4561 umol/L; Hemoglobin A1c % 5.1 % (<6.0); Total Hemoglobin (HGBA1C) 3058.4739 umol/L
[2025-03-14 09:00] LABS: Bacteria Urine None Seen (None Seen); Hyaline Casts Urine 0-2 /LPF (0-2); RBC Urine 0-2 /HPF (0-2); Squamous Epithelial Cell Urine 0-2 /HPF (0-2); WBC Urine 0-5 /HPF (0-5)
[2025-03-14 09:31] LABS: Alanine Aminotransferase 21 U/L (0-40); Albumin Level 4.3 g/dL (3.5-5.0); Alkaline Phosphatase 45 U/L (39-117); Anion Gap 14 (12-20); Aspartate Amino Transferase 32 U/L (5-37); Bilirubin Total 0.5 mg/dL (0.0-1.0); Blood Urea Nitrogen 24 mg/dL (9-16); Calcium 9.3 mg/dL (8.4-10.2); Carbon Dioxide 24 mmol/L (22-29); Chloride 107 mmol/L (96-108); Cholesterol 183 mg/dL (<200); Estimated Glomerular Filt Rate 58; Glucose Fasting 105 mg/dL (60-99); HDL Cholesterol 72 mg/dL (>40); LDL Cholesterol Calculated 103 mg/dL (<100); Potassium 4.5 mmol/L (3.3-5.1); Sodium 140 mmol/L (135-145); Total Protein 7.3 g/dL (6.5-8.0); Triglycerides 44 mg/dL (<150)
[2025-03-14 09:49] LABS: TSH reflex Free T4 3.76 uIU/mL (0.32-4.0); Vitamin D 25-OH Total 41.5 ng/mL (>30)
[2025-03-14 09:53] LABS: Folate 13.7 ng/mL (> or = 4.0); Vitamin B12 251 pg/mL (200-900)
== END 2025-03-14 07:53 | disposition home or self-care (01) ==
LOC: HO.LAB 07:52
PROVIDERS: PCP Internal Medicine; Visit Provider Internal Medicine
DX: E78.00 Pure hypercholesterolemia, unspecified (principal); E55.9 Vitamin D deficiency, unspecified; E53.8 Deficiency of other specified B group vitamins; D64.9 Anemia, unspecified; R73.01 Impaired fasting glucose; Z79.01 Long term (current) use of anticoagulants
CPT/HCPCS: 36415; 80053; 80061; 81001; 82306; 82607; 82746; 83036; 84443; 85025; 85610; 99211

== ENCOUNTER 2025-03-14 08:28 | Outpatient (AMB) | payer MEDICARE, SELFPAY ==
--- NOTE | 2025-03-14 08:43 | MHC.OFFVISCO ---
Intake Intake Visit Reasons: Anticoagulation Allergies penicillin V Allergy (Unknown, Verified 03/14/25 08:32) Unknown Medication List - Last Reconciled 03/14/25 by Celina Vasquez RN amlodipine 5 mg PO DAILY [CBD inhalation] cholecalciferol (vitamin D3) 50 mcg PO DAILY 90 days losartan 100 mg PO DAILY 90 days multivitamin 1 tab PO .ever other day potassium chloride ER 20 mEq PO DAILY 90 days spironolactone 12.5 mg (1/2 x 25 mg) PO DAILY 90 days vitamin B complex 1 tab PO .every other day warfarin See Protocol 7.5MG X 4 DAYS/ 5MG X 3 DAYS orally ; Please allow for extra tabs for 1 1/2 tab days Nursing Note INR: 2.4 in therapeutic range of 2-3 Medications and supplements reviewed No changes in health, diet, medications, or supplements, Denies any signs and symptoms of bleeding or bruising or clotting. Bleeding, bruising, clotting discussed Nutritional guidance given Dose: 7.5mg X 4 days and 5mg X 3 days F/U INR: 4 weeks Patient verbalizes understanding of instructions with read back given Anti-Coag Initial Assessment Social Hx Patient Tobacco Use Status: Never used Tobacco alcohol intake: current Alcohol intake frequency: holidays/special occasions only Cardiovascular Hx: HTN and Arrhythmias (AFIB) Neurological Hx: Other (HX OF CONCUSSIONS(5)) Cancer HX: No Psych. Illness/Depression: No Coding Level of Care Code Est Patient Level 1 Diagnoses Current use of anticoagulant therapy Z79.01 Results AMB INR Fingerstick AMB INR Fingerstick 2.4 Last Edit by Celina Vasquez RN on 03/14/25 08:40 interface delay Assessment & Plan Assessment & Plan (1) Current use of anticoagulant therapy: Code(s): Z79.01 - nursing home (current) use of anticoagulants Category: Medical
[2025-03-14 08:45] LABS: Prothrombin Time Whole Bld POC 29.1 sec (11.1-13.5); ~PT, ~INR - Anti Coag Clinic 2.4 (0.9-1.1)
== END 2025-03-14 08:46 | disposition home or self-care (01) ==
LOC: HO.ACS 08:28
PROVIDERS: PCP Internal Medicine; Visit Provider Internal Medicine Medical Oncology
DX: Z79.01 Long term (current) use of anticoagulants (principal)

== ENCOUNTER 2025-03-27 09:15 | Outpatient (AMB) | payer MEDICARE, SELFPAY ==
[2025-03-27 09:17] VITALS: BP 130/66; PULSE 56; O2SAT 97; BMI 22.3
--- NOTE | 2025-03-27 09:17 | A.OFFPC_ITS ---
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 Required: No Accompanied by: Self / Same As Patient Allergies penicillin V Allergy (Unknown, Verified 03/27/25 09:29) Unknown Medication List - Last Reconciled 03/27/25 by Beto Irizarry MD amlodipine 5 mg PO DAILY [CBD inhalation] cholecalciferol (vitamin D3) 50 mcg PO DAILY 90 days losartan 100 mg PO DAILY 90 days multivitamin 1 tab PO .ever other day potassium chloride ER 20 mEq PO DAILY 90 days spironolactone 12.5 mg (1/2 x 25 mg) PO DAILY 90 days vitamin B complex 1 tab PO .every other day warfarin See Protocol 7.5MG X 4 DAYS/ 5MG X 3 DAYS orally ; Please allow for extra tabs for 1 1/2 tab days Tobacco use date assessed: 03/27/25 Fall risk assessment: No Falls in past year Last assessed Fall Risk: 03/27/25 Dental Screening Dental Screen Date: 03/27/25 Did you have a dental visit in the last 12 months?: Yes Did you have a dental problem in the last 6 months where you did not have access to dental care?: No Was dental information given to patient?: Patient has dentist HPI 4mth f/u - see comments HPI Details Patient comes in today for his follow up visit States that he feels okay He denies any headaches or dizziness Denies any chest pains, no increased shortness of breath No nausea/vomiting, no abdominal pain No change in bowel habits noted He had his follow-up labs done a couple of weeks ago - to discuss his results [facility] Medical History New onset a-fib Overweight (BMI 25.0-29.9) Atrial fibrillation Rhinophyma Obesity (BMI 30-39.9) Elevated LFTs Renal insufficiency Vitamin D deficiency Impaired fasting glucose Pure hypercholesterolemia Benign essential hypertension Surgical History No pertinent past surgical history Family History Father Hypertension Mother Medical history unknown Social History Household Members: None Housing: Apartment Do you presently have visiting nurse or other home services: No Alcohol intake: current Alcohol intake frequency: holidays/special occasions only Patient Tobacco Use Status: Never used Tobacco e-Cigarette/Vaping Use: Never Used Second Hand Smoke Exposure: Yes service: No Current occupational status: retired Current occupational exposures/hazards: No Cognitive needs: No Hearing needs: No Vision needs: Yes (Glasses) Questionnaire PHQ-9 Over the last 2 weeks, how often have you been bothered by any of the following problems? 1. Little interest or pleasure in doing things: not at all 2. Feeling down, depressed, or hopeless: not at all 3. Trouble falling or staying asleep, or sleeping too much: not at all 4. Feeling tired or having little energy: not at all 5. Poor appetite or overeating: not at all 6. Feeling bad about yourself - or that you are a failure or have let yourself or your family down: not at all 7. Trouble concentrating on things, such as reading the newspaper or watching television: not at all 8. Moving or speaking so slowly that other people could have noticed. Or the opposite - being so fidgety or restless that you have been moving around a lot more than usual: not at all 9. Thoughts that you would be better off or of hurting yourself in some way: not at all Total score: 0 Depression Screening Interpretation: Negative Depression Screening Done: Yes 71986 - PHQ-9 Billing: Yes Source: Developed by Drs. Zhen Fleming, Edel Hermosillo, Kapil Guillen and colleagues, with an educational gildardo from [employer]. Thrive Questionnaire Date Thrive assessed: 03/27/25 I am a: Patient What is your living situation today?: I have a steady place to live Within the past 12 months, did the food you bought not last and you didn't have the money to get more?: Never true Within the past 12 months, did you worry whether your food would run out before you got money to buy more?: Never true Do you have trouble paying for medicines?: No Do you have trouble getting transportation to medical appointments?: No Do you have trouble paying your heating and electricity bill?: No Do you have trouble taking care of your child, family member or friend?: No Do you have trouble with day-to-day activities such as bathing, preparing meals, shopping, managing finances, etc.?: No Are you currently unemployed and looking for a job?: No Are you interested in more education?: No Please select the resources that you would like help with: None Currently or been in a relationship where the following occur: No concerns reported THRIVE Score: 0 AUDIT C Alcohol Use Questionnaire (AUDIT-C) 1. How often do you have a drink containing alcohol?: 2-4 times a month 2. How many drinks containing alcohol do you have on a typical day when you are drinking?: 1 or 2 3. How often do you have six or more drinks on one occasion?: Never Total Score: 2 Score Reviewed/Action Taken: Yes RONALDO-7 AMB Questionnaire RONALDO-7 Date RONALDO - 7 assessed: 03/27/25 Feeling nervous, anxious, or on edge: 0 = Not at all Not being able to stop or control worryin = Not at all Worrying too much about different things: 0 = Not at all Trouble relaxin = Not at all Being so restless that it is hard to sit still: 0 = Not at all Becoming easily annoyed or irritable: 0 = Not at all Feeling afraid as if something awful might happen: 0 = Not at all Total RONALDO-7 score (0-4 normal; 5-9 mild; 10-14 moderate; 15-21 severe): 0 Source: Developed by Drs. Zhen Fleming, Edel Hermosillo, Kapil Guillen and colleagues, with an educational gildardo from [employer]. Review of Systems Const Denies chills, Denies fatigue, Denies fever(s) and Denies headache(s) ENT Denies dysphagia, Reports dizziness (on and off, mostly triggered by changes in position), Denies otalgia, Denies headache(s), Denies neck pain, Denies odynophagia and Denies sore throat Card Denies chest pain, Denies lightheadedness, Denies palpitations and Denies dyspnea Resp Denies chest congestion, Denies cough and Denies dyspnea GI Denies abdominal pain, Denies constipation, Denies dysphagia, Denies heartburn, Denies diarrhea, Denies nausea, Denies odynophagia and Denies vomiting Denies difficulty urinating, Denies dysuria, Reports nocturia and Reports urinary frequency (is on diuretics) Musc Reports abnormal gait (feels unsteady often), Denies muscle weakness, Denies neck pain and Reports tingling (on and off in both legs and feet) Skin/Breast Denies rash Neuro Details: feels unsteady often Reports abnormal gait (feels unsteady often), Reports dizziness (on and off, mostly triggered by changes in position), Denies headache(s) and Reports tingling (on and off in both legs and feet) Psych Denies anxiety and Denies depression Endo Denies fatigue and Denies palpitations Physical exam (Primary Care) Vital Signs: Last Vital Signs Pulse 56 03/27/25 09:17 BP 130/66 03/27/25 09:17 Pulse Ox 97 03/27/25 09:17 Oxygen Delivery Method Room Air 03/27/25 09:17 BMI result Body Mass Index 22.3 Tobacco/Smoking Status: Tobacco use Status Tobacco use date assessed 03/27/25 03/27/25 09:22 Patient Tobacco Use Status Never used Tobacco 03/27/25 09:22 e-Cigarette/Vaping Use Never Used 03/27/25 09:22 PHQ-9: PHQ-9 Score PHQ-9: Total score 0 03/27/25 09:22 Depression Screening Interpretation: Negative Thrive Assessment: Date of Thrive Assessment Date Thrive assessed 03/27/25 03/27/25 09:22 Currently or been in a relationship where the following occur: No concerns reported Const General: no acute distress and alert HENMT Ears: TM's normal bilaterally and EAC's normal General nose exam: Abnormal external nose present ((+) rhinophyma) Throat: Yes posterior oropharynx normal and Yes tonsils normal (no TP congestion noted) Neck Neck: Yes supple and No lymphadenopathy Thyroid: Thyroid normal Resp Auscultation: clear to auscultation bilaterally, no rales and no wheezes Cardio Rate: bradycardic Rhythm: abnormal rhythm irregularly irregular Heart sounds: no murmurs GI Palpation (GI): Soft to palpation and nontender Auscultation: normal bowel sounds General: Yes no CVA tenderness Back/Spine/Pelvis Back: no CVA tenderness Thoracic/Lumbar Spine: lumbar spinal tenderness (mild) Skin Rashes: no rashes Extrem General: Yes no clubbing, cyanosis or edema Results Reviewed Results Reviewed: Laboratory Tests 03/14/25 03/14/25 08:12 08:19 WBC 4.9 Hgb 11.4 L Hct 33.4 L Plt Count 204 Sodium 140 Potassium 4.5 Creatinine 1.23 Estimated GFR 58 Fasting Glucose 105 H Hemoglobin A1c % 5.1 Calcium 9.3 AST 32 ALT 21 Triglycerides 44 Cholesterol 183 LDL Cholesterol, Calc 103 H HDL Cholesterol 72 Vitamin B12 251 25-OH Vitamin D Total 41.5 TSH 3.76 Ur Specific [place] 1.020 Urine Protein 100 (2+) H Urine Glucose (UA) Negative Urine Blood Negative Urine Nitrite Negative Ur Leukocyte Esterase Negative Coding Level of Care Code Est Pt Level 4 (51888) Complex EM visit Add On G2211 Diagnoses Atrial fibrillation, unspecified type I48.91 Atrial fibrillation type: unspecified Chronic heart failure with preserved ejection fraction I50.32 Heart failure chronicity: chronic Pleural effusion, right J90 Benign essential hypertension I10 Pure hypercholesterolemia E78.00 Impaired fasting glucose R73.01 Hypokalemia E87.6 Vitamin D deficiency E55.9 Elevated LFTs R79.89 Elevated TSH R79.89 Gait instability R26.81 Additional Codes PHQ-9 - 66038 - PHQ-9 Billing: Yes ([id number]) Assessment & Plan Assessment & Plan (1) Atrial fibrillation: Comment: started in 2021 Code(s): I48.91 - Unspecified atrial fibrillation Category: Medical Qualifiers: Atrial fibrillation type: unspecified Qualified Code(s): I48.91 - Unspecified atrial fibrillation Plan: Patient is currently still in atrial fibrillation but remains rate-controlled He was on Metoprolol ER in the past and this was discontinued due to prolonged/persistent bradycardia Continue Coumadin QD for thromboembolism prophylaxis; patient continues to follow up with the Coumadin clinic for PT/INR monitoring He was seen by cardiology again a few months ago and again last month and has been advised pacer therapy for his recurrent bouts of slow heart rate, which are likely the reason for his orthostatic symptoms but patient declined - was advised to call cardiology back at any time if his symptoms progress and he wishes to proceed with pacemaker placement (2) (HFpEF) heart failure with preserved ejection fraction: Code(s): I50.30 - Unspecified diastolic (congestive) heart failure Category: Medical Qualifiers: Heart failure chronicity: chronic Qualified Code(s): I50.32 - Chronic diastolic (congestive) heart failure Plan: Patient currently remains compensated Echocardiogram done on 06/07/22 revealed normal LV systolic function with mild LVH and normal EF, with moderately dilated right-sided chambers suggestive of a right-sided heart failure Cardiac stress testing and myocardial perfusion study done in late 2021 all came out normal Repeat echocardiogram in November 2023 revealed normal LV systolic function with LVEF of 55-60%, moderately dilated left atrium, normal cardiac valvular dopplers, normal (upper limits) RV systolic pressure and no gross pericardial effusion Reinforced fluid restriction Continue Aldactone 12.5 mg QD His Bumetanide was HELD last year due to his recurrent dizziness and lightheadedness and patient states that his symptoms have improved since Bumetanide was held - this was discontinued formally by cardiology late last year Patient is reminded to continue monitoring his blood pressure regularly (3) Pleural effusion, right: Code(s): J90 - Pleural effusion, not elsewhere classified Category: Medical Plan: This was initially seen incidentally on abdominal US in May 2022 and was most likely related to his right-sided heart failure back then and should have gradually resolved with diuresis and control of his CHF Will repeat chest x-ray for follow up ONLY if needed (if he starts experiencing increasing SOB) (4) Benign essential hypertension: Code(s): I10 - Essential (primary) hypertension Category: Medical Plan: Reinforced low sodium diet - goal is systolic BP of at least 130 to 140 mm or less Continue Losartan 100 mg QD, Amlodipine 5 mg QD and Spironolactone 12.5 mg Q AM Bumetanide 1 mg was held last year due to increased dizziness and was eventually discontinued (5) Pure hypercholesterolemia: Code(s): E78.00 - Pure hypercholesterolemia, unspecified Category: Medical Plan: Results of his labs done a couple of weeks ago reviewed and discussed with patient Reinforced low cholesterol diet Patient prefers to continue with diet modification at this time and avoid taking cholesterol-lowering medications as much as possible Will recheck his labs and fasting lipids in 4 months for follow up (6) Impaired fasting glucose: Code(s): R73.01 - Impaired fasting glucose Category: Medical Plan: HgbA1c was normal at 5.1% on his recent labs; have been normal at 4.8%, 5.2% and 5.3% when previously checked Reinforced low calorie diet/exercise as tolerated He was previously started on Jardiance but patient stopped taking this last year when his last Rx ran out and does not wish to go back on it if he does not really have to be on it any longer (7) Hypokalemia: Code(s): E87.6 - Hypokalemia Category: Medical Plan: Corrected - potassium level was normal at 4.5 on his recent labs Continue Potassium Chloride ER 20 meq every other day Will recheck his labs and serum electrolytes in 4 months for follow up (8) Vitamin D deficiency: Code(s): E55.9 - Vitamin D deficiency, unspecified Category: Medical Plan: Continue Vitamin D3 2000 units QD (9) Elevated LFTs: Code(s): R79.89 - Other specified abnormal findings of blood chemistry Category: Medical Plan: Resolved - his LFTs have remained normal on his recent labs Reinforced avoidance of alcohol and Tylenol-containing medications Abdominal US done a couple of years ago came out normal but incidentally revealed (+) right-sided pleural effusion that was most likely related to his right-sided heart failure (10) Elevated TSH: Code(s): R79.89 - Other specified abnormal findings of blood chemistry Category: Medical Plan: His serum TSH level also remained normal on his labs done a couple of weeks ago Patient is asymptomatic and again appears clinically euthyroid Will continue to monitor his TFTs periodically (11) Gait instability: Code(s): R26.81 - Unsteadiness on feet Category: Medical Plan: He was previously referred to neurology for further evaluation and management but it does not look like he was ever seen by neurology Will refer him for now to physical therapy for gait assessment and training, if appropriate If PT is unable to help, will then consider referring him again to neurology Plan Follow up in 4 months Orders: Orders Complete Blood Count Auto Diff 4 Months D64.9 - Anemia, unspecified Lipid Panel 4 Months E78.00 - Pure hypercholesterolemia, unspecified Vitamin B12 and Folate 4 Months E53.8 - Deficiency of other specified B group vitamins PT Evaluation and Treatment Today R26.81 - Unsteadiness on feet Comprehensive [place]. Panel Fast 4 Months E78.00 - Pure hypercholesterolemia, unspecified TSH reflex Free T4 4 Months E78.00 - Pure hypercholesterolemia, unspecified UA CC w/rflx Micro + Cult 4 Months R30.0 - Dysuria Vitamin D 25-OH Total 4 Months E55.9 - Vitamin D deficiency, unspecified
== END 2025-03-27 09:41 | disposition home or self-care (01) ==
LOC: HO.HMCH 09:16
PROVIDERS: PCP Internal Medicine; Visit Provider Internal Medicine
DX: I48.91 Unspecified atrial fibrillation (principal); I50.32 Chronic diastolic (congestive) heart failure; J90 Pleural effusion, not elsewhere classified; I10 Essential (primary) hypertension; E78.00 Pure hypercholesterolemia, unspecified; R73.01 Impaired fasting glucose; E87.6 Hypokalemia; E55.9 Vitamin D deficiency, unspecified; R79.89 Other specified abnormal findings of blood chemistry; R26.81 Unsteadiness on feet

== ENCOUNTER → 2025-03-27 09:15 | Outpatient (BNVA) | payer MEDICARE, SELFPAY | PROVIDERS: PCP Internal Medicine; Visit Provider Internal Medicine | DX: I11.0 Hypertensive heart disease with heart failure (principal); I48.91 Unspecified atrial fibrillation; I50.32 Chronic diastolic (congestive) heart failure; J90 Pleural effusion, not elsewhere classified; E78.00 Pure hypercholesterolemia, unspecified; R73.01 Impaired fasting glucose; E87.6 Hypokalemia; E55.9 Vitamin D deficiency, unspecified; R79.89 Other specified abnormal findings of blood chemistry; R26.81 Unsteadiness on feet; E53.8 Deficiency of other specified B group vitamins; R30.0 Dysuria | CPT/HCPCS: 96127; 99212 ==

== ENCOUNTER 2025-04-11 08:10 | Outpatient (AMB) | payer MEDICARE, SELFPAY ==
--- NOTE | 2025-04-11 08:31 | MHC.OFFVISCO ---
Intake Intake Visit Reasons: Anticoagulation Allergies penicillin V Allergy (Unknown, Verified 04/11/25 08:18) Unknown Medication List - Last Reconciled 04/11/25 by Nan Saucedo RN amlodipine 5 mg PO DAILY [CBD inhalation] cholecalciferol (vitamin D3) 50 mcg PO DAILY 90 days losartan 100 mg PO DAILY 90 days multivitamin 1 tab PO .ever other day potassium chloride ER 20 mEq PO DAILY 90 days spironolactone 12.5 mg (1/2 x 25 mg) PO DAILY 90 days vitamin B complex 1 tab PO .every other day warfarin See Protocol 7.5MG X 4 DAYS/ 5MG X 3 DAYS orally ; Please allow for extra tabs for 1 1/2 tab days Nursing Note INR: 2.3 in therapeutic range Medications and supplements reviewed No changes in health, diet, medications, or supplements, Denies any signs and symptoms of bleeding or bruising or clotting. Bleeding, bruising, clotting discussed Nutritional guidance given Dose: 5MG X 3 DAYS/ 7.5MG X 4 DAYS F/U INR: 1 MONTH Patient verbalizes understanding of instructions given Anti-Coag Initial Assessment Social Hx Patient Tobacco Use Status: Never used Tobacco alcohol intake: current Alcohol intake frequency: holidays/special occasions only Cardiovascular Hx: HTN and Arrhythmias (AFIB) Neurological Hx: Other (HX OF CONCUSSIONS(5)) Cancer HX: No Psych. Illness/Depression: No Coding Level of Care Code Est Patient Level 1 Diagnoses Current use of anticoagulant therapy Z79.01 Results AMB INR Fingerstick AMB INR Fingerstick 2.3 Last Edit by Nan Saucedo RN on 04/11/25 08:25 MANUAL ENTRY Assessment & Plan Assessment & Plan (1) Current use of anticoagulant therapy: Code(s): Z79.01 - [facility] (current) use of anticoagulants Category: Medical
[2025-04-11 08:42] LABS: Prothrombin Time Whole Bld POC 27.1 sec (11.1-13.5); ~PT, ~INR - Anti Coag Clinic 2.3 (0.9-1.1)
== END 2025-04-11 08:33 | disposition home or self-care (01) ==
LOC: HO.ACS 08:10
PROVIDERS: PCP Internal Medicine; Visit Provider Internal Medicine Medical Oncology
DX: Z79.01 Long term (current) use of anticoagulants (principal)

== ENCOUNTER → 2025-04-11 08:10 | Outpatient (BNVA) | payer MEDICARE, SELFPAY | PROVIDERS: PCP Internal Medicine; Visit Provider Internal Medicine Medical Oncology | DX: I48.19 Other persistent atrial fibrillation (principal); Z79.01 Long term (current) use of anticoagulants; Z51.81 Encounter for therapeutic drug level monitoring | CPT/HCPCS: 85610; 99211 ==

== ENCOUNTER 2025-05-08 08:06 | Outpatient (AMB) | payer MEDICARE, SELFPAY ==
[2025-05-08 08:21] LABS: Prothrombin Time Whole Bld POC 21.6 sec (11.1-13.5); ~PT, ~INR - Anti Coag Clinic 1.8 (0.9-1.1)
--- NOTE | 2025-05-08 08:26 | MHC.OFFVISCO ---
Intake Intake Visit Reasons: Anticoagulation Allergies penicillin V Allergy (Unknown, Verified 05/08/25 08:16) Unknown Medication List - Last Reconciled 05/08/25 by Celina Vasquez RN amlodipine 5 mg PO DAILY [CBD inhalation] cholecalciferol (vitamin D3) 50 mcg PO DAILY 90 days losartan 100 mg PO DAILY 90 days multivitamin 1 tab PO .ever other day potassium chloride ER 20 mEq PO DAILY 90 days spironolactone 12.5 mg (1/2 x 25 mg) PO DAILY 90 days vitamin B complex 1 tab PO .every other day warfarin See Protocol 7.5MG X 4 DAYS/ 5MG X 3 DAYS orally ; Please allow for extra tabs for 1 1/2 tab days Nursing Note INR: 1.8 out of therapeutic range of 2-3 Reasons for low INR reviewed with pt and pt believes he had too much blueberries the past few days Medications and supplements reviewed No changes in health, diet, medications, or supplements, Denies any signs and symptoms of bleeding or bruising or clotting. Bleeding, bruising, clotting discussed Nutritional guidance given to avoid greens today Dose: increase today's dose to 7.5mg (5mg) F/U INR: 4 weeks Patient verbalizes understanding of instructions given Anti-Coag Initial Assessment Social Hx Patient Tobacco Use Status: Never used Tobacco alcohol intake: current Alcohol intake frequency: holidays/special occasions only Cardiovascular Hx: HTN and Arrhythmias (AFIB) Neurological Hx: Other (HX OF CONCUSSIONS(5)) Cancer HX: No Psych. Illness/Depression: No Coding Level of Care Code Est Patient Level 1 Diagnoses Current use of anticoagulant therapy Z79.01 Results AMB INR Fingerstick AMB INR Fingerstick 1.8 Last Edit by Celina Vasquez RN on 05/08/25 08:22 interface delay Assessment & Plan Assessment & Plan (1) Current use of anticoagulant therapy: Code(s): Z79.01 - [facility] (current) use of anticoagulants Category: Medical
== END 2025-05-08 08:30 | disposition home or self-care (01) ==
LOC: HO.ACS 08:06
PROVIDERS: PCP Internal Medicine; Visit Provider Internal Medicine Medical Oncology
DX: Z79.01 Long term (current) use of anticoagulants (principal)

== ENCOUNTER → 2025-05-08 08:06 | Outpatient (BNVA) | payer MEDICARE, SELFPAY | PROVIDERS: PCP Internal Medicine; Visit Provider Internal Medicine Medical Oncology | DX: Z79.01 Long term (current) use of anticoagulants (principal) | CPT/HCPCS: 85610; 99211 ==

== ENCOUNTER 2025-06-06 08:13 | Outpatient (AMB) | payer MEDICARE, SELFPAY ==
[2025-06-06 08:33] LABS: Prothrombin Time Whole Bld POC 23.1 sec (11.1-13.5); ~PT, ~INR - Anti Coag Clinic 1.9 (0.9-1.1)
--- NOTE | 2025-06-06 08:41 | MHC.OFFVISCO ---
Intake Intake Visit Reasons: Anticoagulation Allergies penicillin V Allergy (Unknown, Verified 06/06/25 08:27) Unknown Medication List - Last Reconciled 06/06/25 by Nan Saucedo RN amlodipine 5 mg PO DAILY [CBD inhalation] cholecalciferol (vitamin D3) 50 mcg PO DAILY 90 days losartan 100 mg PO DAILY 90 days multivitamin 1 tab PO .ever other day potassium chloride ER 20 mEq PO DAILY 90 days spironolactone 12.5 mg (1/2 x 25 mg) PO DAILY 90 days vitamin B complex 1 tab PO .every other day warfarin See Protocol 7.5MG X 4 DAYS/ 5MG X 3 DAYS orally ; Please allow for extra tabs for 1 1/2 tab days Nursing Note INR: 1.9 ALMOST IN in therapeutic range trending low Medications and supplements reviewed No changes in health, diet, medications, or supplements, Denies any signs and symptoms of bleeding or bruising or clotting. Bleeding, bruising, clotting discussed Nutritional guidance given Dose: increase weekly dose INR 5MG X 2 DAYS/ 7.5MG X 5 DAYS F/U INR: 3 WEEKS Patient verbalizes understanding of instructions given Anti-Coag Initial Assessment Social Hx Patient Tobacco Use Status: Never used Tobacco alcohol intake: current Alcohol intake frequency: holidays/special occasions only Cardiovascular Hx: HTN and Arrhythmias (AFIB) Neurological Hx: Other (HX OF CONCUSSIONS(5)) Cancer HX: No Psych. Illness/Depression: No Coding Level of Care Code Est Patient Level 1 Diagnoses Current use of anticoagulant therapy Z79.01 Results AMB INR Fingerstick AMB INR Fingerstick 1.9 Last Edit by Nan Saucedo RN on 06/06/25 08:36 MANUAL ENTRY Assessment & Plan Assessment & Plan (1) Current use of anticoagulant therapy: Code(s): Z79.01 - [facility] (current) use of anticoagulants Category: Medical
== END 2025-06-06 08:43 | disposition home or self-care (01) ==
LOC: HO.ACS 08:13
PROVIDERS: PCP Internal Medicine; Visit Provider Internal Medicine Medical Oncology
DX: Z79.01 Long term (current) use of anticoagulants (principal)

== ENCOUNTER → 2025-06-06 08:13 | Outpatient (BNVA) | payer MEDICARE, SELFPAY | PROVIDERS: PCP Internal Medicine; Visit Provider Internal Medicine Medical Oncology | DX: Z79.01 Long term (current) use of anticoagulants (principal) | CPT/HCPCS: 85610; 99211 ==

== ENCOUNTER 2025-06-27 08:11 | Outpatient (AMB) | payer MEDICARE, SELFPAY ==
--- NOTE | 2025-06-27 08:22 | MHC.OFFVISCO ---
Intake Intake Visit Reasons: Anticoagulation Allergies penicillin V Allergy (Unknown, Verified 06/27/25 08:15) Unknown Medication List - Last Reconciled 06/27/25 by Sammi Woods RN amlodipine 5 mg PO DAILY [CBD inhalation] cholecalciferol (vitamin D3) 50 mcg PO DAILY 90 days losartan 100 mg PO DAILY 90 days multivitamin 1 tab PO .ever other day potassium chloride ER 20 mEq PO DAILY 90 days spironolactone 12.5 mg (1/2 x 25 mg) PO DAILY 90 days vitamin B complex 1 tab PO .every other day warfarin See Protocol 7.5MG X 4 DAYS/ 5MG X 3 DAYS orally ; Please allow for extra tabs for 1 1/2 tab days Nursing Note INR: 2.1- in therapeutic range of 2-3 Medications and supplements reviewed- no changes No changes in health, diet, medications, or supplements, Denies any signs and symptoms of bleeding or bruising or clotting. Bleeding, bruising, clotting discussed Nutritional guidance given Dose: 5mg x 2, 7.5mg x 5 F/U INR: pt req 4 week f/u Patient verbalizes understanding of instructions given pt with c.o back pain, states history of back pain and does not take analgesics. uses hot shower Anti-Coag Initial Assessment Social Hx Patient Tobacco Use Status: Never used Tobacco alcohol intake: current Alcohol intake frequency: holidays/special occasions only Cardiovascular Hx: HTN and Arrhythmias (AFIB) Neurological Hx: Other (HX OF CONCUSSIONS(5)) Cancer HX: No Psych. 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
[2025-06-27 08:23] LABS: Prothrombin Time Whole Bld POC 25.7 sec (11.1-13.5); ~PT, ~INR - Anti Coag Clinic 2.1 (0.9-1.1)
== END 2025-06-27 08:29 | disposition home or self-care (01) ==
LOC: HO.ACS 08:11
PROVIDERS: PCP Internal Medicine; Visit Provider Internal Medicine Medical Oncology
DX: Z79.01 Long term (current) use of anticoagulants (principal)

== ENCOUNTER → 2025-06-27 08:11 | Outpatient (BNVA) | payer MEDICARE, SELFPAY | PROVIDERS: PCP Internal Medicine; Visit Provider Internal Medicine Medical Oncology | DX: I48.19 Other persistent atrial fibrillation (principal); Z79.01 Long term (current) use of anticoagulants; Z51.81 Encounter for therapeutic drug level monitoring | CPT/HCPCS: 85610; 99211 ==

== ENCOUNTER 2025-07-25 07:50 | Outpatient (REF) | payer MEDICARE, SELFPAY ==
[2025-07-25 08:01] LABS: MANUAL DIFF FLAG NO
[2025-07-25 08:14] LABS: Hematocrit 35.6 % (42.0-52.0); Hemoglobin 12.2 g/dl (14.0-18.0); Imm Gran Abs Auto 0.01 X10*3/uL (0.00-0.03); Imm Gran Pct Auto 0.2 % (0.0-0.4); Lymphocytes Absolute Auto 1.2 X10*3/uL (1.2-4.9); Mean Corpuscular HGB Conc 34.3 g/dl (31.0-36.0); Mean Corpuscular Hemoglobin 33.4 pg (27.0-33.0); Mean Corpuscular Volume 97.5 fL (80.0-98.0); NRBC Abs Auto 0.000 X10*3/uL (0.0-0.012); NRBC Pct Auto 0.0 /100WBC (0.0-0.2); Platelet Count 191 X10*3/uL (160-400); Red Blood Count 3.65 X10*6/uL (4.60-5.80); White Blood Count 4.8 X10*3/uL (4.8-10.8)
[2025-07-25 08:36] LABS: Appearance Urine Clear; Glucose Urine UA Negative (Negative); PH 6.0 (5.0-9.0); Specific Gravity - Urine 1.015 (1.005-1.025); UMIC TRIGGER UACC YES
[2025-07-25 08:47] LABS: Alanine Aminotransferase 28 U/L (0-40); Albumin Level 4.7 g/dL (3.5-5.0); Alkaline Phosphatase 41 U/L (39-117); Anion Gap 12 (12-20); Aspartate Amino Transferase 41 U/L (5-37); Blood Urea Nitrogen 28 mg/dL (9-16); Calcium 9.4 mg/dL (8.4-10.2); Carbon Dioxide 25 mmol/L (22-29); Chloride 108 mmol/L (96-108); Cholesterol 189 mg/dL (<200); Estimated Glomerular Filt Rate 60; HDL Cholesterol 75 mg/dL (>40); Potassium 4.4 mmol/L (3.3-5.1); Sodium 141 mmol/L (135-145); Total Protein 7.7 g/dL (6.5-8.0); Triglycerides 46 mg/dL (<150)
[2025-07-25 09:18] LABS: Folate 12.5 ng/mL (> or = 4.0); Vitamin B12 257 pg/mL (200-900)
== END 2025-07-25 07:51 | disposition home or self-care (01) ==
LOC: HO.LAB 07:50
PROVIDERS: PCP Internal Medicine; Visit Provider Internal Medicine
DX: E53.8 Deficiency of other specified B group vitamins (principal); E78.00 Pure hypercholesterolemia, unspecified; E55.9 Vitamin D deficiency, unspecified; D64.9 Anemia, unspecified
CPT/HCPCS: 36415; 80053; 80061; 81001; 82306; 82607; 82746; 84443; 85025; 85610; 99211

== ENCOUNTER 2025-07-25 08:19 | Outpatient (AMB) | payer MEDICARE, SELFPAY ==
[2025-07-25 08:43] LABS: Prothrombin Time Whole Bld POC 25.5 sec (11.1-13.5); ~PT, ~INR - Anti Coag Clinic 2.1 (0.9-1.1)
--- NOTE | 2025-07-25 08:49 | MHC.OFFVISCO ---
Intake Intake Visit Reasons: Anticoagulation Allergies penicillin V Allergy (Unknown, Verified 07/25/25 08:37) Unknown Medication List - Last Reconciled 07/25/25 by Celina Vasquez RN amlodipine 5 mg PO DAILY [CBD inhalation] cholecalciferol (vitamin D3) 50 mcg PO DAILY 90 days losartan 100 mg PO DAILY 90 days multivitamin 1 tab PO .ever other day potassium chloride ER 20 mEq PO DAILY 90 days spironolactone 12.5 mg (1/2 x 25 mg) PO DAILY 90 days vitamin B complex 1 tab PO .every other day warfarin See Protocol 7.5MG X 4 DAYS/ 5MG X 3 DAYS orally ; Please allow for extra tabs for 1 1/2 tab days Nursing Note INR: 2.1 in therapeutic range of 2-3 Medications and supplements reviewed No changes in health, diet, medications, or supplements, Denies any signs and symptoms of bleeding or bruising or clotting. Bleeding, bruising, clotting discussed Nutritional guidance given to avoid greens today and to focus on foods that raise the INR Dose: 7.5mg X 6 days and 5mg X 1 day F/U INR: 4 weeks Patient verbalizes understanding of instructions given Anti-Coag Initial Assessment Social Hx Patient Tobacco Use Status: Never used Tobacco alcohol intake: current Alcohol intake frequency: holidays/special occasions only Cardiovascular Hx: HTN and Arrhythmias (AFIB) Neurological Hx: Other (HX OF CONCUSSIONS(5)) Cancer HX: No Psych. Illness/Depression: No Coding Level of Care Code Est Patient Level 1 Diagnoses Current use of anticoagulant therapy Z79.01 Assessment & Plan Assessment & Plan (1) Current use of anticoagulant therapy: Code(s): Z79.01 - correction (current) use of anticoagulants Category: Medical
== END 2025-07-25 08:50 | disposition home or self-care (01) ==
LOC: HO.ACS 08:19
PROVIDERS: PCP Internal Medicine; Visit Provider Internal Medicine Medical Oncology
DX: Z79.01 Long term (current) use of anticoagulants (principal)

== ENCOUNTER 2025-07-31 08:43 | Outpatient (AMB) | payer MEDICARE, SELFPAY ==
[2025-07-31 08:49] VITALS: BP 142/84; PULSE 42; O2SAT 99; BMI 23.0
--- NOTE | 2025-07-31 08:49 | A.OFFPC_ITS ---
Vital Signs 07/31/25 08:49 Height 5 ft 10 in Weight 160 lb BMI 23.0 BP 142/84 H Blood Pressure Location Lt brachial Position Sitting Pulse 42 L Pulse Source Pulse Oximeter Pulse Oximetry (%) 99 Oxygen Delivery Method Room Air Intake Visit Reasons: AF, hyperlipidemia, HTN Manager Supply Chain Planning Required: No Accompanied by: Self / Same As Patient Allergies penicillin V Allergy (Unknown, Verified 07/31/25 09:17) Unknown Medication List - Last Reconciled 07/31/25 by Beto Irizarry MD amlodipine 5 mg PO DAILY [CBD inhalation] cholecalciferol (vitamin D3) 50 mcg PO DAILY 90 days losartan 100 mg PO DAILY 90 days multivitamin 1 tab PO .ever other day potassium chloride ER 20 mEq PO DAILY 90 days spironolactone 12.5 mg (1/2 x 25 mg) PO DAILY 90 days vitamin B complex 1 tab PO .every other day warfarin See Protocol 7.5MG X 4 DAYS/ 5MG X 3 DAYS orally ; Please allow for extra tabs for 1 1/2 tab days Tobacco use date assessed: 07/31/25 Fall risk assessment: No Falls in past year Last assessed Fall Risk: 07/31/25 Dental Screening Dental Screen Date: 07/31/25 Did you have a dental visit in the last 12 months?: Yes Did you have a dental problem in the last 6 months where you did not have access to dental care?: No Was dental information given to patient?: Patient has dentist HPI AF, hyperlipidemia, HTN HPI Details Patient comes in today for his follow up visit States that he feels okay He denies any headaches; still has occasional dizziness that are mostly tr iggered by rapid changes in position Denies any chest pains, no increased shortness of breath No nausea/vomiting, no abdominal pain No change in bowel habits noted Needs a few of his Rx refilled He had his follow-up labs done last week - to discuss his results [facility] Medical History (Updated 07/31/25 @ 09:39 by Beto Irizarry MD) Vitamin B12 deficiency New onset a-fib Overweight (BMI 25.0-29.9) Atrial fibrillation Rhinophyma Obesity (BMI 30-39.9) Elevated LFTs Renal insufficiency Vitamin D deficiency Impaired fasting glucose Pure hypercholesterolemia Benign essential hypertension Surgical History No pertinent past surgical history Family History Father Hypertension Mother Medical history unknown Social History Household Members: None Housing: Apartment Do you presently have visiting nurse or other home services: No Alcohol intake: current Alcohol intake frequency: holidays/special occasions only Patient Tobacco Use Status: Never used Tobacco e-Cigarette/Vaping Use: Never Used Second Hand Smoke Exposure: Yes service: No Current occupational status: retired Current occupational exposures/hazards: No Cognitive needs: No Hearing needs: No Vision needs: Yes (Glasses) Questionnaire PHQ-9 Over the last 2 weeks, how often have you been bothered by any of the following problems? Depression Screening Interpretation: Negative Depression Screening Done: Yes Source: Developed by Drs. Zhen Fleming, Edel Hermosillo, Kapil Guillen and colleagues, with an educational gildardo from [employer]. Thrive Questionnaire Date Thrive assessed: 03/27/25 I am a: Patient What is your living situation today?: I have a steady place to live Within the past 12 months, did the food you bought not last and you didn't have the money to get more?: Never true Within the past 12 months, did you worry whether your food would run out before you got money to buy more?: Never true Do you have trouble paying for medicines?: No Do you have trouble getting transportation to medical appointments?: No Do you have trouble paying your heating and electricity bill?: No Do you have trouble taking care of your child, family member or friend?: No Do you have trouble with day-to-day activities such as bathing, preparing meals, shopping, managing finances, etc.?: No Are you currently unemployed and looking for a job?: No Are you interested in more education?: No Please select the resources that you would like help with: None Currently or been in a relationship where the following occur: No concerns reported THRIVE Score: 0 AUDIT C Alcohol Use Questionnaire (AUDIT-C) 1. How often do you have a drink containing alcohol?: 2-4 times a month 2. How many drinks containing alcohol do you have on a typical day when you are drinking?: 1 or 2 3. How often do you have six or more drinks on one occasion?: Never Total Score: 2 Score Reviewed/Action Taken: Yes RONALDO-7 AMB Questionnaire RONALDO-7 Date RONALDO - 7 assessed: 03/27/25 Source: Developed by Drs. Zhen Fleming, Edel Hermosillo, Kapil Guillen and colleagues, with an educational gildardo from [employer]. Review of Systems Const Denies chills, Denies fatigue, Denies fever(s) and Denies headache(s) ENT Denies dysphagia, Reports dizziness (on and off, mostly triggered by changes in position), Denies otalgia, Denies headache(s), Denies neck pain, Denies odynophagia and Denies sore throat Card Denies chest pain, Denies lightheadedness, Denies palpitations and Denies dyspnea Resp Denies chest congestion, Denies cough and Denies dyspnea GI Denies abdominal pain, Denies constipation, Denies dysphagia, Denies heartburn, Denies diarrhea, Denies nausea, Denies odynophagia and Denies vomiting Denies difficulty urinating, Denies dysuria, Reports nocturia and Reports urinary frequency (is on diuretics) Musc Reports abnormal gait (feels unsteady often), Denies muscle weakness, Denies neck pain and Reports tingling (on and off in both legs and feet) Skin/Breast Denies rash Neuro Details: feels unsteady often Reports abnormal gait (feels unsteady often), Reports dizziness (on and off, mostly triggered by changes in position), Denies headache(s) and Reports tingling (on and off in both legs and feet) Psych Denies anxiety and Denies depression Endo Denies fatigue and Denies palpitations Physical exam (Primary Care) Vital Signs: Last Vital Signs Pulse 42 L 07/31/25 08:49 BP 142/84 H 07/31/25 08:49 Pulse Ox 99 07/31/25 08:49 Oxygen Delivery Method Room Air 07/31/25 08:49 BMI result Body Mass Index 23.0 Tobacco/Smoking Status: Tobacco use Status Tobacco use date assessed 07/31/25 07/31/25 09:00 Patient Tobacco Use Status Never used Tobacco 07/31/25 09:00 e-Cigarette/Vaping Use Never Used 07/31/25 09:00 Depression Screening Interpretation: Negative Thrive Assessment: Date of Thrive Assessment Date Thrive assessed 03/27/25 07/31/25 09:00 Currently or been in a relationship where the following occur: No concerns reported Const General: no acute distress and alert HENMT Ears: TM's normal bilaterally and EAC's normal General nose exam: Abnormal external nose present ((+) rhinophyma) Throat: Yes posterior oropharynx normal and Yes tonsils normal (no TP congestion noted) Neck Neck: Yes supple and No lymphadenopathy Thyroid: Thyroid normal Resp Auscultation: clear to auscultation bilaterally, no rales and no wheezes Cardio Rate: bradycardic Rhythm: abnormal rhythm irregularly irregular Heart sounds: no murmurs GI Palpation (GI): Soft to palpation and nontender Auscultation: normal bowel sounds General: Yes no CVA tenderness Back/Spine/Pelvis Back: no CVA tenderness Thoracic/Lumbar Spine: lumbar spinal tenderness (mild) Skin Rashes: no rashes Extrem General: Yes no clubbing, cyanosis or edema Results Reviewed Results Reviewed: Laboratory Tests 07/25/25 07/25/25 07:55 08:00 WBC 4.8 Hgb 12.2 L Hct 35.6 L Plt Count 191 Sodium 141 Potassium 4.4 Creatinine 1.20 Estimated GFR 60 Fasting Glucose 102 H Calcium 9.4 AST 41 H ALT 28 Triglycerides 46 Cholesterol 189 LDL Cholesterol, Calc 105 H HDL Cholesterol 75 Vitamin B12 257 25-OH Vitamin D Total 47.7 TSH 4.00 Ur Specific Everly 1.015 Urine Protein 100 (2+) H Urine Glucose (UA) Negative Urine Blood Negative Urine Nitrite Negative Ur Leukocyte Esterase Negative Coding Level of Care Code Est Pt Level 4 (52433) Diagnoses Atrial fibrillation, unspecified type I48.91 Atrial fibrillation type: unspecified Chronic heart failure with preserved ejection fraction I50.32 Heart failure chronicity: chronic Pleural effusion, right J90 Benign essential hypertension I10 Pure hypercholesterolemia E78.00 Impaired fasting glucose R73.01 Hypokalemia E87.6 Vitamin D deficiency E55.9 Vitamin B12 deficiency E53.8 Elevated LFTs R79.89 Elevated TSH R79.89 Gait instability R26.81 Assessment & Plan Assessment & Plan (1) Atrial fibrillation: Comment: started in 2021 Code(s): I48.91 - Unspecified atrial fibrillation Category: Medical Qualifiers: Atrial fibrillation type: unspecified Qualified Code(s): I48.91 - Unsp ecified atrial fibrillation Plan: Patient is presently still in atrial fibrillation but he remains rate-controlled He was on Metoprolol ER in the past and this was discontinued due to prolonged/persistent bradycardia Continue Coumadin QD for thromboembolism prophylaxis; patient continues to follow up with the Coumadin clinic for PT/INR monitoring He has been advised of pacer therapy by cardiology for his recurrent bouts of slow heart rate, which are likely the reason for his orthostatic symptoms but patient declined - was advised to call cardiology back at any time if his symptoms progress and he wishes to proceed with pacemaker placement Have discussed with further with patient during his visit today to strongly reconsider his stance on getting a pacemaker - have explained to patient that he has been in persistent atrial fibrillation for a long time now and because of his persistent arrhythmia, along with his other comorbidities, he is at a high risk of developing other more dangerous arrhythmias and having a pacemaker can be potentially life-saving for him Patient states that he will give this some thought and discuss this further with cardiology at his upcoming appointment in a month or so (2) (HFpEF) heart failure with preserved ejection fraction: Code(s): I50.30 - Unspecified diastolic (congestive) heart failure Category: Medical Qualifiers: Heart failure chronicity: chronic Qualified Code(s): I50.32 - Chronic diastolic (congestive) heart failure Plan: Patient currently remains compensated Echocardiogram done on 06/07/22 revealed normal LV systolic function with mild LVH and normal EF, with moderately dilated right-sided chambers suggestive of a ri ght-sided heart failure Cardiac stress testing and myocardial perfusion study done in late 2021 all came out normal Repeat echocardiogram in November 2023 revealed normal LV systolic function with LVEF of 55-60%, moderately dilated left atrium, normal cardiac valvular dopplers, normal (upper limits) RV systolic pressure and no gross pericardial effusion Reinforced fluid restriction Continue Aldactone 12.5 mg QD His Bumetanide was HELD last year due to his recurrent dizziness and lightheadedness and patient states that his symptoms have improved since Bumetanide was held - this was discontinued formally by cardiology late last year Patient is reminded to continue monitoring his blood pressure regularly (3) Pleural effusion, right: Code(s): J90 - Pleural effusion, not elsewhere classified Category: Medical Plan: This was initially seen incidentally on abdominal US in May 2022 and was most likely related to his right-sided heart failure back then and should have gradually resolved with diuresis and control of his CHF Will repeat chest x-ray for follow up ONLY if needed (if he starts experiencing increasing SOB) (4) Benign essential hypertension: Code(s): I10 - Essential (primary) hypertension Category: Medical Plan: Reinforced low sodium diet - goal is systolic BP of at least 130 to 140 mm or less Continue Losartan 100 mg QD, Amlodipine 5 mg QD (Rx refilled) and Spironolactone 12.5 mg Q AM Bumetanide 1 mg was held last year due to increased dizziness and was eventually discontinued (5) Pure hypercholesterolemia: Code(s): E78.00 - Pure hypercholesterolemia, unspecified Category: Medical Plan: Results of his labs done last week reviewed and discussed with patient Reinforced low cholesterol diet Patient prefers to continue with diet modification at this time and avoid taking cholesterol-lowering medications as much as possible Will recheck his labs and fasting lipids in 4 months for follow up (6) Impaired fasting glucose: Code(s): R73.01 - Impaired fasting glucose Category: Medical Plan: HgbA1c was normal at 5.1%, 4.8%, 5.2% and 5.3% when previously checked Reinforced low calorie diet/exercise as tolerated He was previously started on Jardiance but patient stopped taking this last year when his last Rx ran out and does not wish to go back on it (7) Hypokalemia: Code(s): E87.6 - Hypokalemia Category: Medical Plan: Corrected - potassium level was normal at 4.4 on his recent labs Continue Potassium Chloride ER 20 meq every other day Will recheck his labs and serum electrolytes in 4 months for follow up (8) Vitamin D deficiency: Code(s): E55.9 - Vitamin D deficiency, unspecified Category: Medical Plan: Continue Vitamin D3 2000 units QD (9) Vitamin B12 deficiency: Code(s): E53.8 - Deficiency of other specified B group vitamins Category: Medical Plan: Have advised patient that his Vitamin B12 level has been persistently low despite his taking a Vitamin B complex daily Will recommend he start taking Vitamin B12 tablets 500 mcg QD Will recheck his Vitamin B12 level in a few months for follow up (10) Elevated LFTs: Code(s): R79.89 - Other specified abnormal findings of blood chemistry Category: Medical Plan: Resolved - his LFTs have remained normal on his recent labs Reinforced avoidance of alcohol and Tylenol-containing medications Abdominal US done a couple of years ago came out normal but incidentally revealed (+) right-sided pleural effusion that was most likely related to his right-sided heart failure (11) Elevated TSH: Code(s): R79.89 - Other specified abnormal findings of blood chemistry Category: Medical Plan: His serum TSH level also remained normal on his labs done last week Patient is asymptomatic and again appears clinically euthyroid Will continue to monitor his TFTs periodically (12) Gait instability: Code(s): R26.81 - Unsteadiness on feet Category: Medical Plan: He was previously referred to neurology for further evaluation and management but it does not look like he was ever seen by neurology Will refer him for now to physical therapy for gait assessment and training, if appropriate If PT is unable to help, will then consider referring him again to neurology Plan Follow up in 4 months Orders: Orders Complete Blood Count Auto Diff 4 Months D64.9 - Anemia, unspecified Comprehensive [place]. Panel Fast 4 Months E78.00 - Pure hypercholesterolemia, unspecified Lipid Panel 4 Months E78.00 - Pure hypercholesterolemia, unspecified Vitamin B12 and Folate 4 Months E53.8 - Deficiency of other specified B group vitamins TSH reflex Free T4 4 Months E78.00 - Pure hypercholesterolemia, unspecified UA CC w/rflx Micro + Cult 4 Months R30.0 - Dysuria Vitamin D 25-OH Total 4 Months E55.9 - Vitamin D deficiency, unspecified Medications: New warfarin 7.5 mg PO DAILY 90 tabs 3RF 90 days cyanocobalamin (vitamin B-12) 500 mcg PO DAILY 90 tabs 3RF 90 days Changed From amlodipine 5 mg PO DAILY 90 tabs 3RF To amlodipine 5 mg PO DAILY 90 tabs 3RF 90 days
== END 2025-07-31 09:58 | disposition home or self-care (01) ==
LOC: HO.HMCH 08:43
PROVIDERS: PCP Internal Medicine; Visit Provider Internal Medicine
DX: I48.91 Unspecified atrial fibrillation (principal); I50.32 Chronic diastolic (congestive) heart failure; J90 Pleural effusion, not elsewhere classified; I10 Essential (primary) hypertension; E78.00 Pure hypercholesterolemia, unspecified; R73.01 Impaired fasting glucose; E87.6 Hypokalemia; E55.9 Vitamin D deficiency, unspecified; E53.8 Deficiency of other specified B group vitamins; R79.89 Other specified abnormal findings of blood chemistry; R26.81 Unsteadiness on feet

== ENCOUNTER → 2025-07-31 08:43 | Outpatient (BNVA) | payer MEDICARE, SELFPAY | PROVIDERS: PCP Internal Medicine; Visit Provider Internal Medicine | DX: I48.91 Unspecified atrial fibrillation (principal); I11.0 Hypertensive heart disease with heart failure; I50.32 Chronic diastolic (congestive) heart failure; J90 Pleural effusion, not elsewhere classified; E78.00 Pure hypercholesterolemia, unspecified; R73.01 Impaired fasting glucose; E87.6 Hypokalemia; E55.9 Vitamin D deficiency, unspecified; E53.8 Deficiency of other specified B group vitamins; R79.89 Other specified abnormal findings of blood chemistry; R94.6 Abnormal results of thyroid function studies; R26.81 Unsteadiness on feet; Z79.01 Long term (current) use of anticoagulants; Z79.899 Other long term (current) drug therapy | CPT/HCPCS: 99212 ==

== ENCOUNTER 2025-08-22 08:13 | Outpatient (AMB) | payer MEDICARE, SELFPAY ==
--- NOTE | 2025-08-22 08:44 | MHC.OFFVISCO ---
Intake Intake Visit Reasons: Anticoagulation Allergies penicillin V Allergy (Unknown, Verified 08/22/25 08:30) Unknown Medication List - Last Reconciled 08/22/25 by Nan Saucedo RN amlodipine 5 mg PO DAILY 90 days [CBD inhalation] cholecalciferol (vitamin D3) 50 mcg PO DAILY 90 days cyanocobalamin (vitamin B-12) 500 mcg PO DAILY 90 days losartan 100 mg PO DAILY 90 days multivitamin 1 tab PO .ever other day potassium chloride ER 20 mEq PO DAILY 90 days spironolactone 12.5 mg (1/2 x 25 mg) PO DAILY 90 days vitamin B complex 1 tab PO .every other day warfarin 7.5 mg PO DAILY 90 days Nursing Note INR: 2.5 in therapeutic range Medications and supplements reviewed- using 5mg and 7.5mg tab now No changes in health, diet, medications, or supplements, Denies any signs and symptoms of bleeding or bruising or clotting. Bleeding, bruising, clotting discussed Nutritional guidance given Dose: keep same 5mg tue/ 7.5mg x 6 days F/U INR: 1 month Patient verbalizes understanding of instructions given Anti-Coag Initial Assessment Social Hx Patient Tobacco Use Status: Never used Tobacco alcohol intake: current Alcohol intake frequency: holidays/special occasions only Cardiovascular Hx: HTN and Arrhythmias (AFIB) Neurological Hx: Other (HX OF CONCUSSIONS(5)) Cancer HX: No Psych. Illness/Depression: No Coding Level of Care Code Est Patient Level 1 Diagnoses Current use of anticoagulant therapy Z79.01 Results AMB INR Fingerstick AMB INR Fingerstick 2.5 Last Edit by Nan Saucedo RN on 08/22/25 08:39 manual entry Assessment & Plan Assessment & Plan (1) Current use of anticoagulant therapy: Code(s): Z79.01 - buttermaker (current) use of anticoagulants Category: Medical Medications: New warfarin 5 mg See Protocol PO DAILY
[2025-08-22 08:56] LABS: Prothrombin Time Whole Bld POC 30.2 sec (11.1-13.5); ~PT, ~INR - Anti Coag Clinic 2.5 (0.9-1.1)
== END 2025-08-22 08:46 | disposition home or self-care (01) ==
LOC: HO.ACS 08:13
PROVIDERS: PCP Internal Medicine; Visit Provider Internal Medicine Medical Oncology
DX: Z79.01 Long term (current) use of anticoagulants (principal)

== ENCOUNTER → 2025-08-22 08:13 | Outpatient (BNVA) | payer MEDICARE, SELFPAY | PROVIDERS: PCP Internal Medicine; Visit Provider Internal Medicine Medical Oncology | DX: I48.19 Other persistent atrial fibrillation (principal); Z79.01 Long term (current) use of anticoagulants; Z51.81 Encounter for therapeutic drug level monitoring | CPT/HCPCS: 85610; 99211 ==

== ENCOUNTER 2025-08-25 08:55 | Outpatient (AMB) | payer MEDICARE, SELFPAY ==
[2025-08-25 09:11] VITALS: BP 140/72; PULSE 39; BMI 23.7
--- NOTE | 2025-08-25 09:11 | MHC.OFFVIS ---
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 Required: No Allergies penicillin V Allergy (Unknown, Verified 08/25/25 09:13) Unknown Medication List - Last Reconciled 08/25/25 by CALIN Soto amlodipine 5 mg PO DAILY 90 days [CBD inhalation] cholecalciferol (vitamin D3) 50 mcg PO DAILY 90 days cyanocobalamin (vitamin B-12) 500 mcg PO DAILY 90 days losartan 100 mg PO DAILY 90 days multivitamin 1 tab PO .ever other day potassium chloride ER 20 mEq PO DAILY 90 days spironolactone 12.5 mg (1/2 x 25 mg) PO DAILY 90 days warfarin 7.5 mg See Protocol PO DAILY 90 days warfarin 5 mg See Protocol PO DAILY HPI HPI 6 mth f/up: Details: Taj is a 69-year-old male with past medical history of HTN, HLD, imparied fasting glucose, diastolic HF, chronic atrial fibrillation with slow ventricular response, bradycardia who presents for follow up. Today he reports he is feeling very good. He is not having any concerning symptoms. He denies having lightheadedness, activity intolerance, fatigue, falls. He tells me he exercises daily including a 1.5 mi walk which he says he tolerates well. He denies chest discomfort, shortness of breath, leg edema. He is compliance with his meds and does not take any rate slowing agents. He tells me wants to avoid pacemaker placement since his sister and mother both had problems with implanted devices. [facility] Medical History (Updated 07/31/25 @ 09:39 by Beto Irizaryr MD) Vitamin B12 deficiency New onset a-fib Overweight (BMI 25.0-29.9) Atrial fibrillation Rhinophyma Obesity (BMI 30-39.9) Elevated LFTs Renal insufficiency Vitamin D deficiency Impaired fasting glucose Pure hypercholesterolemia Benign essential hypertension Surgical History No pertinent past surgical history Family History Father Hypertension Mother Medical history unknown Social History Household Members: None Housing: Apartment Do you presently have visiting nurse or other home services: No Alcohol intake: current Alcohol intake frequency: holidays/special occasions only Patient Tobacco Use Status: Never used Tobacco e-Cigarette/Vaping Use: Never Used Second Hand Smoke Exposure: Yes service: No Current occupational status: retired Current occupational exposures/hazards: No Cognitive needs: No Hearing needs: No Vision needs: Yes (Glasses) Review of Systems Const All systems reviewed & are unremarkable except as noted in HPI and below ENT Denies dizziness Card Denies chest pain, Denies chest pain at rest, Denies chest pain with activity, Denies rapid heart rate, Denies pedal edema, Denies edema, Denies leg edema, Denies lightheadedness, Denies palpitations, Denies dyspnea, Denies dyspnea on exertion and Denies orthopnea Resp Denies cough, Denies dyspnea and Denies dyspnea on exertion GI Denies hematochezia and Denies change in stool character Musc Denies abnormal gait, Denies limited range of motion, Denies muscle cramps, Denies muscle weakness, Denies numbness, Denies radiating pain into limb, Denies stiffness and Denies tingling Neuro Denies abnormal gait, Denies dizziness, Denies numbness and Denies tingling Endo Denies palpitations Physical Exam Vital Signs: Last Vital Signs Pulse 39 L 08/25/25 09:11 BP 140/72 H 08/25/25 09:11 BMI result Body Mass Index 23.7 Const General: cooperative, healthy appearing, comfortable and no acute distress Orientation/consciousness: patient oriented x3 Neck Neck: Yes normal visual inspection Resp Effort & Inspection: normal respiratory effort Auscultation: clear to auscultation bilaterally, no rales, no rhonchi and no wheezes Cardio Rate: bradycardic Rhythm: abnormal rhythm Heart sounds: S1 normal heart sound present, S2 normal heart sound present, no murmurs and no rubs Neuro General: patient oriented x3 Extrem General: Yes normal to inspection, No no pedal edema and No calf tenderness Psych Appearance: grossly normal Mental Status: mental status grossly normal Speech and movement: Normal speech and movement present Office Procedures EKG Details: Today, read by me, atrial fibrillation with slow ventricular response, rate 39, Qtc 404ms [id number], Complete Assessment & Plan Assessment & Plan (1) Atrial fibrillation: Comment: started in 2021 Code(s): I48.91 - Unspecified atrial fibrillation Category: Medical Qualifiers: Atrial fibrillation type: unspecified Qualified Code(s): I48.91 - Unspecified atrial fibrillation Plan: Chronic. Not on rate slowing agents. EKG done today showing atrial fibrillation, slow ventricular response, rate 39, asymptomatic. I had him ambulate in the abdi with an O2 sat monitor in use and his pulse rate went from 44 at rest up to 58 with walking the length of our hallway and back. He is not interested in Holter monitor. On coumadin for anticoagulation, INR goal 2-3. Follows at [facility] anticoagulation clinic. (2) Bradycardia: Code(s): R00.1 - Bradycardia, unspecified Category: Medical Plan: Asymptomatic. Declines holter. (3) Benign essential hypertension: Code(s): I10 - Essential (primary) hypertension Category: Medical Plan: Goal < 130/80. Well controlled at this time. No med changes Plan During the consultation, we discussed the patient's atrial fibrillation and bradycardia, emphasizing the importance of monitoring symptoms such as lightheadedness or dizziness. The potential need for a pacemaker was addressed, with the decision to defer unless symptoms develop. Follow-up is planned in six months, with instructions to seek immediate care if symptoms arise. Patient Instructions: - Monitor for symptoms such as lightheadedness, dizziness, or extreme fatigue. - Seek immediate medical attention if experiencing any concerning symptoms. - Follow up in six months or sooner if symptoms develop. Patient was informed and verbally consented to the use of an ambient scribe for clinic note documentation during this visit. Visit time spent on chart review, interview, assessment, orders, documentation. Coding Level of Care Code Est Pt Level 4 (34625) Complex EM visit Add On G2211 Diagnoses Atrial fibrillation, unspecified type I48.91 Atrial fibrillation type: unspecified Bradycardia R00.1 Benign essential hypertension I10 CPT Codes EKG - CPT: 80910-[id number], Complete ([id number]) Time Spent (min) 28
== END 2025-08-25 09:40 | disposition home or self-care (01) ==
LOC: HO.HCS 08:56
PROVIDERS: PCP Internal Medicine; Visit Provider Nurse Practitioner Family
DX: I48.91 Unspecified atrial fibrillation (principal); R00.1 Bradycardia, unspecified; I10 Essential (primary) hypertension
CPT/HCPCS: 93010; 99214; G2211

== ENCOUNTER → 2025-08-25 08:55 | Outpatient (BNVA) | payer MEDICARE, SELFPAY | PROVIDERS: PCP Internal Medicine; Visit Provider Nurse Practitioner Family | DX: I48.91 Unspecified atrial fibrillation (principal); R00.1 Bradycardia, unspecified; I10 Essential (primary) hypertension | CPT/HCPCS: 93005; 99212 ==

== ENCOUNTER 2025-09-19 08:50 | Outpatient (AMB) | payer MEDICARE, SELFPAY ==
[2025-09-19 08:56] LABS: Prothrombin Time Whole Bld POC 32.2 sec (11.1-13.5); ~PT, ~INR - Anti Coag Clinic 2.7 (0.9-1.1)
--- NOTE | 2025-09-19 09:01 | MHC.OFFVISCO ---
Intake Intake Visit Reasons: Anticoagulation Allergies penicillin V Allergy (Unknown, Verified 09/19/25 08:50) Unknown Medication List - Last Reconciled 09/19/25 by Nan Saucedo RN amlodipine 5 mg PO DAILY 90 days [CBD inhalation] cholecalciferol (vitamin D3) 50 mcg PO DAILY 90 days cyanocobalamin (vitamin B-12) 500 mcg PO DAILY 90 days losartan 100 mg PO DAILY 90 days multivitamin 1 tab PO .ever other day potassium chloride ER 20 mEq PO DAILY 90 days spironolactone 12.5 mg (1/2 x 25 mg) PO DAILY 90 days warfarin 7.5 mg See Protocol PO DAILY 90 days warfarin 5 mg See Protocol PO DAILY Nursing Note INR: 2.7 in therapeutic range Medications and supplements reviewed No changes in health, diet, medications, or supplements, Denies any signs and symptoms of bleeding or bruising or clotting. Bleeding, bruising, clotting discussed Nutritional guidance given Dose: 5mg x 1 day/ 7.5mg x 6 days F/U INR: 4 weeks Patient verbalizes understanding of instructions given Anti-Coag Initial Assessment Social Hx Patient Tobacco Use Status: Never used Tobacco alcohol intake: current Alcohol intake frequency: holidays/special occasions only Cardiovascular Hx: HTN and Arrhythmias (AFIB) Neurological Hx: Other (HX OF CONCUSSIONS(5)) Cancer HX: No Psych. 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
== END 2025-09-19 09:02 | disposition home or self-care (01) ==
LOC: HO.ACS 08:50
PROVIDERS: PCP Internal Medicine; Visit Provider Internal Medicine Medical Oncology
DX: Z79.01 Long term (current) use of anticoagulants (principal)

== ENCOUNTER → 2025-09-19 08:50 | Outpatient (BNVA) | payer MEDICARE, SELFPAY | PROVIDERS: PCP Internal Medicine; Visit Provider Internal Medicine Medical Oncology | DX: Z79.01 Long term (current) use of anticoagulants (principal) | CPT/HCPCS: 85610; 99211 ==

== ENCOUNTER 2025-10-17 08:11 | Outpatient (AMB) | payer MEDICARE, SELFPAY ==
[2025-10-17 08:52] LABS: Prothrombin Time Whole Bld POC 34.2 sec (11.1-13.5); ~PT, ~INR - Anti Coag Clinic 2.9 (0.9-1.1)
--- NOTE | 2025-10-17 08:58 | MHC.OFFVISCO ---
Intake Intake Visit Reasons: Anticoagulation Allergies penicillin V Allergy (Unknown, Verified 10/17/25 08:46) Unknown Medication List - Last Reconciled 10/17/25 by Nan Saucedo RN amlodipine 5 mg PO DAILY 90 days [CBD inhalation] cholecalciferol (vitamin D3) 50 mcg PO DAILY 90 days cyanocobalamin (vitamin B-12) 500 mcg PO DAILY 90 days losartan 100 mg PO DAILY 90 days multivitamin 1 tab PO .ever other day potassium chloride ER 20 mEq PO DAILY 90 days spironolactone 12.5 mg (1/2 x 25 mg) PO DAILY 90 days warfarin 7.5 mg See Protocol PO DAILY 90 days warfarin 5 mg See Protocol PO DAILY Nursing Note INR: 2.9 in therapeutic range- May have not taken the 5mg tab q monday Medications and supplements reviewed No changes in health, diet, medications, or supplements, Denies any signs and symptoms of bleeding or bruising or clotting. Bleeding, bruising, clotting discussed Nutritional guidance given Dose: 5MG X 1 DAYS/ 7.5MG X 6 DAYS F/U INR: 1MONTH Patient verbalizes understanding of instructions given Anti-Coag Initial Assessment Social Hx Patient Tobacco Use Status: Never used Tobacco alcohol intake: current Alcohol intake frequency: holidays/special occasions only Cardiovascular Hx: HTN and Arrhythmias (AFIB) Neurological Hx: Other (HX OF CONCUSSIONS(5)) Cancer HX: No Psych. Illness/Depression: No Coding Level of Care Code Est Patient Level 1 Diagnoses Current use of anticoagulant therapy Z79.01 Results AMB INR Fingerstick AMB INR Fingerstick 2.9 Last Edit by Nan Saucedo RN on 10/17/25 08:53 MANUAL ENTRY Assessment & Plan Assessment & Plan (1) Current use of anticoagulant therapy: Code(s): Z79.01 - alf (current) use of anticoagulants Category: Medical
== END 2025-10-17 09:00 | disposition home or self-care (01) ==
LOC: HO.ACS 08:11
PROVIDERS: PCP Internal Medicine; Visit Provider Internal Medicine Medical Oncology
DX: Z79.01 Long term (current) use of anticoagulants (principal)

== ENCOUNTER → 2025-10-17 08:11 | Outpatient (BNVA) | payer MEDICARE, SELFPAY | PROVIDERS: PCP Internal Medicine; Visit Provider Internal Medicine Medical Oncology | DX: I48.19 Other persistent atrial fibrillation (principal); Z79.01 Long term (current) use of anticoagulants; Z51.81 Encounter for therapeutic drug level monitoring | CPT/HCPCS: 85610; 99211 ==